=== PATIENT | female | born 1970 | race Caucasian/White ===

== ENCOUNTER 2018-11-11 19:04 | Inpatient (IN) ==
--- NOTE | 2018-11-11 19:58 | Internal Med History&Physical ---
Medical - H&P: HPI Patient information: Note initiated : 11/11/18 at 7:56 pm Service Date, if different from initiated Date: [] Patient: Delores Jones a 48 y/o F admitted on for hypoxic respiratory failure;hypertensive emergency. Chief Complaint: [] History of present illness: Ms. Jones is a 48 year old F who presents to [facility] for hypoxia. She is found to have sats in the low 80s. She was started on oxygen about a week ago. She also has a history of CHF and diabetes with gastroparesis and uncontrolled hypertension. She has been missing some of her meds because of cost. She does not have insurance at this time and has been trying to pay for her medications out of pocket. In the ED at [facility] she had a chest x-ray which showed pulmonary edema although her past x-rays that showed pulmonary edema as well. ABG showed hypoxia CO2 was 40 and pH was within normal limits. She also was hypertensive at 219/101. Case was discussed with Dr. Amaya and because [facility] currently does not have hemodialysis availability patient was requested and transferred over to [facility]. Patient states that she went into see her primary care provider on for routine visit and primary care provider noticed that she had labored breathing took her pulse and it was in the 80s. Low 80s. She sent over to the ER where she was evaluated she had a chest x-ray done which as best I can gather may be showed some edema but was not significant. She is supposed to get oxygen the but had not arrived. she presented back to the ED today because of severe labored breathing socks measured 80 per . In the ED she had chest x-ray which showed increased pulmonary edema. Patient denies recent illnesses and does not have a cough. Denies headache. Patient has had a hard time with medication because of cost and lack of insurance and has not been taking some and is been taking extra clonidine. Patient reports gives her 0.6 mg grams of clonidine almost every 2 hours. states her blood pressure runs about 190 at home occasionally will get down to 175. She did have renal artery angiogram in 2016 which was unremarkable by Dr. Gorman. She also reports some swelling in her legs this week as well. She is to have swelling in her legs prior to hemodialysis but the swelling had improved once hemodialysis started. However she has noticed it this week. Review of Systems: Pertinent positives as above. Denies headache/fever/chills/nausea/vomiting/c hest or abdominal pain/cough/diarrhea. Remaining 10 point review of system reviewed negative Medical - H&P: PMH Medical history: Medical History Diabetes with gastroparesis and retinopathy Hypertension uncontrolled Diastolic heart failure End-stage renal disease with dialysis Monday follows with Dr. Amaya Anemia of chronic disease Did have angiography of the renal arteries Dr. Gorman 2005 which was unremarkable GERD Past Surgical History History of surgery (Chronic 07/27/16) History of tubal ligation (Chronic 06/26/99) Cholecystectomy Appendectomy Left upper extremity AV fistula Family History Sister Diabetes mellitus She was adopted and does not know her parents history Social History Quit smoking in 2018 Denies alcohol use Is marijuana Medical - H&P: Meds Home Medications Medication Instructions Recorded Confirmed Type amlodipine 10 mg tablet 10 mg PO QDAY 10/18/16 10/18/16 History atorvastatin 10 mg tablet 10 mg PO QDAY 10/18/16 10/18/16 History blood sugar diagnostic strips See Dose Instructions .ROUTE 10/18/16 10/18/16 History .MEDSUPPLY carvedilol 12.5 mg tablet 12.5 mg PO QDAY tab 10/18/16 10/18/16 History insulin U- 100 regular human 100 See Rx Instructions SUB-Q .COMPLEX 10/18/16 10/18/16 History unit/mL injection solution insulin glargine (U- 100) 100 50 unit SUB-Q .COMPLEX ml 10/18/16 10/18/16 History unit/mL subcutaneous solution metoclopramide 5 mg tablet 10 mg PO QID tab 10/18/16 10/18/16 History sertraline 25 mg tablet 25 mg PO QDAY 10/18/16 10/18/16 History torsemide 20 mg tablet 20 mg PO QDAY 10/18/16 10/18/16 History vitamin B complex PO QDAY 10/18/16 10/18/16 History Allergies Allergy/AdvReac Type Severity Reaction Status Date / Time aspirin Allergy Unknown Swelling Verified 11/11/18 20:27 wild game AdvReac Uncoded 11/11/18 20:28 Medical - H&P: Exam - Constitutional Exam: General: Alert, Awake, No acute Distress Eyes/N/T: EOMI, PEERL, DMM Head/Neck: neck supple, normocephalic atraumatic, JVD CV: RRR, 3/6 SM Pulm: Bilateral rales, no wheezing Abd: soft, nontender, +BS x4 Ext: no clubbing/cyanosis, 1+ b/l LE edema Neuro: Alert, no focal deficits, moves all extremities, CN 2-12 grossly intact, symmetrical strength b/l upper/lower, sensations intact b/l upper/lower Skin: warm/dry Medical - H&P: Reslt - Impressions Chest x-ray was reported to be as showing pulmonary edema, I do not have the images or the actual report Medical - H&P: A/P - Narrative A/P Narrative: A: *Acute on chronic hypoxic respiratory failure: *Pulmonary edema: *acute on chronic diastolic CHF: *Hypertensive urgency (h/o uncontrolled HTN 2/2 medication noncompliance from lack of insurance and cost of coverage): -Had renal artery angiography in [address] Gorman which showed no YASMIN *ESRD: Follows with Dr. Amaya *Diabetes with gastroparesis: *Anemia of CD: *GERD * P: -HD per Jose Luis -restart home BP meds; prn clonidine and hydralazine -echo -cont home diuretics -clarify home meds -insulin and SSI - -ppx: heparin/home h2
[2018-11-11] MEDS ORDERED: IPRATROPIUM/ALBUTEROL 3 ML AMPUL.NEB NEB PRN (20:06)
[2018-11-11] MEDS ORDERED: NITROGLYCERIN 1 GM OINT.TOP TD ONE (20:06)
[2018-11-11] MEDS ORDERED: ACETAMINOPHEN 325 MG TABLET PO PRN (20:06)
[2018-11-11] MEDS ORDERED: PROMETHAZINE 25 MG TABLET PO PRN (20:06)
[2018-11-11] MEDS ORDERED: LACTULOSE 20 GM/30 ML ORAL.SOL PO PRN (20:06)
[2018-11-11] MEDS ORDERED: POLYETHYLENE GLYCOL 3350 17 GM PACKET PO PRN (20:06)
[2018-11-11] MEDS ORDERED: DEXTROSE 50% 50 ML VIAL IV PRN (20:06)
[2018-11-11] MEDS ORDERED: DEXTROSE 31 GM ORAL.SUSP PO PRN (20:06)
[2018-11-11] MEDS: hydrALAZINE 20 MG/ML VIAL IV PRN (20:46)
[2018-11-11] MEDS ORDERED: SENNOSIDES 1 TABLET PO PRN (21:00)
[2018-11-11] MEDS: INSULIN LISPRO 1 UNIT/0.01 ML UNIT SQ SCH (21:41)
[2018-11-11] MEDS: 0.9 % SODIUM CHLORIDE 10 ML SYRINGE IV SCH (21:42)
[2018-11-11] MEDS: HEPARIN 5,000 UNIT/ML VIAL SQ SCH (22:00)
[2018-11-11] MEDS: DOCUSATE SODIUM 100 MG CAPSULE PO SCH (22:00)
[2018-11-11] MEDS: cloNIDine HCL 0.1 MG TABLET PO PRN (22:00)
[2018-11-11] MEDS: FAMOTIDINE 20 MG TABLET PO SCH (22:00)
[2018-11-11] MEDS ORDERED: LORazepam 2 MG/ML VIAL IV PRN (22:19)
[2018-11-11] MEDS ORDERED: LORazepam 2 MG/ML VIAL ONE (22:37)
[2018-11-12] MEDS: cloNIDine HCL 0.1 MG TABLET PO PRN ×2 (00:45→19:43)
[2018-11-12] MEDS: hydrALAZINE 20 MG/ML VIAL IV PRN ×6 (01:20→23:56)
[2018-11-12] MEDS ORDERED: MAGNESIUM SULFATE 8.12 MEQ in DEXTROSE 5% IN WATER 50 ML IV ONE (01:55)
[2018-11-12 02:43] LABS: Basophils # (Auto) 0 K/mcL (0.0-0.3); Basophils % (Auto) 0.1 % (0.0-2.0); Eosinophils # (Auto) 1.1 K/mcL (0.0-0.7); Granulocytes % (Auto) 68.8 % (38.0-78.0); Lymphocytes # (Auto) 1.3 K/mcL (1.5-4.8); Lymphocytes % (Auto) 13.3 % (15.5-49.0); Mean Cell Volume 80.4 fL (80.0-100.0); Mean Corpuscular HGB Conc 32.7 g/dL (31.0-36.0); Monocytes # (Auto) 0.7 K/mcL (0.1-0.9); Monocytes % (Auto) 6.8 % (1.0-12.0); Platelet Count 313 K/mcL (140-440); RBC 3.51 M/mcL (4.00-5.20); Red Cell Distribution Width 16.4 % (11.5-14.5)
[2018-11-12 03:10] LABS: ALT/SGPT 8 U/l (0-40); Albumin 3.5 gm/dL (3.2-5.2); Alkaline Phosphatase 126 U/L (39-117); Bilirubin,Direct < 0.2 mg/dL (0.0-0.3); Blood Urea Nitrogen 45 mg/dl (6-20); Gamma Glutamyl Transpeptidase 40 U/L (5-36); Uric Acid 4.6 mg/dL (2.5-8.0)
[2018-11-12] MEDS: 0.9 % SODIUM CHLORIDE 10 ML SYRINGE IV SCH ×3 (05:45→21:18)
[2018-11-12 06:46] LABS: Hemoglobin A1C 7.2 % HGB (4.0-6.0)
[2018-11-12] MEDS: METOCLOPRAMIDE 10 MG TABLET PO SCH ×4 (06:55→21:12)
--- NOTE | 2018-11-12 07:27 | Internal Med Progress Note ---
Medical - PN: Subj Patient information: Note initiated : 11/12/18 at 7:21 am Service Date, if different from initiated Date: [] Patient: Delores Jones 48 y/o F admitted on 11/11/18 for hypoxic respiratory failure;hypertensive emergency. Chief Complaint: [] Interval history: Ms. Jones is a 48 year old F who presents to [facility] for hypoxia. She is found to have sats in the low 80s. She was started on oxygen about a week ago. She also has a history of CHF and diabetes with gastroparesis and uncontrolled hypertension. She has been missing some of her meds because of cost. She does not have insurance at this time and has been trying to pay for her medications out of pocket. In the ED at [facility] she had a chest x-ray which showed pulmonary edema although her past x-rays that showed pulmonary edema as well. ABG showed hypoxia CO2 was 40 and pH was within normal limits. She also was hypertensive at 219/101. Case was discussed with Dr. Amaya and because [facility] currently does not have hemodialysis availability patient was requested and transferred over to [facility]. Patient states that she went into see her primary care provider on for routine visit and primary care provider noticed that she had labored breathing took her pulse and it was in the 80s. Low 80s. She sent over to the ER where she was evaluated she had a chest x-ray done which as best I can gather may be showed some edema but was not significant. She is supposed to get oxygen the next day but had not arrived. she presented back to the ED today because of severe labored breathing socks measured 80 per . In the ED she had chest x-ray which showed increased pulmonary edema. Patient denies recent illnesses and does not have a cough. Denies headache. Patient has had a hard time with medication because of cost and lack of insurance and has not been taking some and is been taking extra clonidine. Patient reports gives her 0.6 mg grams of clonidine almost every 2 hours. states her blood pressure runs about 190 at home occasionally will get down to 175. She did have renal artery angiogram in 2016 which was unremarkable by Dr. Gorman. She also reports some swelling in her legs this week as well. She is to have swelling in her legs prior to hemodialysis but the swelling had improved once hemodialysis started. However she has noticed it this week. 11/12 Although tired, feeling much better. Denies any shortness of breath at rest. No new complaints overnight events. She was hemodialyzed last night with -3 L. Will receive dialysis today. Review of Systems: denies headache/fever/chills/nausea/vomiting/chest or abdominal pain/cough/diarrhea. Otherwise see above. - Constitutional Vitals: Vital Signs Temp Pulse Resp BP Pulse Ox 99.2 F H 61 19 189/77 90 11/12/18 04:01 11/12/18 07:01 11/12/18 07:01 11/12/18 07:01 11/12/18 07:03 Period Temp Pulse Resp BP Sys/Infante Pulse Ox Last 24 Hr 97.8 F-99.2 F 54-71 14-30 159-201/70-94 80-100 Intake and Output 11/11/18 11/12/18 11/12/18 21:59 05:59 13:59 Output Total 3025 Balance -3025 Weight 62.006 kg Intake & Output: Intake & Output 11/11/18 11/12/18 11/12/18 21:59 05:59 13:59 Output Total 3025 Balance -3025 Weight 62.006 kg Output: Void Amount 25 Hemodialysis UF 3000 Other: Nourishment/Supplement name sandwich and cheese stick Stool Size Moderate Stool Color Brown Stool Consistency Dry and Hard # Bowel Movements 1 Exam: General: Alert, Awake, No acute Distress Eyes/N/T: EOMI, Head/Neck: neck supple, CV: RRR, 3/6 SM Pulm: No rales today, no wheezing Abd: soft, nontender, +BS x4 Ext: no clubbing/cyanosis, mild b/l LE edema Neuro: Alert, no focal deficits, moves all extremities, Skin: warm/dry Medical - PN: Obj Da - Labs CBC & Chem 7: 11/12/18 01:55 11/12/18 01:55 Labs: Abnormal Lab Results 11/12/18 11/12/18 11/12/18 02:00 01:55 01:55 RBC 3.51 L Hgb 9.2 L Hct 28.2 L RDW 16.4 H Lymph % (Auto) 13.3 L Eos % (Auto) 11.0 H Lymph # (Auto) 1.3 L Eos # (Auto) 1.1 H Chloride 92 L BUN 45 H Creatinine 5.2 H* Glucose 308 H Hemoglobin A1c 7.2 H Calcium 8.2 L Phosphorus 6.0 H* GGT 40 H Alkaline Phosphatase 126 H Triglycerides 160 H Meds: Medications Acetaminophen (Tylenol) 650 mg PO Q6HP PRN PRN Reason: PAIN/FEVER > 101 Albuterol/Ipratropium (Duoneb) 3 ml NEB Q4HP PRN PRN Reason: Shortness Of Breath Amlodipine Besylate (Norvasc) 10 mg PO QDAY [facility] Atorvastatin Calcium (Lipitor) 10 mg PO QDAY [facility] Carvedilol (Coreg) 12.5 mg [facility] Last Admin: 11/12/18 06:55 Dose: 12.5 mg Documented by: Clonidine HCl (Catapres) 0.1 mg PO Q8HP PRN PRN Reason: Hypertension SBP>170 Last Admin: 11/12/18 00:45 Dose: 0.1 mg Documented by: Dextrose (Dextrose 50%) 0 ml IV UD PRN PRN Reason: Hypoglycemia Diagnostic Test (Pha) (Accu-Chek) 1 each FS [facility] Last Admin: 11/12/18 06:55 Dose: 1 each Documented by: Docusate Sodium (Colace) 100 mg PO BID [facility] Last Admin: 11/11/18 22:00 Dose: 100 mg Documented by: Famotidine (Pepcid) 20 mg PO HS [facility] Last Admin: 11/11/18 22:00 Dose: 20 mg Documented by: Glucose (Insta-Glucose) 15 gm PO PRN PRN PRN Reason: Hypoglycemia Heparin Sodium (Porcine) (Heparin) 5,000 unit SQ Q12 [facility] Last Admin: 11/11/18 22:00 Dose: 5,000 unit Documented by: Hydralazine HCl (Apresoline) 10 mg IV Q4-6HP PRN PRN Reason: Hypertension spb>170 Last Admin: 11/12/18 01:20 Dose: 10 mg Documented by: Insulin Glargine (Lantus) 50 unit SQ .COMPLEX [facility] Insulin Human Lispro (Humalog) 0 unit SQ [facility]; Protocol Last Admin: 11/11/18 21:41 Dose: 12 unit Documented by: Lactulose (Cephulac) 10 gm PO DAILYP PRN PRN Reason: Constipation Lorazepam (Ativan) 0.5 mg IV Q8HP PRN PRN Reason: ANXIETY/SEDATION Metoclopramide HCl (Reglan) 10 mg IV Q6HP PRN PRN Reason: Nausea And Vomiting Metoclopramide HCl (Reglan) 10 mg PO ACHS [facility] Last Admin: 11/12/18 06:55 Dose: 10 mg Documented by: Ondansetron HCl (Zofran) 4 mg IV Q4HP PRN PRN Reason: Nausea And Vomiting Polyethylene Glycol (Miralax) 17 gm PO DAILYP PRN PRN Reason: Constipation Promethazine HCl (Phenergan) 0 mg PO Q6HP PRN PRN Reason: Nausea And Vomiting Senna (Senokot) 2 tab PO HSP PRN PRN Reason: Constipation Sodium Chloride (Saline Flush) 10 ml IV Q8 [facility] Last Admin: 11/12/18 05:45 Dose: 10 ml Documented by: Medical - PN: A/P - Time Spent With Patient Total time spent is greater than 50% in coordination of care (as documented) at patient's floor/unit and/or counseling patient: - Narrative A/P Narrative: A: *Acute on chronic hypoxic respiratory failure: -was supposed to start on oxygen at home, but device did not arrive -on 4L NC when arrived, now down to 1L (had HD last night) -Improved overnight after dialysis with net negative balance of 3 L *Pulmonary edema: improved *acute on chronic diastolic CHF: -updated echo showing *Hypertensive urgency (h/o uncontrolled HTN 2/2 medication noncompliance from lack of insurance and cost of coverage): -Had renal artery angiography in [address] Gorman which showed no YASMIN -pt states SBP at home ~190 *ESRD: Follows with Dr. Amaya *Diabetes with gastroparesis: A1c 7.2 *Anemia of CD: *GERD * P: -HD per Jose Luis -restart home BP meds; prn clonidine and hydralazine, increase coreg -echo -cont home diuretics -clarify home meds -insulin and SSI - -ppx: SCD (refusing heparin)/home h2 Medical - PN: Qual - Stroke Symptom Onset Unknown: No - VTE Deep Vein Thrombosis/Pulmonary Embolism Present on Admission: No
[2018-11-12] MEDS: INSULIN LISPRO 1 UNIT/0.01 ML UNIT SQ SCH ×4 (07:46→21:09)
[2018-11-12] MEDS ORDERED: CARVEDILOL 12.5 MG TABLET PO SCH (08:00)
[2018-11-12] MEDS: DOCUSATE SODIUM 100 MG CAPSULE PO SCH ×2 (08:15→21:12)
[2018-11-12] MEDS: amLODIPine 10 MG TABLET PO SCH (08:15)
[2018-11-12] MEDS: HEPARIN 5,000 UNIT/ML VIAL SQ SCH ×2 (08:18→21:09)
[2018-11-12] MEDS: ATORVASTATIN 20 MG TABLET PO SCH (08:28)
--- NOTE | 2018-11-12 08:46 | XRay Report ---
CLINICAL INFORMATION: f/u edema COMPARISON: None. FINDINGS: The heart is moderately enlarged. Mediastinum is unremarkable. Pulmonary vessels are moderately distended and there is minimal interstitial edema throughout both lungs. Minimal patchy airspace disease noted in the left mid and right lower lung is more likely atelectasis than infiltrate or edema. Small bilateral pleural effusions noted. IMPRESSION: Mild/moderate CHF. Moderate disease in the left mid and right lung base - most likely atelectasis Interpreted and Authenticated by: Ovidio Gimenez 11/12/18
[2018-11-12] MEDS ORDERED: INSULIN GLARGINE, HUMAN 1 UNIT/0.01 ML SQ SCH (09:00)
[2018-11-12] MEDS ORDERED: CARVEDILOL 12.5 MG TABLET PO ONE (09:45)
--- NOTE | 2018-11-12 11:54 | Discharge Summary ---
Medical - DS: Prov Patient information: Note initiated : 11/12/18 at 11:51 am Service Date, if different from initiated Date: [] Patient: Delores Jones 48 y/o F admitted on 11/11/18 for hypoxic respiratory failure;hypertensive emergency. Chief Complaint: [] Date of admission: 11/11/18 19:58 Discharge date: 11/13/18 Primary care physician: Pauline Espana Consults: 11/11/18 20:06 Consult to Physician [CONS] Routine Comment: Consulting Provider: Teddy Amaya Reason For Exam: Physician to Consult Medical - DS: Meds - Discharge Medications Active and Home Medications: Home Medications amlodipine 10 mg tablet 10 mg PO QDAY 10/18/16 [History Confirmed 11/11/18 Last Taken 11/11/18 06:00] atorvastatin 10 mg tablet 10 mg PO QDAY 10/18/16 [History Confirmed 11/11/18 Last Taken Unknown] blood sugar diagnostic strips See Dose Instructions .ROUTE .MEDSUPPLY 10/18/16 [History Confirmed 11/11/18 Last Taken Unknown] carvedilol 12.5 mg tablet 25 mg PO BID tab 10/18/16 [History Confirmed 11/12/18 Last Taken 11/11/18 06:00] metoclopramide 5 mg tablet 10 mg PO QID tab 10/18/16 [History Confirmed 11/11/18 Last Taken 11/11/18 06:00] Basaglar Kwikpen U-100 25 unit SQ QAM 11/11/18 [History Confirmed 11/11/18 Last Taken 11/10/18 06:00] Lisinopril [Zestril] 40 mg PO DAILY 11/11/18 [History Confirmed 11/11/18 Last Taken 11/10/18 21:00] Minoxidil 5 mg PO BID 11/11/18 [History Confirmed 11/12/18 Last Taken Unknown] Novolog Flexpen See Protocol SQ ACHS 11/11/18 [History Confirmed 11/12/18 Last Taken 11/10/18 13:00] cloNIDine [Catapres-Tts 1] 0.3 mg TD WEEKLY 11/11/18 [History Confirmed 11/11/18 Last Taken 11/07/18 06:00] Medical - DS: Hosp Hospital course: Ms. Jones is a 48 year old F who presents to [facility] for hypoxia. She is found to have sats in the low 80s. She was started on oxygen about a week ago. She also has a history of CHF and diabetes with gastroparesis and uncontrolled hypertension. She has been missing some of her meds because of cost. She does not have insurance at this time and has been trying to pay for her medications out of pocket. In the ED at [facility] she had a chest x-ray which showed pulmonary edema although her past x-rays that showed pulmonary edema as well. ABG showed hypoxia CO2 was 40 and pH was within normal limits. She also was hypertensive at 219/101. Case was discussed with Dr. Amaya and because [facility] currently does not have hemodialysis availability patient was requested and transferred over to [facility]. Patient states that she went into see her primary care provider on for routine visit and primary care provider noticed that she had labored breathing took her pulse and it was in the 80s. Low 80s. She sent over to the ER where she was evaluated she had a chest x-ray done which as best I can gather may be showed some edema but was not significant. She is supposed to get oxygen the next day but had not arrived. she presented back to the ED today because of severe labored breathing socks measured 80 per . In the ED she had chest x-ray which showed increased pulmonary edema. Patient denies recent illnesses and does not have a cough. Denies headache. Patient has had a hard time with medication because of cost and lack of insurance and has not been taking some and is been taking extra clonidine. Patient reports gives her 0.6 mg grams of clonidine almost every 2 hours. states her blood pressure runs about 190 at home occasionally will get down to 175. She did have renal artery angiogram in 2016 which was unremarkable by Dr. Gorman. She also reports some swelling in her legs this week as well. She is to have swelling in her legs prior to hemodialysis but the swelling had improved once hemodialysis started. However she has noticed it this week. 11/12 Although tired, feeling much better. Denies any shortness of breath at rest. No new complaints overnight events. She was hemodialyzed last night with -3 L. Will receive dialysis today. Discharge diagnosis: Hypoxic respiratory failure pulmonary edema heart failure renal failure Secondary discharge diagnosis: Hypertensive urgency anemia chronic disease - Time Spent with Patient Total time spent providing and/or coordinating discharge services: Greater than 30 minutes Medical - DS: Exam - Constitutional Vitals: Vital Signs Temp Pulse Pulse Resp BP BP Pulse Ox 11/12/18 11:45 61 179/76 11/12/18 11:30 99.5 F H 62 179/70 11/12/18 11:15 62 184/75 11/12/18 11:00 63 174/74 11/12/18 10:45 63 178/79 11/12/18 10:30 61 183/74 11/12/18 10:15 61 179/75 11/12/18 10:00 99.3 F H 62 178/75 11/12/18 09:01 61 16 155/62 95 11/12/18 09:00 62 17 94 11/12/18 08:50 62 16 149/58 95 11/12/18 08:02 62 15 97 11/12/18 08:01 63 20 202/80 97 11/12/18 08:00 63 20 98 11/12/18 07:03 90 11/12/18 07:02 62 19 95 11/12/18 07:01 61 19 189/77 94 11/12/18 07:00 60 15 94 11/12/18 06:02 71 17 92 11/12/18 06:01 64 15 192/88 93 11/12/18 06:00 65 15 93 11/12/18 05:02 66 15 97 11/12/18 05:01 66 15 183/70 96 11/12/18 05:00 65 16 95 11/12/18 04:01 99.2 F H 61 20 178/76 93 11/12/18 04:00 61 17 87 L 11/12/18 03:31 62 16 174/81 95 11/12/18 03:01 61 16 170/80 95 11/12/18 03:00 59 L 96 11/12/18 02:31 59 L 16 172/73 97 11/12/18 02:01 60 18 159/94 96 11/12/18 02:00 95 11/12/18 01:46 60 16 164/70 96 11/12/18 01:31 59 L 17 179/75 95 11/12/18 01:16 60 19 193/78 94 11/12/18 01:01 98.4 F 60 19 186/86 95 11/12/18 01:00 60 14 94 11/12/18 00:46 57 L 14 194/85 96 11/12/18 00:40 98.3 F 54 L 171/82 11/12/18 00:31 55 L 15 172/81 99 11/12/18 00:29 54 L 15 171/82 98 11/12/18 00:16 54 L 17 169/78 100 11/12/18 00:02 98.5 F 55 L 163/82 11/12/18 00:01 55 L 15 163/82 98 11/12/18 00:00 55 L 15 99 11/11/18 23:46 56 L 16 177/79 99 11/11/18 23:43 98.5 F 56 L 177/79 11/11/18 23:31 58 L 14 167/78 97 11/11/18 23:30 58 L 16 177/79 97 11/11/18 23:27 98.4 F 58 L 177/79 11/11/18 23:16 59 L 17 188/78 95 11/11/18 23:13 59 L 18 178/77 96 11/11/18 23:11 97.8 F 60 178/77 11/11/18 23:05 99.2 F H 61 191/79 11/11/18 23:00 60 20 191/79 95 11/11/18 22:46 68 30 H 198/92 90 11/11/18 22:31 65 25 H 188/80 98 11/11/18 22:27 99.2 F H 65 196/84 11/11/18 22:16 66 25 H 196/84 94 11/11/18 22:01 64 27 H 187/76 97 11/11/18 22:00 65 25 H 93 11/11/18 21:46 64 20 191/76 93 11/11/18 21:31 64 18 186/84 92 11/11/18 21:16 64 24 H 194/80 94 11/11/18 21:01 64 22 186/80 94 11/11/18 21:00 64 25 H 94 11/11/18 20:46 64 20 201/81 94 11/11/18 20:31 64 20 194/85 95 11/11/18 20:16 63 18 197/81 92 11/11/18 20:14 99.1 F H 64 15 80 L 11/11/18 20:10 192/86 11/11/18 19:58 99.1 F H 64 18 197/81 81 L Intake and Output 11/11/18 11/12/18 11/12/18 21:59 05:59 13:59 Intake Total 120 Output Total 3025 Balance -3025 120 Intake: Oral 120 Output: Void Amount 25 Hemodialysis UF 3000 Other: Meal Breakfast Percent of Meal Consumed 100% Feeding Ability Assist with Tray Set Up Nourishment/Supplement name sandwich and cheese stick Stool Size Moderate Stool Color Brown Stool Consistency Dry and Hard # Bowel Movements 1 Weight 62.006 kg Medical - DS: Data Labs on day of discharge: Labs from last 24 hours 11/12/18 11/12/18 11/12/18 02:00 01:55 01:55 WBC 10.1 RBC 3.51 L Hgb 9.2 L Hct 28.2 L MCV 80.4 MCH 26.3 MCHC 32.7 RDW 16.4 H Plt Count 313 MPV 7.5 Gran % 68.8 Lymph % (Auto) 13.3 L [place] % (Auto) 6.8 Eos % (Auto) 11.0 H Baso % (Auto) 0.1 Gran # 6.9 Lymph # (Auto) 1.3 L [place] # (Auto) 0.7 Eos # (Auto) 1.1 H Baso # (Auto) 0 Sodium 133 Potassium 4.7 Chloride 92 L Carbon Dioxide 25 Anion Gap 16.0 BUN 45 H Creatinine 5.2 H* GFR Calculation 9 Glucose 308 H Hemoglobin A1c 7.2 H Estim Average Glucose 160 Uric Acid 4.6 Calcium 8.2 L Phosphorus 6.0 H* Magnesium 2.0 Total Bilirubin 0.5 Direct Bilirubin < 0.2 GGT 40 H AST 9 ALT 8 Alkaline Phosphatase 126 H Lactate Dehydrogenase 179 Total Protein 7.1 Albumin 3.5 Globulin 3.6 Albumin/Globulin Ratio 1.0 Triglycerides 160 H Medical - DS: A/P - Patient/Caregiver Discharge Instructions Activity: increase activity as tolerated Diet: Renal/Consistent Carbs - Follow up Plan Follow up with: Teddy Amaya MD [Physician] - Disposition: Home, Self-Care Prognosis: Fair Rehab Potential: Fair Overall status at discharge: patient is progressing back to baseline Medical - DS: Qual - VTE Deep Vein Thrombosis/Pulmonary Embolism Present on Admission: No
[2018-11-12] MEDS: ONDANSETRON 4 MG/2 ML VIAL IV PRN ×3 (14:23→19:31)
[2018-11-12] MEDS: METOCLOPRAMIDE 10 MG/2 ML VIAL IV PRN (16:41)
[2018-11-12] MEDS: CARVEDILOL 12.5 MG TABLET PO SCH (17:28)
[2018-11-12] MEDS ORDERED: LORazepam 2 MG/ML VIAL IV PRN ×2 (20:30→20:34)
[2018-11-12] MEDS ORDERED: diphenhydrAMINE 25 MG CAPSULE PO PRN (20:37)
[2018-11-12] MEDS ORDERED: diphenhydrAMINE 50 MG/ML VIAL IV ONE (20:37)
[2018-11-12] MEDS ORDERED: cloNIDine HCL 0.1 MG TABLET PO PRN (20:37)
[2018-11-12] MEDS ORDERED: MINOXIDIL 10 MG TABLET PO SCH (21:00)
--- NOTE | 2018-11-12 21:04 | Nephrology Progress Note ---
Subjective Patient information: Note initiated : 11/12/18 at 9:02 pm Service Date, if different from initiated Date: [] Patient: Delores Jones 48 y/o F admitted on 11/11/18 for hypoxic respiratory failure;hypertensive emergency. Chief Complaint: Breathing is better. BP is higher. Objective - Vital Signs Vital signs: Vital Signs Temp Pulse Resp BP Pulse Ox 11/12/18 18:31 75 19 187/84 96 11/12/18 18:01 77 16 191/88 98 11/12/18 17:16 70 18 184/92 98 11/12/18 17:01 73 21 200/92 98 11/12/18 16:42 70 19 199/89 91 11/12/18 15:01 67 14 161/91 95 11/12/18 14:04 67 17 87 L 11/12/18 14:01 66 17 184/76 88 L 11/12/18 14:00 65 17 90 11/12/18 13:54 64 15 199/82 98 11/12/18 13:50 64 199/82 11/12/18 13:46 67 18 211/84 96 11/12/18 13:45 98.7 F 66 211/84 11/12/18 13:43 72 16 217/88 96 11/12/18 13:31 63 20 132/121 98 11/12/18 13:30 75 217/88 11/12/18 13:16 64 15 183/97 98 11/12/18 13:15 64 183/97 11/12/18 13:01 62 15 182/79 97 11/12/18 13:00 64 182/79 96 11/12/18 12:46 60 18 179/75 96 11/12/18 12:45 62 179/75 11/12/18 12:31 60 17 166/74 97 11/12/18 12:30 61 166/74 11/12/18 12:16 61 17 167/76 95 11/12/18 12:15 62 167/76 11/12/18 12:01 67 17 189/96 96 11/12/18 12:00 66 189/96 11/12/18 11:46 60 16 179/76 100 11/12/18 11:45 61 179/76 11/12/18 11:31 60 19 179/70 97 11/12/18 11:30 99.5 F H 62 179/70 05/20/19 11:16 63 19 184/75 98 05/20/19 11:15 62 184/75 05/20/19 11:01 63 17 174/74 97 05/20/19 11:00 63 174/74 05/20/19 10:46 60 16 178/79 97 05/20/19 10:45 63 178/79 05/20/19 10:31 61 15 183/74 97 05/20/19 10:30 61 183/74 05/20/19 10:22 61 15 179/75 96 05/20/19 10:16 61 16 179/75 96 05/20/19 10:15 61 179/75 05/20/19 10:04 62 17 178/75 95 05/20/19 10:01 61 16 186/79 95 05/20/19 10:00 99.3 F H 62 178/75 05/20/ 09:01 61 16 155/62 95 05/20/19 09:00 62 17 94 0520/ 08:50 62 16 149/58 95 0520/19 08:02 62 15 97 0520/19 08:01 63 20 202/80 97 05/20/19 08:00 63 20 98 05/20/ 07:03 90 0520/ 07:02 62 19 95 05/20/19 07:01 61 19 189/77 94 05/20/19 07:00 60 15 94 05/20/19 06:02 71 17 92 05/20/19 06:01 64 15 192/88 93 05/20/19 06:00 65 15 93 05/20/ 05:02 66 15 97 05/20/19 05:01 66 15 183/70 96 05/20/19 05:00 65 16 95 05/20/19 04:01 99.2 F H 61 20 178/76 93 05/20/19 04:00 61 17 87 L 0520/ 03:31 62 16 174/81 95 05/20/19 03:01 61 16 170/80 95 05/20/19 03:00 59 L 96 0520/19 02:31 59 L 16 172/73 97 05/20/19 02:01 60 18 159/94 96 0520/ 02:00 95 05/20/19 01:46 60 16 164/70 96 11/12/18 01:31 59 L 17 179/75 95 11/12/18 01:16 60 19 193/78 94 11/12/18 01:01 98.4 F 60 19 186/86 95 11/12/18 01:00 60 14 94 11/12/18 00:46 57 L 14 194/85 96 11/12/18 00:40 98.3 F 54 L 171/82 11/12/18 00:31 55 L 15 172/81 99 11/12/18 00:29 54 L 15 171/82 98 11/12/18 00:16 54 L 17 169/78 100 11/12/18 00:02 98.5 F 55 L 163/82 11/12/18 00:01 55 L 15 163/82 98 11/12/18 00:00 55 L 15 99 11/11/18 23:46 56 L 16 177/79 99 11/11/18 23:43 98.5 F 56 L 177/79 11/11/18 23:31 58 L 14 167/78 97 11/11/18 23:30 58 L 16 177/79 97 11/11/18 23:27 98.4 F 58 L 177/79 11/11/18 23:16 59 L 17 188/78 95 11/11/18 23:13 59 L 18 178/77 96 11/11/18 23:11 97.8 F 60 178/77 11/11/18 23:05 99.2 F H 61 191/79 11/11/18 23:00 60 20 191/79 95 11/11/18 22:46 68 30 H 198/92 90 11/11/18 22:31 65 25 H 188/80 98 11/11/18 22:27 99.2 F H 65 196/84 11/11/18 22:16 66 25 H 196/84 94 11/11/18 22:01 64 27 H 187/76 97 11/11/18 22:00 65 25 H 93 11/11/18 21:46 64 20 191/76 93 11/11/18 21:31 64 18 186/84 92 11/11/18 21:16 64 24 H 194/80 94 Intake and Output 11/12/18 11/12/18 11/12/18 05:59 13:59 21:59 Intake Total 120 Output Total 3025 3000 Balance -2052 -7343 Intake: Oral 120 Output: Void Amount 25 Hemodialysis UF 3000 3000 Other: Meal Breakfast Percent of Meal Consumed 100% Feeding Ability Assist with Tray Set Up Nourishment/Supplement name sandwich and cheese stick Stool Size Moderate Stool Color Brown Stool Consistency Dry and Hard # Unmeasured Emesis 3 # Bowel Movements 1 Intake & Output: Intake & Output 11/12/18 11/12/18 11/12/18 05:59 13:59 21:59 Intake Total 120 Output Total 3025 3000 Balance -6835 -3746 Intake: Oral 120 Output: Void Amount 25 Hemodialysis UF 3000 3000 Other: Meal Breakfast Percent of Meal Consumed 100% Feeding Ability Assist with Tray Set Up Nourishment/Supplement name sandwich and cheese stick Stool Size Moderate Stool Color Brown Stool Consistency Dry and Hard # Unmeasured Emesis 3 # Bowel Movements 1 - General Appearance General appearance: cachectic EENT: ATNC Neck: JVD Respiratory: clear Cardiology: no murmurs Gastrointestinal: normoactive bowel sounds Neurologic: no focal deficit Musculoskeletal: no deformities - Lab 11/12/18 01:55 11/12/18 01:55 Most recent lab results Calcium 8.2 mg/dl (8.6-10.4) L 11/12/18 01:55 Phosphorus 6.0 mg/dL (2.7-4.5) H* 11/12/18 01:55 Magnesium 2.0 mg/dL (1.6-2.5) 11/12/18 01:55 Assessment and Plan (1) End stage chronic kidney disease Status: Acute Comment: She had fluid removal yesterday and today. BP is better and she feels better. Will try for some more fluid removal tomorrow.
[2018-11-12] MEDS: LISINOPRIL 20 MG TABLET PO SCH (21:11)
[2018-11-12] MEDS: FAMOTIDINE 20 MG TABLET PO SCH (21:12)
[2018-11-12] MEDS: LABETALOL 5 MG/ML ML IV PRN (22:43)
[2018-11-13] MEDS: cloNIDine HCL 0.1 MG TABLET PO PRN ×2 (00:45→06:05)
[2018-11-13] MEDS: LABETALOL 5 MG/ML ML IV PRN ×5 (00:45→23:02)
[2018-11-13] MEDS: ONDANSETRON 4 MG/2 ML VIAL IV PRN ×3 (00:52→17:54)
[2018-11-13] MEDS: hydrALAZINE 20 MG/ML VIAL IV PRN (03:38)
[2018-11-13] MEDS: 0.9 % SODIUM CHLORIDE 10 ML SYRINGE IV SCH ×3 (05:56→22:56)
[2018-11-13 06:15] LABS: Blood Urea Nitrogen 22 mg/dl (6-20)
[2018-11-13] MEDS: CARVEDILOL 12.5 MG TABLET PO SCH ×2 (07:34→16:55)
[2018-11-13] MEDS: METOCLOPRAMIDE 10 MG TABLET PO SCH ×4 (07:34→20:34)
--- NOTE | 2018-11-13 07:37 | Internal Med Progress Note ---
Medical - PN: Subj Patient information: Note initiated : 11/13/18 at 7:30 am Service Date, if different from initiated Date: [] Patient: Delores Jones 48 y/o F admitted on 11/11/18 for hypoxic respiratory failure;hypertensive emergency. Chief Complaint: [] Interval history: Ms. Jones is a 48 year old F who presents to [facility] for hypoxia. She is found to have sats in the low 80s. She was started on oxygen about a week ago. She also has a history of CHF and diabetes with gastroparesis and uncontrolled hypertension. She has been missing some of her meds because of cost. She does not have insurance at this time and has been trying to pay for her medications out of pocket. In the ED at [facility] she had a chest x-ray which showed pulmonary edema although her past x-rays that showed pulmonary edema as well. ABG showed hypoxia CO2 was 40 and pH was within normal limits. She also was hypertensive at 219/101. Case was discussed with Dr. Amaya and because [facility] currently does not have hemodialysis availability patient was requested and transferred over to [facility]. Patient states that she went into see her primary care provider on for routine visit and primary care provider noticed that she had labored breathing took her pulse and it was in the 80s. Low 80s. She sent over to the ER where she was evaluated she had a chest x-ray done which as best I can gather may be showed some edema but was not significant. She is supposed to get oxygen the next day but had not arrived. she presented back to the ED today because of severe labored breathing socks measured 80 per . In the ED she had chest x-ray which showed increased pulmonary edema. Patient denies recent illnesses and does not have a cough. Denies headache. Patient has had a hard time with medication because of cost and lack of insurance and has not been taking some and is been taking extra clonidine. Patient reports gives her 0.6 mg grams of clonidine almost every 2 hours. states her blood pressure runs about 190 at home occasionally will get down to 175. She did have renal artery angiogram in 2016 which was unremark[address] by Dr. Gorman. She also reports some swelling in her legs this week as well. She is to have swelling in her legs prior to hemodialysis but the swelling had improved once hemodialysis started. However she has noticed it this week. 11/12 Although tired, feeling much better. Denies any shortness of breath at rest. No new complaints overnight events. She was hemodialyzed last night with -3 L. Will receive dialysis today. 11/13 Poor sleep, had some nausea vomiting overnight. Able to tolerate a little bit of her meal this morning. Blood pressure still labile, clarifying medications. Review of Systems: denies headache/fever/chills/chest or abdominal pain/cough/diarrhea. Otherwise see above. - Constitutional Vitals: Vital Signs Temp Pulse Resp BP Pulse Ox 99.7 F H 77 14 144/70 100 11/13/18 04:01 11/13/18 06:32 11/13/18 07:01 11/13/18 07:01 11/13/18 06:37 Period Temp Pulse Resp BP Sys/Infante Pulse Ox Last 24 Hr 98.6 F-100.9 F 60-90 14-28 132-231/58-121 87-100 Intake and Output 11/12/18 11/13/18 11/13/18 21:59 05:59 13:59 Intake Total 200 Output Total 400 100 Balance -400 100 Weight 57.289 kg Patient Weight 11/14/18 05:59 Weight 57.289 kg Intake & Output: Intake & Output 11/12/18 11/13/18 11/13/18 21:59 05:59 13:59 Intake Total 200 Output Total 400 100 Balance -400 100 Weight 57.289 kg Intake: Oral 200 Output: Emesis 400 100 Other: Stool Size Moderate Stool Color Brown Stool Consistency Dry and Hard # Unmeasured Emesis 3 # Emeses 8 4 Exam: General: Alert, Awake, No acute Distress Eyes/N/T: EOMI, Head/Neck: neck supple, CV: RRR, 3/6 SM Pulm: No rales today, no wheezing Abd: soft, nontender, +BS x4 Ext: no clubbing/cyanosis, mild b/l LE edema improved Neuro: Alert, no focal deficits, moves all extremities, Skin: warm/dry Medical - PN: Obj Da - Labs CBC & Chem 7: 11/12/18 01:55 11/13/18 03:35 Labs: Abnormal Lab Results 11/13/18 11/12/18 11/12/18 03:35 02:00 01:55 RBC 3.51 L Hgb 9.2 L Hct 28.2 L RDW 16.4 H Lymph % (Auto) 13.3 L Eos % (Auto) 11.0 H Lymph # (Auto) 1.3 L Eos # (Auto) 1.1 H Chloride 91 L Anion Gap 21.0 H BUN 22 H Creatinine 3.5 H Glucose 222 H Hemoglobin A1c 7.2 H Calcium Phosphorus GGT Alkaline Phosphatase Triglycerides 11/12/18 01:55 RBC Hgb Hct RDW Lymph % (Auto) Eos % (Auto) Lymph # (Auto) Eos # (Auto) Chloride 92 L Anion Gap BUN 45 H Creatinine 5.2 H* Glucose 308 H Hemoglobin A1c Calcium 8.2 L Phosphorus 6.0 H* GGT 40 H Alkaline Phosphatase 126 H Triglycerides 160 H Meds: Medications Acetaminophen (Tylenol) 650 mg PO Q6HP PRN PRN Reason: PAIN/FEVER > 101 Last Admin: 11/12/18 14:28 Dose: 650 mg Documented by: Albuterol/Ipratropium (Duoneb) 3 ml NEB Q4HP PRN PRN Reason: Shortness Of Breath Amlodipine Besylate (Norvasc) 10 mg PO QDAY [facility] Last Admin: 11/12/18 08:15 Dose: 10 mg Documented by: Atorvastatin Calcium (Lipitor) 10 mg PO QDAY [facility] Last Admin: 11/12/18 08:28 Dose: 10 mg Documented by: [facility] ([facility]g) [facility] Last Admin: 11/12/18 17:28 Dose: 25 mg Documented by: Clonidine HCl (Catapres Tts 3) 1 patch TD We@1000 [facility] Clonidine HCl (Catapres) 0.2 mg PO Q4HP PRN PRN Reason: Hypertension SBP>170 Last Admin: 11/13/18 06:05 Dose: 0.2 mg Documented by: Dextrose (Dextrose 50%) 0 ml IV UD PRN PRN Reason: Hypoglycemia Diagnostic Test (Pha) (Accu-Chek) 1 each FS ACHS [facility] Last Admin: 11/12/18 21:08 Dose: 1 each Documented by: Diphenhydramine HCl (Benadryl) 25 mg PO Q4-6HP PRN PRN Reason: Itching Docusate Sodium (Colace) 100 mg PO BID [facility] Last Admin: 11/12/18 21:12 Dose: 100 mg Documented by: Famotidine (Pepcid) 20 mg PO [facility] Last Admin: 11/12/18 21:12 Dose: 20 mg Documented by: Glucose (Insta-Glucose) 15 gm PO PRN PRN PRN Reason: Hypoglycemia Heparin Sodium (Porcine) (Heparin) 5,000 unit SQ Q12 [facility] Last Admin: 11/12/18 21:09 Dose: Not Given Documented by: Hydralazine HCl (Apresoline) 0 mg IV Q2HP PRN PRN Reason: Hypertension spb>170 Last Admin: 11/13/18 03:38 Dose: 10 mg Documented by: Insulin Glargine (Lantus) 25 unit SQ DAILY [facility] Last Admin: 11/12/18 09:06 Dose: 25 units Documented by: Insulin Human Lispro (Humalog) 0 unit SQ [facility]; Protocol Last Admin: 11/12/18 21:09 Dose: 6 unit Documented by: Labetalol HCl (Trandate) 0 mg IV Q2HP PRN PRN Reason: htn Last Admin: 11/13/18 05:55 Dose: 20 mg Documented by: Lactulose (Cephulac) 10 gm PO DAILYP PRN PRN Reason: Constipation Lisinopril (Zestril) 40 mg PO DAILY [facility] Last Admin: 11/12/18 21:11 Dose: 40 mg Documented by: Lorazepam (Ativan) 0.5 - 1 mg IV Q8HP PRN PRN Reason: ANXIETY/SEDATION Last Admin: 11/13/18 00:48 Dose: 0.5 mg Documented by: Metoclopramide HCl (Reglan) 10 mg IV Q6HP PRN PRN Reason: Nausea And Vomiting Last Admin: 11/12/18 16:41 Dose: 10 mg Documented by: Metoclopramide HCl (Reglan) 10 mg PO [facility] Last Admin: 11/12/18 21:12 Dose: 10 mg Documented by: Minoxidil (Minoxidil) 5 mg PO BID [facility] Ondansetron HCl (Zofran) 4 mg IV Q4HP PRN PRN Reason: Nausea And Vomiting Last Admin: 11/13/18 05:55 Dose: 4 mg Documented by: Polyethylene Glycol (Miralax) 17 gm PO DAILYP PRN PRN Reason: Constipation Promethazine HCl (Phenergan) 0 mg PO Q6HP PRN PRN Reason: Nausea And Vomiting Last Admin: 11/12/18 21:50 Dose: 25 mg Documented by: Senna (Senokot) 2 tab PO HSP PRN PRN Reason: Constipation Sodium Chloride (Saline Flush) 10 ml IV Q8 [facility] Last Admin: 11/13/18 05:56 Dose: 10 ml Documented by: Medical - PN: A/P - Time Spent With Patient Total time spent is greater than 50% in coordination of care (as documented) at patient's floor/unit and/or counseling patient: - Narrative A/P Narrative: A: *Acute on chronic hypoxic respiratory failure: -was supposed to start on oxygen at home, but device did not arrive -on 4L NC when arrived, now down to 1L (had HD last night) -Improved overnight after dialysis with net negative balance of 3 L *Pulmonary edema: improved *acute on chronic diastolic CHF: -updated echo showing *Hypertensive urgency (h/o uncontrolled HTN 2/2 medication noncompliance from lack of insurance and cost of coverage): -Had renal artery angiography in [address] Gorman which showed no YASMIN -pt states SBP at home ~190 -difficult to control *ESRD: Follows with Dr. Amaya *Diabetes with gastroparesis: A1c 7.2 *Anemia of CD: *GERD * P: -Nephro following, Dr. Amaya -restarted home BP meds (Clonidine patch, minoxidil, norvasc, lisinopril, coreg); prn clonidine and hydralazine, -d/w nephro regarding BP, who may change minoxidil dose post HD depending on BP -echo -?clarify meds, updated last night, -insulin(increase)and SSI - -ppx: SCD (refusing heparin)/home h2 Medical - PN: Qual - Stroke Symptom Onset Unknown: No - VTE Deep Vein Thrombosis/Pulmonary Embolism Present on Admission: No
[2018-11-13] MEDS: INSULIN LISPRO 1 UNIT/0.01 ML UNIT SQ SCH ×5 (07:55→22:55)
--- NOTE | 2018-11-13 08:55 | Nephrology Progress Note ---
Subjective Patient information: Note initiated : 11/13/18 at 8:52 am Service Date, if different from initiated Date: [] Patient: Delores Jones 48 y/o F admitted on 11/11/18 for hypoxic respiratory failure;hypertensive emergency. Chief Complaint: Breathing is better. BP is still high. Objective - Vital Signs Vital signs: Vital Signs Temp Pulse Resp BP Pulse Ox 11/13/18 08:01 13 171/117 11/13/18 08:00 15 11/13/18 07:02 15 11/13/18 07:01 14 144/70 11/13/18 07:00 14 11/13/18 06:37 100 11/13/18 06:32 77 18 95 11/13/18 06:31 74 28 H 173/80 96 11/13/18 06:02 87 27 H 93 11/13/18 06:01 86 24 H 207/92 92 11/13/18 06:00 88 18 93 11/13/18 05:31 17 188/86 11/13/18 05:01 80 15 173/79 99 11/13/18 04:31 81 17 171/78 99 11/13/18 04:01 99.7 F H 80 19 165/74 92 11/13/18 03:31 15 173/85 11/13/18 03:01 18 172/82 11/13/18 02:31 21 185/84 11/13/18 02:01 15 177/80 11/13/18 01:31 80 18 177/81 95 11/13/18 01:01 90 18 202/95 99 11/13/18 00:31 88 24 H 201/88 94 11/13/18 00:01 100.9 F H 80 19 194/88 96 11/13/18 00:00 81 19 95 11/12/18 23:31 78 18 191/100 97 11/12/18 23:02 77 18 95 11/12/18 23:01 77 17 182/84 95 11/12/18 22:31 87 20 195/96 95 11/12/18 22:01 86 18 198/92 94 11/12/18 22:00 87 17 93 11/12/18 21:31 83 18 185/83 94 11/12/18 21:01 86 16 211/89 96 11/12/18 21:00 87 16 96 05/20/19 20:31 80 17 199/87 95 05/20/19 20:01 78 15 204/84 97 05/20/19 20:00 80 16 95 05/20/19 19:40 84 18 208/90 97 05/20/19 19:31 98.6 F 88 15 231/106 97 0520/19 19:01 73 19 164/66 98 05/20/19 18:32 75 23 H 98 05/19 18:31 75 19 187/84 96 0520/19 18:01 77 16 191/88 98 0520/19 17:16 70 18 184/92 98 0520/19 17:01 73 21 200/92 98 0520/ 16:42 70 19 199/89 91 05/ 15:01 67 14 161/91 95 05/ 14:04 67 17 87 L 11/12/18 14:01 66 17 184/76 88 L 11/12/18 14:00 65 17 90 05 13:54 64 15 199/82 98 05 13:50 64 199/82 05/ 13:46 67 18 211/84 96 05/ 13:45 98.7 F 66 211/84 05 13:43 72 16 217/88 96 05 13:31 63 20 132/121 98 05/ 13:30 75 217/88 05/ 13:16 64 15 183/97 98 05/20/19 13:15 64 183/97 0520/ 13:01 62 15 182/79 97 05/ 13:00 64 182/79 96 0520/19 12:46 60 18 179/75 96 05/20/19 12:45 62 179/75 05/20/19 12:31 60 17 166/74 97 05/20/19 12:30 61 166/74 05/20/ 12:16 61 17 167/76 95 05/20/19 12:15 62 167/76 05/20/19 12:01 67 17 189/96 96 05/20/19 12:00 66 189/96 05/20/19 11:46 60 16 179/76 100 05/20/19 11:45 61 179/76 05/20/19 11:31 60 19 179/70 97 11/12/18 11:30 99.5 F H 62 179/70 11/12/18 11:16 63 19 184/75 98 11/12/18 11:15 62 184/75 11/12/18 11:01 63 17 174/74 97 11/12/18 11:00 63 174/74 11/12/18 10:46 60 16 178/79 97 11/12/18 10:45 63 178/79 11/12/18 10:31 61 15 183/74 97 11/12/18 10:30 61 183/74 11/12/18 10:22 61 15 179/75 96 11/12/18 10:16 61 16 179/75 96 11/12/18 10:15 61 179/75 11/12/18 10:04 62 17 178/75 95 11/12/18 10:01 61 16 186/79 95 11/12/18 10:00 99.3 F H 62 178/75 11/12/18 09:01 61 16 155/62 95 11/12/18 09:00 62 17 94 Intake and Output 11/12/18 11/13/18 11/13/18 21:59 05:59 13:59 Intake Total 200 120 Output Total 400 100 Balance -400 100 120 Intake: Oral 200 120 Output: Emesis 400 100 Other: Meal Breakfast Percent of Meal Consumed 100% Feeding Ability Assist with Tray Set Up Stool Size Moderate Stool Color Brown Stool Consistency Dry and Hard # Unmeasured Emesis 3 # Emeses 8 4 Weight 126 lb 4.8 oz Patient Weight 11/14/18 05:59 Weight 126 lb 4.8 oz Intake & Output: Intake & Output 11/12/18 11/13/18 11/13/18 21:59 05:59 13:59 Intake Total 200 120 Output Total 400 100 Balance -400 100 120 Weight 126 lb 4.8 oz Intake: Oral 200 120 Output: Emesis 400 100 Other: Meal Breakfast Percent of Meal Consumed 100% Feeding Ability Assist with Tray Set Up Stool Size Moderate Stool Color Brown Stool Consistency Dry and Hard # Unmeasured Emesis 3 # Emeses 8 4 - General Appearance General appearance: cachectic EENT: ATNC Neck: JVD Respiratory: no kyphosis Cardiology: holosystolic murmur Gastrointestinal: no tenderness - Lab 11/12/18 01:55 11/13/18 03:35 Most recent lab results Calcium 9.1 mg/dl (8.6-10.4) 11/13/18 03:35 Phosphorus 6.0 mg/dL (2.7-4.5) H* 11/12/18 01:55 Magnesium 2.0 mg/dL (1.6-2.5) 11/12/18 01:55 Assessment and Plan (1) End stage chronic kidney disease Status: Acute Comment: She had fluid removal yesterday and today. BP is better but still high. Will try for some more fluid removal today. If bp is still high post dialysis will give additional minoxidil.
[2018-11-13] MEDS ORDERED: INSULIN GLARGINE, HUMAN 1 UNIT/0.01 ML SQ SCH (09:00)
[2018-11-13] MEDS: amLODIPine 10 MG TABLET PO SCH (09:27)
[2018-11-13] MEDS: MINOXIDIL 2.5 MG TABLET PO SCH ×2 (09:27→21:00)
[2018-11-13] MEDS: LISINOPRIL 20 MG TABLET PO SCH (09:27)
[2018-11-13] MEDS: DOCUSATE SODIUM 100 MG CAPSULE PO SCH ×2 (09:27→20:34)
[2018-11-13] MEDS: HEPARIN 5,000 UNIT/ML VIAL SQ SCH ×2 (09:32→20:58)
[2018-11-13] MEDS: ATORVASTATIN 20 MG TABLET PO SCH (09:39)
[2018-11-13] MEDS: METOCLOPRAMIDE 10 MG/2 ML VIAL IV PRN ×2 (11:14→11:22)
[2018-11-13] MEDS: FAMOTIDINE 20 MG TABLET PO SCH (20:35)
[2018-11-13] MEDS ORDERED: INSULIN REGULAR, HUMAN 1 UNIT/0.01 ML UNIT IV ONE (23:30)
[2018-11-13] MEDS ORDERED: INSULIN REGULAR, HUMAN 1 UNIT/0.01 ML UNIT ONE (23:42)
[2018-11-14] MEDS ORDERED: POLYETHYLENE GLYCOL 3350 17 GM PACKET PO PRN (00:24)
[2018-11-14] MEDS ORDERED: DEXTROSE 31 GM ORAL.SUSP PO PRN (00:24)
[2018-11-14] MEDS ORDERED: diphenhydrAMINE 25 MG CAPSULE PO PRN (00:24)
[2018-11-14] MEDS ORDERED: ONDANSETRON 4 MG/2 ML VIAL IV PRN (00:24)
[2018-11-14] MEDS ORDERED: LACTULOSE 20 GM/30 ML ORAL.SOL PO PRN (00:24)
[2018-11-14] MEDS ORDERED: METOCLOPRAMIDE 10 MG/2 ML VIAL IV PRN (00:24)
[2018-11-14] MEDS ORDERED: IPRATROPIUM/ALBUTEROL 3 ML AMPUL.NEB NEB PRN (00:24)
[2018-11-14] MEDS ORDERED: DEXTROSE 50% 50 ML VIAL IV PRN (00:24)
[2018-11-14] MEDS ORDERED: hydrALAZINE 20 MG/ML VIAL IV PRN (00:24)
[2018-11-14] MEDS ORDERED: SENNOSIDES 1 TABLET PO PRN (00:24)
[2018-11-14] MEDS ORDERED: cloNIDine HCL 0.1 MG TABLET PO PRN (00:24)
[2018-11-14] MEDS ORDERED: ACETAMINOPHEN 325 MG TABLET PO PRN (00:24)
[2018-11-14] MEDS ORDERED: PROMETHAZINE 25 MG TABLET PO PRN (00:24)
[2018-11-14] MEDS: LABETALOL 5 MG/ML ML IV PRN ×3 (02:37→16:02)
[2018-11-14] MEDS ORDERED: LABETALOL 5 MG/ML ML IV ONE (02:38)
[2018-11-14] MEDS: 0.9 % SODIUM CHLORIDE 10 ML SYRINGE IV SCH ×3 (04:45→22:11)
[2018-11-14 06:21] LABS: Basophils # (Auto) 0 K/mcL (0.0-0.3); Basophils % (Auto) 0.4 % (0.0-2.0); Eosinophils # (Auto) 0.2 K/mcL (0.0-0.7); Eosinophils % (Auto) 2.3 % (0.0-7.0); Granulocytes % (Auto) 67.1 % (38.0-78.0); Lymphocytes # (Auto) 1.4 K/mcL (1.5-4.8); Lymphocytes % (Auto) 16.8 % (15.5-49.0); Mean Cell Volume 81.4 fL (80.0-100.0); Mean Corpuscular HGB Conc 31.7 g/dL (31.0-36.0); Monocytes # (Auto) 1.1 K/mcL (0.1-0.9); Monocytes % (Auto) 13.4 % (1.0-12.0); Platelet Count 406 K/mcL (140-440); RBC 4.29 M/mcL (4.00-5.20); Red Cell Distribution Width 16.2 % (11.5-14.5)
[2018-11-14 06:30] LABS: ALT/SGPT 7 U/l (0-40); Albumin 3.9 gm/dL (3.2-5.2); Albumin/Globulin Ratio 0.9 (1.0-2.3); Alkaline Phosphatase 109 U/L (39-117); Bilirubin,Direct < 0.2 mg/dL (0.0-0.3); Blood Urea Nitrogen 26 mg/dl (6-20); Gamma Glutamyl Transpeptidase 46 U/L (5-36); Uric Acid 3.7 mg/dL (2.5-8.0)
[2018-11-14] MEDS: METOCLOPRAMIDE 10 MG TABLET PO SCH ×4 (07:34→22:11)
[2018-11-14] MEDS: CARVEDILOL 12.5 MG TABLET PO SCH ×2 (07:34→17:00)
[2018-11-14] MEDS: INSULIN LISPRO 1 UNIT/0.01 ML UNIT SQ SCH ×4 (07:46→22:04)
[2018-11-14] MEDS: DOCUSATE SODIUM 100 MG CAPSULE PO SCH ×2 (08:55→22:04)
[2018-11-14] MEDS: amLODIPine 10 MG TABLET PO SCH (08:55)
[2018-11-14] MEDS: MINOXIDIL 2.5 MG TABLET PO SCH ×2 (08:55→22:24)
[2018-11-14] MEDS: LISINOPRIL 20 MG TABLET PO SCH (08:56)
[2018-11-14] MEDS: HEPARIN 5,000 UNIT/ML VIAL SQ SCH ×2 (08:56→22:04)
[2018-11-14] MEDS: ATORVASTATIN 20 MG TABLET PO SCH (08:56)
[2018-11-14] MEDS: INSULIN GLARGINE, HUMAN 1 UNIT/0.01 ML SQ SCH (08:57)
[2018-11-14] MEDS ORDERED: hydrALAZINE 25 MG TABLET PO SCH (09:00)
--- NOTE | 2018-11-14 09:37 | Nephrology Progress Note ---
Subjective Patient information: Note initiated : 11/14/18 at 9:35 am Service Date, if different from initiated Date: [] Patient: Delores Jones 48 y/o F admitted on 11/11/18 for hypoxic respiratory failure;hypertensive emergency. Chief Complaint: Breathing is better. Wants to go home. Objective - Vital Signs Vital signs: Vital Signs Temp Pulse Resp BP Pulse Ox 11/14/18 07:00 97.4 F 65 16 188/88 97 11/14/18 06:01 66 162/86 96 11/14/18 05:01 65 134/79 94 11/14/18 04:32 62 145/71 96 11/14/18 04:01 97.7 F 62 114/69 98 11/14/18 03:31 64 147/78 97 11/14/18 03:01 61 145/73 97 11/14/18 02:01 173/97 11/14/18 01:20 63 165/74 98 11/14/18 01:01 60 115/70 99 11/14/18 00:01 98.1 F 64 163/72 98 11/13/18 23:50 58 L 150/69 96 11/13/18 23:35 168/72 11/13/18 23:28 62 162/75 97 11/13/18 23:01 66 13 202/96 98 11/13/18 23:00 67 14 99 11/13/18 22:01 66 11 L 155/61 93 11/13/18 22:00 66 11 L 95 11/13/18 21:02 68 18 94 11/13/18 21:01 69 28 H 168/61 94 11/13/18 21:00 67 22 93 11/13/18 20:01 14 127/58 11/13/18 20:00 67 16 92 11/13/18 19:02 49 L 18 89 L 11/13/18 19:01 79 24 H 141/67 86 L 11/13/18 19:00 64 16 96 11/13/18 18:16 66 16 137/59 96 11/13/18 18:01 74 13 182/65 84 L 11/13/18 17:46 66 18 179/66 100 11/13/18 17:31 79 28 H 182/94 93 11/13/18 17:16 77 16 129/64 89 L 11/13/18 17:01 80 13 165/85 97 11/13/18 16:46 17 170/76 11/13/18 16:31 72 14 182/71 93 11/13/18 16:16 73 14 164/68 98 11/13/18 16:02 68 17 87 L 11/13/18 16:01 14 152/71 11/13/18 15:46 96.8 F L 73 16 175/79 96 11/13/18 15:33 17 157/77 11/13/18 14:47 73 16 99 11/13/18 14:46 72 14 197/95 100 11/13/18 14:32 73 17 99 11/13/18 14:31 18 162/85 11/13/18 14:16 20 169/78 11/13/18 14:01 98 F 72 16 132/86 11/13/18 14:00 68 16 100 11/13/18 13:46 13 146/75 11/13/18 13:35 71 153/74 11/13/18 13:32 16 11/13/18 13:31 14 153/74 11/13/18 13:16 13 143/75 11/13/18 13:07 66 126/66 11/13/18 13:01 10 L 126/66 11/13/18 13:00 17 11/13/18 12:55 15 170/75 11/13/18 12:46 12 170/75 11/13/18 12:36 68 170/79 11/13/18 12:31 12 170/79 11/13/18 12:20 69 182/80 11/13/18 12:16 14 182/80 11/13/18 12:05 97 F 69 162/77 11/13/18 12:02 15 11/13/18 12:01 15 162/77 11/13/18 11:46 98.8 F 13 191/83 11/13/18 11:31 16 166/68 11/13/18 11:24 17 180/84 11/13/18 11:05 75 15 97 11/13/18 11:04 17 185/84 11/13/18 11:01 18 204/85 11/13/18 11:00 17 11/13/18 10:01 69 19 170/70 96 11/13/18 10:00 70 21 98 Intake and Output 11/13/18 11/14/18 11/14/18 21:59 05:59 13:59 Intake Total 240 240 360 Output Total 3000 Balance -2760 240 360 Intake: Oral 240 240 360 Output: Hemodialysis UF 3000 Other: Meal Dinner Breakfast Percent of Meal Consumed 25% 75% Feeding Ability Independent Independent Weight 117 lb 8 oz Intake & Output: Intake & Output 11/13/18 11/14/18 11/14/18 21:59 05:59 13:59 Intake Total 240 240 360 Output Total 3000 Balance -2760 240 360 Weight 117 lb 8 oz Intake: Oral 240 240 360 Output: Hemodialysis UF 3000 Other: Meal Dinner Breakfast Percent of Meal Consumed 25% 75% Feeding Ability Independent Independent - General Appearance General appearance: cachectic EENT: ATNC Neck: no JVD Cardiology: no murmurs Gastrointestinal: hypoactive bowel sounds Neurologic: no focal deficit - Lab 11/14/18 04:10 11/14/18 04:10 Most recent lab results Calcium 9.6 mg/dl (8.6-10.4) 11/14/18 04:10 Phosphorus 6.2 mg/dL (2.7-4.5) H* 11/14/18 04:10 Magnesium 2.3 mg/dL (1.6-2.5) 11/14/18 04:10 Assessment and Plan (1) End stage chronic kidney disease Status: Acute Comment: She had fluid removal yesterday and today. BP is better but still high slighly high. Will try for some more fluid removal today. If bp is still high post dialysis will increase minoxidil to 10mg po bid.
[2018-11-14] MEDS ORDERED: cloNIDine TTS 3 1 PATCH PATCH TD SCH ×2 (10:00)
[2018-11-14] MEDS: LORazepam 2 MG/ML VIAL IV PRN ×2 (11:41→18:21)
--- NOTE | 2018-11-14 12:16 | Internal Med Progress Note ---
Medical - PN: Subj Patient information: Note initiated : 11/14/18 at 12:14 pm Service Date, if different from initiated Date: [] Patient: Delores Jones 48 y/o F admitted on 11/11/18 for hypoxic respiratory failure;hypertensive emergency. Chief Complaint: [] Interval history: Ms. Jones is a 48 year old F who presents to [facility] for hypoxia. She is found to have sats in the low 80s. She was started on oxygen about a week ago. She also has a history of CHF and diabetes with gastroparesis and uncontrolled hypertension. She has been missing some of her meds because of cost. She does not have insurance at this time and has been trying to pay for her medications out of pocket. In the ED at [facility] she had a chest x-ray which showed pulmonary edema although her past x-rays that showed pulmonary edema as well. ABG showed hypoxia CO2 was 40 and pH was within normal limits. She also was hypertensive at 219/101. Case was discussed with Dr. Amaya and because [facility] currently does not have hemodialysis availability patient was requested and transferred over to [facility]. Patient states that she went into see her primary care provider on for routine visit and primary care provider noticed that she had labored breathing took her pulse and it was in the 80s. Low 80s. She sent over to the ER where she was evaluated she had a chest x-ray done which as best I can gather may be showed some edema but was not significant. She is supposed to get oxygen the next day but had not arrived. she presented back to the ED today because of severe labored breathing socks measured 80 per . In the ED she had chest x-ray which showed increased pulmonary edema. Patient denies recent illnesses and does not have a cough. Denies headache. Patient has had a hard time with medication because of cost and lack of insurance and has not been taking some and is been taking extra clonidine. Patient reports gives her 0.6 mg grams of clonidine almost every 2 hours. states her blood pressure runs about 190 at home occasionally will get down to 175. She did have renal artery angiogram in 2016 which was unremarkable by Dr. Gorman. She also reports some swelling in her legs this week as well. She is to have swelling in her legs prior to hemodialysis but the swelling had improved once hemodialysis started. However she has noticed it this week. 11/12 Although tired, feeling much better. Denies any shortness of breath at rest. No new complaints overnight events. She was hemodialyzed last night with -3 L. Will receive dialysis today. 11/13 Poor sleep, had some nausea vomiting overnight. Able to tolerate a little bit of her meal this morning. Blood pressure still labile, clarifying medications. 11/14 Patient seen and examined, no acute overnight events, her glucose level was high needed IV insulin, blood pressure still elevated but better than before. Reviewed plan with nephrology plan for hemodialysis today increase the dose of minoxidil to 10 twice a day blood pressure still high Pertinent ROS: Denies headache, dizziness Denies chest pain, palpitations Denies cough or shortness of breath Denies abdominal pain, nausea or vomiting. - Constitutional Vitals: Vital Signs Temp Pulse Resp BP Pulse Ox 97.3 F 67 18 188/93 94 11/14/18 11:35 11/14/18 11:35 11/14/18 11:35 11/14/18 11:35 11/14/18 11:35 Period Temp Pulse Resp BP Sys/Ifnante Pulse Ox Last 24 Hr 96.8 F-98.1 F 49-80 10-28 114-202/58-97 84-100 Intake and Output 11/13/18 11/14/18 11/14/18 21:59 05:59 13:59 Intake Total 240 240 360 Output Total 3000 Balance -2760 240 360 Weight 117 lb 8 oz Intake & Output: Intake & Output 11/13/18 11/14/18 11/14/18 21:59 05:59 13:59 Intake Total 240 240 360 Output Total 3000 Balance -2760 240 360 Weight 117 lb 8 oz Intake: Oral 240 240 360 Output: Hemodialysis UF 3000 Other: Meal Dinner Breakfast Percent of Meal Consumed 25% 75% Feeding Ability Independent Independent Exam: .Constitutional; Afebrile, cooperative, awake but drowsy (had just got ativan) Respiratory system: Air Entry equal on both sides, No crackles or wheezing, no rhonchi. CVS- Rate rhythm regular, S1,S2 heard, no gallop, no rub. hi systolic murmur present Abdomen- Soft nontender abdomen, no organomegaly, no tenderness, no guarding or rigidity, [employer]- AOOx3, moving all extremities, no gross focal deficit noted. Medical - PN: Obj Da - Labs CBC & Chem 7: 11/14/18 04:10 11/14/18 04:10 Labs: Abnormal Lab Results 11/14/18 11/14/18 11/13/18 04:10 04:10 03:35 RBC Hgb 11.1 L Hct 34.9 L MCH 25.8 L RDW 16.2 H MPV 7.3 L Lymph % (Auto) [place] % (Auto) 13.4 H Eos % (Auto) Lymph # (Auto) 1.4 L [place] # (Auto) 1.1 H Eos # (Auto) Chloride 94 L Anion Gap 18.0 H BUN 26 H Creatinine 3.8 H Glucose 144 H Hemoglobin A1c Calcium Phosphorus 6.2 H* 4.7 H GGT 46 H Alkaline Phosphatase Globulin 4.5 H Albumin/Globulin Ratio 0.9 L Triglycerides 164 H 11/13/18 11/12/18 11/12/18 03:35 02:00 01:55 RBC 3.51 L Hgb 9.2 L Hct 28.2 L MCH RDW 16.4 H MPV Lymph % (Auto) 13.3 L [place] % (Auto) Eos % (Auto) 11.0 H Lymph # (Auto) 1.3 L [place] # (Auto) Eos # (Auto) 1.1 H Chloride 91 L Anion Gap 21.0 H BUN 22 H Creatinine 3.5 H Glucose 222 H Hemoglobin A1c 7.2 H Calcium Phosphorus GGT Alkaline Phosphatase Globulin Albumin/Globulin Ratio Triglycerides 11/12/18 01:55 RBC Hgb Hct MCH RDW MPV Lymph % (Auto) [place] % (Auto) Eos % (Auto) Lymph # (Auto) [place] # (Auto) Eos # (Auto) Chloride 92 L Anion Gap BUN 45 H Creatinine 5.2 H* Glucose 308 H Hemoglobin A1c Calcium 8.2 L Phosphorus 6.0 H* GGT 40 H Alkaline Phosphatase 126 H Globulin Albumin/Globulin Ratio Triglycerides 160 H Meds: Medications Acetaminophen (Tylenol) 650 mg PO Q6HP PRN PRN Reason: PAIN/FEVER > 101 Albuterol/Ipratropium (Duoneb) 3 ml NEB Q4HP PRN PRN Reason: Shortness Of Breath Amlodipine Besylate (Norvasc) 10 mg PO QDAY [facility] Last Admin: 11/14/18 08:55 Dose: 10 mg Documented by: Atorvastatin Calcium (Lipitor) 10 mg PO QDAY [facility] Last Admin: 11/14/18 08:56 Dose: 10 mg Documented by: [facility] Last Admin: 11/14/18 07:34 Dose: 25 mg Documented by: Clonidine HCl (Catapres) 0.2 mg PO Q4HP PRN PRN Reason: Hypertension SBP>170 Clonidine HCl (Catapres Tts 3) 1 patch TD We@1000 [facility] Last Admin: 11/14/18 10:17 Dose: 1 patch Documented by: Dextrose (Dextrose 50%) 0 ml IV UD PRN PRN Reason: Hypoglycemia Diagnostic Test (Pha) (Accu-Chek) 1 each FS [facility] Last Admin: 11/14/18 11:47 Dose: 1 each Documented by: Diphenhydramine HCl (Benadryl) 25 mg PO Q4-6HP PRN PRN Reason: Itching Docusate Sodium (Colace) 100 mg PO BID [facility] Last Admin: 11/14/18 08:55 Dose: 100 mg Documented by: Famotidine (Pepcid) 20 mg PO HS [facility] Glucose (Insta-Glucose) 15 gm PO PRN PRN PRN Reason: Hypoglycemia Heparin Sodium (Porcine) (Heparin) 5,000 unit SQ Q12 [facility] Last Admin: 11/14/18 08:56 Dose: Not Given Documented by: Hydralazine HCl (Apresoline) 0 mg IV Q2HP PRN PRN Reason: Hypertension spb>170 Insulin Glargine (Lantus) 35 unit SQ DAILY [facility] Last Admin: 11/14/18 08:57 Dose: 35 units Documented by: Insulin Glargine (Lantus) 10 unit SQ [facility] Insulin Human Lispro (Humalog) 0 unit SQ [facility]; Protocol Labetalol HCl (Trandate) 0 mg IV Q2HP PRN PRN Reason: htn Last Admin: 11/14/18 07:46 Dose: 20 mg Documented by: Lactulose (Cephulac) 10 gm PO DAILYP PRN PRN Reason: Constipation Lisinopril (Zestril) 40 mg PO DAILY [facility] Last Admin: 11/14/18 08:56 Dose: 40 mg Documented by: Lorazepam (Ativan) 0.5 - 1 mg IV Q8HP PRN PRN Reason: ANXIETY/SEDATION Last Admin: 11/14/18 11:41 Dose: 1 mg Documented by: Metoclopramide HCl (Reglan) 10 mg IV Q6HP PRN PRN Reason: Nausea And Vomiting Metoclopramide HCl (Reglan) 10 mg PO ACHS [facility] Last Admin: 11/14/18 11:42 Dose: 10 mg Documented by: Minoxidil (Minoxidil) 5 mg PO BID [facility] Last Admin: 11/14/18 08:55 Dose: 5 mg Documented by: Ondansetron HCl (Zofran) 4 mg IV Q4HP PRN PRN Reason: Nausea And Vomiting Last Admin: 11/14/18 08:23 Dose: 4 mg Documented by: Polyethylene Glycol (Miralax) 17 gm PO DAILYP PRN PRN Reason: Constipation Promethazine HCl (Phenergan) 0 mg PO Q6HP PRN PRN Reason: Nausea And Vomiting Last Admin: 11/14/18 11:42 Dose: 12.5 mg Documented by: Senna (Senokot) 2 tab PO HSP PRN PRN Reason: Constipation Sodium Chloride (Saline Flush) 10 ml IV Q8 [facility] Last Admin: 11/14/18 04:45 Dose: 10 ml Documented by: Medical - PN: A/P - Time Spent With Patient Total time spent is greater than 50% in coordination of care (as documented) at patient's floor/unit and/or counseling patient: - Narrative A/P Narrative: A: *Acute on chronic hypoxic respiratory failure: -was supposed to start on oxygen at home, but device did not arrive -on 4L NC when arrived, now down to 1L (had HD last night) -Improved overnight after dialysis with net negative balance of 8L -recheck for home oxygen needs. *Pulmonary edema -improving. *acute on chronic diastolic CHF: -updated echo showing normal lvef *Hypertensive urgency (h/o uncontrolled HTN 2/2 medication noncompliance from lack of insurance and cost of coverage): -Had renal artery angiography in [address] Gorman which showed no YASMIN -pt states SBP at home ~190 -difficult to control BP -Management per Dr Amaya *ESRD: Follows with Dr. Amaya *Diabetes with gastroparesis: A1c 7.2 *Uncontrolled DM with Hyperglycemia -lantus and ssi insulin, increase dose of both *Anemia of CD: *GERD P: -Nephro following, Dr. Amaya -restarted home BP meds (Clonidine patch, minoxidil, norvasc, lisinopril, coreg); prn clonidine and hydralazine, -d/w nephro regarding BP, who may change minoxidil dose post HD depending on BP -echo reviewed -ppx: SCD (refusing heparin)/home h2 Medical - PN: Qual - Stroke Symptom Onset Unknown: No - VTE Deep Vein Thrombosis/Pulmonary Embolism Present on Admission: No
[2018-11-14] MEDS ORDERED: FAMOTIDINE 20 MG TABLET PO SCH (21:00)
[2018-11-14] MEDS ORDERED: INSULIN GLARGINE, HUMAN 1 UNIT/0.01 ML SQ SCH ×2 (21:00)
[2018-11-15] MEDS: MINOXIDIL 2.5 MG TABLET PO SCH ×2 (05:06→08:17)
[2018-11-15] MEDS: 0.9 % SODIUM CHLORIDE 10 ML SYRINGE IV SCH (05:07)
[2018-11-15 05:31] LABS: Basophils # (Auto) 0 K/mcL (0.0-0.3); Basophils % (Auto) 0.3 % (0.0-2.0); Eosinophils # (Auto) 0.2 K/mcL (0.0-0.7); Eosinophils % (Auto) 2.4 % (0.0-7.0); Granulocytes % (Auto) 69.5 % (38.0-78.0); Lymphocytes # (Auto) 1.6 K/mcL (1.5-4.8); Lymphocytes % (Auto) 16.7 % (15.5-49.0); Mean Cell Volume 81.8 fL (80.0-100.0); Mean Corpuscular HGB Conc 32.4 g/dL (31.0-36.0); Monocytes # (Auto) 1.1 K/mcL (0.1-0.9); Monocytes % (Auto) 11.1 % (1.0-12.0); Platelet Count 408 K/mcL (140-440); RBC 4.31 M/mcL (4.00-5.20); Red Cell Distribution Width 16.5 % (11.5-14.5)
[2018-11-15 05:45] LABS: ALT/SGPT 6 U/l (0-40); Albumin 3.9 gm/dL (3.2-5.2); Alkaline Phosphatase 96 U/L (39-117); Bilirubin,Direct < 0.2 mg/dL (0.0-0.3); Blood Urea Nitrogen 16 mg/dl (6-20); Gamma Glutamyl Transpeptidase 47 U/L (5-36); Uric Acid 2.2 mg/dL (2.5-8.0)
[2018-11-15] MEDS: INSULIN LISPRO 1 UNIT/0.01 ML UNIT SQ SCH (07:26)
[2018-11-15] MEDS: METOCLOPRAMIDE 10 MG TABLET PO SCH (07:26)
[2018-11-15] MEDS: amLODIPine 10 MG TABLET PO SCH (08:15)
[2018-11-15] MEDS: CARVEDILOL 12.5 MG TABLET PO SCH (08:15)
[2018-11-15] MEDS: DOCUSATE SODIUM 100 MG CAPSULE PO SCH (08:15)
[2018-11-15] MEDS: LISINOPRIL 20 MG TABLET PO SCH (08:15)
[2018-11-15] MEDS: ATORVASTATIN 20 MG TABLET PO SCH (08:16)
[2018-11-15] MEDS: INSULIN GLARGINE, HUMAN 1 UNIT/0.01 ML SQ SCH (08:16)
[2018-11-15] MEDS: HEPARIN 5,000 UNIT/ML VIAL SQ SCH (08:17)
--- NOTE | 2018-11-15 09:13 | Nephrology Progress Note ---
Subjective Patient information: Note initiated : 11/15/18 at 9:11 am Service Date, if different from initiated Date: [] Patient: Delores Jones 48 y/o F admitted on 11/11/18 for hypoxic respiratory failure;hypertensive emergency. Chief Complaint: Feels better. Had low bp at dialysis. Objective - Vital Signs Vital signs: Vital Signs Temp Pulse Pulse Resp BP BP Pulse Ox 11/15/18 07:46 98.4 F 16 172/91 94 11/15/18 07:37 93 11/15/18 04:00 97.7 F 68 14 119/70 91 11/15/18 00:00 98.3 F 73 16 144/74 94 11/14/18 21:26 98.6 F 11/14/18 20:55 62 126/60 11/14/18 20:45 66 98/50 11/14/18 20:30 67 110/59 11/14/18 20:15 68 117/65 11/14/18 20:00 97.3 F 67 68 16 99/56 125/69 97 11/14/18 19:45 67 125/69 11/14/18 19:30 67 111/64 11/14/18 19:15 67 132/69 11/14/18 19:00 97.1 F 65 104/55 11/14/18 18:45 96.1 F L 66 97/49 11/14/18 18:40 65 92/45 11/14/18 18:35 96.6 F L 66 96/47 11/14/18 18:30 66 92/47 11/14/18 18:25 68 100/46 11/14/18 18:20 74 107/59 11/14/18 18:15 74 106/61 11/14/18 18:00 80 133/71 11/14/18 17:45 68 130/74 11/14/18 17:30 69 145/88 11/14/18 17:15 67 162/95 11/14/18 17:00 71 202/105 11/14/18 16:45 98.3 F 69 198/96 11/14/18 15:00 96.8 F L 84 20 198/81 92 11/14/18 11:35 97.3 F 67 18 188/93 94 Intake and Output 11/14/18 11/15/18 11/15/18 21:59 05:59 13:59 Intake Total 340 720 Output Total 710 Balance -710 340 720 Intake: Nourishment/Supplement quantity 360 (ml) Oral 340 360 Output: Hemodialysis UF 710 Other: Meal Lunch Breakfast Percent of Meal Consumed Refused 100% Feeding Ability Assist with Tray Set Up Nourishment/Supplement name boost breeze Weight 115 lb 6.4 oz Intake & Output: Intake & Output 11/14/18 11/15/18 11/15/18 21:59 05:59 13:59 Intake Total 340 720 Output Total 710 Balance -710 340 720 Weight 115 lb 6.4 oz Intake: Nourishment/Supplement quantity 360 (ml) Oral 340 360 Output: Hemodialysis UF 710 Other: Meal Lunch Breakfast Percent of Meal Consumed Refused 100% Feeding Ability Assist with Tray Set Up Nourishment/Supplement name boost breeze - General Appearance General appearance: cachectic EENT: ATNC Neck: no JVD Cardiology: no murmurs Gastrointestinal: normoactive bowel sounds Neurologic: no focal deficit - Lab 11/15/18 04:05 11/15/18 04:05 Most recent lab results Calcium 9.2 mg/dl (8.6-10.4) 11/15/18 04:05 Phosphorus 4.3 mg/dL (2.7-4.5) 11/15/18 04:05 Magnesium 2.0 mg/dL (1.6-2.5) 11/15/18 04:05 Assessment and Plan (1) End stage chronic kidney disease Status: Acute Comment: She had fluid removed total of about 10 L. Will hold the minoxidil at home unless the bp is >160. She can go home with the rest of t he meds. Her dialysis time will be increased to 4 liters and fluid removal to 4000ml.
--- NOTE | 2018-11-15 09:59 | Internal Med Progress Note ---
Medical - PN: Subj Patient information: Note initiated : 11/15/18 at 9:56 am Service Date, if different from initiated Date: [] Patient: Delores Jones 48 y/o F admitted on 11/11/18 for hypoxic respiratory failure;hypertensive emergency. Chief Complaint: [] Interval history: Ms. Jones is a 48 year old F who presents to [facility] for hypoxia. She is found to have sats in the low 80s. She was started on oxygen about a week ago. She also has a history of CHF and diabetes with gastroparesis and uncontrolled hypertension. She has been missing some of her meds because of cost. She does not have insurance at this time and has been trying to pay for her medications out of pocket. In the ED at [facility] she had a chest x-ray which showed pulmonary edema although her past x-rays that showed pulmonary edema as well. ABG showed hypoxia CO2 was 40 and pH was within normal limits. She also was hypertensive at 219/101. Case was discussed with Dr. Amaya and because [facility] currently does not have hemodialysis availability patient was requested and transferred over to [facility]. Patient states that she went into see her primary care provider on for routine visit and primary care provider noticed that she had labored breathing took her pulse and it was in the 80s. Low 80s. She sent over to the ER where she was evaluated she had a chest x-ray done which as best I can gather may be showed some edema but was not significant. She is supposed to get oxygen the next day but had not arrived. she presented back to the ED today because of severe labored breathing socks measured 80 per . In the ED she had chest x-ray which showed increased pulmonary edema. Patient denies recent illnesses and does not have a cough. Denies headache. Patient has had a hard time with medication because of cost and lack of insurance and has not been taking some and is been taking extra clonidine. Patient reports gives her 0.6 mg grams of clonidine almost every 2 hours. states her blood pressure runs about 190 at home occasionally will get down to 175. She did have renal artery angiogram in 2016 which was unremarkable by Dr. Gorman. She also reports some swelling in her legs this week as well. She is to have swelling in her legs prior to hemodialysis but the swelling had improved once hemodialysis started. However she has noticed it this week. 11/12 Although tired, feeling much better. Denies any shortness of breath at rest. No new complaints overnight events. She was hemodialyzed last night with -3 L. Will receive dialysis today. 11/13 Poor sleep, had some nausea vomiting overnight. Able to tolerate a little bit of her meal this morning. Blood pressure still labile, clarifying medications. 11/14 Patient seen and examined, no acute overnight events, her glucose level was high needed IV insulin, blood pressure still elevated but better than before. Reviewed plan with nephrology plan for hemodialysis today increase the dose of minoxidil to 10 twice a day blood pressure still high 11/15 Patient seen examined, wants to go home, bp low yesterday during HD, minoxidil held Reviewed plan with nephrology, stable for discharge, patient will be discharged on her home medications, lisinopril, amlodipine, coreg and clonidine patch. The have minoxidil too, which is held for now, to use minoxidil if bp is > 160 as per nephrology. He will reassess pt on dialysis and titrate bp meds further. Insulin dose adjusted at discharge given very high levels during hospiotal, bid dosing advised. - Constitutional Vitals: Vital Signs Temp Pulse Resp BP Pulse Ox 98.4 F 68 16 172/91 94 11/15/18 07:46 11/15/18 04:00 11/15/18 07:46 11/15/18 07:46 11/15/18 07:46 Period Temp Pulse Resp BP Sys/Infante Pulse Ox Last 24 Hr 96.1 F-98.6 F 62-84 14-20 92-202/45-105 91-97 Intake and Output 11/14/18 11/15/18 11/15/18 21:59 05:59 13:59 Intake Total 340 720 Output Total 710 Balance -710 340 720 Weight 115 lb 6.4 oz Intake & Output: Intake & Output 11/14/18 11/15/18 11/15/18 21:59 05:59 13:59 Intake Total 340 720 Output Total 710 Balance -710 340 720 Weight 115 lb 6.4 oz Intake: Nourishment/Supplement quantity 360 (ml) Oral 340 360 Output: Hemodialysis UF 710 Other: Meal Lunch Breakfast Percent of Meal Consumed Refused 100% Feeding Ability Assist with Tray Set Up Nourishment/Supplement name angie [place] Medical - PN: Obj Da - Labs CBC & Chem 7: 11/15/18 04:05 11/15/18 04:05 Labs: Abnormal Lab Results 11/15/18 11/15/18 11/14/18 04:05 04:05 04:10 Hgb 11.4 L Hct 35.3 L MCH RDW 16.5 H MPV 7.0 L [place] % (Auto) Lymph # (Auto) [place] # (Auto) 1.1 H Chloride 94 L Anion Gap 18.0 H BUN 26 H Creatinine 2.6 H 3.8 H Glucose 121 H 144 H Uric Acid 2.2 L Phosphorus 6.2 H* GGT 47 H 46 H Globulin 4.1 H 4.5 H Albumin/Globulin Ratio 0.9 L Triglycerides 170 H 164 H 11/14/18 11/13/18 11/13/18 04:10 03:35 03:35 Hgb 11.1 L Hct 34.9 L MCH 25.8 L RDW 16.2 H MPV 7.3 L [place] % (Auto) 13.4 H Lymph # (Auto) 1.4 L [place] # (Auto) 1.1 H Chloride 91 L Anion Gap 21.0 H BUN 22 H Creatinine 3.5 H Glucose 222 H Uric Acid Phosphorus 4.7 H GGT Globulin Albumin/Globulin Ratio Triglycerides Meds: Medications Acetaminophen (Tylenol) 650 mg PO Q6HP PRN PRN Reason: PAIN/FEVER > 101 Last Admin: 11/14/18 16:10 Dose: 650 mg Documented by: Albuterol/Ipratropium (Duoneb) 3 ml NEB Q4HP PRN PRN Reason: Shortness Of Breath Amlodipine Besylate (Norvasc) 10 mg PO QDAY [facility] Last Admin: 11/15/18 08:15 Dose: 10 mg Documented by: Atorvastatin Calcium (Lipitor) 10 mg PO QDAY [facility] Last Admin: 11/15/18 08:16 Dose: 10 mg Documented by: Carvedilol (Coreg) 25 mg PO BIDCC [facility] Last Admin: 11/15/18 08:15 Dose: 25 mg Documented by: Clonidine HCl (Catapres) 0.2 mg PO Q4HP PRN PRN Reason: Hypertension SBP>170 Clonidine HCl (Catapres Tts 3) 1 patch TD We@1000 [facility] Last Admin: 11/14/18 10:17 Dose: 1 patch Documented by: Dextrose (Dextrose 50%) 0 ml IV UD PRN PRN Reason: Hypoglycemia Diagnostic Test (Pha) (Accu-Chek) 1 each FS [facility] Last Admin: 11/15/18 07:26 Dose: 1 each Documented by: Diphenhydramine HCl (Benadryl) 25 mg PO Q4-6HP PRN PRN Reason: Itching Docusate Sodium (Colace) 100 mg PO BID [facility] Last Admin: 11/15/18 08:15 Dose: 100 mg Documented by: Famotidine (Pepcid) 20 mg PO [facility] Last Admin: 11/14/18 22:06 Dose: 20 mg Documented by: Glucose (Insta-Glucose) 15 gm PO PRN PRN PRN Reason: Hypoglycemia Heparin Sodium (Porcine) (Heparin) 5,000 unit SQ Q12 [facility] Last Admin: 11/15/18 08:17 Dose: Not Given Documented by: Hydralazine HCl (Apresoline) 0 mg IV Q2HP PRN PRN Reason: Hypertension spb>170 Insulin Glargine (Lantus) 35 unit SQ DAILY [facility] Last Admin: 11/15/18 08:16 Dose: 35 units Documented by: Insulin Glargine (Lantus) 30 unit SQ [facility] Last Admin: 11/14/18 22:05 Dose: 30 units Documented by: Insulin Human Lispro (Humalog) 0 unit SQ [facility]; Protocol Last Admin: 11/15/18 07:26 Dose: Not Given Documented by: Labetalol HCl (Trandate) 0 mg IV Q2HP PRN PRN Reason: htn Last Admin: 11/14/18 16:02 Dose: 20 mg Documented by: Lactulose (Cephulac) 10 gm PO DAILYP PRN PRN Reason: Constipation Lisinopril (Zestril) 40 mg PO DAILY [facility] Last Admin: 11/15/18 08:15 Dose: 40 mg Documented by: Lorazepam (Ativan) 0.5 - 1 mg IV Q8HP PRN PRN Reason: ANXIETY/SEDATION Last Admin: 11/14/18 18:21 Dose: 1 mg Documented by: Metoclopramide HCl (Reglan) 10 mg IV Q6HP PRN PRN Reason: Nausea And Vomiting Metoclopramide HCl (Reglan) 10 mg PO ACHS [facility] Last Admin: 11/15/18 07:26 Dose: 10 mg Documented by: Minoxidil (Minoxidil) 5 mg PO BID [facility] Last Admin: 11/15/18 08:17 Dose: Not Given Documented by: Ondansetron HCl (Zofran) 4 mg IV Q4HP PRN PRN Reason: Nausea And Vomiting Last Admin: 11/14/18 08:23 Dose: 4 mg Documented by: Polyethylene Glycol (Miralax) 17 gm PO DAILYP PRN PRN Reason: Constipation Promethazine HCl (Phenergan) 0 mg PO Q6HP PRN PRN Reason: Nausea And Vomiting Last Admin: 11/14/18 11:42 Dose: 12.5 mg Documented by: Senna (Senokot) 2 tab PO HSP PRN PRN Reason: Constipation Sodium Chloride (Saline Flush) 10 ml IV Q8 [facility] Last Admin: 11/15/18 05:07 Dose: 10 ml Documented by: Medical - PN: A/P - Time Spent With Patient Total time spent is greater than 50% in coordination of care (as documented) at patient's floor/unit and/or counseling patient: Medical - PN: Qual - Stroke Symptom Onset Unknown: No - VTE Deep Vein Thrombosis/Pulmonary Embolism Present on Admission: No
--- NOTE | 2018-11-15 10:02 | Discharge Summary ---
Medical - DS: Prov Patient information: Note initiated : 11/15/18 at 10:00 am Service Date, if different from initiated Date: [] Patient: Delores Jones 48 y/o F admitted on 11/11/18 for hypoxic respiratory failure;hypertensive emergency. Chief Complaint: [] Date of admission: 11/11/18 19:58 Discharge date: 11/15/18 Primary care physician: Pauline Espana Consults: 11/11/18 20:06 Consult to Physician [CONS] Routine Comment: Consulting Provider: Teddy Amaya Reason For Exam: Physician to Consult Discharging clinician: Agustina Gonzalez Medical - DS: Meds - Discharge Medications Active and Home Medications: Home Medications atorvastatin 10 mg tablet 10 mg PO QDAY 10/18/16 [History Confirmed 11/11/18 Last Taken Unknown] blood sugar diagnostic strips See Dose Instructions .ROUTE .MEDSUPPLY 10/18/16 [History Confirmed 11/11/18 Last Taken Unknown] carvedilol 12.5 mg tablet 25 mg PO BID tab 10/18/16 [History Confirmed 11/12/18 Last Taken 11/11/18 06:00] metoclopramide 5 mg tablet 10 mg PO QID tab 10/18/16 [History Confirmed 11/11/18 Last Taken 11/11/18 06:00] Basaglar Kwikpen U-100 25 unit SQ QAM 11/11/18 [History Confirmed 11/11/18 Last Taken 11/10/18 06:00] Lisinopril [Zestril] 40 mg PO DAILY 11/11/18 [History Confirmed 11/11/18 Last Taken 11/10/18 21:00] Minoxidil 5 mg PO BID 11/11/18 [History Confirmed 11/12/18 Last Taken Unknown] Novolog Flexpen See Protocol SQ ACHS 11/11/18 [History Confirmed 11/12/18 Last Taken 11/10/18 13:00] cloNIDine [Catapres-Tts 1] 0.3 mg TD WEEKLY 11/11/18 [History Confirmed 11/11/18 Last Taken 11/07/18 06:00] Calcium Carbonate [Tums] 1,000 mg PO TID 11/13/18 [History Confirmed 11/13/18 Last Taken Unknown] Omeprazole [Prilosec] 20 mg PO DAILY 11/13/18 [History Confirmed 11/13/18 Last Taken Unknown] amLODIPine [Norvasc] 10 mg PO DAILY 11/13/18 [History Confirmed 11/13/18 Last Taken Unknown] Medical - DS: Hosp Hospital course: Ms. Jones is a 48 year old F who presents to [facility] for hypoxia. She is found to have sats in the low 80s. She was started on oxygen about a week ago. She also has a history of CHF and diabetes with gastroparesis and uncontrolled hypertension. She has been missing some of her meds because of cost. She does not have insurance at this time and has been trying to pay for her medications out of pocket. In the ED at [facility] she had a chest x-ray which showed pulmonary edema although her past x-rays that showed pulmonary edema as well. ABG showed hypoxia CO2 was 40 and pH was within normal limits. She also was hypertensive at 219/101. Case was discussed with Dr. Amaya and because [facility] currently does not have hemodialysis availability patient was requested and transferred over to [facility]. Patient states that she went into see her primary care provider on for routine visit and primary care provider noticed that she had labored breathing took her pulse and it was in the 80s. Low 80s. She sent over to the ER where she was evaluated she had a chest x-ray done which as best I can gather may be showed some edema but was not significant. She is supposed to get oxygen the next day but had not arrived. she presented back to the ED today because of severe labored breathing socks measured 80 per . In the ED she had chest x-ray which showed increased pulmonary edema. Patient denies recent illnesses and does not have a cough. Denies headache. Patient has had a hard time with medication because of cost and lack of insurance and has not been taking some and is been taking extra clonidine. Patient reports gives her 0.6 mg grams of clonidine almost every 2 hours. states her blood pressure runs about 190 at home occasionally will get down to 175. She did have renal artery angiogram in 2015 which was unremark[address] by Dr. Gorman. She also reports some swelling in her legs this week as well. She is to have swelling in her legs prior to hemodialysis but the swelling had improved once hemodialysis started. However she has noticed it this week. 11/12 Although tired, feeling much better. Denies any shortness of breath at rest. No new complaints overnight events. She was hemodialyzed last night with -3 L. Will receive dialysis today. 11/13 Poor sleep, had some nausea vomiting overnight. Able to tolerate a little bit of her meal this morning. Blood pressure still labile, clarifying medications. 11/14 Patient seen and examined, no acute overnight events, her glucose level was high needed IV insulin, blood pressure still elevated but better than before. Reviewed plan with nephrology plan for hemodialysis today increase the dose of minoxidil to 10 twice a day blood pressure still high 11/15 Patient seen examined, wants to go home, bp low yesterday during HD, minoxidil held Reviewed plan with nephrology, stable for discharge, patient will be discharged on her home medications, lisinopril, amlodipine, coreg and clonidine patch. The have minoxidil too, which is held for now, to use minoxidil if bp is > 160 as per nephrology. He will reassess pt on dialysis and titrate bp meds further. Insulin dose adjusted at discharge given very high levels during hospiotal, bid dosing advised. she was on 25 units in AM of [facility], I will increase the dose to 25 units twice daily at discharge. Discharge diagnosis: Hypetension, esrd fluid overload. - Time Spent with Patient Total time spent providing and/or coordinating discharge services: Greater than 30 minutes Medical - DS: Exam - Constitutional Vitals: Vital Signs Temp Pulse Pulse Resp BP BP Pulse Ox 11/15/18 07:46 98.4 F 16 172/91 94 11/15/18 07:37 93 11/15/18 04:00 97.7 F 68 14 119/70 91 11/15/18 00:00 98.3 F 73 16 144/74 94 11/14/18 21:26 98.6 F 11/14/18 20:55 62 126/60 11/14/18 20:45 66 98/50 11/14/18 20:30 67 110/59 11/14/18 20:15 68 117/65 11/14/18 20:00 97.3 F 67 68 16 99/56 125/69 97 11/14/18 19:45 67 125/69 11/14/18 19:30 67 111/64 11/14/18 19:15 67 132/69 11/14/18 19:00 97.1 F 65 104/55 11/14/18 18:45 96.1 F L 66 97/49 11/14/18 18:40 65 92/45 11/14/18 18:35 96.6 F L 66 96/47 11/14/18 18:30 66 92/47 11/14/18 18:25 68 100/46 11/14/18 18:20 74 107/59 11/14/18 18:15 74 106/61 11/14/18 18:00 80 133/71 11/14/18 17:45 68 130/74 11/14/18 17:30 69 145/88 11/14/18 17:15 67 162/95 11/14/18 17:00 71 202/105 11/14/18 16:45 98.3 F 69 198/96 11/14/18 15:00 96.8 F L 84 20 198/81 92 11/14/18 11:35 97.3 F 67 18 188/93 94 Intake and Output 11/14/18 11/15/18 11/15/18 21:59 05:59 13:59 Intake Total 340 720 Output Total 710 Balance -710 340 720 Intake: Nourishment/Supplement quantity 360 (ml) Oral 340 360 Output: Hemodialysis UF 710 Other: Meal Lunch Breakfast Percent of Meal Consumed Refused 100% Feeding Ability Assist with Tray Set Up Nourishment/Supplement name angie upton Weight 115 lb 6.4 oz Additional comments: Constitutional; Afebrile, cooperative, alert, not in distress. Respiratory system: Air Entry equal on both sides, No crackles or wheezing, no rhonchi. CVS- Rate rhythm regular, S1,S2 heard, no gallop, no rub. Abdomen- Soft nontender abdomen, no organomegaly, no tenderness, no guarding or rigidity, HEALTH EDUCATION AIDE- AOOx3, moving all extremities, no gross focal deficit noted. Medical - DS: Data Labs on day of discharge: Labs from last 24 hours 11/15/18 11/15/18 04:05 04:05 WBC 9.6 RBC 4.31 Hgb 11.4 L Hct 35.3 L MCV 81.8 MCH 26.5 MCHC 32.4 RDW 16.5 H Plt Count 408 MPV 7.0 L Gran % 69.5 Lymph % (Auto) 16.7 Kenton % (Auto) 11.1 Eos % (Auto) 2.4 Baso % (Auto) 0.3 Gran # 6.7 Lymph # (Auto) 1.6 Kenton # (Auto) 1.1 H Eos # (Auto) 0.2 Baso # (Auto) 0 Sodium 138 Potassium 4.1 Chloride 96 Carbon Dioxide 28 Anion Gap 14.0 BUN 16 Creatinine 2.6 H GFR Calculation 21 Glucose 121 H Uric Acid 2.2 L Calcium 9.2 Phosphorus 4.3 Magnesium 2.0 Total Bilirubin 0.4 Direct Bilirubin < 0.2 GGT 47 H AST 10 ALT 6 Alkaline Phosphatase 96 Lactate Dehydrogenase 174 Total Protein 8.0 Albumin 3.9 Globulin 4.1 H Albumin/Globulin Ratio 1.0 Triglycerides 170 H Medical - DS: A/P - Patient/Caregiver Discharge Instructions Activity: increase activity as tolerated Diet: Renal/Consistent Carbs Additional Instructions: Please take your home blood pressure medications as advised by Dr Amaya You will hold minoxidil for now, take minoxidil if your blood pressure is > 160, after taking the other 4 medications Take amlodipine in morning, and lisnopril at night time. Make sure you change your clonidine patch every monday. You have elevated glucose level while in the hospital. Our records show you were on 25units of basalgar once daily, you have needed a much higher dose in the hospital to control your blood glucose level. Please take long acting insulin basalgar 25 units twice daily. Use your short acting insulin as advised by your regular doctor Follow up with PCP in 1 week, for further titration of your insulin Follow up with your Np for routine dialysis and bp management. Go to the ER if worsening condition, chest pain, shortness of breath or any other acute concern. Besides changes noted above, no other changes have been made in your [facility] home medication list. - Follow up Plan Follow up with: Teddy Amaya MD [Physician] - (Follow up your regular dialysis schedule) Pauline Espana ARNP [Primary Care Provider] - 11/20/18 3:00 pm (Please take your medication list/scripts to the [facility] prior to Monday, November 19 before your appointment. ) Disposition: Home, Self-Care Prognosis: Fair Rehab Potential: Fair I certify that the patient requires SNF services: No Overall status at discharge: patient is progressing back to baseline Medical - DS: Qual - VTE Deep Vein Thrombosis/Pulmonary Embolism Present on Admission: No
== END 2018-11-15 10:36 | disposition home or self-care (01) | DRG 189 ==
LOC: ICU 19:58
PROVIDERS: ADMIT Internal Medicine; ATTEND Internal Medicine

== ENCOUNTER 2018-11-15 19:58 | Inpatient (IN) ==
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
[2018-11-15] MEDS ORDERED: 0.9 % SODIUM CHLORIDE 1,000 ML IV ONE (21:03)
[2018-11-15] MEDS ORDERED: PIPERACILLIN SODIUM/TAZOBACTAM 2.25 GM in DEXTROSE 5% IN WATER 50 ML IV ONE (21:42)
[2018-11-15 21:50] LABS: Basophils # (Auto) 0 K/mcL (0.0-0.3); Basophils % (Auto) 0.5 % (0.0-2.0); Eosinophils # (Auto) 0.2 K/mcL (0.0-0.7); Eosinophils % (Auto) 1.9 % (0.0-7.0); Granulocytes % (Auto) 68.9 % (38.0-78.0); Hematocrit 36.6 % (36.0-48.0); Hemoglobin 11.7 g/dL (12.0-15.0); Lymphocytes # (Auto) 1.9 K/mcL (1.5-4.8); Lymphocytes % (Auto) 20.1 % (15.5-49.0); Mean Corpuscular HGB Conc 32.1 g/dL (31.0-36.0); Mean Platelet Volume 7.3 fL (7.4-10.4); Monocytes # (Auto) 0.8 K/mcL (0.1-0.9); Monocytes % (Auto) 8.6 % (1.0-12.0); Platelet Count 453 K/mcL (140-440); RBC 4.52 M/mcL (4.00-5.20); Red Cell Distribution Width 16.4 % (11.5-14.5); WBC 9.3 K/mcL (4.5-11.0)
[2018-11-15 22:04] LABS: ALT/SGPT 6 U/l (0-40); AST/SGOT 11 U/l (0-37); Albumin 4.2 gm/dL (3.2-5.2); Alkaline Phosphatase 93 U/L (39-117); Bilirubin,Total 0.3 mg/dL (0.0-1.0); Blood Urea Nitrogen 31 mg/dl (6-20); Calcium 9.5 mg/dl (8.6-10.4); Carbon Dioxide 28 mmol/L (22-30); Chloride 92 mmol/L (96-108); Globulin 4.1 gm/dL (2.2-3.7); Glomerular Filtration Rate 13; Glucose 144 mg/dL (70-105); Potassium 4.2 mmol/L (3.3-5.1); Sodium 136 mmol/L (133-145)
[2018-11-16] MEDS ORDERED: 0.9 % SODIUM CHLORIDE 1,000 ML IV ONE (00:07)
[2018-11-16] MEDS ORDERED: NALOXONE HCL 0.4 MG/ML VIAL IV PRN ×3 (01:02→14:11)
[2018-11-16] MEDS ORDERED: HYDROcodone/APAP 5/325MG TABLET PO PRN ×3 (01:02→14:11)
[2018-11-16] MEDS ORDERED: ACETAMINOPHEN 325 MG TABLET PO PRN ×3 (01:02→14:11)
[2018-11-16] MEDS ORDERED: ONDANSETRON 4 MG/2 ML VIAL IV PRN ×3 (01:02→14:11)
[2018-11-16] MEDS ORDERED: hydrALAZINE 20 MG/ML VIAL IV ONE (01:30)
[2018-11-16] MEDS ORDERED: OMEPRAZOLE 20 MG CAPSULE PO SCH (07:30)
[2018-11-16] MEDS ORDERED: CARVEDILOL 12.5 MG TABLET PO SCH ×2 (08:00→17:30)
--- NOTE | 2018-11-16 08:08 | Internal Med History&Physical ---
Medical - H&P: HPI Patient information: Note initiated : 11/16/18 at 8:01 am Service Date, if different from initiated Date: [] Patient: Delores Jones a 48 y/o F admitted on 11/16/18 for sob, dizziness, hypoxia. Chief Complaint: [] Chief complaint: weakness, AMS, hypotension History of present illness: H&P 11/16 Gracie is a 48-year-old with history of uncontrollable hypertension was recently admitted for continued hemodialysis for ESRD/uncontrolled hypertension. She was discharged on the morning of 11/15 after medication changes as per nephrology recommendation ( Coreg/lisinopril/minoxidil/clonidine/amlodipine) but hasn't picked up minoxidil. However after her took her home and after she took her medications in the evening she has had a rapid decline in overall status unable to think straight or function. She felt like a brain fog. She wasn't ea ting and was unable to get out of bed. She was subsequently brought into the ER for evaluation. Initial workup was consistent with hypotension in 70s. Nephrology was consulted and recommended overnight admission for management of blood pressure. Clonidine patch was discontinued. Patient was barely verbal. Most of the history is obtained from ER physician/review of medical records and At the time of evaluation patient is now more lucid. The patient improved after removal of clonidine patch. She is admitted to the telemetry unit. Await further recommendations from nephrology. All medications at this time had been held. She denies chest pain, palpitation, lightheadedness but endorses to symptoms as above. Review of systems 10 point review system was performed and is negative except as discussed above Previous admit/ DISCHARGE SUMMARY 11/15/2018 Ms. Jones is a 48 year old F who presented to [facility] for hypoxia. She is found to have sats in the low 80s. She was started on oxygen about a week ago. She also has a history of CHF and diabetes with gastroparesis and uncontrolled hypertension. She has been missing some of her meds because of cost. She does not have insurance at this time and has been trying to pay for her medications out of pocket. In the ED at [facility] she had a chest x-ray which showed pulmonary edema although her past x-rays that showed pulmonary edema as well. ABG showed hypoxia CO2 was 40 and pH was within normal limits. She also was hypertensive at 219/101. Case was discussed with Dr. Amaya and because [facility] currently does not have hemodialysis availability patient was requested and transferred over to [facility]. Patient states that she went into see her primary care provider on for routine visit and primary care provider noticed that she had labored breathing took her pulse and it was in the 80s. Low 80s. She sent over to the ER where she was evaluated she had a chest x-ray done which as best I can gather may be showed some edema but was not significant. She is supposed to get oxygen the next day but had not arrived. she presented back to the ED today because of severe labored breathing socks measured 80 per . In the ED she had chest x-ray which showed increased pulmonary edema. Patient denies recent illnesses and does not have a cough. Denies headache. Patient has had a hard time with medication because of cost and lack of ins urance and has not been taking some and is been taking extra clonidine. Patient reports gives her 0.6 mg grams of clonidine almost every 2 hours. states her blood pressure runs about 190 at home occasionally will get down to 175. She did have renal artery angiogram in 2016 which was unremarkable by Dr. Gorman. She also reports some swelling in her legs this week as well. She is to have swelling in her legs prior to hemodialysis but the swelling had improved once hemodialysis started. However she has noticed it this week. 11/12 Although tired, feeling much better. Denies any shortness of breath at rest. No new complaints overnight events. She was hemodialyzed last night with -3 L. Will receive dialysis today. 11/13 Poor sleep, had some nausea vomiting overnight. Able to tolerate a little bit of her meal this morning. Blood pressure still labile, clarifying medications. 11/14 Patient seen and examined, no acute overnight events, her glucose level was high needed IV insulin, blood pressure still elevated but better than before. Reviewed plan with nephrology plan for hemodialysis today increase the dose of minoxidil to 10 twice a day blood pressure still high 11/15 Patient seen examined, wants to go home, bp low yesterday during HD, minoxidil held Reviewed plan with nephrology, stable for discharge, patient will be discharged on her home medications, lisinopril, amlodipine, coreg and clonidine patch. The have minoxidil too, which is held for now, to use minoxidil if bp is > 160 as per nephrology. He will reassess pt on dialysis and titrate bp meds further. Insulin dose adjusted at discharge given very high levels during hospital, bid dosing advised. she was on 25 units in AM of [facility], I will increase the dose to 25 units twice daily at discharge. Medical - H&P: PMH Medical history: Diabetes with gastroparesis and retinopathy Hypertension uncontrolled Diastolic heart failure End-stage renal disease with dialysis Monday follows with Dr. Amaya Anemia of chronic disease Did have angiography of the renal arteries Dr. Gorman 2005 which was unremarkable GERD Past Surgical History History of surgery (Chronic 07/27/16) History of tubal ligation (Chronic 06/26/99) Cholecystectomy Appendectomy Left upper extremity AV fistula Family History Sister Diabetes mellitus She was adopted and does not know her parents history Social History Lives with her Quit smoking in 2017 Denies alcohol use Medical - H&P: Meds Home Medications Medication Instructions Recorded Confirmed Type atorvastatin 10 mg tablet 10 mg PO QDAY 10/18/16 11/16/18 History blood sugar diagnostic strips See Dose Instructions .ROUTE 10/18/16 11/16/18 His tory .MEDSUPPLY carvedilol 12.5 mg tablet 25 mg PO BID tab 10/18/16 11/16/18 History metoclopramide 5 mg tablet 10 mg PO QID tab 10/18/16 11/16/18 History Basaglar Kwikpen U-100 25 unit SQ QAM 11/11/18 11/11/18 History Lisinopril [Zestril] 40 mg PO DAILY 11/11/18 11/16/18 History Novolog Flexpen See Protocol SQ ACHS 11/11/18 11/12/18 History cloNIDine [Catapres-Tts 1] 0.3 mg TD WEEKLY 11/11/18 11/16/18 History Calcium Carbonate [Tums] 1,000 mg PO TID 11/13/18 11/16/18 History Omeprazole [Prilosec] 20 mg PO DAILY 11/13/18 11/16/18 History amLODIPine [Norvasc] 10 mg PO DAILY 11/13/18 11/16/18 History Allergies Allergy/AdvReac Type Severity Reaction Status Date / Time aspirin Allergy Intermediate Hives Verified 11/12/18 06:04 heparin AdvReac Intermediate Other Verified 11/16/18 08:26 Medical - H&P: Exam - Constitutional Vitals: Temp Pulse Resp BP Pulse Ox 98.5 F 68 13 168/81 99 11/16/18 07:01 11/16/18 07:32 11/16/18 07:32 11/16/18 07:01 11/16/18 07:32 General appearance: no acute distress Exam: Lethargic and fatigued Head normocephalic No ear discharge No scleral icterus or pallor Oral cavity dry S1 and S2 regular rhythm, grade 2 systolic murmur Abdomen is breath sounds bases Abdomen soft nontender Minimal edema lower extremity Neuro nonfocal No joint swelling or erythema Psych lethargic but cooperative Medical - H&P: Reslt - Labs CBC & Chem 7: 11/15/18 21:00 11/15/18 21:00 Labs: Short CBC 11/15/18 Range/Units 21:00 WBC 9.3 (4.5-11.0) K/mcL Hgb 11.7 L (12.0-15.0) g/dL Hct 36.6 (36.0-48.0) % Plt Count 453 H (140-440) K/mcL BMP 11/15/18 21:00 Sodium 136 Potassium 4.2 Chloride 92 L Carbon Dioxide 28 BUN 31 H Creatinine 4.0 H Glucose 144 H Calcium 9.5 Liver Function 11/15/18 Range/Units 21:00 Total Bilirubin 0.3 (0.0-1.0) mg/dL AST 11 (0-37) U/l ALT 6 (0-40) U/l Alkaline Phosphatase 93 (39-117) U/L Albumin 4.2 (3.2-5.2) gm/dL Medical - H&P: A/P (1) Hypotension Current visit: Yes Status: Acute * Hypotension secondary to antihypertensives. He'll home meds until further recommendations from nephrology. Admit for close hemodynamic monitoring/optimization of hypertension medications. Consulted nephrology. * ESRD. Managed per nephrology and hemodialysis, (patient was discharged on Coreg/lisinopril/minoxidil/clonidine/amlodipine) * Mental status change secondary to hypotension. Continue monitoring * DM type II Lantus/SSRI * Anemia of chronic disease * History of GERD * Recent flash pulmonary edema/diastolic dysfunction secondary to hypertensive urgency. Patient on multiple medications currently being managed by nephrology * Full code * Prophylaxis heparin Plan * Observation telemetry admitted * Nephrology consult * Hold antihypertensives until adjusted by nephrology * Prior medical condition management as above Medical - H&P: Qual - VTE Deep Vein Thrombosis/Pulmonary Embolism Present on Admission: No
[2018-11-16] MEDS ORDERED: LISINOPRIL 20 MG TABLET PO SCH ×2 (09:00)
[2018-11-16] MEDS ORDERED: amLODIPine 10 MG TABLET PO SCH (09:00)
[2018-11-16] MEDS ORDERED: CALCIUM CARBONATE 500 MG TAB.CHEW PO SCH ×2 (09:00→15:00)
--- NOTE | 2018-11-16 09:20 | Nephrology Progress Note ---
Subjective Patient information: Note initiated : 11/16/18 at 9:18 am Service Date, if different from initiated Date: [] Patient: Delores Jones 48 y/o F admitted on 11/16/18 for sob, dizziness, hypoxia. Chief Complaint: Mentally getting better. Objective - Vital Signs Vital signs: Vital Signs Temp Pulse Pulse Resp BP BP Pulse Ox 11/16/18 09:00 75 11 L 95 11/16/18 08:17 73 14 95 11/16/18 08:01 97.6 F 72 18 204/85 97 11/16/18 07:32 68 13 99 11/16/18 07:01 98.5 F 67 14 168/81 97 11/16/18 06:50 73 10 L 99 11/16/18 06:40 71 17 172/85 97 11/16/18 06:01 66 16 162/77 98 11/16/18 05:46 67 20 96 11/16/18 05:01 62 11 L 141/64 96 11/16/18 04:11 63 6 L 132/64 93 11/16/18 04:08 97.2 F 60 11 L 132/64 95 11/16/18 03:00 62 14 96 11/16/18 02:00 65 12 97 11/16/18 01:16 67 13 100 11/16/18 01:15 66 11 L 100 11/16/18 01:02 97.4 F 66 12 166/73 94 11/16/18 01:01 66 15 174/85 100 11/16/18 00:46 66 11 L 153/96 98 11/16/18 00:33 58 L 12 133/62 96 11/16/18 00:16 58 L 14 99/50 97 11/16/18 00:01 57 L 12 89/47 96 11/15/18 23:46 57 L 11 L 97/49 98 11/15/18 23:31 56 L 15 97/51 97 11/15/18 23:16 55 L 12 87/47 95 11/15/18 23:01 56 L 12 91/44 96 11/15/18 22:46 56 L 12 90/44 96 11/15/18 22:31 56 L 10 L 98/53 94 11/15/18 22:16 57 L 11 L 99/54 96 11/15/18 22:01 58 L 18 100/47 94 05/23/19 21:50 58 L 9 L 93 11/15/18 21:46 58 L 12 109/60 93 11/15/18 21:31 59 L 15 101/63 95 11/15/18 21:18 57 L 13 90/45 92 11/15/18 21:01 58 L 13 75/48 94 11/15/18 20:46 58 L 10 L 77/45 97 11/15/18 20:30 58 L 12 76/40 98 11/15/18 19:58 97.6 F 65 17 85/55 96 Intake and Output 11/15/18 11/16/18 11/16/18 21:59 05:59 13:59 Intake Total 2049 180 Balance 2049 180 Intake: IV 2049 Sodium Chloride 0.9% 1,000 ml @ 2000 Wide Open IV BOLUS ONE Rx#: [id number] Zosyn 2.25 gm In Dextrose 5% in 50 Water 50 ml @ 100 mls/hr IV ONCE ONE Rx#:[id number] Oral 180 Other: Meal Breakfast Percent of Meal Consumed 100% Feeding Ability Independent Weight 117 lb 121 lb 4.8 oz Intake & Output: Intake & Output 11/15/18 11/16/18 11/16/18 21:59 05:59 13:59 Intake Total 2049 180 Balance 2049 180 Weight 117 lb 121 lb 4.8 oz Intake: IV 0 Sodium Chloride 0.9% 1,000 ml @ 2000 Wide Open IV BOLUS ONE Rx#: [id number] Zosyn 2.25 gm In Dextrose 5% in 50 Water 50 ml @ 100 mls/hr IV ONCE ONE Rx#:[id number] Oral 180 Other: Meal Breakfast Percent of Meal Consumed 100% Feeding Ability Independent - General Appearance General appearance: cachectic EENT: ATNC Neck: no JVD Cardiology: diastolic murmur Gastrointestinal: normoactive bowel sounds - Lab 11/15/18 21:00 11/15/18 21:00 Most recent lab results Calcium 9.5 mg/dl (8.6-10.4) 11/15/18 21:00 Assessment and Plan (1) End stage chronic kidney disease Status: Acute Comment: She had hypotension last night. Will cut the bp meds. Will have hd today.
[2018-11-16] MEDS: METOCLOPRAMIDE 10 MG TABLET PO SCH ×4 (09:23→21:56)
[2018-11-16] MEDS ORDERED: cloNIDine TTS 1 1 PATCH PATCH TD SCH (10:00)
[2018-11-16] MEDS ORDERED: LORazepam 0.5 MG TABLET PO PRN ×2 (13:08→14:11)
[2018-11-16] MEDS: CALCIUM CARBONATE 500 MG TAB.CHEW PO SCH ×2 (16:30→21:55)
[2018-11-16] MEDS: CARVEDILOL 12.5 MG TABLET PO SCH (16:56)
[2018-11-16] MEDS ORDERED: METOCLOPRAMIDE 10 MG TABLET PO SCH (17:00)
[2018-11-16] MEDS ORDERED: ATORVASTATIN 20 MG TABLET PO SCH ×2 (21:00)
[2018-11-16] MEDS: ATORVASTATIN 20 MG TABLET PO SCH (21:55)
[2018-11-16] MEDS: INSULIN LISPRO 1 UNIT/0.01 ML UNIT SQ SCH (21:56)
[2018-11-16] MEDS ORDERED: hydrALAZINE 20 MG/ML VIAL ONE (22:05)
[2018-11-16] MEDS: hydrALAZINE 20 MG/ML VIAL IV PRN (22:13)
[2018-11-17] MEDS ORDERED: hydrALAZINE 20 MG/ML VIAL ONE (00:08)
[2018-11-17] MEDS: hydrALAZINE 20 MG/ML VIAL IV PRN (02:00)
[2018-11-17] MEDS ORDERED: OMEPRAZOLE 20 MG CAPSULE PO SCH (07:30)
[2018-11-17] MEDS: CARVEDILOL 12.5 MG TABLET PO SCH ×2 (07:36→17:09)
[2018-11-17] MEDS: OMEPRAZOLE 20 MG CAPSULE PO SCH (07:37)
[2018-11-17] MEDS: METOCLOPRAMIDE 10 MG TABLET PO SCH ×4 (07:37→21:44)
[2018-11-17] MEDS: INSULIN LISPRO 1 UNIT/0.01 ML UNIT SQ SCH ×4 (07:58→21:44)
[2018-11-17] MEDS: LISINOPRIL 20 MG TABLET PO SCH (07:59)
[2018-11-17] MEDS: CALCIUM CARBONATE 500 MG TAB.CHEW PO SCH ×3 (08:00→21:43)
[2018-11-17] MEDS ORDERED: LISINOPRIL 20 MG TABLET PO SCH (09:00)
--- NOTE | 2018-11-17 10:23 | Internal Med Progress Note ---
Medical - PN: Subj Patient information: Note initiated : 11/17/18 at 10:19 am Service Date, if different from initiated Date: [] Patient: Delores Jones 48 y/o F admitted on 11/16/18 for sob, dizziness, hypoxia. Chief Complaint: [] Interval history: Gracie is a 48-year-old with history of uncontrollable hypertension was recently admitted for continued hemodialysis for ESRD/uncontrolled hypertension. She was discharged on the morning of 11/15 after medication changes as per nephrology recommendation ( Coreg/lisinopril/minoxidil/clonidine/amlodipine) but hasn't picked up minoxidil. However after her took her home and after she took her medications in the evening she has had a rapid decline in overall status unable to think straight or function. She felt like a brain fog. She wasn't eating and was unable to get out of bed. She was subsequently brought into the ER for evaluation. Initial workup was consistent with hypotension in 70s. Nephrology was consulted and recommended overnight admission for management of blood pressure. Clonidine patch was discontinued. Patient was barely verbal. Most of the history is obtained from ER physician/review of medical records and At the time of evaluation patient is now more lucid. The patient improved after removal of clonidine patch. She is admitted to the telemetry unit. Await further recommendations from nephrology. All medications at this time had been held. She denies chest pain, palpitation, lightheadedness but endorses to symptoms as above. 11/17-after continued medication changes patient's blood pressure remains erratic. Nephrology on board. Overnight blood pressure fluctuating from 200 systolics to 120. On antihypertensives as per nephrology. Continue dose titration. Ongoing hemodialysis per nephrology. Mental status changes resolved now back at baseline. On prior home medications for pre-existing medical co ndition. No overnight fever chills or concerns per staff. - Constitutional Vitals: Vital Signs Temp Pulse Resp BP Pulse Ox 98.7 F 74 19 178/70 95 11/17/18 08:00 11/17/18 08:00 11/17/18 08:00 11/17/18 09:37 11/17/18 08:00 Period Temp Pulse Resp BP Sys/[place] Pulse Ox Last 24 Hr 96.2 F-99.3 F 65-80 13-26 118-239/60-129 95-100 Intake and Output 11/16/18 11/17/18 11/17/18 21:59 05:59 13:59 Intake Total 440 120 Output Total 2250 Balance -1810 120 Weight 120 lb 12.8 oz Intake & Output: Intake & Output 11/16/18 11/17/18 11/17/18 21:59 05:59 13:59 Intake Total 440 120 Output Total 2250 Balance -1810 120 Weight 120 lb 12.8 oz Intake: Oral 440 120 Output: Hemodialysis UF 2250 Other: Meal Dinner Breakfast Percent of Meal Consumed 100% 25% Feeding Ability Independent Independent General appearance: cooperative, no acute distress Exam: Alert and oriented Nonlabored breathing no anxiety Nondistended abdomen No telemetry events Medical - PN: Obj Da - Labs CBC & Chem 7: 11/15/18 21:00 11/15/18 21:00 Labs: Abnormal Lab Results 11/15/18 11/15/18 21:00 21:00 Hgb 11.7 L RDW 16.4 H Plt Count 453 H MPV 7.3 L Chloride 92 L BUN 31 H Creatinine 4.0 H Glucose 144 H Globulin 4.1 H Meds: Medications Acetaminophen (Tylenol) 650 mg PO Q6HP PRN PRN Reason: PAIN/FEVER > 101 Hydrocodone Bitart/Acetaminophen ([place] 5/325mg) 1 tab PO Q4HP PRN PRN Reason: PAIN LEVEL 3-6 Last Admin: 11/16/18 23:48 Dose: 1 tab Documented by: Atorvastatin Calcium (Lipitor) 10 mg PO HS [facility] Last Admin: 11/16/18 21:55 Dose: 10 mg Documented by: Calcium Carbonate/Glycine (Tums) 1,000 mg PO TID [facility] Last Admin: 11/17/18 08:00 Dose: 1,000 mg Documented by: Carvedilol (Coreg) 25 mg PO BIDCC [facility] Last Admin: 11/17/18 07:36 Dose: 25 mg Documented by: Clonidine HCl (Catapres Tts 1) 1 patch TD Q7D [facility] Diagnostic Test (Pha) (Accu-Chek) 1 each FS ACHS [facility] Last Admin: 11/17/18 08:00 Dose: 1 each Documented by: Hydralazine HCl (Apresoline) 20 mg IV Q4-6HP PRN PRN Reason: Hypertension Last Admin: 11/17/18 02:00 Dose: 20 mg Documented by: Insulin Human Lispro (Humalog) [address] [facility]; Protocol Last Admin: 11/17/18 07:58 Dose: 4 unit Documented by: Lisinopril (Zestril) 40 mg PO DAILY [facility] Last Admin: 11/17/18 07:59 Dose: 40 mg Documented by: Lorazepam (Ativan) 0.25 mg PO BIDP PRN PRN Reason: ANXIETY/SEDATION Last Admin: 11/16/18 21:56 Dose: 0.25 mg Documented by: Metoclopramide HCl (Reglan) 10 mg PO ACHS [facility] Last Admin: 11/17/18 07:37 Dose: 10 mg Documented by: Naloxone HCl (Narcan) 0.1 mg IV Q2MIN PRN PRN Reason: Opiate Reversal Omeprazole (Prilosec) 20 mg PO QAMAC [facility] Last Admin: 11/17/18 07:37 Dose: 20 mg Documented by: Ondansetron HCl (Zofran) 4 mg IV Q4HP PRN PRN Reason: Nausea And Vomiting Last Admin: 11/16/18 23:50 Dose: 4 mg Documented by: Medical - PN: A/P - Time Spent With Patient Total time spent is greater than 50% in coordination of care (as documented) at patient's floor/unit and/or counseling patient: 25 - 35 minutes (1) Hypotension Status: Acute Assessment and plan: * Labile hypertension -managed per nephrology. Blood pressure variable from systolics 200-90 * ESRD. Managed per nephrology and hemodialysis * Mental status change secondary to hypotension. Clinically resolved now at baseline * DM type II -continue Lantus/SSRI * Anemia of chronic disease-stable * History of GERD * Recent flash pulmonary edema/diastolic dysfunction secondary to hypertensive urgency. Patient on multiple medications currently being managed by nephrology * Full code * Prophylaxis heparin Plan * Continue inpatient telemetry * Renal issues/hypertension management per nephrology * Prior medical condition management as above Current Visit: Yes Medical - PN: Qual - VTE Deep Vein Thrombosis/Pulmonary Embolism Present on Admission: No
[2018-11-17] MEDS: SEVELAMER 800 MG TABLET PO SCH (17:09)
[2018-11-17] MEDS: ATORVASTATIN 20 MG TABLET PO SCH (21:44)
[2018-11-17] MEDS: amLODIPine 5 MG TABLET PO SCH (21:44)
[2018-11-18] MEDS: hydrALAZINE 20 MG/ML VIAL IV PRN ×2 (03:49→16:24)
[2018-11-18 05:33] LABS: Basophils # (Auto) 0.1 K/mcL (0.0-0.3); Basophils % (Auto) 0.6 % (0.0-2.0); Eosinophils # (Auto) 1.4 K/mcL (0.0-0.7); Eosinophils % (Auto) 13.8 % (0.0-7.0); Granulocytes % (Auto) 53.1 % (38.0-78.0); Hematocrit 34.9 % (36.0-48.0); Hemoglobin 11.1 g/dL (12.0-15.0); Lymphocytes # (Auto) 2.1 K/mcL (1.5-4.8); Lymphocytes % (Auto) 21.3 % (15.5-49.0); Mean Cell Volume 82.3 fL (80.0-100.0); Mean Corpuscular HGB Conc 31.7 g/dL (31.0-36.0); Mean Platelet Volume 7.3 fL (7.4-10.4); Monocytes # (Auto) 1.1 K/mcL (0.1-0.9); Monocytes % (Auto) 11.2 % (1.0-12.0); Platelet Count 414 K/mcL (140-440); RBC 4.24 M/mcL (4.00-5.20); Red Cell Distribution Width 16.1 % (11.5-14.5); WBC 10.1 K/mcL (4.5-11.0)
[2018-11-18 05:53] LABS: ALT/SGPT 6 U/l (0-40); AST/SGOT 10 U/l (0-37); Albumin 3.7 gm/dL (3.2-5.2); Albumin/Globulin Ratio 1.1 (1.0-2.3); Alkaline Phosphatase 82 U/L (39-117); Bilirubin,Direct < 0.2 mg/dL (0.0-0.3); Bilirubin,Total 0.2 mg/dL (0.0-1.0); Blood Urea Nitrogen 31 mg/dl (6-20); Calcium 9.4 mg/dl (8.6-10.4); Carbon Dioxide 27 mmol/L (22-30); Chloride 93 mmol/L (96-108); Gamma Glutamyl Transpeptidase 44 U/L (5-36); Globulin 3.5 gm/dL (2.2-3.7); Glomerular Filtration Rate 11; Glucose 192 mg/dL (70-105); Lactate Dehydrogenase 147 U/L (94-250); Phosphorous 4.8 mg/dL (2.7-4.5); Potassium 4.5 mmol/L (3.3-5.1); Sodium 135 mmol/L (133-145); Triglycerides 195 mg/dl (<150); Uric Acid 3.8 mg/dL (2.5-8.0)
[2018-11-18] MEDS: INSULIN LISPRO 1 UNIT/0.01 ML UNIT SQ SCH ×4 (08:04→21:09)
[2018-11-18] MEDS: CARVEDILOL 12.5 MG TABLET PO SCH ×2 (08:05→17:17)
[2018-11-18] MEDS: SEVELAMER 800 MG TABLET PO SCH ×3 (08:05→17:17)
[2018-11-18] MEDS: OMEPRAZOLE 20 MG CAPSULE PO SCH (08:05)
[2018-11-18] MEDS: METOCLOPRAMIDE 10 MG TABLET PO SCH ×4 (08:06→21:12)
[2018-11-18] MEDS: LISINOPRIL 20 MG TABLET PO SCH ×2 (08:23→21:09)
[2018-11-18] MEDS: amLODIPine 5 MG TABLET PO SCH ×2 (08:23→21:10)
[2018-11-18] MEDS: CALCIUM CARBONATE 500 MG TAB.CHEW PO SCH ×3 (08:24→21:09)
[2018-11-18] MEDS: INSULIN GLARGINE, HUMAN 1 UNIT/0.01 ML SQ SCH (13:03)
[2018-11-18] MEDS: ATORVASTATIN 20 MG TABLET PO SCH (21:09)
--- NOTE | 2018-11-18 22:36 | Internal Med Progress Note ---
Medical - PN: Subj Patient information: Note initiated : 11/18/18 at 10:34 pm Service Date, if different from initiated Date: [] Patient: Delores Jones 48 y/o F admitted on 11/16/18 for sob, dizziness, hypoxia. Chief Complaint: [] Interval history: Gracie is a 48-year-old with history of uncontrollable hypertension was recently admitted for continued hemodialysis for ESRD/uncontrolled hypertension. She was discharged on the morning of 11/15 after medication changes as per nephrology recommendation ( Coreg/lisinopril/minoxidil/clonidine/amlodipine) but hasn't picked up minoxidil. However after her took her home and after she took her medications in the evening she has had a rapid decline in overall status unable to think straight or function. She felt like a brain fog. She wasn't eating and was unable to get out of bed. She was subsequently brought into the ER for evaluation. Initial workup was consistent with hypotension in 70s. Nephrology was consulted and recommended overnight admission for management of blood pressure. Clonidine patch was discontinued. Patient was barely verbal. Most of the history is obtained from ER physician/review of medical records and At the time of evaluation patient is now more lucid. The patient improved after removal of clonidine patch. She is admitted to the telemetry unit. Await further recommendations from nephrology. All medications at this time had been held. She denies chest pain, palpitation, lightheadedness but endorses to symptoms as above. 11/17-after continued medication changes patient's blood pressure remains erratic. Nephrology on board. Overnight blood pressure fluctuating from 200 systolics to 120. On antihypertensives as per nephrology. Continue dose titration. Ongoing hemodialysis per nephrology. Mental status changes resolved now back at baseline. On prior home medications for pre-existing medical co ndition. No overnight fever chills or concerns per staff. 11/18- uptitrating antihypertensives as per nephrology. Currently on twice daily dosing for amlodipine/QUIN inhibitor/beta bernie. If persistent elevation will attempt minoxidil as per nephrology. at bedside. No overnight events . Denies chest pain shortness of breath and lightheadedness or dizziness. No overnight telemetry events - Constitutional Vitals: Vital Signs Temp Pulse Resp BP Pulse Ox 96.7 F L 66 16 188/86 93 11/18/18 20:51 11/18/18 17:14 11/18/18 20:51 11/18/18 20:51 11/18/18 20:51 Period Temp Pulse Resp BP Sys/Infante Pulse Ox Last 24 Hr 96.7 F-98.4 F 66-71 16-20 138-208/71-88 93-98 Intake and Output 11/18/18 11/18/18 11/19/18 13:59 21:59 05:59 Intake Total 330 480 Balance 330 480 Weight 122 lb Patient Weight 11/19/18 05:59 Weight 122 lb Intake & Output: Intake & Output 11/18/18 11/18/18 11/19/18 13:59 21:59 05:59 Intake Total 330 480 Balance 330 480 Weight 122 lb Intake: Oral 330 480 Other: Meal Lunch Dinner Percent of Meal Consumed 50% 100% Feeding Ability Independent General appearance: no acute distress Exam: Alert and responsive Nonlabored breathing No anxiety Negative Lymphedema Medical - PN: Obj Da - Labs CBC & Chem 7: 11/18/18 03:34 11/18/18 03:34 Labs: Abnormal Lab Results 11/18/18 11/18/18 03:34 03:34 Hgb 11.1 L Hct 34.9 L RDW 16.1 H MPV 7.3 L Eos % (Auto) 13.8 H [place] # (Auto) 1.1 H Eos # (Auto) 1.4 H Chloride 93 L BUN 31 H Creatinine 4.4 H Glucose 192 H Phosphorus 4.8 H GGT 44 H Triglycerides 195 H Meds: Medications Acetaminophen (Tylenol) 650 mg PO Q6HP PRN PRN Reason: PAIN/FEVER > 101 Hydrocodone Bitart/Acetaminophen ([place] 5/325mg) 1 tab PO Q4HP PRN PRN Reason: PAIN LEVEL 3-6 Last Admin: 11/16/18 23:48 Dose: 1 tab Documented by: Amlodipine Besylate (Norvasc) 5 mg PO BID [facility] Last Admin: 11/18/18 21:10 Dose: 5 mg Documented by: Atorvastatin Calcium (Lipitor) 10 mg PO HS [facility] Last Admin: 11/18/18 21:09 Dose: 10 mg Documented by: Calcium Carbonate/Glycine (Tums) 1,000 mg PO TID [facility] Last Admin: 05/26/19 21:09 Dose: 1,000 mg Documented by: Carvedilol (Coreg) 25 mg PO BIDCC [facility] Last Admin: 11/18/18 17:17 Dose: 25 mg Documented by: Clonidine HCl (Catapres Tts 1) 1 patch TD Q7D [facility] Diagnostic Test (Pha) (Accu-Chek) 1 each FS [facility] Last Admin: 11/18/18 21:09 Dose: 1 each Documented by: Hydralazine HCl (Apresoline) 20 mg IV Q4-6HP PRN PRN Reason: Hypertension Last Admin: 11/18/18 16:24 Dose: 20 mg Documented by: Insulin Glargine (Lantus) 25 unit SQ DAILY [facility] Last Admin: 11/18/18 13:03 Dose: 25 unit Documented by: Insulin Human Lispro (Humalog) 0 unit SQ [facility]; Protocol Last Admin: 11/18/18 21:09 Dose: 2 unit Documented by: Lisinopril (Zestril) 20 mg PO BID [facility] Last Admin: 11/18/18 21:09 Dose: 20 mg Documented by: Lorazepam (Ativan) 0.25 mg PO BIDP PRN PRN Reason: ANXIETY/SEDATION Last Admin: 11/16/18 21:56 Dose: 0.25 mg Documented by: Metoclopramide HCl (Reglan) 10 mg PO [facility] Last Admin: 11/18/18 21:12 Dose: 10 mg Documented by: Naloxone HCl (Narcan) 0.1 mg IV Q2MIN PRN PRN Reason: Opiate Reversal [facility] Last Admin: 11/18/18 08:05 Dose: 20 mg Documented by: Ondansetron HCl (Zofran) 4 mg IV Q4HP PRN PRN Reason: Nausea And Vomiting Last Admin: 11/16/18 23:50 Dose: 4 mg Documented by: Sevelamer Carbonate (Renvela) 1,600 mg PO TIDCC [facility] Last Admin: 11/18/18 17:17 Dose: 1,600 mg Documented by: Medical - PN: A/P - Time Spent With Patient Total time spent is greater than 50% in coordination of care (as documented) at patient's floor/unit and/or counseling patient: 25 - 35 minutes (1) Hypotension Status: Acute Assessment and plan: * Accelerated hypertension -managed per nephrology. Currently on beta bernie/QUIN inhibitor/calcium channel bernie. Continue up titration based on nephrology recommendations * ESRD. Managed per nephrology on hemodialysis * Mental status change secondary to hypotension. Resolved * DM type II -continue Lantus/SSRI * Anemia of chronic disease-stable * History of GERD * Recent flash pulmonary edema/diastolic dysfunction secondary to hypertensive urgency. Clinically resolved. * Full code * Prophylaxis heparin Plan * Continue up titration of antihypertensives * Renal issues/hypertension management per nephrology * Prior medical condition management as above Current Visit: Yes Medical - PN: Qual - VTE Deep Vein Thrombosis/Pulmonary Embolism Present on Admission: No
[2018-11-19] MEDS: hydrALAZINE 20 MG/ML VIAL IV PRN ×2 (00:24→04:17)
[2018-11-19] MEDS ORDERED: POLYETHYLENE GLYCOL 3350 17 GM PACKET PO PRN (03:12)
[2018-11-19] MEDS ORDERED: BISACODYL 10 MG SUPP.RECT PR PRN (03:14)
[2018-11-19] MEDS: SEVELAMER 800 MG TABLET PO SCH ×3 (07:30→16:55)
[2018-11-19] MEDS: METOCLOPRAMIDE 10 MG TABLET PO SCH ×4 (07:31→21:42)
[2018-11-19] MEDS: OMEPRAZOLE 20 MG CAPSULE PO SCH (07:31)
[2018-11-19] MEDS: CARVEDILOL 12.5 MG TABLET PO SCH ×2 (07:31→16:55)
[2018-11-19] MEDS: INSULIN LISPRO 1 UNIT/0.01 ML UNIT SQ SCH ×4 (07:58→21:41)
[2018-11-19] MEDS: INSULIN GLARGINE, HUMAN 1 UNIT/0.01 ML SQ SCH (07:59)
[2018-11-19] MEDS: MINOXIDIL 2.5 MG TABLET PO SCH ×2 (08:01→21:41)
[2018-11-19] MEDS: amLODIPine 5 MG TABLET PO SCH ×2 (09:15→21:42)
[2018-11-19] MEDS: CALCIUM CARBONATE 500 MG TAB.CHEW PO SCH ×3 (09:16→21:41)
[2018-11-19] MEDS: LISINOPRIL 20 MG TABLET PO SCH ×2 (09:16→21:42)
--- NOTE | 2018-11-19 13:42 | Internal Med Progress Note ---
Medical - PN: Subj Patient information: Note initiated : 11/19/18 at 1:40 pm Service Date, if different from initiated Date: [] Patient: Delores Jones 48 y/o F admitted on 11/16/18 for sob, dizziness, hypoxia. Chief Complaint: [] Interval history: Gracie is a 48-year-old with history of uncontrollable hypertension was recently admitted for continued hemodialysis for ESRD/uncontrolled hypertension. She was discharged on the morning of 11/15 after medication changes as per nephrology recommendation ( Coreg/lisinopril/minoxidil/clonidine/amlodipine) but hasn't picked up minoxidil. However after her took her home and after she took her medications in the evening she has had a rapid decline in overall status unable to think straight or function. She felt like a brain fog. She wasn't eating and was unable to get out of bed. She was subsequently brought into the ER for evaluation. Initial workup was consistent with hypotension in 70s. Nephrology was consulted and recommended overnight admission for management of blood pressure. Clonidine patch was discontinued. Patient was barely verbal. Most of the history is obtained from ER physician/review of medical records and At the time of evaluation patient is now more lucid. The patient improved after removal of clonidine patch. She is admitted to the telemetry unit. Await further recommendations from nephrology. All medications at this time had been held. She denies chest pain, palpitation, lightheadedness but endorses to symptoms as above. 11/17-after continued medication changes patient's blood pressure remains erratic. Nephrology on board. Overnight blood pressure fluctuating from 200 systolics to 120. On antihypertensives as per nephrology. Continue dose titration. Ongoing hemodialysis per nephrology. Mental status changes resolved now back at baseline. On prior home medications for pre-existing medical con dition. No overnight fever chills or concerns per staff. 11/18- uptitrating antihypertensives as per nephrology. Currently on twice daily dosing for amlodipine/QUIN inhibitor/beta bernie. If persistent elevation will attempt minoxidil as per nephrology. at bedside. No overnight events. Denies chest pain shortness of breath and lightheadedness or dizziness. No overnight telemetry events 11/19-patient doing well. Systolics around 180s. Added 5 mg twice a day minoxidil per nephrology recommendation. Possible discharge in 24 hours if systolics around 150-160. Hemodialysis today. No overnight events, at bedside, denies anxiety headache, chest pain. - Constitutional Vitals: Vital Signs Temp Pulse Resp BP Pulse Ox 97.5 F 63 16 169/75 95 11/19/18 11:26 11/19/18 11:26 11/19/18 11:26 11/19/18 11:26 11/19/18 11:26 Period Temp Pulse Resp BP Sys/Infante Pulse Ox Last 24 Hr 96.7 F-97.8 F 63-66 12-20 142-213/62-98 93-98 Intake and Output 11/18/18 11/19/18 11/19/18 21:59 05:59 13:59 Intake Total 480 1140 Balance 480 1140 Weight 121 lb 8 oz Intake & Output: Intake & Output 11/18/18 11/19/18 11/19/18 21:59 05:59 13:59 Intake Total 480 1140 Balance 480 1140 Weight 121 lb 8 oz Intake: Oral 480 1140 Other: Meal Dinner Lunch Percent of Meal Consumed 100% 70 Feeding Ability Independent General appearance: no acute distress Exam: Alert oriented No anxiety Nonlabored breathing No lymphedema Medical - PN: Obj Da - Labs CBC & Chem 7: 11/18/18 03:34 11/18/18 03:34 Labs: Abnormal Lab Results 11/18/18 11/18/18 03:34 03:34 Hgb 11.1 L Hct 34.9 L RDW 16.1 H MPV 7.3 L Eos % (Auto) 13.8 H [place] # (Auto) 1.1 H Eos # (Auto) 1.4 H Chloride 93 L BUN 31 H Creatinine 4.4 H Glucose 192 H Phosphorus 4.8 H GGT 44 H Triglycerides 195 H Meds: Medications Acetaminophen (Tylenol) 650 mg PO Q6HP PRN PRN Reason: PAIN/FEVER > 101 Hydrocodone Bitart/Acetaminophen ([place] 5/325mg) 1 tab PO Q4HP PRN PRN Reason: PAIN LEVEL 3-6 Last Admin: 11/16/18 23:48 Dose: 1 tab Documented by: Amlodipine Besylate (Norvasc) 5 mg PO BID [facility] Last Admin: 11/19/18 09:15 Dose: 5 mg Documented by: Atorvastatin Calcium (Lipitor) 10 mg PO HS [facility] Last Admin: 11/18/18 21:09 Dose: 10 mg Documented by: Bisacodyl (Dulcolax) 10 mg MA DAILYP PRN PRN Reason: Constipation Calcium Carbonate/Glycine (Tums) 1,000 mg PO TID [facility] Last Admin: 11/19/18 09:16 Dose: 1,000 mg Documented by: Carvedilol (Coreg) 25 mg PO BIDCC [facility] Last Admin: 11/19/18 07:31 Dose: 25 mg Documented by: Clonidine HCl (Catapres Tts 1) 1 patch TD Q7D [facility] Diagnostic Test (Pha) (Accu-Chek) 1 each FS [facility] Last Admin: 11/19/18 11:55 Dose: 1 each Documented by: Hydralazine HCl (Apresoline) 20 mg IV Q4-6HP PRN PRN Reason: Hypertension Last Admin: 11/19/18 04:17 Dose: 20 mg Documented by: Insulin Glargine (Lantus) 25 unit SQ DAILY [facility] Last Admin: 11/19/18 07:59 Dose: 25 unit Documented by: Insulin Human Lispro (Humalog) 0 unit SQ [facility]; Protocol Last Admin: 11/19/18 11:55 Dose: 6 unit Documented by: Lisinopril (Zestril) 20 mg PO BID [facility] Last Admin: 11/19/18 09:16 Dose: 20 mg Documented by: Lorazepam (Ativan) 0.25 mg PO BIDP PRN PRN Reason: ANXIETY/SEDATION Last Admin: 11/16/18 21:56 Dose: 0.25 mg Documented by: Metoclopramide HCl (Reglan) 10 mg PO [facility] Last Admin: 11/19/18 11:55 Dose: 10 mg Documented by: Minoxidil (Minoxidil) 5 mg PO BID [facility] Last Admin: 11/19/18 08:01 Dose: 5 mg Documented by: Naloxone HCl (Narcan) 0.1 mg IV Q2MIN PRN PRN Reason: Opiate Reversal [facility] Admin: 11/19/18 07:31 Dose: 20 mg Documented by: Ondansetron HCl (Zofran) 4 mg IV Q4HP PRN PRN Reason: Nausea And Vomiting Last Admin: 11/16/18 23:50 Dose: 4 mg Documented by: Polyethylene Glycol (Miralax) 17 gm PO DAILYP PRN PRN Reason: Constipation Sevelamer Carbonate (Renvela) 1,600 mg PO TIDCC [facility] Last Admin: 11/19/18 11:54 Dose: 1,600 mg Documented by: Medical - PN: A/P - Time Spent With Patient Total time spent is greater than 50% in coordination of care (as documented) at patient's floor/unit and/or counseling patient: 15 - 24 minutes (1) Hypotension Status: Acute Assessment and plan: * Accelerated hypertension -start minoxidil in addition to beta bernie/QUIN inhibitor/calcium channel bernie as per nephrology recommendations * ESRD. On HD per nephrology * Mental status change secondary to hypotension. Resolved * DM type II -continue Lantus/SSRI * Anemia of chronic disease-stable * History of GERD * Recent flash pulmonary edema/diastolic dysfunction secondary to hypertensive urgency. Clinically resolved. * Full code * Prophylaxis heparin Plan * Target blood pressure 150-160 * HD per nephrology * Prior medical condition management as above * Possible discharge in 24 hours Current Visit: Yes Medical - PN: Qual - VTE Deep Vein Thrombosis/Pulmonary Embolism Present on Admission: No
[2018-11-19] MEDS: ATORVASTATIN 20 MG TABLET PO SCH (21:42)
[2018-11-20] MEDS: OMEPRAZOLE 20 MG CAPSULE PO SCH (07:09)
[2018-11-20] MEDS: METOCLOPRAMIDE 10 MG TABLET PO SCH (07:09)
[2018-11-20] MEDS: CARVEDILOL 12.5 MG TABLET PO SCH (08:42)
[2018-11-20] MEDS: SEVELAMER 800 MG TABLET PO SCH (08:42)
[2018-11-20] MEDS: LISINOPRIL 20 MG TABLET PO SCH (08:42)
[2018-11-20] MEDS: amLODIPine 5 MG TABLET PO SCH (08:42)
[2018-11-20] MEDS: INSULIN GLARGINE, HUMAN 1 UNIT/0.01 ML SQ SCH (08:43)
[2018-11-20] MEDS: INSULIN LISPRO 1 UNIT/0.01 ML UNIT SQ SCH (08:43)
[2018-11-20] MEDS: CALCIUM CARBONATE 500 MG TAB.CHEW PO SCH (08:43)
[2018-11-20] MEDS ORDERED: MINOXIDIL 2.5 MG TABLET PO SCH (09:00)
--- NOTE | 2018-11-20 09:51 | Nephrology Progress Note ---
Subjective Patient information: Note initiated : 11/20/18 at 9:50 am Service Date, if different from initiated Date: [] Patient: Delores Jones 48 y/o F admitted on 11/16/18 for sob, dizziness, hypoxia. Chief Complaint: Feeling a lot better. BP have been better. Objective - Vital Signs Vital signs: Vital Signs Temp Pulse Pulse Resp BP BP Pulse Ox 11/20/18 08:00 97.7 F 71 16 145/66 95 11/20/18 04:50 62 150/67 11/20/18 04:45 61 112/53 11/20/18 04:30 62 96/58 11/20/18 04:15 63 108/61 11/20/18 04:00 62 117/67 11/20/18 03:45 61 121/70 11/20/18 03:30 62 109/57 11/20/18 03:15 62 118/63 11/20/18 03:00 62 123/66 11/20/18 02:45 62 109/52 11/20/18 02:30 62 114/56 11/20/18 02:15 60 120/60 11/20/18 02:00 59 L 104/62 11/20/18 01:45 59 L 126/70 11/20/18 01:30 63 140/67 11/20/18 01:15 63 129/61 11/20/18 01:00 61 155/74 11/20/18 00:55 97.3 F 66 189/81 11/19/18 20:00 97.8 F 64 18 181/79 95 11/19/18 16:00 97.6 F 62 16 201/76 95 11/19/18 11:26 97.5 F 63 16 169/75 95 Intake and Output 11/19/18 11/20/18 11/20/18 21:59 05:59 13:59 Intake Total 240 240 Output Total 2635 Balance 240 -2635 240 Intake: Oral 240 240 Output: Hemodialysis UF 2635 Other: Meal Dinner Breakfast Percent of Meal Consumed 100% 100% Feeding Ability Independent Assist with Tray Set Up Weight 121 lb 8 oz Intake & Output: Intake & Output 11/19/18 11/20/18 11/20/18 21:59 05:59 13:59 Intake Total 240 240 Output Total 2635 Balance 240 -2635 240 Weight 121 lb 8 oz Intake: Oral 240 240 Output: Hemodialysis UF 2635 Other: Meal Dinner Breakfast Percent of Meal Consumed 100% 100% Feeding Ability Independent Assist with Tray Set Up - General Appearance General appearance: cachectic EENT: ATNC Neck: no JVD Respiratory: no kyphosis Cardiology: diastolic murmur Gastrointestinal: hypoactive bowel sounds - Lab 11/18/18 03:34 11/18/18 03:34 Most recent lab results Calcium 9.4 mg/dl (8.6-10.4) 11/18/18 03:34 Phosphorus 4.8 mg/dL (2.7-4.5) H 11/18/18 03:34 Magnesium 2.0 mg/dL (1.6-2.5) 11/18/18 03:34 Assessment and Plan (1) End stage chronic kidney disease Status: Acute Comment: She is still hypertensive, but better. Will continue minoxidil 2.5mg po bid.
--- NOTE | 2018-11-20 10:21 | Discharge Summary ---
Medical - DS: Prov Patient information: Note initiated : 11/20/18 at 10:19 am Service Date, if different from initiated Date: [] Patient: Delores Jones 48 y/o F admitted on 11/16/18 for sob, dizziness, hypoxia. Chief Complaint: [] Date of admission: 11/16/18 01:30 Discharge date: 11/20/18 Primary care physician: Pauline Espana Consults: 11/16/18 Consult to Physician [CONS] Stat Comment: Consulting Provider: Billy Alves Reason For Exam: Physician to Consult Medical - DS: Meds - Discharge Medications Prescriptions: amLODIPine [Norvasc] 5 mg PO BID #30 tab Lisinopril [Zestril] 20 mg PO BID #30 tab Minoxidil 2.5 mg PO BID #30 tab Active and Home Medications: Home Medications atorvastatin 10 mg tablet 10 mg PO QDAY 10/18/16 [History Confirmed 11/11/18 Last Taken Unknown] blood sugar diagnostic strips See Dose Instructions .ROUTE .MEDSUPPLY 10/18/16 [History Confirmed 11/16/18 Last Taken Unknown] carvedilol 12.5 mg tablet 25 mg PO BID tab 10/18/16 [History Confirmed 11/12/18 Last Taken 11/11/18 06:00] metoclopramide 5 mg tablet 10 mg PO ACHS tab 10/18/16 [History Confirmed 11/16/18 Last Taken 11/11/18 06:00] Basaglar Kwikpen U-100 25 unit SQ QAM 11/11/18 [History Confirmed 11/11/18 Last Taken 11/10/18 06:00] Novolog Flexpen See Protocol SQ ACHS 11/11/18 [History Confirmed 11/12/18 Last Taken 11/10/18 13:00] cloNIDine [Catapres-Tts 1] 0.3 mg TD WEEKLY 11/11/18 [History Confirmed 11/16/18 Last Taken 11/07/18 06:00] Calcium Carbonate [Tums] 1,000 mg PO TID 11/13/18 [History Confirmed 11/16/18 Last Taken Unknown] Omeprazole [Prilosec] 20 mg PO DAILY 11/13/18 [History Confirmed 11/16/18 Last Taken Unknown] Sevelamer [Renvela] 1,600 mg PO TIDCC 11/16/18 [History Confirmed 11/16/18 Last Taken Unknown] Sevelamer [Renvela] 800 mg PO PRN PRN 11/16/18 [History Confirmed 11/16/18 Last Taken Unknown] Lisinopril [Zestril] 20 mg PO BID #30 tab 11/20/18 [Rx Last Taken Unknown] Minoxidil 2.5 mg PO BID #30 tab 11/20/18 [Rx Last Taken Unknown] amLODIPine [Norvasc] 5 mg PO BID #30 tab 11/20/18 [Rx Last Taken Unknown] Medical - DS: Hosp Hospital course: Discharge diagnoses * Accelerated hypertension -clinically improved on 2.5 mg twice a day minoxidil in addition to beta bernie/QUIN inhibitor/calcium channel bernie as per nephrology recommendations. Patient discharging stable state. Systolics around 1:30. * ESRD. Will continue outpatient HD per nephrology * Mental status change secondary to hypotension. Resolved * DM type II -continue Lantus/SSRI * Anemia of chronic disease-stable * History of GERD * Recent flash pulmonary edema/diastolic dysfunction secondary to hypertensive urgency. Clinically resolved. Brief hospital course Gracie is a 48-year-old with history of uncontrollable hypertension was recently admitted for continued hemodialysis for ESRD/uncontrolled hypertension. She was discharged on the morning of 11/15 after medication changes as per nephrology recommendation ( Coreg/lisinopril/minoxidil/clonidine/amlodipine) but hasn't picked up minoxidil. However after her took her home and after she took her medications in the evening she has had a rapid decline in overall status unable to think straight or function. She felt like a brain fog. She wasn't eating and was unable to get out of bed. She was subsequently brought into the ER for evaluation. Initial workup was consistent with hypotension in 70s. Nephrology was consulted and recommended overnight admission for management of blood pressure. Clonidine patch was discontinued. Patient was barely verbal. Most of the history is obtained from ER physician/review of medical records and At the time of evaluation patient is now more lucid. The patient improved after removal of clonidine patch. She is admitted to the telemetry unit. Await further recommendations from nephrology. All medications at this time had been held. She denies chest pain, palpitation, lightheadedness but endorses to symptoms as above. 11/17-after continued medication changes patient's blood pressure remains erratic. Nephrology on board. Overnight blood pressure fluctuating from 200 systolics to 120. On antihypertensives as per nephrology. Continue dose titration. Ongoing hemodialysis per nephrology. Mental status changes resolved now back at baseline. On prior home medications for pre-existing medical condition. No overnight fever chills or concerns per staff. 11/18- uptitrating antihypertensives as per nephrology. Currently on twice daily dosing for amlodipine/QUIN inhibitor/beta bernie. If persistent elevation will attempt minoxidil as per nephrology. at bedside. No overnight events. Denies chest pain shortness of breath and lightheadedness or dizziness. No overnight telemetry events 11/19-patient doing well. Systolics around 180s. Added 5 mg twice a day minoxidil per nephrology recommendation. Possible discharge in 24 hours if systolics around 150-160. Hemodialysis today. No overnight events, at bedside, denies anxiety headache, chest pain. 11/20-patient doing markedly better with blood pressures around 130s. Minoxidil dose 2.5 twice a day as per nephrology. Patient discharging the detailed medications/instructions as below along with follow-up recommendations with nephrology as outpatient. No overnight fever chills or concerns or dizziness lightheadedness or symptoms. at bedside. Patient requesting discharge Discharge diagnosis: . - Time Spent with Patient Total time spent providing and/or coordinating discharge services: Greater than 30 minutes Medical - DS: Exam - Constitutional Vitals: Vital Signs Temp Pulse Pulse Resp BP BP Pulse Ox 11/20/18 08:00 97.7 F 71 16 145/66 95 11/20/18 04:50 62 150/67 11/20/18 04:45 61 112/53 11/20/18 04:30 62 96/58 11/20/18 04:15 63 108/61 11/20/18 04:00 62 117/67 11/20/18 03:45 61 121/70 11/20/18 03:30 62 109/57 11/20/18 03:15 62 118/63 11/20/18 03:00 62 123/66 11/20/18 02:45 62 109/52 11/20/18 02:30 62 114/56 11/20/18 02:15 60 120/60 11/20/18 02:00 59 L 104/62 11/20/18 01:45 59 L 126/70 11/20/18 01:30 63 140/67 11/20/18 01:15 63 129/61 11/20/18 01:00 61 155/74 11/20/18 00:55 97.3 F 66 189/81 11/19/18 20:00 97.8 F 64 18 181/79 95 11/19/18 16:00 97.6 F 62 16 201/76 95 11/19/18 11:26 97.5 F 63 16 169/75 95 Intake and Output 11/19/18 11/20/18 11/20/18 21:59 05:59 13:59 Intake Total 240 240 Output Total 2635 Balance 240 -2635 240 Intake: Oral 240 240 Output: Hemodialysis UF 2635 Other: Meal Dinner Breakfast Percent of Meal Consumed 100% 100% Feeding Ability Independent Assist with Tray Set Up Weight 121 lb 8 oz Medical - DS: Data Labs on day of discharge: Preliminary micro results at discharge 11/15/18 21:24 Blood Culture - Preliminary Blood 11/15/18 21:33 Blood Culture - Preliminary Blood Medical - DS: A/P - Patient/Caregiver Discharge Instructions Activity: increase activity as tolerated Diet: Renal/Consistent Carbs Additional Instructions: Follow-up nephrology as outpatient for HD Follow-up PCP next available appointment Continue medication as advised by nephrology Return to ER if worsening headache lightheadedness dizziness noted Prescriptions: amLODIPine [Norvasc] 5 mg PO BID #30 tab Lisinopril [Zestril] 20 mg PO BID #30 tab Minoxidil 2.5 mg PO BID #30 tab - Follow up Plan Follow up with: Pauline Espana ARNP [Primary Care Provider] - 11/20/18 3:00 pm (Please take your medication list to the pharmacy at [facility] prior to your appointment.) Disposition: Home, Self-Care Prognosis: Fair Rehab Potential: Fair I certify that the patient requires SNF services: No Overall status at discharge: patient is progressing back to baseline Medical - DS: Qual - VTE Deep Vein Thrombosis/Pulmonary Embolism Present on Admission: No
[2018-11-23] MEDS ORDERED: cloNIDine TTS 1 1 PATCH PATCH TD SCH ×2 (10:00)
== END 2018-11-20 11:36 | disposition home or self-care (01) | DRG 699 ==
LOC: ED 19:58 → ICU 11-16 01:30
PROVIDERS: ADMIT Internal Medicine; ATTEND Internal Medicine

== ENCOUNTER 2019-01-21 10:36 | Inpatient (IN) ==
[2019-01-21] MEDS ORDERED: IOPAMIDOL 100 ML BOTTLE IV ONE (10:37)
[2019-01-21] MEDS ORDERED: LABETALOL 5 MG/ML ML IV ONE ×2 (11:17→12:33)
[2019-01-21] MEDS ORDERED: ONDANSETRON 4 MG/2 ML VIAL IV ONE (11:17)
[2019-01-21] MEDS ORDERED: 0.9 % SODIUM CHLORIDE 250 ML IV SCH (12:45)
[2019-01-21] MEDS ORDERED: LABETALOL 500 MG in DEXTROSE 5% IN WATER 150 ML IV SCH (12:45)
[2019-01-21 13:02] LABS: Basophils # (Auto) 0 K/mcL (0.0-0.3); Basophils % (Auto) 0.2 % (0.0-2.0); Eosinophils # (Auto) 0 K/mcL (0.0-0.7); Eosinophils % (Auto) 0.1 % (0.0-7.0); Granulocytes % (Auto) 89.7 % (38.0-78.0); Hematocrit 48.1 % (36.0-48.0); Hemoglobin 15.3 g/dL (12.0-15.0); Lymphocytes # (Auto) 0.7 K/mcL (1.5-4.8); Lymphocytes % (Auto) 6.5 % (15.5-49.0); Mean Cell Volume 82.2 fL (80.0-100.0); Mean Corpuscular HGB Conc 31.7 g/dL (31.0-36.0); Mean Platelet Volume 7.6 fL (7.4-10.4); Monocytes # (Auto) 0.4 K/mcL (0.1-0.9); Monocytes % (Auto) 3.5 % (1.0-12.0); Platelet Count 297 K/mcL (140-440); RBC 5.85 M/mcL (4.00-5.20); Red Cell Distribution Width 18.3 % (11.5-14.5); WBC 10.1 K/mcL (4.5-11.0)
[2019-01-21] MEDS ORDERED: DEXTROSE 5% IN WATER 250 ML IV ONE (13:07)
[2019-01-21 13:17] LABS: POC Blood Urea Nitrogen 26 mg/dl (6-20); POC CO2 30 mmol/L (22-30); POC Calcium, Ionized 1.04 mmol/L (1.16-1.32); POC Chloride 98 mmol/L (96-108); POC Creatinine 3.5 mg/dl (0.6-1.1); POC Glucose, Random 209 mg/dL (70-105); POC Potassium 4.9 mmol/L (3.3-5.1); POC Sodium 138 mmol/L (133-145)
[2019-01-21 13:45] LABS: ALT/SGPT 48 U/l (0-40); AST/SGOT 51 U/l (0-37); Albumin/Globulin Ratio 0.9 (1.0-2.3); Alkaline Phosphatase 147 U/L (39-117); Bilirubin,Total 0.4 mg/dL (0.0-1.0); Blood Urea Nitrogen 21 mg/dl (6-20); Calcium 10.3 mg/dl (8.6-10.4); Carbon Dioxide 28 mmol/L (22-30); Chloride 92 mmol/L (96-108); Globulin 5.4 gm/dL (2.2-3.7); Glomerular Filtration Rate 18; Glucose 168 mg/dL (70-105)
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
[2019-01-21] MEDS ORDERED: PROMETHAZINE 25 MG/ML VIAL IV ONE (14:14)
[2019-01-21] MEDS ORDERED: HYDROmorphone 2 MG/ML VIAL IV PRN (14:14)
--- NOTE | 2019-01-21 14:32 | Cat Scan Report ---
CLINICAL INFORMATION: Abdominal pain.. On dialysis. History of hypertension COMPARISON: None. TECHNIQUE: 120 cc of Isovue-300 were injected intravenously and using SmartPrep to maximize lower extremity arterial opacification, 0.625 helical slices were obtained throughout the entire abdominal aorta and iliac arteries. Following reconstruction, 2.5-mm axial, sagittal, and coronal images were processed and reviewed. 3D volume rendered and CPR images were constructed on a independent workstation.The exam was performed using radiation dose optimization techniques including, but not limited to, automated exposure control, adjustment of the mA and/or kV according to patient size and use of iterative reconstruction technique. FINDINGS: The abdominal aorta is normal in diameter is 17 mm with scattered fibrofatty and calcific atherosclerotic plaque. The celiac, SMA, DAVID and renal arteries contain atherosclerotic soft plaque and calcification, but no evidence of stenosis or occlusion. Lung bases show scattered scarring particularly in the left lower lobe. Small left pleural effusion is noted. The visualized heart is mildly enlarged. There is marked concentric wall thickening of the visualized distal thoracic esophagus suggesting peptic disease or, less likely, Hernandez's esophagus. Abdominal images show the gallbladder is surgically absent. Common bile duct is slightly dilated 8 mm compatible with postcholecystectomy state. The liver, both adrenal glands, spleen, and pancreas are normal. Both kidneys are normal in size and configuration: the left is 10.6 x 4.4 cm and the right is 10 x 4 cm. No focal renal lesions. Pelvic images show uterine, uterus ovaries and urinary bladder all unremarkable. The stomach, small and large bowel are unremarkable. There is no free air, free fluid or adenopathy. Bone windows show no abnormality IMPRESSION: 1. No evidence of renal artery stenosis to suggest renovascular hypertension. Both kidneys are unremarkable. 2. Moderate concentric wall thickening of the distal thoracic esophagus. This is typically due to peptic disease or Hernandez's esophagus. Consider upper endoscopy Interpreted and Authenticated by: Ovidio Gimenez 01/21/19
[2019-01-21] MEDS ORDERED: niCARdipine 25 MG in 0.9 % SODIUM CHLORIDE 240 ML IV SCH ×2 (16:15→18:00)
--- NOTE | 2019-01-21 16:31 | Internal Med History&Physical ---
Medical - H&P: HPI Patient information: Note initiated : 01/21/19 at 4:28 pm Service Date, if different from initiated Date: [] Patient: Delores Jones a 48 y/o F admitted on for high blood pressure. Chief Complaint: [] History of present illness: Ms. Jones is a 48 year old F Who has had multiple hospitalizations for hypertensive urgency usually secondary to medication noncompliance from lack of funds due to insurance issues. She was last admitted in October. Apparently this issue has been resolved she has been on all her medications and taking them regularly. Weeks ago her blood pressures were doing well between 120s-170s. The past week they have been elevated in dialysis. Last night she had elevated blood pressure and had nausea vomiting and has been having nausea vomiting since. When dialysis today still had significantly elevated blood pressures even after dialysis. Initial blood pressure was 218/110. Denies any chest pain or shortness of breath. No fevers or chills. She does have achy abdominal pain that she does not recall if it started after the nausea vomiting or not. She also underwent a CT angios of the abdomen which is unremarkable and showed no renal artery stenosis. Case is also discussed with Dr. Amaya who will be following closely. She is started on a labetalol drip in the ER which finally her blood pressures down to 160s but then started creeping up again started having titrated up. I asked ED to switch to nicardipine. She does not urinate but very little once a day. It does not sound like she is been following any gastroparesis diet. Speak with Dr. Amaya her dry weight is 56 kg but as of late she has been 58 kg after dialysis. She typically does not take her blood pressure medications the morning of dialysis and thus has not had this morning. Although she did have a clonidine in the middle the night because of elevated blood pressure Review of Systems: Pertinent positives as above. Denies headache/fever/chills/chest pain/cough/dyspnea. Remaining 10 point review of system reviewed negative Medical - H&P: PMH Medical history: Medical History Diabetes with gastroparesis and retinopathy Hypertension uncontrolled Diastolic heart failure End-stage renal disease with dialysis Monday follows with Dr. Amaya Anemia of chronic disease Has had renal artery studies which have been unremarkable for stenosis GERD Past Surgical History History of surgery (Chronic 07/27/16) History of tubal ligation (Chronic 06/26/99) Cholecystectomy Appendectomy Left upper extremity AV fistula Family History Sister Diabetes mellitus She was adopted and does not know her parents history Social History Quit smoking in 2018 Denies alcohol use Is marijuana Medical - H&P: Meds Home Medications Medication Instructions Recorded Confirmed Type atorvastatin 10 mg tablet 10 mg PO QDAY 10/18/16 11/20/18 History blood sugar diagnostic strips See Dose Instructions .ROUTE 10/18/16 11/16/18 History .MEDSUPPLY carvedilol 12.5 mg tablet 25 mg PO BID tab 10/18/16 11/20/18 History metoclopramide 5 mg tablet 10 mg PO ACHS tab 10/18/16 11/16/18 History Basaglar Kwikpen U-100 25 unit SQ QAM 11/11/18 11/20/18 History Novolog Flexpen See Protocol SQ ACHS 11/11/18 11/20/18 History cloNIDine [Catapres-Tts 1] 0.3 mg TD WEEKLY 11/11/18 11/16/18 History Calcium Carbonate [Tums] 1,000 mg PO TID 11/13/18 11/16/18 History Omeprazole [Prilosec] 20 mg PO DAILY 11/13/18 11/16/18 History Sevelamer [Renvela] 1,600 mg PO TIDCC 11/16/18 11/16/18 History Sevelamer [Renvela] 800 mg PO PRN PRN 11/16/18 11/16/18 History Lisinopril [Zestril] 20 mg PO BID #30 tab 11/20/18 Rx Minoxidil 2.5 mg PO BID #30 tab 11/20/18 Rx amLODIPine [Norvasc] 5 mg PO BID #30 tab 11/20/18 Rx Na Phos,M-B/Na Phos,Di-Ba [Fleets 1 dose [place] ONCE #3 enema 11/29/18 Rx Adult] Cefuroxime [Ceftin] 250 mg PO Q48H #4 tab 12/02/18 Rx Metoclopramide [Reglan] 10 mg PO Q6HP PRN #10 tab 12/02/18 Rx Pantoprazole [Protonix] 40 mg PO QAMAC #30 tab 12/02/18 Rx Minoxidil 5 mg PO BID #30 tab 12/06/18 Rx Allergies Allergy/AdvReac Type Severity Reaction Status Date / Time aspirin Allergy Intermediate Hives Verified 12/06/18 08:25 heparin AdvReac Intermediate Other Verified 12/06/18 08:25 Medical - H&P: Exam - Constitutional Vitals: Temp Pulse Resp BP Pulse Ox 96.8 F L 75 15 216/92 95 01/21/19 10:37 01/21/19 16:06 01/21/19 16:06 01/21/19 16:06 01/21/19 16:06 Exam: General: Alert, Awake, mild distress from nausea vomiting Eyes/N/T: EOMI, PEERL, MMM Head/Neck: neck supple, normocephalic atraumatic CV: RRR, No murmurs, normal s1/s2 Pulm: Clear b/l, no wheezing/rhonchi/rales Abd: soft, nontender, +BS x4 Ext: no clubbing/cyanosis/edema Neuro: Alert, no focal deficits, moves all extremities, CN 2-12 grossly intact, symmetrical strength b/l upper/lower, sensations intact b/l upper/lower Skin: warm/dry Medical - H&P: Reslt - Labs CBC & Chem 7: 01/21/19 11:55 01/21/19 11:55 Labs: Short CBC 01/21/19 Range/Units 11:55 WBC 10.1 (4.5-11.0) K/mcL Hgb 15.3 H (12.0-15.0) g/dL Hct 48.1 H (36.0-48.0) % Plt Count 297 (140-440) K/mcL BMP 01/21/19 11:55 Sodium 140 Potassium 5.0 Chloride 92 L Carbon Dioxide 28 BUN 21 H Creatinine 3.0 H Glucose 168 H Calcium 10.3 Liver Function 01/21/19 Range/Units 11:55 Total Bilirubin 0.4 (0.0-1.0) mg/dL AST 51 H (0-37) U/l ALT 48 H (0-40) U/l Alkaline Phosphatase 147 H (39-117) U/L Albumin 5.0 (3.2-5.2) gm/dL - Impressions CT and pelvis showed no evidence of renal artery stenosis she had some thickening of the esophagus and is which was likely due to peptic disease or Hernandez's -this could be from inflammation from all the vomiting she is been having. Medical - H&P: A/P - Narrative A/P Narrative: A: *Hypertensive urgency (h/o uncontrolled HTN usually 2/2 medication noncompliance from lack of insurance and cost of coverage; however, she states she has been taking her medications as prescribed): -Had renal artery angiography in [address] Gorman which showed no YASMIN -CTA abd here shows no renal aa stenosis -pt states SBP at home ~190 - *ESRD: Follows with Dr. Amaya *h/o diastolic CHF: *Diabetes w/gastroparesis: A1c 7.2 *Anemia of CD: *GERD *N/V: 2/2 above with likely esophagitis/gastritis P: -Dr. Amaya following, HD -Nicardipine drip, wean as able to home medications -restart home BP meds (Clonidine patch, minoxidil, norvasc, lisinopril, coreg); prn clonidine/hydralazine/labetalol, -Blood pressure medications per nephrology -Carafate x1 -clarify meds -insulin and SSI -Gastroparesis diet when able to take orally -ppx: heparin start in AM if no bleeding/SCD, home h2 Full code
[2019-01-21] MEDS ORDERED: ACETAMINOPHEN 650 MG SUPP.RECT PR PRN (17:09)
[2019-01-21] MEDS ORDERED: LABETALOL 5 MG/ML ML IV PRN (17:09)
[2019-01-21] MEDS ORDERED: DEXTROSE 50% 50 ML VIAL IV PRN (17:09)
[2019-01-21] MEDS ORDERED: PROMETHAZINE 25 MG/ML VIAL IV PRN (17:09)
[2019-01-21] MEDS ORDERED: ACETAMINOPHEN 325 MG TABLET PO PRN (17:09)
[2019-01-21] MEDS ORDERED: IPRATROPIUM/ALBUTEROL 3 ML AMPUL.NEB NEB PRN (17:09)
[2019-01-21] MEDS ORDERED: DEXTROSE 31 GM ORAL.SUSP PO PRN (17:09)
[2019-01-21] MEDS ORDERED: SUCRALFATE 1 GM/10 ML ORAL.SUSP PO ONE (17:09)
[2019-01-21] MEDS ORDERED: NITROGLYCERIN 0.4 MG TAB.SUBL SL PRN (17:09)
[2019-01-21] MEDS ORDERED: LORazepam 2 MG/ML VIAL IV PRN (17:09)
[2019-01-21] MEDS ORDERED: cloNIDine HCL 0.1 MG TABLET PO PRN (17:09)
[2019-01-21] MEDS: INSULIN LISPRO 1 UNIT/0.01 ML UNIT SQ SCH ×2 (17:33→20:49)
[2019-01-21] MEDS: METOCLOPRAMIDE 10 MG TABLET PO SCH ×2 (17:34→23:50)
[2019-01-21] MEDS: cloNIDine TTS 1 1 PATCH PATCH TD SCH ×2 (17:47→17:53)
[2019-01-21] MEDS: ONDANSETRON 4 MG/2 ML VIAL IV PRN ×2 (17:47→22:30)
[2019-01-21] MEDS ORDERED: METOCLOPRAMIDE 10 MG/2 ML VIAL IV SCH (18:00)
[2019-01-21] MEDS: CALCIUM CARBONATE 500 MG TAB.CHEW PO SCH (20:51)
[2019-01-21] MEDS ORDERED: CARVEDILOL 12.5 MG TABLET PO SCH (21:00)
[2019-01-21] MEDS ORDERED: BISMUTH SUBSALICYLATE 15 ML ORAL.SUSP PO PRN (21:30)
[2019-01-21] MEDS ORDERED: HYDROcodone/APAP 5/325MG TABLET PO PRN (21:32)
[2019-01-21] MEDS: 0.9 % SODIUM CHLORIDE 10 ML SYRINGE IV SCH (22:22)
[2019-01-21] MEDS: amLODIPine 10 MG TABLET PO SCH (23:34)
[2019-01-22] MEDS: LISINOPRIL 20 MG TABLET PO SCH ×2 (01:15→09:27)
[2019-01-22] MEDS: niCARdipine 25 MG in 0.9 % SODIUM CHLORIDE 240 ML IV SCH ×3 (01:39→15:26)
[2019-01-22] MEDS: hydrALAZINE 20 MG/ML VIAL IV PRN ×2 (04:02→04:29)
[2019-01-22] MEDS: ONDANSETRON 4 MG/2 ML VIAL IV PRN ×2 (04:19→09:26)
[2019-01-22] MEDS: 0.9 % SODIUM CHLORIDE 10 ML SYRINGE IV SCH ×5 (05:54→21:10)
[2019-01-22 05:55] LABS: Basophils # (Auto) 0 K/mcL (0.0-0.3); Basophils % (Auto) 0.1 % (0.0-2.0); Eosinophils # (Auto) 0 K/mcL (0.0-0.7); Eosinophils % (Auto) 0 % (0.0-7.0); Granulocytes % (Auto) 85.9 % (38.0-78.0); Hemoglobin 13.2 g/dL (12.0-15.0); Lymphocytes # (Auto) 0.9 K/mcL (1.5-4.8); Lymphocytes % (Auto) 7.4 % (15.5-49.0); Mean Cell Volume 82.3 fL (80.0-100.0); Mean Corpuscular HGB Conc 31.4 g/dL (31.0-36.0); Mean Platelet Volume 7.3 fL (7.4-10.4); Monocytes # (Auto) 0.8 K/mcL (0.1-0.9); Monocytes % (Auto) 6.6 % (1.0-12.0); Platelet Count 328 K/mcL (140-440); Red Cell Distribution Width 18.6 % (11.5-14.5); WBC 11.7 K/mcL (4.5-11.0)
[2019-01-22 06:52] LABS: ALT/SGPT 32 U/l (0-40); AST/SGOT 20 U/l (0-37); Albumin 4.2 gm/dL (3.2-5.2); Albumin/Globulin Ratio 0.9 (1.0-2.3); Alkaline Phosphatase 114 U/L (39-117); Bilirubin,Direct < 0.2 mg/dL (0.0-0.3); Bilirubin,Total 0.4 mg/dL (0.0-1.0); Blood Urea Nitrogen 45 mg/dl (6-20); Calcium 9.6 mg/dl (8.6-10.4); Carbon Dioxide 26 mmol/L (22-30); Chloride 85 mmol/L (96-108); Globulin 4.6 gm/dL (2.2-3.7); Glomerular Filtration Rate 10; Glucose 407 mg/dL (70-105); Lactate Dehydrogenase 199 U/L (94-250); Phosphorous 7.9 mg/dL (2.7-4.5); Triglycerides 217 mg/dl (<150); Uric Acid 6.1 mg/dL (2.5-8.0)
--- NOTE | 2019-01-22 07:17 | Internal Med Progress Note ---
Medical - PN: Subj Patient information: Note initiated : 01/22/19 at 7:12 am Service Date, if different from initiated Date: [] Patient: Delores Jones a 48 y/o F admitted on 01/21/19 for high blood pressure. Chief Complaint: [] Interval history: Ms. Jones is a 48 year old F Who has had multiple hospitalizations for hypertensive urgency usually secondary to medication noncompliance from lack of funds due to insurance issues. She was last admitted in October. Apparently this issue has been resolved she has been on all her medications and taking them regularly. Weeks ago her blood pressures were doing well between 120s-170s. The past week they have been elevated in dialysis. Last night she had elevated blood pressure and had nausea vomiting and has been having nausea vomiting since. When dialysis today still had significantly elevated blood pressures even after dialysis. Initial blood pressure was 218/110. Denies any chest pain or shortness of breath. No fevers or chills. She does have achy abdominal pain that she does not recall if it started after the nausea vomiting or not. She also underwent a CT angios of the abdomen which is unremarkable and showed no renal artery stenosis. Case is also discussed with Dr. Amaya who will be following closely. She is started on a labetalol drip in the ER which finally her blood pressures down to 160s but then started creeping up again started having titrated up. I asked ED to switch to nicardipine. She does not urinate but very little once a day. It does not sound like she is been following any gastroparesis diet. Speak with Dr. Amaya her dry weight is 56 kg but as of late she has been 58 kg after dialysis. She typically does not take her blood pressure medications the morning of dialysis and thus has not had this morning. Although she did have a clonidine in the middle the night because of elevated blood pressure 01/22 Appears comfortable at bed right now was having some nausea vomiting earlier. Blood pressure better controlled with systolics 140s 150s. Clonidine patch change last night. After talking with concerned that maybe there is a patch issue as he mentioned he is seen differences in her blood pressure depending on where it was placed. Your stomach from vomiting Review of Systems: denies headache/fever/chills/chest pain/cough/dyspnea/diarrhea. Otherwise see above. - Constitutional Vitals: Vital Signs Temp Pulse Resp BP Pulse Ox 99.6 F H 78 15 153/47 93 01/22/19 06:50 01/22/19 07:01 01/22/19 07:01 01/22/19 07:01 01/22/19 07:01 Period Temp Pulse Resp BP Sys/Infante Pulse Ox Last 24 Hr 96.8 F-99.6 F 69-89 9-28 65-262/33-120 89-98 Intake and Output 01/21/19 01/22/19 01/22/19 21:59 05:59 13:59 Intake Total 328 340 0 Output Total 50 400 Balance 278 -60 0 Weight 61.235 kg Intake & Output: Intake & Output 01/21/19 01/22/19 01/22/19 21:59 05:59 13:59 Intake Total 328 340 0 Output Total 50 400 Balance 278 -60 0 Weight 61.235 kg Intake: IV 328 0 Sodium Chloride 0.9% 250 ml @ 60 20 mls/hr IV .[id number] [facility]OG[facility] Rx#: [id number] Trandate 500 mg In Dextrose 5% 250 in Water 150 ml @ 2 MG/MIN 60 mls/hr IV DUR EULOGIO Rx#:[id number] Cardene 25 MG In Sodium 10 Chloride 0.9% 240 ml @ 5 MG/HR 50 mls/hr IV ONCE E[facility]OGIO Rx#: [id number] Oral 340 Output: Emesis 50 400 Other: # Emeses 2 4 Exam: General: Alert, Awake, NAD Eyes/N/T: EOMI, Head/Neck: neck supple, CV: RRR, No murmurs, Pulm: Clear b/l, no wheezing/rhonchi/rales Abd: soft, nontender, +BS x4 Ext: no clubbing/cyanosis/edema Neuro: Alert, no focal deficits, moves all extremities, Skin: warm/dry Medical - PN: Obj Da - Labs CBC & Chem 7: 01/22/19 03:29 01/22/19 03:29 Labs: Abnormal Lab Results 01/22/19 01/22/19 01/21/19 03:29 03:29 11:55 WBC 11.7 H RBC Hgb Hct POC Hct 50.0 H MCH 25.9 L RDW 18.6 H MPV 7.3 L Gran % 85.9 H Lymph % (Auto) 7.4 L Gran # 10.1 H Lymph # (Auto) 0.9 L Potassium 5.8 H Chloride 85 L 92 L Anion Gap 24.0 H 20.0 H POC BUN 26 H BUN 45 H 21 H Creatinine 4.7 H 3.0 H POC Creatinine 3.5 H Glucose 407 H 168 H POC Glucose 209 H POC WB Ioniz Calcium 1.04 L Phosphorus 7.9 H* GGT 48 H AST 51 H ALT 48 H Alkaline Phosphatase 147 H Total Protein 8.8 H 10.4 H Globulin 4.6 H 5.4 H Albumin/Globulin Ratio 0.9 L 0.9 L Triglycerides 217 H 01/21/19 11:55 WBC RBC 5.85 H Hgb 15.3 H Hct 48.1 H POC Hct MCH RDW 18.3 H MPV Gran % 89.7 H Lymph % (Auto) 6.5 L Gran # 9.1 H Lymph # (Auto) 0.7 L Potassium Chloride Anion Gap POC BUN BUN Creatinine POC Creatinine Glucose POC Glucose POC WB Ioniz Calcium Phosphorus GGT AST ALT Alkaline Phosphatase Total Protein Globulin Albumin/Globulin Ratio Triglycerides Meds: Medications Acetaminophen (Tylenol) 650 mg SC Q4-6HP PRN PRN Reason: PAIN/FEVER > 101 Acetaminophen (Tylenol) 650 mg PO Q4-6HP PRN PRN Reason: PAIN/FEVER > 101 Hydrocodone Bitart/Acetaminophen (Nazareth 5/325mg) 1 tab PO Q6HP PRN PRN Reason: PAIN LEVEL 3-6 Albuterol/Ipratropium (Duoneb) 3 ml NEB Q4HRT PRN PRN Reason: Bronchospasm Amlodipine Besylate (Norvasc) 5 mg PO BID [facility] Last Admin: 01/21/19 23:34 Dose: 5 mg Documented by: Calcium Carbonate/Glycine (Tums) 1,000 mg PO TID [facility] Last Admin: 01/21/19 20:51 Dose: 1,000 mg Documented by: [facility] Clonidine HCl (Catapres) 0.2 mg PO TIDP PRN PRN Reason: sbp >170 Clonidine HCl (Catapres Tts 1) 1 patch TD Mo@1000 [facility] Last Admin: 01/21/19 17:53 Dose: 1 patch Documented by: Dextrose (Dextrose 50%) 0 ml IV UD PRN PRN Reason: Hypoglycemia Diagnostic Test (Pha) (Accu-Chek) 1 each FS [facility] Last Admin: 01/21/19 20:39 Dose: 1 each Documented by: Glucose (Insta-Glucose) 15 gm PO PRN PRN PRN Reason: Hypoglycemia Heparin Sodium (Porcine) (Heparin) 5,000 unit SQ Q12 [facility] Hydralazine HCl (Apresoline) 0 mg IV Q2HP PRN PRN Reason: Hypertension Last Admin: 01/22/19 04:29 Dose: 10 mg Documented by: Nicardipine HCl 25 mg/ Sodium (Chloride) 250 mls @ 50 mls/hr IV Q5H [facility]; Protocol Last Admin: 01/22/19 05:55 Dose: Not Given Documented by: Insulin Glargine (Lantus) 25 unit SQ DAILY [facility] Insulin Human Lispro (Humalog) 0 unit SQ [facility]; Protocol Last Admin: 01/21/19 20:49 Dose: 10 units Documented by: Labetalol HCl (Trandate) 0 mg IV Q2HP PRN PRN Reason: Hypertension Lisinopril (Zestril) 20 mg PO BID [facility] Last Admin: 01/22/19 01:15 Dose: 20 mg Documented by: Lorazepam (Ativan) 0.5 mg IV Q8HP PRN PRN Reason: ANXIETY/SEDATION Last Admin: 01/22/19 06:36 Dose: 0.5 mg Documented by: Metoclopramide HCl (Reglan) 5 mg PO [facility] Minoxidil (Minoxidil) 2.5 mg PO BID [facility] Morphine Sulfate (Morphine) 1 - 3 mg IV Q3HP PRN PRN Reason: PAIN LEVEL > 6 Last Admin: 01/22/19 06:35 Dose: 2 mg Documented by: Nitroglycerin (Nitrostat) 0.4 mg SL Q5M PRN PRN Reason: Chest Pain Omeprazole (Prilosec) 20 mg PO ACB [facility] Ondansetron HCl (Zofran) 4 mg IV Q4-6HP PRN PRN Reason: Nausea And Vomiting Last Admin: 01/22/19 04:19 Dose: 4 mg Documented by: Promethazine HCl (Phenergan) 12.5 mg IV Q4-6HP PRN PRN Reason: Nausea And Vomiting Last Admin: 01/21/19 19:51 Dose: 12.5 mg Documented by: Sevelamer Carbonate (Renvela) 800 mg PO PRN PRN PRN Reason: SNACKS Sodium Chloride (Saline Flush) 10 ml IV Q8 [facility] Last Admin: 01/22/19 06:36 Dose: 10 ml Documented by: Medical - PN: A/P - Time Spent With Patient Total time spent is greater than 50% in coordination of care (as documented) at patient's floor/unit and/or counseling patient: - Narrative A/P Narrative: A: *Hypertensive urgency (h/o uncontrolled HTN usually 2/2 medication noncompliance from lack of insurance and cost of coverage; however, she states she has been taking her medications as prescribed): -Had renal artery angiography in [address] Gorman which showed no YASMIN -CTA abd here shows no renal aa stenosis, showed distal esophageal thickening seen (peptic dz/Hernandez's?) as seen on earlier study -pt states SBP at home ~190 -off Cardene gtt last night -Could be a clonidine patch issue. but also may potentially be endocrine related as she has impressively high cortisol levels *N/V: 2/2 gastroparesis *Likey esophagitis/gastritis from above: *ESRD: Follows with Dr. Amaya *h/o diastolic CHF: *Diabetes w/gastroparesis: A1c 7.2 *Anemia of CD: *GERD: *N/V: 2/2 above with likely esophagitis/gastritis P: -Dr. Amaya following, HD -Nicardipine drip prn, off currently -restart home BP meds (Clonidine patch, minoxidil, norvasc, lisinopril, coreg); prn clonidine/hydralazine/labetalol, -Blood pressure medications per nephrology -Endocrine w/u pending; dexa suppression test -insulin and SSI -Gastroparesis diet when able to take orally -f/u with GI outpt -ppx: heparin/SCD, IV PPI Full code Medical - PN: Qual - VTE Deep Vein Thrombosis/Pulmonary Embolism Present on Admission: No
[2019-01-22] MEDS ORDERED: OMEPRAZOLE 20 MG CAPSULE PO SCH (07:30)
[2019-01-22] MEDS: METOCLOPRAMIDE 10 MG TABLET PO SCH ×4 (08:12→20:51)
[2019-01-22] MEDS: INSULIN LISPRO 1 UNIT/0.01 ML UNIT SQ SCH ×5 (08:13→20:48)
[2019-01-22] MEDS ORDERED: INSULIN GLARGINE, HUMAN 1 UNIT/0.01 ML SQ SCH (09:00)
[2019-01-22] MEDS ORDERED: MINOXIDIL 2.5 MG TABLET PO SCH (09:00)
[2019-01-22] MEDS ORDERED: diphenhydrAMINE 25 MG CAPSULE PO ONE (09:11)
[2019-01-22] MEDS ORDERED: niCARdipine 25 MG in 0.9 % SODIUM CHLORIDE 240 ML IV PRN (09:15)
[2019-01-22] MEDS: CARVEDILOL 12.5 MG TABLET PO SCH ×2 (09:27→17:49)
[2019-01-22] MEDS: CALCIUM CARBONATE 500 MG TAB.CHEW PO SCH ×3 (09:27→20:52)
[2019-01-22] MEDS: amLODIPine 10 MG TABLET PO SCH (09:27)
--- NOTE | 2019-01-22 09:54 | Nephrology Progress Note ---
Subjective Patient information: Note initiated : 01/22/19 at 9:51 am Service Date, if different from initiated Date: [] Patient: Delores Jones 48 y/o F admitted on 01/21/19 for high blood pressure. Chief Complaint: []Admitted with high bp and nausea and vomiting. Objective - Vital Signs Vital signs: Vital Signs Temp Pulse Resp BP BP Pulse Ox 01/22/19 08:01 98.2 F 78 20 147/55 92 01/22/19 07:31 77 17 134/58 92 01/22/19 07:01 78 15 153/47 93 01/22/19 06:50 99.6 F H 79 14 156/56 93 01/22/19 06:45 93 01/22/19 06:31 18 174/76 01/22/19 06:01 21 173/74 01/22/19 05:31 82 17 160/53 92 01/22/19 05:01 81 18 162/61 95 01/22/19 04:37 80 17 95 01/22/19 04:31 98.0 F 80 13 178/77 96 01/22/19 04:01 17 168/101 01/22/19 03:32 80 18 170/79 94 01/22/19 03:01 78 14 139/120 96 01/22/19 02:31 80 18 163/97 95 01/22/19 02:01 25 H 170/77 01/22/19 01:31 79 16 170/63 90 01/22/19 01:01 82 16 166/81 93 01/22/19 00:46 80 9 L 148/81 93 01/22/19 00:31 74 14 127/49 90 01/22/19 00:16 76 14 146/61 93 01/22/19 00:01 97.6 F 87 12 172/75 93 01/21/19 23:46 79 20 161/65 93 01/21/19 23:36 18 01/21/19 23:31 17 187/86 01/21/19 23:16 15 179/75 01/21/19 23:01 15 168/67 01/21/19 22:46 14 188/81 01/21/19 22:31 84 26 H 183/78 94 01/21/19 22:16 76 15 181/75 95 01/21/19 22:01 78 15 169/93 95 01/21/19 21:46 72 17 142/58 94 01/21/19 21:31 75 18 109/38 91 01/21/19 21:16 75 17 171/62 94 01/21/19 21:01 73 15 183/66 95 01/21/19 20:51 78 15 112/74 95 01/21/19 20:48 73 22 65/33 95 01/21/19 20:31 72 17 155/63 95 01/21/19 20:16 74 14 157/58 95 01/21/19 20:01 98.6 F 73 14 169/64 94 01/21/19 19:46 76 17 179/87 95 01/21/19 19:37 74 21 107/81 96 01/21/19 19:31 72 16 91/56 94 01/21/19 19:16 76 12 148/72 91 01/21/19 19:01 72 14 157/54 93 01/21/19 18:46 71 16 140/69 93 01/21/19 18:31 70 17 116/99 93 01/21/19 18:13 97.7 F 71 17 138/63 93 01/21/19 17:46 69 17 143/49 93 01/21/19 17:41 71 17 141/49 93 01/21/19 17:31 71 17 160/66 94 01/21/19 17:19 19 160/77 01/21/19 17:01 19 184/82 01/21/19 16:56 96.8 F L 74 18 189/87 95 01/21/19 16:41 18 189/87 01/21/19 16:36 74 16 203/85 95 01/21/19 16:31 75 17 202/90 95 01/21/19 16:26 73 18 197/89 95 01/21/19 16:21 75 17 204/95 95 01/21/19 16:16 74 17 205/92 95 01/21/19 16:11 73 16 216/94 98 01/21/19 16:06 75 15 216/92 95 01/21/19 16:05 69 23 H 94 01/21/19 16:01 71 19 192/100 95 01/21/19 15:56 76 18 206/91 93 01/21/19 15:52 75 17 93 01/21/19 15:51 76 18 212/92 93 01/21/19 15:46 77 17 208/94 91 01/21/19 15:41 74 18 208/92 92 01/21/19 15:36 78 16 218/96 92 01/21/19 15:31 78 17 207/100 92 01/21/19 15:28 79 17 92 01/21/19 15:26 76 15 212/97 92 01/21/19 15:21 80 17 213/96 93 01/21/19 15:16 81 17 201/94 92 01/21/19 15:11 80 17 215/95 92 01/21/19 15:06 80 211/95 92 01/21/19 15:03 81 92 01/21/19 15:01 82 16 210/99 92 01/21/19 14:56 81 22 211/96 92 01/21/19 14:51 81 19 220/109 91 01/21/19 14:46 82 20 214/100 92 01/21/19 14:41 84 17 206/97 92 01/21/19 14:36 85 19 206/98 91 01/21/19 14:31 86 17 208/99 91 01/21/19 14:26 82 229/98 97 01/21/19 14:21 82 234/109 95 01/21/19 14:16 84 215/109 95 01/21/19 14:11 82 21 219/103 95 01/21/19 14:06 88 28 H 240/112 96 01/21/19 14:01 84 21 235/98 94 01/21/19 13:56 87 247/101 97 01/21/19 13:51 87 13 256/112 98 01/21/19 13:49 89 21 262/116 95 01/21/19 13:28 82 22 98 01/21/19 13:26 78 18 238/107 97 01/21/19 13:21 88 16 237/90 97 01/21/19 13:16 80 13 233/91 97 01/21/19 13:11 73 17 223/86 97 01/21/19 13:06 75 16 219/92 98 01/21/19 13:01 75 19 219/85 97 01/21/19 12:56 79 18 229/91 96 01/21/19 12:51 78 17 232/84 94 01/21/19 12:46 72 18 229/87 89 L 01/21/19 12:41 74 24 H 236/94 94 01/21/19 12:36 82 21 226/86 95 01/21/19 12:32 80 20 95 01/21/19 12:31 75 20 232/87 96 01/21/19 12:26 73 21 219/88 93 01/21/19 12:21 80 21 217/94 92 01/21/19 12:16 84 21 218/90 91 01/21/19 12:11 22 220/97 01/21/19 12:09 21 211/93 01/21/19 12:01 19 242/100 01/21/19 11:41 83 22 247/102 93 01/21/19 11:34 83 22 250/101 92 01/21/19 10:45 230/101 01/21/19 10:37 96.8 F L 88 20 218/110 95 Intake and Output 01/21/19 01/22/19 01/22/19 21:59 05:59 13:59 Intake Total 328 340 0 Output Total 50 400 55 Balance 278 -60 -55 Intake: IV 328 0 Sodium Chloride 0.9% 250 ml @ 60 20 mls/hr IV .[id number] [facility]OG[facility] Rx#: [id number] Trandate 500 mg In Dextrose 5% 250 in Water 150 ml @ 2 MG/MIN 60 mls/hr IV DUR EULOGIO Rx#:[id number] Cardene 25 MG In Sodium 10 Chloride 0.9% 240 ml @ 5 MG/HR 50 mls/hr IV ONCE [facility]OG[facility] Rx#: [id number] Oral 340 Output: Void Amount 50 Emesis 50 400 5 Other: Urine Appearance Clear Cloudy Urine Color Bright Yellow Urine Odor Normal # Emeses 2 4 Weight 135 lb Intake & Output: Intake & Output 01/21/19 01/22/19 01/22/19 21:59 05:59 13:59 Intake Total 328 340 0 Output Total 50 400 55 Balance 278 -60 -55 Weight 135 lb Intake: IV 328 0 Sodium Chloride 0.9% 250 ml @ 60 20 mls/hr IV .[id number] [facility]OG[facility] Rx#: [id number] Trandate 500 mg In Dextrose 5% 250 in Water 150 ml @ 2 MG/MIN 60 mls/hr IV DUR EULOGIO Rx#:[id number] Cardene 25 MG In Sodium 10 Chloride 0.9% 240 ml @ 5 MG/HR 50 mls/hr IV ONCE EULOGIO Rx#: [id number] Oral 340 Output: Void Amount 50 Emesis 50 400 5 Other: Urine Appearance Clear Cloudy Urine Color Bright Yellow Urine Odor Normal # Emeses 2 4 - General Appearance General appearance: fatigue EENT: ATNC Neck: no JVD Respiratory: no kyphosis Cardiology: no murmurs Gastrointestinal: normoactive bowel sounds Integumentary: no rash Neurologic: no focal deficit - Lab 01/22/19 03:29 01/22/19 03:29 Most recent lab results Calcium 9.6 mg/dl (8.6-10.4) 01/22/19 03:29 Phosphorus 7.9 mg/dL (2.7-4.5) H* 01/22/19 03:29 Magnesium 2.3 mg/dL (1.6-2.5) 01/22/19 03:29 Assessment and Plan (1) End stage chronic kidney disease Status: Acute Comment: She had nausea and vomiting and had significant sweating. I think she is mildly volume overloaded as well. Will dialyse and remove additional fluid today. Clonidine patch has been changed. BP is better. Phos is high, will likely get better with dialysis and binders.
[2019-01-22] MEDS: MINOXIDIL 10 MG TABLET PO SCH (10:26)
[2019-01-22] MEDS ORDERED: BISMUTH SUBSALICYLATE 15 ML ORAL.SUSP PO PRN (10:42)
[2019-01-22] MEDS ORDERED: LORazepam 2 MG/ML VIAL IV PRN (10:53)
[2019-01-22] MEDS ORDERED: diphenhydrAMINE 50 MG/ML VIAL IV PRN (10:54)
[2019-01-22] MEDS: ESOMEPRAZOLE 40 MG VIAL IV SCH (12:00)
[2019-01-22] MEDS: HEPARIN 5,000 UNIT/ML VIAL SQ SCH ×2 (14:52→20:45)
[2019-01-22] MEDS ORDERED: FAMOTIDINE/PF 20 MG/2 ML VIAL IV SCH (21:00)
[2019-01-22] MEDS ORDERED: 0.9 % SODIUM CHLORIDE 500 ML IV ONE (21:31)
[2019-01-22] MEDS ORDERED: DEXAMETHASONE 0.5 MG/5 ML ORAL.SOL PO ONE (23:30)
[2019-01-23] MEDS: amLODIPine 10 MG TABLET PO SCH ×3 (00:42→21:15)
[2019-01-23] MEDS: MINOXIDIL 10 MG TABLET PO SCH ×3 (00:42→21:15)
[2019-01-23] MEDS: LISINOPRIL 20 MG TABLET PO SCH ×3 (02:56→21:16)
[2019-01-23] MEDS: hydrALAZINE 20 MG/ML VIAL IV PRN (05:10)
[2019-01-23] MEDS: 0.9 % SODIUM CHLORIDE 10 ML SYRINGE IV SCH ×7 (05:10→21:16)
[2019-01-23 06:01] LABS: Basophils # (Auto) 0 K/mcL (0.0-0.3); Basophils % (Auto) 0 % (0.0-2.0); Eosinophils # (Auto) 0 K/mcL (0.0-0.7); Eosinophils % (Auto) 0 % (0.0-7.0); Granulocytes % (Auto) 84.2 % (38.0-78.0); Hematocrit 46.1 % (36.0-48.0); Hemoglobin 14.5 g/dL (12.0-15.0); Lymphocytes # (Auto) 1.5 K/mcL (1.5-4.8); Lymphocytes % (Auto) 10.3 % (15.5-49.0); Mean Corpuscular HGB Conc 31.5 g/dL (31.0-36.0); Mean Platelet Volume 7.4 fL (7.4-10.4); Monocytes # (Auto) 0.8 K/mcL (0.1-0.9); Monocytes % (Auto) 5.5 % (1.0-12.0); Platelet Count 343 K/mcL (140-440); RBC 5.56 M/mcL (4.00-5.20); Red Cell Distribution Width 19.1 % (11.5-14.5); WBC 14.3 K/mcL (4.5-11.0)
[2019-01-23 06:27] LABS: ALT/SGPT 21 U/l (0-40); AST/SGOT 19 U/l (0-37); Albumin 4.3 gm/dL (3.2-5.2); Albumin/Globulin Ratio 0.9 (1.0-2.3); Alkaline Phosphatase 116 U/L (39-117); Bilirubin,Direct < 0.2 mg/dL (0.0-0.3); Bilirubin,Total 0.4 mg/dL (0.0-1.0); Blood Urea Nitrogen 29 mg/dl (6-20); Calcium 9.9 mg/dl (8.6-10.4); Carbon Dioxide 23 mmol/L (22-30); Chloride 87 mmol/L (96-108); Globulin 4.9 gm/dL (2.2-3.7); Glomerular Filtration Rate 15; Glucose 298 mg/dL (70-105); Lactate Dehydrogenase 260 U/L (94-250); Phosphorous 7.5 mg/dL (2.7-4.5); Triglycerides 274 mg/dl (<150); Uric Acid 3.5 mg/dL (2.5-8.0)
[2019-01-23] MEDS: INSULIN LISPRO 1 UNIT/0.01 ML UNIT SQ SCH ×4 (07:28→21:15)
[2019-01-23] MEDS: ESOMEPRAZOLE 40 MG VIAL IV SCH (07:29)
[2019-01-23] MEDS: METOCLOPRAMIDE 10 MG TABLET PO SCH ×4 (07:29→21:16)
[2019-01-23] MEDS: CARVEDILOL 12.5 MG TABLET PO SCH ×2 (07:29→17:54)
--- NOTE | 2019-01-23 07:48 | Internal Med Progress Note ---
Medical - PN: Subj Patient information: Note initiated : 01/23/19 at 7:42 am Service Date, if different from initiated Date: [] Patient: Delores Jones a 48 y/o F admitted on 01/21/19 for high blood pressure. Chief Complaint: [] Interval history: Ms. Jones is a 48 year old F Who has had multiple hospitalizations for hypertensive urgency usually secondary to medication noncompliance from lack of funds due to insurance issues. She was last admitted in October. Apparently this issue has been resolved she has been on all her medications and taking them regularly. Weeks ago her blood pressures were doing well between 120s-170s. The past week they have been elevated in dialysis. Last night she had elevated blood pressure and had nausea vomiting and has been having nausea vomiting since. When dialysis today still had significantly elevated blood pressures even after dialysis. Initial blood pressure was 218/110. Denies any chest pain or shortness of breath. No fevers or chills. She does have achy abdominal pain that she does not recall if it started after the nausea vomiting or not. She also underwent a CT angios of the abdomen which is unremarkable and showed no renal artery stenosis. Case is also discussed with Dr. Amaya who will be following closely. She is started on a labetalol drip in the ER which finally her blood pressures down to 160s but then started creeping up again started having titrated up. I asked ED to switch to nicardipine. She does not urinate but very little once a day. It does not sound like she is been following any gastroparesis diet. Speak with Dr. Amaya her dry weight is 56 kg but as of late she has been 58 kg after dialysis. She typically does not take her blood pressure medications the morning of dialysis and thus has not had this morning. Although she did have a clonidine in the middle the night because of elevated blood pressure 01/22 Appears comfortable at bed right now was having some nausea vomiting earlier. Blood pressure better controlled with systolics 140s 150s. Clonidine patch change last night. After talking with concerned that maybe there is a patch issue as he mentioned he is seen differences in her blood pressure depending on where it was placed. Your stomach from vomiting Review of Systems: denies headache/fever/chills/chest pain/cough/dyspnea/diarrhea. Otherwise see above. - Constitutional Vitals: Vital Signs Temp Pulse Resp BP Pulse Ox 99.4 F H 81 16 150/67 96 01/23/19 04:01 01/23/19 07:01 01/23/19 07:01 01/23/19 07:01 01/23/19 07:01 Period Temp Pulse Resp BP Sys/[place]ante Pulse Ox Last 24 Hr 97.1 F-99.6 F 64-92 11-27 63-184/26-85 89-99 Intake and Output 01/22/19 01/23/19 01/23/19 21:59 05:59 13:59 Intake Total 120 860 Output Total 3946 Balance -3826 860 Weight 56.109 kg Intake & Output: Intake & Output 01/22/19 01/23/19 01/23/19 21:59 05:59 13:59 Intake Total 120 860 Output Total 3946 Balance -3826 860 Weight 56.109 kg Intake: IV 500 Sodium Chloride 0.9% 500 ml @ 500 Wide Open IV BOLUS ONE Rx#: [id number] Oral 120 360 Output: Hemodialysis UF [id number] Exam: General: Alert, Awake, NAD Eyes/N/T: EOMI, Head/Neck: neck supple, CV: RRR, No murmurs, Pulm: Clear b/l, no wheezing/rhonchi/rales Abd: soft, nontender, +BS x4 Ext: no clubbing/cyanosis/edema Neuro: Alert, no focal deficits, moves all extremities, Skin: warm/dry Medical - PN: Obj Da - Labs CBC & Chem 7: 01/23/19 03:27 01/23/19 03:27 Labs: Abnormal Lab Results 01/23/19 01/23/19 01/22/19 03:27 03:27 03:29 WBC 14.3 H 11.7 H RBC 5.56 H Hgb Hct POC Hct MCH 25.9 L RDW 19.1 H 18.6 H MPV 7.3 L Gran % 84.2 H 85.9 H Lymph % (Auto) 10.3 L 7.4 L Gran # 12.0 H 10.1 H Lymph # (Auto) 0.9 L Sodium 131 L Potassium Chloride 87 L Anion Gap 21.0 H POC BUN BUN 29 H Creatinine 3.4 H POC Creatinine Glucose 298 H POC Glucose POC WB Ioniz Calcium Phosphorus 7.5 H* GGT 52 H AST ALT Alkaline Phosphatase Lactate Dehydrogenase 260 H Total Protein 9.2 H Globulin 4.9 H Albumin/Globulin Ratio 0.9 L Triglycerides 274 H Cortisol AM Sample 01/22/19 01/21/19 01/21/19 03:29 11:55 11:55 WBC RBC 5.85 H Hgb 15.3 H Hct 48.1 H POC Hct 50.0 H MCH RDW 18.3 H MPV Gran % 89.7 H Lymph % (Auto) 6.5 L Gran # 9.1 H Lymph # (Auto) 0.7 L Sodium Potassium 5.8 H Chloride 85 L 92 L Anion Gap 24.0 H 20.0 H POC BUN 26 H BUN 45 H 21 H Creatinine 4.7 H 3.0 H POC Creatinine 3.5 H Glucose 407 H 168 H POC Glucose 209 H POC WB Ioniz Calcium 1.04 L Phosphorus 7.9 H* GGT 48 H AST 51 H ALT 48 H Alkaline Phosphatase 147 H Lactate Dehydrogenase Total Protein 8.8 H 10.4 H Globulin 4.6 H 5.4 H Albumin/Globulin Ratio 0.9 L 0.9 L Triglycerides 217 H Cortisol AM Sample 41.3 H Meds: Medications Acetaminophen (Tylenol) 650 mg UT Q4-6HP PRN PRN Reason: PAIN/FEVER > 101 Acetaminophen (Tylenol) 650 mg PO Q4-6HP PRN PRN Reason: PAIN/FEVER > 101 Hydrocodone Bitart/Acetaminophen ([place] 5/325mg) 1 tab PO Q6HP PRN PRN Reason: PAIN LEVEL 3-6 Last Admin: 01/22/19 19:13 Dose: 1 tab Documented by: Albuterol/Ipratropium (Duoneb) 3 ml NEB Q4HRT PRN PRN Reason: Bronchospasm Amlodipine Besylate (Norvasc) 5 mg PO BID [facility] Last Admin: 01/23/19 00:42 Dose: 5 mg Documented by: Bismuth Subsalicylate (Pepto Bismol) 15 ml PO Q4HP PRN PRN Reason: Dyspepsia Calcium Carbonate/Glycine (Tums) 1,000 mg PO TID [facility] Last Admin: 01/22/19 20:52 Dose: 1,000 mg Documented by: [facility] Last Admin: 01/23/19 07:29 Dose: 25 mg Documented by: Clonidine HCl (Catapres) 0.2 mg PO TIDP PRN PRN Reason: sbp >170 Clonidine HCl (Catapres Tts 1) 1 patch TD Mo@1000 [facility] Last Admin: 01/21/19 17:53 Dose: 1 patch Documented by: Dextrose (Dextrose 50%) 0 ml IV UD PRN PRN Reason: Hypoglycemia Diagnostic Test (Pha) (Accu-Chek) 1 each FS [facility] Last Admin: 01/23/19 07:28 Dose: 1 each Documented by: Diphenhydramine HCl (Benadryl) 25 mg IV Q4-6HP PRN PRN Reason: Allergic Symptoms nausea vomit Last Admin: 01/23/19 07:37 Dose: 25 mg Documented by: Esomeprazole Magnesium (Nexium) 40 mg IV [facility] Last Admin: 01/23/19 07:29 Dose: 40 mg Documented by: Glucose (Insta-Glucose) 15 gm PO PRN PRN PRN Reason: Hypoglycemia Heparin Sodium (Porcine) (Heparin) 5,000 unit SQ Q12 [facility] Last Admin: 01/22/19 20:45 Dose: Not Given Documented by: Hydralazine HCl (Apresoline) 0 mg IV Q2HP PRN PRN Reason: Hypertension Last Admin: 01/23/19 05:10 Dose: 20 mg Documented by: Nicardipine HCl 25 mg/ Sodium (Chloride) 250 mls @ 50 mls/hr IV Q5HP PRN; Protocol PRN Reason: Hypertension Insulin Glargine (Lantus) 25 unit SQ DAILY [facility] Last Admin: 01/22/19 09:27 Dose: 25 units Documented by: Insulin Human Lispro (Humalog) 0 unit SQ [facility]; Protocol Last Admin: 01/23/19 07:28 Dose: 10 units Documented by: Labetalol HCl (Trandate) 0 mg IV Q2HP PRN PRN Reason: Hypertension Lisinopril (Zestril) 20 mg PO BID [facility] Last Admin: 01/23/19 02:56 Dose: Not Given Documented by: Lorazepam (Ativan) 0.5 mg IV Q6HP PRN PRN Reason: ANXIETY/SEDATION Metoclopramide HCl (Reglan) 5 mg PO [facility] Last Admin: 01/23/19 07:29 Dose: 5 mg Documented by: Minoxidil (Minoxidil) 5 mg PO BID [facility] Last Admin: 01/23/19 00:42 Dose: 5 mg Documented by: Morphine Sulfate (Morphine) 1 - 3 mg IV Q3HP PRN PRN Reason: PAIN LEVEL > 6 Last Admin: 01/22/19 06:35 Dose: 2 mg Documented by: Nitroglycerin (Nitrostat) 0.4 mg SL Q5M PRN PRN Reason: Chest Pain Ondansetron HCl (Zofran) 4 mg IV Q4-6HP PRN PRN Reason: Nausea And Vomiting Last Admin: 01/22/19 09:26 Dose: 4 mg Documented by: Promethazine HCl (Phenergan) 12.5 mg IV Q4-6HP PRN PRN Reason: Nausea And Vomiting Last Admin: 01/21/19 19:51 Dose: 12.5 mg Documented by: Sevelamer Carbonate (Renvela) 800 mg PO PRN PRN PRN Reason: SNACKS Sodium Chloride (Saline Flush) 10 ml IV Q8 [facility] Last Admin: 01/23/19 07:37 Dose: 10 ml Documented by: Medical - PN: A/P - Time Spent With Patient Total time spent is greater than 50% in coordination of care (as documented) at patient's floor/unit and/or counseling patient: - Narrative A/P Narrative: A: *Hypertensive urgency (h/o uncontrolled HTN usually 2/2 medication noncompliance from lack of insurance and cost of coverage; however, she states she has been taking her medications as prescribed): BP LABILE at this point, seems to be low in evenings. -Had renal artery angiography in [address] Gorman which showed no YASMIN -CTA abd here shows no renal aa stenosis, showed distal esophageal t hickening seen (peptic dz/Hernandez's?) as seen on earlier study -pt states SBP at home ~190 -Could be a clonidine patch issue (replaced). but also may potentially be endocrine related as she has impressively high cortisol levels -good control now, strangely the evening BP's are low *N/V: 2/2 gastroparesis with likely esophagitis/gastritis *Likey esophagitis/gastritis from above: *ESRD: Follows with Dr. Amaya *h/o diastolic CHF: *Diabetes w/gastroparesis: A1c 7.2 *Anemia of CD: *GERD: *leukocytosis: did get dexamethasone last night for test P: -Dr. Amaya following, HD -restarted home BP meds (Clonidine patch replaced, minoxidil, norvasc, lisinopril, coreg); prn clonidine/hydralazine/labetalol, -Blood pressure medications per nephrology -Endocrine w/u pending; dexa suppression test -home basal insulin (increase) and SSI -Gastroparesis diet when able to take orally -f/u with GI outpt -Simethicone -ppx: heparin/SCD, IV PPI Full code Medical - PN: Qual - VTE Deep Vein Thrombosis/Pulmonary Embolism Present on Admission: No
[2019-01-23] MEDS: SEVELAMER 800 MG TABLET PO PRN (08:50)
[2019-01-23] MEDS ORDERED: SIMETHICONE 80 MG TAB.CHEW CHEWED ONE (10:00)
[2019-01-23] MEDS: HEPARIN 5,000 UNIT/ML VIAL SQ SCH ×2 (10:14→20:36)
[2019-01-23] MEDS: CALCIUM CARBONATE 500 MG TAB.CHEW PO SCH ×3 (10:18→21:16)
[2019-01-23] MEDS: ONDANSETRON 4 MG/2 ML VIAL IV PRN ×2 (10:24→15:59)
[2019-01-23] MEDS: INSULIN GLARGINE, HUMAN 1 UNIT/0.01 ML SQ SCH (10:34)
[2019-01-23] MEDS: SIMETHICONE 80 MG TAB.CHEW CHEWED SCH ×3 (13:20→21:15)
--- NOTE | 2019-01-23 17:52 | Nephrology Progress Note ---
Subjective Patient information: Note initiated : 01/23/19 at 5:49 pm Service Date, if different from initiated Date: [] Patient: Delores Jones 48 y/o F admitted on 01/21/19 for high blood pressure. Chief Complaint: [] still nauseated and have difficulty swallowing Objective - Vital Signs Vital signs: Vital Signs Temp Pulse Resp BP Pulse Ox 01/23/19 17:01 73 19 152/58 97 01/23/19 16:01 97.8 F 78 16 133/54 96 01/23/19 15:23 75 18 139/65 94 01/23/19 15:01 77 20 148/49 92 01/23/19 14:01 16 121/48 01/23/19 13:01 88 18 163/60 96 01/23/19 13:00 94 01/23/19 12:01 73 15 126/78 97 01/23/19 11:59 97.7 F 76 15 126/78 96 01/23/19 11:02 74 19 104/46 90 01/23/19 10:32 18 105/50 94 01/23/19 10:01 18 107/47 01/23/19 09:46 72 15 125/46 96 01/23/19 09:34 71 18 95/54 94 01/23/19 09:31 68 16 78/35 94 01/23/19 09:01 72 14 111/50 94 01/23/19 08:16 98.9 F 77 21 140/60 96 01/23/19 07:31 93 H 15 141/67 98 01/23/19 07:16 77 18 153/60 97 01/23/19 07:01 81 16 150/67 96 01/23/19 06:47 80 17 145/60 97 01/23/19 06:30 96 01/23/19 06:01 88 17 134/55 96 01/23/19 05:47 89 19 120/56 97 01/23/19 05:46 77 14 88/79 98 01/23/19 05:37 157/45 01/23/19 05:22 73 27 H 177/75 98 01/23/19 05:01 76 20 178/60 93 01/23/19 04:31 82 11 L 180/59 95 01/23/19 04:01 99.4 F H 73 12 184/62 97 01/23/19 03:01 14 158/55 01/23/19 02:31 75 18 182/76 92 01/23/19 02:16 74 14 133/76 96 01/23/19 02:01 66 13 109/51 90 01/23/19 01:53 65 13 96/50 90 01/23/19 01:49 64 14 82/39 90 01/23/19 01:22 69 17 139/70 92 01/23/19 01:01 72 13 144/48 95 01/23/19 00:30 15 173/77 01/23/19 00:01 98.5 F 82 17 156/73 96 01/22/19 23:08 71 13 97 01/22/19 23:01 72 13 140/49 97 01/22/19 22:01 97.4 F 67 15 98/42 89 L 01/22/19 21:07 70 13 94/37 92 01/22/19 21:02 69 16 80/34 94 01/22/19 21:01 70 14 63/26 92 01/22/19 20:01 70 22 99/48 93 01/22/19 19:01 99.6 F H 72 16 93/48 94 01/22/19 18:46 71 20 124/65 97 01/22/19 18:15 97.8 F 72 108/44 01/22/19 18:02 77 12 100/55 98 01/22/19 17:56 97.1 F 76 100/55 Intake and Output 01/23/19 01/23/19 01/23/19 05:59 13:59 21:59 Intake Total 860 600 120 Output Total 25 Balance 860 600 95 Intake: IV 500 Sodium Chloride 0.9% 500 ml @ 500 Wide Open IV BOLUS ONE Rx#: [id number] Oral 360 600 120 Output: Void Amount 25 Other: Meal Lunch Percent of Meal Consumed Bites Feeding Ability Independent Urine Appearance Cloudy Urine Color Bright Yellow Intake & Output: Intake & Output 01/23/19 01/23/19 01/23/19 05:59 13:59 21:59 Intake Total 860 600 120 Output Total 25 Balance 860 600 95 Intake: IV 500 Sodium Chloride 0.9% 500 ml @ 500 Wide Open IV BOLUS ONE Rx#: [id number] Oral 360 600 120 Output: Void Amount 25 Other: Meal Lunch Percent of Meal Consumed Bites Feeding Ability Independent Urine Appearance Cloudy Urine Color Bright Yellow - General Appearance General appearance: cachectic EENT: ATNC Neck: no JVD Respiratory: no kyphosis Cardiology: no murmurs Gastrointestinal: normoactive bowel sounds Integumentary: no rash Neurologic: no focal deficit Musculoskeletal: no deformities - Lab 01/23/19 03:27 01/23/19 03:27 Most recent lab results Calcium 9.9 mg/dl (8.6-10.4) 01/23/19 03:27 Phosphorus 7.5 mg/dL (2.7-4.5) H* 01/23/19 03:27 Magnesium 2.3 mg/dL (1.6-2.5) 01/23/19 03:27 Assessment and Plan (1) End stage chronic kidney disease Status: Acute Comment: She had nausea and vomiting. BP low post dialysis yesterday. Will dialyse tomorrow. Clonidine patch has been changed. BP is better. Phos is high, will likely get better with dialysis and binders. Difficulty swallowing and CT showing esophageal problems. Check upper GI.
[2019-01-24 05:08] LABS: Basophils # (Auto) 0 K/mcL (0.0-0.3); Basophils % (Auto) 0.3 % (0.0-2.0); Eosinophils # (Auto) 0 K/mcL (0.0-0.7); Eosinophils % (Auto) 0.4 % (0.0-7.0); Granulocytes % (Auto) 66.9 % (38.0-78.0); Hematocrit 45.8 % (36.0-48.0); Hemoglobin 14.6 g/dL (12.0-15.0); Lymphocytes # (Auto) 2.2 K/mcL (1.5-4.8); Lymphocytes % (Auto) 21.6 % (15.5-49.0); Mean Cell Volume 82.5 fL (80.0-100.0); Mean Corpuscular HGB Conc 31.8 g/dL (31.0-36.0); Mean Platelet Volume 7.2 fL (7.4-10.4); Monocytes # (Auto) 1.1 K/mcL (0.1-0.9); Monocytes % (Auto) 10.8 % (1.0-12.0); Platelet Count 362 K/mcL (140-440); RBC 5.55 M/mcL (4.00-5.20); Red Cell Distribution Width 18.8 % (11.5-14.5); WBC 10.2 K/mcL (4.5-11.0)
[2019-01-24] MEDS: 0.9 % SODIUM CHLORIDE 10 ML SYRINGE IV SCH ×4 (05:35→21:18)
[2019-01-24 06:22] LABS: ALT/SGPT 15 U/l (0-40); AST/SGOT 12 U/l (0-37); Albumin/Globulin Ratio 0.9 (1.0-2.3); Alkaline Phosphatase 98 U/L (39-117); Bilirubin,Direct < 0.2 mg/dL (0.0-0.3); Bilirubin,Total 0.3 mg/dL (0.0-1.0); Blood Urea Nitrogen 70 mg/dl (6-20); Calcium 9.7 mg/dl (8.6-10.4); Carbon Dioxide 19 mmol/L (22-30); Chloride 86 mmol/L (96-108); Globulin 4.6 gm/dL (2.2-3.7); Glomerular Filtration Rate 8; Glucose 205 mg/dL (70-105); Lactate Dehydrogenase 227 U/L (94-250); Phosphorous 8.2 mg/dL (2.7-4.5); Triglycerides 347 mg/dl (<150)
[2019-01-24] MEDS: INSULIN LISPRO 1 UNIT/0.01 ML UNIT SQ SCH ×4 (08:06→21:16)
[2019-01-24] MEDS: ESOMEPRAZOLE 40 MG VIAL IV SCH (08:13)
[2019-01-24] MEDS: METOCLOPRAMIDE 10 MG TABLET PO SCH ×4 (08:13→21:17)
[2019-01-24] MEDS: SIMETHICONE 80 MG TAB.CHEW CHEWED SCH (08:14)
[2019-01-24] MEDS ORDERED: amLODIPine 5 MG TABLET PO SCH (09:00)
[2019-01-24] MEDS: ONDANSETRON 4 MG/2 ML VIAL IV PRN (10:02)
[2019-01-24] MEDS: INSULIN GLARGINE, HUMAN 1 UNIT/0.01 ML SQ SCH (10:03)
[2019-01-24] MEDS: SEVELAMER 800 MG TABLET PO PRN (10:05)
--- NOTE | 2019-01-24 10:13 | XRay Report ---
CLINICAL INFORMATION: Dysphagia TECHNIQUE: Carbon dioxide crystals and 10 cc of water with simethacone drops were administered. High density/high viscosity barium was ingested under fluoroscopic observation while spot films were obtained of the esophagus during deglutition in both the upright and prone positions. FINDINGS: Tongue elevation and palate depression are normal resulting in propulsion of the barium bolus into the pharynx. The nasopharyngeus closes normally. Pharyngeal stripping and cricopharyngeal opening are normal. The epiglottis and vocal cords close normally - no evidence of descending aspiration. The primary peristaltic wave is markedly diminished and there is delayed, complete opening of the lower esophageal sphincter suggesting achalasia. The esophagus is normal in contour and caliber without evidence of esophagitis or focal lesion. No hiatal hernia or reflux could be induced. IMPRESSION: Weak primary peristaltic wave and incomplete lower esophageal sphincter opening suggesting achalasia. Consider GI referral for correlating endoscopic evaluation including manometric measurements. Interpreted and Authenticated by: Ovidio Gimenez 01/24/19
[2019-01-24] MEDS: CALCIUM CARBONATE 500 MG TAB.CHEW PO SCH ×3 (10:14→21:17)
--- NOTE | 2019-01-24 10:30 | Internal Med Progress Note ---
Medical - PN: Subj Patient information: Note initiated : 01/24/19 at 10:26 am Service Date, if different from initiated Date: [] Patient: Delores Jones a 48 y/o F admitted on 01/21/19 for high blood pressure. Chief Complaint: [] Interval history: Ms. Jones is a 48 year old F Who has had multiple hospitalizations for hypertensive urgency usually secondary to medication noncompliance from lack of funds due to insurance issues. She was last admitted in October. Apparently this issue has been resolved she has been on all her medications and taking them regularly. Weeks ago her blood pressures were doing well between 120s-170s. The past week they have been elevated in dialysis. Last night she had elevated blood pressure and had nausea vomiting and has been having nausea vomiting since. When dialysis today still had significantly elevated blood pressures even after dialysis. Initial blood pressure was 218/110. Denies any chest pain or shortness of breath. No fevers or chills. She does have achy abdominal pain that she does not recall if it started after the nausea vomiting or not. She also underwent a CT angios of the abdomen which is unremarkable and showed no renal artery stenosis. Case is also discussed with Dr. Amaya who will be following closely. She is started on a labetalol drip in the ER which finally her blood pressures down to 160s but then started creeping up again started having titrated up. I asked ED to switch to nicardipine. She does not urinate but very little once a day. It does not sound like she is been following any gastroparesis diet. Speak with Dr. Amaya her dry weight is 56 kg but as of late she has been 58 kg after dialysis. She typically does not take her blood pressure medications the morning of dialysis and thus has not had this morning. Although she did have a clonidine in the middle the night because of elevated blood pressure 01/22 Appears comfortable at bed right now was having some nausea vomiting earlier. Blood pressure better controlled with systolics 140s 150s. Clonidine patch change last night. After talking with concerned that maybe there is a patch issue as he mentioned he is seen differences in her blood pressure depending on where it was placed. Your stomach from vomiting 01/24-patient doing a lot better. Systolics much improved. Case discussed with nephrology. Likely fluctuations resulting secondary to fluid overload in between dialysis and inadequate salt restriction. Patient undergoing acute dialysis. Will likely discharge in 24 hours as per recommendations of nephrology. No overnight events including telemetry abnormalities. at bedside. Patient feels much improved and denies chest pain shortness breath of lightheadedness. - Constitutional Vitals: Vital Signs Temp Pulse Resp BP Pulse Ox 97.4 F 66 16 154/60 98 01/24/19 08:40 01/24/19 08:40 01/24/19 09:01 01/24/19 10:15 01/24/19 09:01 Period Temp Pulse Resp BP Sys/Infante Pulse Ox Last 24 Hr 97.4 F-97.8 F 64-88 14-20 97-163/41-95 90-98 Intake and Output 01/23/19 01/24/19 01/24/19 21:59 05:59 13:59 Intake Total 120 200 Output Total 25 Balance 95 200 Weight 125 lb 6.4 oz Intake & Output: Intake & Output 01/23/19 01/24/19 01/24/19 21:59 05:59 13:59 Intake Total 120 200 Output Total 25 Balance 95 200 Weight 125 lb 6.4 oz Intake: Oral 120 200 Output: Void Amount 25 Other: Urine Appearance Cloudy Urine Color Bright Yellow General appearance: no acute distress Exam: Nonlabored breathing Alert oriented no anxiety No telemetry events Medical - PN: Obj Da - Labs CBC & Chem 7: 01/24/19 03:34 01/24/19 03:34 Labs: Abnormal Lab Results 01/24/19 01/24/19 01/23/19 03:34 03:34 07:59 WBC RBC 5.55 H Hgb Hct POC Hct MCH RDW 18.8 H MPV 7.2 L Gran % Lymph % (Auto) Gran # Lymph # (Auto) Hubbard # (Auto) 1.1 H Sodium 132 L Potassium Chloride 86 L Carbon Dioxide 19 L Anion Gap 27.0 H POC BUN BUN 70 H Creatinine 5.6 H* POC Creatinine Glucose 205 H POC Glucose POC WB Ioniz Calcium Phosphorus 8.2 H* GGT 50 H AST ALT Alkaline Phosphatase Lactate Dehydrogenase Total Protein 8.6 H Globulin 4.6 H Albumin/Globulin Ratio 0.9 L Triglycerides 347 H Cortisol AM Sample 29.8 H 01/23/19 01/23/19 01/22/19 03:27 03:27 03:29 WBC 14.3 H 11.7 H RBC 5.56 H Hgb Hct POC Hct MCH 25.9 L RDW 19.1 H 18.6 H MPV 7.3 L Gran % 84.2 H 85.9 H Lymph % (Auto) 10.3 L 7.4 L Gran # 12.0 H 10.1 H Lymph # (Auto) 0.9 L Hubbard # (Auto) Sodium 131 L Potassium Chloride 87 L Carbon Dioxide Anion Gap 21.0 H POC BUN BUN 29 H Creatinine 3.4 H POC Creatinine Glucose 298 H POC Glucose POC WB Ioniz Calcium Phosphorus 7.5 H* GGT 52 H AST ALT Alkaline Phosphatase Lactate Dehydrogenase 260 H Total Protein 9.2 H Globulin 4.9 H Albumin/Globulin Ratio 0.9 L Triglycerides 274 H Cortisol AM Sample 01/22/19 01/21/19 01/21/19 03:29 11:55 11:55 WBC RBC 5.85 H Hgb 15.3 H Hct 48.1 H POC Hct 50.0 H MCH RDW 18.3 H MPV Gran % 89.7 H Lymph % (Auto) 6.5 L Gran # 9.1 H Lymph # (Auto) 0.7 L Hubbard # (Auto) Sodium Potassium 5.8 H Chloride 85 L 92 L Carbon Dioxide Anion Gap 24.0 H 20.0 H POC BUN 26 H BUN 45 H 21 H Creatinine 4.7 H 3.0 H POC Creatinine 3.5 H Glucose 407 H 168 H POC Glucose 209 H POC WB Ioniz Calcium 1.04 L Phosphorus 7.9 H* GGT 48 H AST 51 H ALT 48 H Alkaline Phosphatase 147 H Lactate Dehydrogenase Total Protein 8.8 H 10.4 H Globulin 4.6 H 5.4 H Albumin/Globulin Ratio 0.9 L 0.9 L Triglycerides 217 H Cortisol AM Sample 41.3 H Meds: Medications Acetaminophen (Tylenol) 650 mg GA Q4-6HP PRN PRN Reason: PAIN/FEVER > 101 Acetaminophen (Tylenol) 650 mg PO Q4-6HP PRN PRN Reason: PAIN/FEVER > 101 Hydrocodone Bitart/Acetaminophen (Jenks 5/325mg) 1 tab PO Q6HP PRN PRN Reason: PAIN LEVEL 3-6 Last Admin: 01/22/19 19:13 Dose: 1 tab Documented by: Albuterol/Ipratropium (Duoneb) 3 ml NEB Q4HRT PRN PRN Reason: Bronchospasm Amlodipine Besylate (Norvasc) 5 mg PO BID [facility] Bismuth Subsalicylate (Pepto Bismol) 15 ml PO Q4HP PRN PRN Reason: Dyspepsia Last Admin: 01/23/19 11:45 Dose: 15 ml Documented by: Calcium Carbonate/Glycine (Tums) 1,000 mg PO TID [facility] Last Admin: 01/24/19 10:14 Dose: 1,000 mg Documented by[facility] Last Admin: 01/23/19 17:54 Dose: 25 mg Documented by: Clonidine HCl (Catapres) 0.2 mg PO TIDP PRN PRN Reason: sbp >170 Clonidine HCl (Catapres Tts 1) 1 patch TD Mo@1000 [facility] Last Admin: 01/21/19 17:53 Dose: 1 patch Documented by: Dextrose (Dextrose 50%) 0 ml IV UD PRN PRN Reason: Hypoglycemia Diagnostic Test (Pha) (Accu-Chek) 1 each FS [facility] Last Admin: 01/24/19 07:06 Dose: 1 each Documented by: Diphenhydramine HCl (Benadryl) 25 mg IV Q4-6HP PRN PRN Reason: Allergic Symptoms nausea vomit Last Admin: 01/23/19 07:37 Dose: 25 mg Documented by: Esomeprazole [facility]) [facility] Last Admin: 01/24/19 08:13 Dose: 40 mg Documented by: Glucose (Insta-Glucose) 15 gm PO PRN PRN PRN Reason: Hypoglycemia Hydralazine HCl (Apresoline) 0 mg IV Q2HP PRN PRN Reason: Hypertension Last Admin: 01/23/19 05:10 Dose: 20 mg Documented by: Nicardipine HCl 25 mg/ Sodium (Chloride) 250 mls @ 50 mls/hr IV Q5HP PRN; Protocol PRN Reason: Hypertension Insulin Glargine (Lantus) 35 unit SQ DAILY [facility] Last Admin: 01/24/19 10:03 Dose: 35 units Documented by: Insulin Human Lispro (Humalog) 0 unit SQ [facility]; Protocol Last Admin: 01/24/19 08:06 Dose: Not Given Documented by: Labetalol HCl (Trandate) 0 mg IV Q2HP PRN PRN Reason: Hypertension Lisinopril (Zestril) 20 mg PO BID [facility] Last Admin: 01/23/19 21:16 Dose: 20 mg Documented by: Lorazepam (Ativan) 0.5 mg IV Q6HP PRN PRN Reason: ANXIETY/SEDATION Last Admin: 01/23/19 08:26 Dose: 0.5 mg Documented by: Metoclopramide HCl (Reglan) 5 mg PO ACHS [facility] Last Admin: 01/24/19 08:13 Dose: 5 mg Documented by: Minoxidil (Minoxidil) 5 mg PO BID [facility] Last Admin: 01/23/19 21:15 Dose: 5 mg Documented by: Morphine Sulfate (Morphine) 1 - 3 mg IV Q3HP PRN PRN Reason: PAIN LEVEL > 6 Last Admin: 01/23/19 20:55 Dose: 2 mg Documented by: Nitroglycerin (Nitrostat) 0.4 mg SL Q5M PRN PRN Reason: Chest Pain Ondansetron HCl (Zofran) 4 mg IV Q4-6HP PRN PRN Reason: Nausea And Vomiting Last Admin: 01/24/19 10:02 Dose: 4 mg Documented by: Promethazine HCl (Phenergan) 12.5 mg IV Q4-6HP PRN PRN Reason: Nausea And Vomiting Last Admin: 01/21/19 19:51 Dose: 12.5 mg Documented by: Sevelamer Carbonate (Renvela) 800 mg PO PRN PRN PRN Reason: SNACKS Last Admin: 01/24/19 10:05 Dose: 800 mg Documented by: Sodium Chloride (Saline Flush) 10 ml IV Q8 [facility] Last Admin: 01/24/19 08:14 Dose: 10 ml Documented by: Medical - PN: A/P - Time Spent With Patient Total time spent is greater than 50% in coordination of care (as documented) at patient's floor/unit and/or counseling patient: 25 - 35 minutes - Narrative A/P Narrative: * Hypertensive urgency-secondary to poor medication compliance. Much improved with continued dialysis and medications as per nephrology. Imaging thus far negative for YASMIN. Continue Coreg/clonidine/ amlodipine/hydralazine/lisinopril/minoxidil as per nephrology * Nausea vomiting second to gastroparesis. Barium swallow today * Esophagitis and gastritis secondary to above. Continue PPI * ESRD on HD followed by Dr. Amaya * History of diastolic CHF secondary to hypertension * DM type II A1c 7.2. Continue baseline insulin * Anemia of chronic disease * Full code * Prophylaxis heparin Plan * HD per nephrology * Hypertension management nephrology * Barium swallow today * Pre-existing well condition management home meds * Anticipate discharge in 24 hours if clinically improved Medical - PN: Qual - VTE Deep Vein Thrombosis/Pulmonary Embolism Present on Admission: No
[2019-01-24] MEDS: MINOXIDIL 10 MG TABLET PO SCH ×2 (11:34→21:17)
[2019-01-24] MEDS: CARVEDILOL 12.5 MG TABLET PO SCH ×2 (11:34→20:57)
[2019-01-24] MEDS: LISINOPRIL 20 MG TABLET PO SCH ×2 (11:35→21:17)
[2019-01-24] MEDS ORDERED: SEVELAMER 800 MG TABLET PO PRN (12:11)
[2019-01-24] MEDS ORDERED: LORazepam 2 MG/ML VIAL IV PRN (12:11)
[2019-01-24] MEDS ORDERED: ACETAMINOPHEN 650 MG SUPP.RECT PR PRN (12:11)
[2019-01-24] MEDS ORDERED: ACETAMINOPHEN 325 MG TABLET PO PRN (12:11)
[2019-01-24] MEDS ORDERED: BISMUTH SUBSALICYLATE 15 ML ORAL.SUSP PO PRN (12:11)
[2019-01-24] MEDS ORDERED: IPRATROPIUM/ALBUTEROL 3 ML AMPUL.NEB NEB PRN (12:11)
[2019-01-24] MEDS ORDERED: PROMETHAZINE 25 MG/ML VIAL IV PRN (12:11)
[2019-01-24] MEDS ORDERED: HYDROcodone/APAP 5/325MG TABLET PO PRN (12:11)
[2019-01-24] MEDS ORDERED: LABETALOL 5 MG/ML ML IV PRN (12:11)
[2019-01-24] MEDS ORDERED: diphenhydrAMINE 50 MG/ML VIAL IV PRN (12:11)
[2019-01-24] MEDS ORDERED: hydrALAZINE 20 MG/ML VIAL IV PRN (12:11)
[2019-01-24] MEDS ORDERED: ONDANSETRON 4 MG/2 ML VIAL IV PRN (12:11)
[2019-01-24] MEDS ORDERED: cloNIDine HCL 0.1 MG TABLET PO PRN (12:11)
[2019-01-24] MEDS ORDERED: DEXTROSE 31 GM ORAL.SUSP PO PRN (12:11)
[2019-01-24] MEDS ORDERED: NITROGLYCERIN 0.4 MG TAB.SUBL SL PRN (12:11)
[2019-01-24] MEDS ORDERED: DEXTROSE 50% 50 ML VIAL IV PRN (12:11)
[2019-01-24] MEDS ORDERED: niCARdipine 25 MG in 0.9 % SODIUM CHLORIDE 240 ML IV PRN (12:11)
[2019-01-24] MEDS: amLODIPine 5 MG TABLET PO SCH (21:18)
[2019-01-25] MEDS: 0.9 % SODIUM CHLORIDE 10 ML SYRINGE IV SCH (05:31)
[2019-01-25] MEDS ORDERED: ESOMEPRAZOLE 40 MG VIAL IV SCH (07:30)
[2019-01-25] MEDS: METOCLOPRAMIDE 10 MG TABLET PO SCH (07:39)
[2019-01-25] MEDS: INSULIN LISPRO 1 UNIT/0.01 ML UNIT SQ SCH (07:58)
[2019-01-25] MEDS: CALCIUM CARBONATE 500 MG TAB.CHEW PO SCH (08:06)
[2019-01-25] MEDS: CARVEDILOL 12.5 MG TABLET PO SCH (08:06)
[2019-01-25] MEDS: LISINOPRIL 20 MG TABLET PO SCH (08:06)
[2019-01-25] MEDS: amLODIPine 5 MG TABLET PO SCH (08:06)
[2019-01-25] MEDS: MINOXIDIL 10 MG TABLET PO SCH (08:14)
[2019-01-25] MEDS ORDERED: INSULIN GLARGINE, HUMAN 1 UNIT/0.01 ML SQ SCH (09:00)
--- NOTE | 2019-01-25 09:49 | Discharge Summary ---
Medical - DS: Prov Patient information: Note initiated : 01/25/19 at 9:46 am Service Date, if different from initiated Date: [] Patient: Delores Jones 48 y/o F admitted on 01/21/19 for high blood pressure. Chief Complaint: [] Date of admission: 01/21/19 17:02 Discharge date: 01/25/19 Primary care physician: Pauline Espana Consults: 01/21/19 15:47 Consult to Physician [CONS] Stat Comment: Consulting Provider: Remberto Heath Reason For Exam: Physician to Consult 01/21/19 17:09 Consult to Physician [CONS] Routine Comment: Consulting Provider: Teddy Amaya Reason For Exam: Physician to Consult Medical - DS: Meds - Discharge Medications Active and Home Medications: Home Medications blood sugar diagnostic strips See Dose Instructions .ROUTE .MEDSUPPLY 10/18/16 [History Confirmed 01/21/19 Last Taken Unknown] carvedilol 12.5 mg tablet 25 mg PO BID tab 10/18/16 [History Confirmed 01/21/19 Last Taken 11/11/18 06:00] Basaglar Kwikpen U-100 25 unit SQ QAM 11/11/18 [History Confirmed 01/21/19 Last Taken 11/10/18 06:00] Novolog Flexpen See Protocol SQ ACHS 11/11/18 [History Confirmed 01/22/19 Last Taken 11/10/18 13:00] Calcium Carbonate [Tums] 1,000 mg PO TID 11/13/18 [History Confirmed 01/21/19 Last Taken Unknown] Omeprazole [Prilosec] 20 mg PO DAILY 11/13/18 [History Confirmed 01/21/19 Last Taken Unknown] Sevelamer [Renvela] 800 mg PO PRN PRN 11/16/18 [History Confirmed 01/22/19 Last Taken Unknown] Lisinopril [Zestril] 20 mg PO BID #30 tab 11/20/18 [Rx Confirmed 01/21/19 Last Taken Unknown] amLODIPine [Norvasc] 5 mg PO BID #30 tab 11/20/18 [Rx Confirmed 01/21/19 Last Taken Unknown] Metoclopramide [Reglan] 5 mg PO ACHS 01/22/19 [History Confirmed 01/22/19 Last Taken 01/21/19 17:40] Minoxidil 5 mg PO BID tablet 01/25/19 [Rx Last Taken Unknown] cloNIDine HCL [Catapres] 0.2 mg PO TIDP PRN tablet 01/25/19 [Rx Last Taken Unknown] cloNIDine TTS 1 [Catapres Tts 1] 1 patch TD Mo@1000 patch 01/25/19 [Rx Last Taken Unknown] Medical - DS: Hosp Hospital course: Discharge diagnosis * Hypertensive urgency-secondary to poor medication compliance. Clinically improved. Discharging on hypertension medication as per nephrology. Continue Coreg/clonidine/amlodipine/hydralazine/lisinopril/minoxidil as per nephrology * Nausea vomiting second to gastroparesis. Barium swallow reveals achalasia/in complete lower esophageal sphincter opening. Will need outpatient GI follow- up * Esophagitis and gastritis secondary to above. Continue PPI. * ESRD on HD followed by Dr. Amaya * History of diastolic CHF secondary to hypertension. Well compensated * DM type II A1c 7.2. Continue home regimen * Anemia of chronic disease-managed by nephrology Brief hospital course +Ms. Jones is a 48 year old F Who has had multiple hospitalizations for hypertensive urgency usually secondary to medication noncompliance from lack of funds due to insurance issues. She was last admitted in October. Apparently this issue has been resolved she has been on all her medications and taking them regularly. Weeks ago her blood pressures were doing well between 120s-170s. The past week they have been elevated in dialysis. Last night she had elevated blood pressure and had nausea vomiting and has been having nausea vomiting since. When dialysis today still had significantly elevated blood pressures even after dialysis. Initial blood pressure was 218/110. Denies any chest pain or shortness of breath. No fevers or chills. She does have achy abdominal pain that she does not recall if it started after the nausea vomiting or not. She also underwent a CT angios of the abdomen which is unremarkable and showed no renal artery stenosis. Case is also discussed with Dr. Amaya who will be following closely. She is started on a labetalol drip in the ER which finally her blood pressures down to 160s but then started creeping up again started having titrated up. I asked ED to switch to nicardipine. She does not urinate but very little once a day. It does not sound like she is been following any gastroparesis diet. Speak with Dr. Amaya her dry weight is 56 kg but as of late she has been 58 kg after dialysis. She typically does not take her blood pressure medications the morning of dialysis and thus has not had this morning. Although she did have a clonidine in the middle the night because of elevated blood pressure 01/22 Appears comfortable at bed right now was having some nausea vomiting earlier. Blood pressure better controlled with systolics 140s 150s. Clonidine patch change last night. After talking with concerned that maybe there is a patch issue as he mentioned he is seen differences in her blood pressure depending on where it was placed. Your stomach from vomiting 01/24-patient doing a lot better. Systolics much improved. Case discussed with nephrology. Likely fluctuations resulting secondary to fluid overload in between dialysis and inadequate salt restriction. Patient undergoing acute dialysis. Will likely discharge in 24 hours as per recommendations of nephrology. No overnight events including telemetry abnormalities. at bedside. Patient feels much improved and denies chest pain shortness breath of lightheadedness. 01/25-patient significantly better. Blood pressure in good control. Discharging as per recommendation of nephrology with outpatient follow-up with nephrology and continue dialysis. Patient denies overnight events with chest pain lightheadedness dizziness or shortness of breath. at bedside. No concerns expressed by nursing staff. Detailed discharge instruction and medications as below. Barium swallow revealed achalasia and will need outpatient GI follow-up Discharge diagnosis: . - Time Spent with Patient Total time spent providing and/or coordinating discharge services: Greater than 30 minutes Medical - DS: Exam - Constitutional Vitals: Vital Signs Temp Pulse Pulse Pulse Resp BP BP 01/25/19 08:00 96.9 F L 16 01/25/19 04:00 99.1 F H 79 16 115/63 01/24/19 23:50 97.8 F 72 18 121/79 01/24/19 20:00 98.0 F 82 16 126/71 01/24/19 17:16 100/52 01/24/19 16:27 97.7 F 67 105/54 01/24/19 16:15 65 111/59 01/24/19 16:01 16 113/66 01/24/19 16:00 65 113/66 01/24/19 15:45 64 102/67 01/24/19 15:30 64 95/56 08/01/19 15:15 67 110/66 01/24/19 15:00 67 103/46 01/24/19 14:45 63 109/62 01/24/19 14:30 64 140/55 01/24/19 14:15 64 100/49 01/24/19 14:00 67 97/48 01/24/19 13:45 63 125/51 01/24/19 13:30 66 125/51 01/24/19 13:15 69 149/62 01/24/19 13:00 97.6 F 67 148/68 01/24/19 12:01 143/63 01/24/19 12:00 98.2 F 80 16 136/60 01/24/19 11:01 16 139/42 01/24/19 10:15 154/60 BP Pulse Ox 01/25/19 08:00 99/64 96 01/25/19 04:00 95 01/24/19 23:50 95 01/24/19 20:00 91 01/24/19 17:16 01/24/19 16:27 01/24/19 16:15 01/24/19 16:01 97 01/24/19 16:00 01/24/19 15:45 01/24/19 15:30 01/24/19 15:15 01/24/19 15:00 01/24/19 14:45 01/24/19 14:30 01/24/19 14:15 01/24/19 14:00 01/24/19 13:45 01/24/19 13:30 01/24/19 13:15 01/24/19 13:00 01/24/19 12:01 01/24/19 12:00 95 01/24/19 11:01 97 01/24/19 10:15 Intake and Output 01/24/19 01/25/19 01/25/19 21:59 05:59 13:59 Intake Total 460 250 Output Total 1700 Balance -1240 250 Intake: Nourishment/Supplement quantity 100 (ml) Oral 360 250 Output: Hemodialysis UF 1700 Other: Meal Nourishment/Supplement Nourishment/Supplement name boost breeze Weight 120 lb 8 oz Medical - DS: A/P - Patient/Caregiver Discharge Instructions Activity: increase activity as tolerated Diet: Renal/Consistent Carbs Additional Instructions: Outpatient GI follow-up for evaluation of achalasia in 1 to 2 weeks Nephrology follow-up for continued hemodialysis PCP follow-up in 5 to 7 days Continue antihypertensive medication as per nephrology return to ER if worsening shortness of breath fever weakness lightheadedness or dizziness - Follow up Plan Follow up with: Teddy Amaya MD [Physician] - (Follow up with Dr. Amaya in the Clinic) Pauline Espana ARNP [Primary Care Provider] - 02/05/19 2:40 pm (Please arrive 10 min. early) Disposition: Home, Self-Care Prognosis: Fair Rehab Potential: Fair I certify that the patient requires SNF services: No Overall status at discharge: patient is back to baseline Medical - DS: Qual - VTE Deep Vein Thrombosis/Pulmonary Embolism Present on Admission: No
[2019-01-27 08:35] LABS: Aldosterone/PRA Ratio 12.7 Ratio (0.9-28.9); Renin Activity, Plasma 0.79 ng/mL/h (0.25-5.82)
[2019-01-28 08:19] LABS: Total Metanephrine 261 pg/mL (< OR = 205)
[2019-01-28] MEDS ORDERED: cloNIDine TTS 1 1 PATCH PATCH TD SCH (10:00)
[2019-02-05 11:15] LABS: Free Cortisol 24 Hour,Urine 3.4 mcg/24 h (4.0-50.0)
== END 2019-01-25 10:45 | disposition home or self-care (01) | DRG 304 ==
LOC: ED 10:36 → ICU 17:02 → MEDSUR 01-24 17:40
PROVIDERS: ADMIT Internal Medicine; ATTEND Internal Medicine

== ENCOUNTER 2020-01-02 12:31 | Inpatient (IN) ==
[2020-01-02] MEDS ORDERED: 0.9 % SODIUM CHLORIDE 500 ML IV ONE (12:53)
[2020-01-02] MEDS ORDERED: ONDANSETRON 4 MG/2 ML VIAL IV ONE (12:53)
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
[2020-01-02] MEDS ORDERED: CAPSAICIN 0.025% CREAM.TOP 60GM TOPICAL ONE (12:55)
[2020-01-02] MEDS ORDERED: LABETALOL 5 MG/ML ML IV ONE ×2 (12:57→13:32)
[2020-01-02 13:48] LABS: Basophils # (Auto) 0.05 K/mcL (0.00-0.30); Basophils % (Auto) 0.3 % (0.0-2.0); Eosinophils # (Auto) 0.03 K/mcL (0.00-0.70); Eosinophils % (Auto) 0.2 % (0.0-7.0); Granulocytes % (Auto) 90.1 % (38.0-78.0); Hematocrit 37.8 % (34.1-44.9); Hemoglobin 12.3 g/dL (11.2-15.7); Lymphocytes # (Auto) 1.09 K/mcL (1.50-4.80); Lymphocytes % (Auto) 6.3 % (15.5-49.0); Mean Cell Volume 83.4 fL (80.0-100.0); Mean Corpuscular HGB Conc 32.5 g/dL (31.0-36.0); Mean Platelet Volume 9.1 fL (7.4-10.4); Monocytes # (Auto) 0.54 K/mcL (0.10-0.90); Monocytes % (Auto) 3.1 % (1.0-12.0); Platelet Count 420 K/mcL (140-440); RBC 4.53 M/mcL (3.59-5.38); Red Cell Distribution Width 15.6 % (11.5-14.5); WBC 17.4 K/mcL (4.50-11.00)
[2020-01-02] MEDS ORDERED: ENALAPRILAT 1.25 MG/ML VIAL IV ONE (13:57)
[2020-01-02 14:05] LABS: ALT/SGPT 28 U/l (0-40); AST/SGOT 28 U/l (0-37); Albumin 4.3 gm/dL (3.2-5.2); Alkaline Phosphatase 170 U/L (39-117); Bilirubin,Total 0.3 mg/dL (0.0-1.0); Blood Urea Nitrogen 43 mg/dl (6-20); Calcium 10.4 mg/dl (8.6-10.4); Carbon Dioxide 27 mmol/L (22-30); Globulin 4.5 gm/dL (2.2-3.7); Glucose 251 mg/dL (70-105)
[2020-01-02 14:11] LABS: Chloride 83 mmol/L (96-108); Glomerular Filtration Rate 8
[2020-01-02] MEDS ORDERED: PROMETHAZINE 25 MG/ML VIAL IV ONE (14:14)
--- NOTE | 2020-01-02 14:47 | XRay Report ---
INDICATION: WBC 17, N/V, ESRD. R/o pneumonia. TECHNIQUE: PA and lateral upright chest x-ray COMPARISON: Previous chest x-rays dated 07/08/2019, 12/06/2018 FINDINGS: Lungs: No pulmonary parenchymal consolidation. No pulmonary parenchymal mass. There is no evidence for acute pneumonia Heart, vascular: Moderate cardiomegaly, unchanged. Pulmonary vascularity is prominent with upper lobe redistribution. Appearance consistent with pulmonary congestion. There is mild peribronchial thickening and there are subtle septal lines consistent with interstitial edema. No alveolar edema. Appearance is slightly worse than on 07/08/2019 Mediastinum, petros: No mediastinal widening. No hilar mass Pleura:No pleural fluid. No pleural-based mass or calcification Thoracic spine, ribs: No thoracic compression fracture. Ribs are negative. No fracture. No lytic lesion IMPRESSION: 1. Cardiomegaly, unchanged 2. Pulmonary congestion and probable interstitial edema Interpreted and Authenticated by: Ovidio Jones 01/02/20
--- NOTE | 2020-01-02 14:51 | XRay Report ---
INDICATION: finger infection. WBC 17. R/o osteomylitis. TECHNIQUE: PA, oblique, lateral left hand COMPARISON: None. FINDINGS: Extensive vascular calcification consistent with diabetes and atherosclerosis. There is no fracture. No cortical destruction or periosteal new bone formation. There is no plain film evidence for osteomyelitis. No soft tissue gas or radiopaque foreign body IMPRESSION: No acute abnormality. No plain film evidence for osteomyelitis Interpreted and Authenticated by: Ovidio Jones 01/02/20
[2020-01-02] MEDS ORDERED: cloNIDine TTS 3 1 PATCH PATCH TD ONE (15:21)
[2020-01-02] MEDS ORDERED: cloNIDine HCL 0.1 MG TABLET PO SCH ×3 (15:30→17:00)
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
[2020-01-02] MEDS ORDERED: cefTRIAXone 2 GM in DEXTROSE 5% IN WATER 50 ML IV ONE (15:57)
[2020-01-02] MEDS ORDERED: VANCOMYCIN PER PHARMACY IV ONE (15:57)
[2020-01-02] MEDS ORDERED: VANCOMYCIN 750 MG in 0.9 % SODIUM CHLORIDE 250 ML IV ONE (16:30)
[2020-01-02] MEDS ORDERED: VANCOMYCIN PER PHARMACY IV SCH (16:49)
[2020-01-02] MEDS ORDERED: POLYETHYLENE GLYCOL 3350 17 GM PACKET PO PRN (16:49)
[2020-01-02] MEDS ORDERED: MELATONIN 3 MG TABLET PO PRN (16:49)
[2020-01-02] MEDS ORDERED: cefTRIAXone 2 GM in DEXTROSE 5% IN WATER 50 ML IV SCH (16:49)
[2020-01-02] MEDS ORDERED: ONDANSETRON 4 MG/2 ML VIAL IV PRN (16:49)
[2020-01-02] MEDS ORDERED: BISACODYL 10 MG SUPP.RECT PR PRN (16:49)
[2020-01-02] MEDS ORDERED: ONDANSETRON (PP) 4 MG TABLET SL PRN (16:49)
[2020-01-02] MEDS ORDERED: niCARdipine 25 MG in 0.9 % SODIUM CHLORIDE 240 ML IV SCH (16:49)
[2020-01-02] MEDS ORDERED: ONDANSETRON 4 MG ODT TABLET SL PRN (16:49)
[2020-01-02] MEDS ORDERED: ACETAMINOPHEN 325 MG TABLET PO PRN (16:49)
[2020-01-02] MEDS ORDERED: ACETAMINOPHEN 650 MG/65 ML BOTTLE IV PRN (16:49)
[2020-01-02] MEDS ORDERED: NOVOLOG SQ SCH (17:00)
[2020-01-02] MEDS ORDERED: cloNIDine HCL 0.1 MG TABLET PO PRN (17:03)
[2020-01-02 17:04] LABS: Appearance,Urine CLEAR; Bacteria,Urine FEW /hpf (0); Bilirubin,Urine NEG (NEG); Color,Urine YELLOW; Culture Indicated,Urine YES; Glucose,Urine (UA) >=500 mg/dL (NEG); Ketones,Urine NEG (NEG); Leukocyte Esterase,Urine NEG /uL (NEG); Mucus,Urine FEW /hpf (0); Nitrate,Urine NEG (NEG); Protein,Urine >=500 mg/dL (NEG); Specific Gravity,Urine 1.015 (1.000-1.035); Urine Blood NEG mg/dL (<0.03); Urine RBC 10 /hpf (0-1); Urine Squamous Epithelial Cell < 1 /hpf (0-4); Urine WBC 13 /hpf (0-4); Urobilinogen,Urine NEG (NEG)
[2020-01-02] MEDS ORDERED: DEXTROSE 50% 50 ML VIAL IV PRN (17:05)
[2020-01-02] MEDS ORDERED: PROMETHAZINE 25 MG/ML VIAL ONE (18:05)
[2020-01-02] MEDS: METOCLOPRAMIDE 10 MG TABLET PO SCH ×2 (18:06→20:28)
[2020-01-02] MEDS: niCARdipine 25 MG in 0.9 % SODIUM CHLORIDE 240 ML IV SCH ×2 (18:18→23:14)
[2020-01-02] MEDS: hydrALAZINE 20 MG/ML VIAL IV PRN (18:41)
[2020-01-02] MEDS: INSULIN LISPRO 1 UNIT/0.01 ML UNIT SQ SCH (20:27)
[2020-01-02] MEDS: cloNIDine HCL 0.1 MG TABLET PO SCH (20:28)
[2020-01-02] MEDS: 0.9 % SODIUM CHLORIDE 10 ML SYRINGE IV SCH (20:29)
[2020-01-02] MEDS: DOCUSATE SODIUM 100 MG CAPSULE PO SCH (20:29)
[2020-01-02] MEDS: SENNOSIDES/DOCUSATE SODIUM 1 TAB TABLET PO SCH (20:29)
[2020-01-02] MEDS ORDERED: CARVEDILOL 12.5 MG TABLET PO SCH (21:00)
[2020-01-02] MEDS ORDERED: HEPARIN 5,000 UNIT/ML VIAL SQ SCH (21:00)
[2020-01-02] MEDS: PROMETHAZINE 25 MG/ML VIAL IV PRN (22:24)
[2020-01-03] MEDS: PROMETHAZINE 25 MG/ML VIAL IV PRN ×3 (02:09→12:51)
[2020-01-03] MEDS: niCARdipine 25 MG in 0.9 % SODIUM CHLORIDE 240 ML IV SCH ×2 (04:36→15:53)
[2020-01-03] MEDS: hydrALAZINE 20 MG/ML VIAL IV PRN ×2 (04:43→12:50)
[2020-01-03] MEDS: 0.9 % SODIUM CHLORIDE 10 ML SYRINGE IV SCH ×3 (04:48→20:30)
[2020-01-03 05:59] LABS: Hematocrit 31.8 % (34.1-44.9); Hemoglobin 10.2 g/dL (11.2-15.7); Mean Cell Volume 84.6 fL (80.0-100.0); Mean Corpuscular HGB Conc 32.1 g/dL (31.0-36.0); Mean Platelet Volume 9.3 fL (7.4-10.4); Platelet Count 416 K/mcL (140-440); RBC 3.76 M/mcL (3.59-5.38); Red Cell Distribution Width 16.4 % (11.5-14.5); WBC 22.3 K/mcL (4.50-11.00)
[2020-01-03 06:31] LABS: ALT/SGPT 21 U/l (0-40); AST/SGOT 22 U/l (0-37); Albumin/Globulin Ratio 1.1 (1.0-2.3); Alkaline Phosphatase 137 U/L (39-117); Bilirubin,Direct < 0.2 mg/dL (0.0-0.3); Bilirubin,Total 0.2 mg/dL (0.0-1.0); Blood Urea Nitrogen 59 mg/dl (6-20); Calcium 9.4 mg/dl (8.6-10.4); Carbon Dioxide 28 mmol/L (22-30); Chloride 82 mmol/L (96-108); Globulin 3.6 gm/dL (2.2-3.7); Glomerular Filtration Rate 6; Glucose 380 mg/dL (70-105); Lactate Dehydrogenase 250 U/L (94-250); Phosphorous 7.3 mg/dL (2.7-4.5); Triglycerides 109 mg/dl (<150); Uric Acid 8.1 mg/dL (2.5-8.0)
[2020-01-03] MEDS: METOCLOPRAMIDE 10 MG TABLET PO SCH ×4 (08:00→20:30)
[2020-01-03] MEDS: INSULIN LISPRO 1 UNIT/0.01 ML UNIT SQ SCH ×4 (08:00→20:30)
[2020-01-03 08:17] LABS: Lymphocytes % 4 % (15-49); Monocytes % (Manual) 6 % (1-12); Platelet Estimate NORMAL (NORMAL); RBC Morphology NORMAL (NORMAL); Segmented Neutrophils % 90 % (38-78)
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
[2020-01-03] MEDS ORDERED: niCARdipine 25 MG in 0.9 % SODIUM CHLORIDE 240 ML IV PRN (09:15)
--- NOTE | 2020-01-03 11:25 | Internal Med Progress Note ---
SUBJECTIVE Subjective Patient information: Note initiated : 01/03/20 at 11:21 am Service Date, if different from initiated Date: [] Patient: Delores Jones a 49 y/o F admitted on 01/02/20 for High BP and Vomiting. Chief Complaint: [] Interval history: Narrative: History of present illness: Ms. Jones is a 49 year old F with history of ESRD on HD, right BKA and suboptimally controlled hypertension requiring multiple hospitalization for hypertensive urgency. Patient has been doing well since last year and has been following up with nephrology Dr. Amaya. She developed infection left middle finger at the nail bed and was started on cephalexin few days ago. Later she developed gradually progressive nausea associated with intense vomiting/retching. She also noticed blood during her last 2 emesis. She now presents to the ER with above symptoms. She has not been able to eat or drink anything over the last 24 hours. Initial work-up was consistent with hypertensive urgency with blood pressure over 250. Nephrology was consulted and patient was started on Catapres after IV pushes of enalapril/labetalol failed to improve blood pressures. Subsequently nicardipine drip was initiated Chest x-ray consistent with pulmonary congestion from diastolic heart failure, white count over 17,000 not any clear focus of infection Hospital service was consulted. At the time of evaluation patient is accompanied with her Loi. She is very drowsy and mostly history is obtained from patient's . Patient was able to provide answers to review of questions. She endorses abdominal discomfort, denies fever chills, denies diarrhea or headache. 01/02-patient doing better. Improved nausea. Able to take liquids p.o. On Phenergan IV. Hemodialysis today. White count elevated 22,000. Much improved blood pressure. Off nicardipine drip and now on home antihypertensives. Wound care ongoing. No obvious focus of infection. Likely stress response. Continue monitoring. On antibiotic coverage. Constitutional Vitals: Vital Signs Temp Pulse Resp BP Pulse Ox 98.7 F 84 28 H 148/74 98 01/03/20 03:52 01/03/20 05:36 01/03/20 03:31 01/03/20 05:36 01/03/20 05:36 Period Temp Pulse Resp BP Sys/Infante Pulse Ox Last 24 Hr 98.3 F-99.4 F 39-95 0-28 134-263/42-143 90-100 Intake and Output 01/02/20 01/03/20 01/03/20 21:59 05:59 13:59 Intake Total 732 497 Output Total 25 300 Balance 707 197 Weight 52.798 kg alert oriented Nonlabored breathing No anxiety Right BKA Intake & Output: Intake & Output 01/02/20 01/03/20 01/03/20 21:59 05:59 13:59 Intake Total 732 497 Output Total 25 300 Balance 707 197 Weight 52.798 kg Intake: IV 732 377 Sodium Chloride 0.9% 500 ml @ 500 Wide Open IV BOLUS ONE Rx#: [id number] Vancomycin 750 mg In Sodium 67 Chloride 0.9% 250 ml @ 250 mls/ hr IV ONCE ONE Rx#:[id number] Rocephin 2 gm In Dextrose 5% in 50 Water 50 ml @ 100 mls/hr IV ONCE ONE Rx#:[id number] Cardene 25 MG In Sodium 115 377 Chloride 0.9% 240 ml @ 5 MG/HR 50 mls/hr IV Q5H [facility] Rx#: [id number] Oral 120 Output: Void Amount 50 Emesis 25 250 Other: Urine Appearance Fem Cath Clear Urine Color Fem Cath Bright Yellow Stool Color Brown Brown Green Stool Consistency Liquid Liquid OBJ DATA Labs CBC & Chem 7: 01/03/20 05:10 01/03/20 05:10 Labs: Abnormal Lab Results 01/03/20 01/03/20 01/02/20 05:10 05:10 15:02 WBC 22.3 H Hgb 10.2 L Hct 31.8 L RDW 16.4 H Gran % Lymph % (Auto) Gran # Lymph # (Auto) Seg Neutrophils % 90 H Lymphocytes % 4 L Chloride 82 L Anion Gap 29.0 H BUN 59 H Creatinine 7.0 H* Glucose 380 H Uric Acid 8.1 H Phosphorus 7.3 H* Magnesium 2.6 H GGT 68 H Alkaline Phosphatase 137 H Total Protein Globulin Urine Protein >=500 A Urine Glucose (UA) >=500 A Urine RBC 10 H Urine WBC 13 H Urine Bacteria Few A 01/02/20 01/02/20 12:40 12:40 WBC 17.4 H Hgb Hct RDW 15.6 H Gran % 90.1 H Lymph % (Auto) 6.3 L Gran # 15.66 H Lymph # (Auto) 1.09 L Seg Neutrophils % Lymphocytes % Chloride 83 L Anion Gap 26.0 H BUN 43 H Creatinine 5.6 H* Glucose 251 H Uric Acid Phosphorus Magnesium GGT Alkaline Phosphatase 170 H Total Protein 8.8 H Globulin 4.5 H Urine Protein Urine Glucose (UA) Urine RBC Urine WBC Urine Bacteria Meds: Medications Acetaminophen (Tylenol) 650 mg PO Q4-6HP PRN; Protocol PRN Reason: Per Pain Protocol/Fever > 101 Atorvastatin Calcium (Lipitor) 10 mg PO DAILY [facility] Bisacodyl (Dulcolax) 10 mg [place] Q2-3DAYS PRN PRN Reason: Constipation Clonidine HCl (Catapres) 0.2 mg PO BID [facility] Last Admin: 01/02/20 20:28 Dose: 0.2 mg Documented by: Clonidine HCl (Catapres) 0.2 mg PO DAILYP PRN PRN Reason: SBP > 170 Clopidogrel Bisulfate (Plavix) 75 mg PO DAILY [facility] Dextrose (Dextrose 50%) 50 ml IV UD PRN PRN Reason: Hypoglycemia Diagnostic Test (Pha) (Accu-Chek) [address] [facility] Last Admin: 01/03/20 10:48 Dose: 1 each Documented by: Docusate Sodium (Colace) 100 mg PO BID [facility] Last Admin: 01/02/20 20:29 Dose: Not Given Documented by: Hydralazine HCl (Apresoline) 10 mg IV Q4-6HP PRN PRN Reason: Hypertension Last Admin: 01/03/20 04:43 Dose: 10 mg Documented by: Acetaminophen (Ofirmev) 650 mg in 65 mls @ 130 mls/hr IV Q6HP PRN; Protocol PRN Reason: Per Pain Protocol/Fever > 101 Ceftriaxone Sodium 2 gm/ (Dextrose) 50 mls @ 100 mls/hr IV DAILY [facility]; Protocol Nicardipine HCl 25 mg/ Sodium (Chloride) 250 mls @ 50 mls/hr IV Q5HP PRN; Protocol PRN Reason: HYPERTENSION Insulin Glargine (Lantus) 10 unit SQ BID [facility] Insulin Human Lispro (Humalog) 0 unit SQ ACHS [facility]; Protocol Last Admin: 01/03/20 10:48 Dose: 12 units Documented by: Lisinopril (Zestril) 40 mg PO DAILY [facility] Melatonin (Melatonin 3mg Tablet) 3 mg PO HSP PRN PRN Reason: Insomnia Metoclopramide HCl (Reglan) 10 mg PO ACHS [facility] Last Admin: 01/03/20 08:00 Dose: 10 mg Documented by: Minoxidil (Minoxidil) 5 mg PO DAILY [facility] Ondansetron HCl (Zofran Odt) 4 mg SL Q4-6HP PRN; Protocol PRN Reason: Nausea And Vomiting Last Admin: 01/03/20 07:10 Dose: 4 mg Documented by: Ondansetron HCl (Zofran) 4 mg IV Q4-6HP PRN; Protocol PRN Reason: Nausea And Vomiting Pantoprazole Sodium (Protonix) 40 mg IV BIDAC [facility] Polyethylene Glycol (Miralax) 17 gm PO DAILYP PRN PRN Reason: Constipation Promethazine HCl (Phenergan) 25 mg IV Q4-6HP PRN PRN Reason: Nausea And Vomiting Last Admin: 01/03/20 08:00 Dose: 25 mg Documented by: Senna/Docusate Sodium (Senna Plus Tablet) 1 tab PO HS [facility] Last Admin: 01/02/20 20:29 Dose: Not Given Documented by: Sodium Chloride (Saline Flush) 10 ml IV Q8 [facility] Last Admin: 01/03/20 04:48 Dose: 10 ml Documented by: Vancomycin HCl (Vancomycin Per Pharmacy) 1 order IV UD [facility]; Protocol A/P Narrative A/P Narrative: -Hypertensive urgency with evidence of pulmonary edema-clinical improvement noted. Off nicardipine drip this morning. Restart back on home medications. -Pulmonary edema secondary to diastolic dysfunction from hypertensive urgency. Clinically improved with aggressive blood pressure management. -Leukocytosis/cellulitis continue antibiotic coverage. White count 20,000. No obvious focus of infection -ESRD on hemodialysis managed per nephrology Dr. Amaya -Left middle finger infection-wound care consult, antibiotics -Nausea vomiting with a history of gastroparesis. Responding well to Phenergan. Previous evaluation with barium swallow revealed achalasia/incomplete lower esophageal sphincter opening. She however has not followed up with GI. Schedule outpatient GI follow-up. -Anemia of chronic disease-managed by nephrology -Full code -Prophylaxis heparin Plan HD per nephrology Restart home antihypertensives Antibiotic coverage Pre-existing medical condition management on home meds PT OT nutrition support Time Spent With Patient Time: Total time spent is greater than 50% in coordination of care (as documented) at patient's floor/unit and/or counseling patient: Total time spent with greater than 50% in coordination of care (as documented) at patient's floor/unit and/or counseling patient:: Greater than 35 minutes QUALITY Stroke Symptom Onset Unknown: No VTE Deep Vein Thrombosis/Pulmonary Embolism Present on Admission: No
[2020-01-03] MEDS ORDERED: LORazepam 2 MG/ML VIAL IV ONE (13:08)
[2020-01-03] MEDS: cefTRIAXone 2 GM in DEXTROSE 5% IN WATER 50 ML IV SCH (15:35)
[2020-01-03] MEDS: cloNIDine HCL 0.1 MG TABLET PO SCH ×2 (15:39→20:30)
[2020-01-03] MEDS: CLOPIDOGREL 75 MG TABLET PO SCH (15:39)
[2020-01-03] MEDS: MINOXIDIL 2.5 MG TABLET PO SCH (15:40)
[2020-01-03] MEDS: DOCUSATE SODIUM 100 MG CAPSULE PO SCH ×2 (15:40→20:30)
[2020-01-03] MEDS: LISINOPRIL 20 MG TABLET PO SCH (15:40)
[2020-01-03] MEDS: ATORVASTATIN 20 MG TABLET PO SCH (15:44)
[2020-01-03 16:13] LABS: Vancomycin,Random 5.9 ug/mL
[2020-01-03] MEDS ORDERED: VANCOMYCIN 750 MG in 0.9 % SODIUM CHLORIDE 250 ML IV ONE (17:00)
[2020-01-03] MEDS: PANTOPRAZOLE 40 MG VIAL IV SCH (17:12)
[2020-01-03] MEDS: INSULIN GLARGINE, HUMAN 1 UNIT/0.01 ML SQ SCH (20:30)
[2020-01-03] MEDS: SENNOSIDES/DOCUSATE SODIUM 1 TAB TABLET PO SCH (20:30)
[2020-01-04] MEDS: hydrALAZINE 20 MG/ML VIAL IV PRN (02:47)
[2020-01-04 06:48] LABS: Hematocrit 35.8 % (34.1-44.9); Hemoglobin 11.1 g/dL (11.2-15.7); Mean Cell Volume 86.9 fL (80.0-100.0); Platelet Count 480 K/mcL (140-440); RBC 4.12 M/mcL (3.59-5.38); Red Cell Distribution Width 17.1 % (11.5-14.5); WBC 26.5 K/mcL (4.50-11.00)
[2020-01-04 07:17] LABS: ALT/SGPT 19 U/l (0-40); AST/SGOT 22 U/l (0-37); Albumin 4.2 gm/dL (3.2-5.2); Albumin/Globulin Ratio 1.1 (1.0-2.3); Alkaline Phosphatase 150 U/L (39-117); Bilirubin,Direct < 0.2 mg/dL (0.0-0.3); Bilirubin,Total 0.3 mg/dL (0.0-1.0); Calcium 9.5 mg/dl (8.6-10.4); Carbon Dioxide 23 mmol/L (22-30); Globulin 3.9 gm/dL (2.2-3.7); Glucose 206 mg/dL (70-105); Lactate Dehydrogenase 297 U/L (94-250); Triglycerides 280 mg/dl (<150)
[2020-01-04 07:30] LABS: Blood Urea Nitrogen 30 mg/dl (6-20); Chloride 89 mmol/L (96-108); Glomerular Filtration Rate 15; Phosphorous 5.4 mg/dL (2.7-4.5); Uric Acid 3.7 mg/dL (2.5-8.0)
[2020-01-04] MEDS: 0.9 % SODIUM CHLORIDE 10 ML SYRINGE IV SCH ×2 (07:52→12:42)
[2020-01-04] MEDS: PANTOPRAZOLE 40 MG VIAL IV SCH ×2 (07:53→18:43)
[2020-01-04] MEDS: INSULIN LISPRO 1 UNIT/0.01 ML UNIT SQ SCH ×3 (07:53→18:43)
[2020-01-04] MEDS: METOCLOPRAMIDE 10 MG TABLET PO SCH ×3 (07:53→18:42)
[2020-01-04] MEDS: ATORVASTATIN 20 MG TABLET PO SCH (08:33)
[2020-01-04] MEDS: INSULIN GLARGINE, HUMAN 1 UNIT/0.01 ML SQ SCH (08:33)
[2020-01-04] MEDS: MINOXIDIL 2.5 MG TABLET PO SCH (08:34)
[2020-01-04] MEDS: CLOPIDOGREL 75 MG TABLET PO SCH (08:34)
[2020-01-04] MEDS: DOCUSATE SODIUM 100 MG CAPSULE PO SCH (08:34)
[2020-01-04] MEDS: cloNIDine HCL 0.1 MG TABLET PO SCH (08:34)
[2020-01-04] MEDS: LISINOPRIL 20 MG TABLET PO SCH (08:34)
[2020-01-04 08:58] LABS: Anisocytosis 1+ (NONE SEEN); Lymphocytes % 10 % (15-49); Monocytes % (Manual) 3 % (1-12); Platelet Estimate INCREASED (NORMAL); Polychromasia 3+ (NONE SEEN); RBC Morphology ABNORM (NORMAL); Segmented Neutrophils % 87 % (38-78)
[2020-01-04] MEDS: cefTRIAXone 2 GM in DEXTROSE 5% IN WATER 50 ML IV SCH (09:50)
--- NOTE | 2020-01-04 10:47 | Internal Med Progress Note ---
SUBJECTIVE Subjective Patient information: Note initiated : 01/04/20 at 10:39 am Service Date, if different from initiated Date: [] Patient: Delores Jones a 49 y/o F admitted on 01/02/20 for High BP and Vomiting. Chief Complaint: History of present illness: Ms. Jones is a 49 year old F with history of ESRD on HD, right BKA and suboptimally controlled hypertension requiring multiple hospitalization for hypertensive urgency. Patient has been doing well since last year and has been following up with nephrology Dr. Amaya. She developed infection left middle finger at the nail bed and was started on cephalexin few days ago. Later she developed gradually progressive nausea associated with intense vomiting/retching. She also noticed blood during her last 2 emesis. She now presents to the ER with above symptoms. She has not been able to eat or drink anything over the last 24 hours. Initial work-up was consistent with hypertensive urgency with blood pressure over 250. Nephrology was consulted and patient was started on Catapres after IV pushes of enalapril/labetalol failed to improve blood pressures. Subsequently nicardipine drip was initiated Chest x-ray consistent with pulmonary congestion from diastolic heart failure, white count over 17,000 not any clear focus of infection Hospital service was consulted. At the time of evaluation patient is accompanied with her Loi. She is very drowsy and mostly history is obtained from patient's . Patient was able to provide answers to review of questions. She endorses abdominal discomfort, denies fever chills, denies diarrhea or headache. 01/02-patient doing better. Improved nausea. Able to take liquids p.o. On Phenergan IV. Hemodialysis today. White count elevated 22,000. Much improved blood pressure. Off nicardipine drip and now on home antihypertensives. Wound care ongoing. No obvious focus of infection. Likely stress response. Continue monitoring. On antibiotic coverage. 01/03-systolics improved however worsening white count at 26,000. No obvious source. Wound care revealing toenail bed gangrenous change however unlikely to be source for sepsis. CT abdomen chest pelvis today. Blood cultures and repeat UA today. Continue antibiotic coverage on Rocephin/vancomycin and de-escalate if no evident source of infection. Interval history: Narrative: Constitutional Vitals: Vital Signs Temp Pulse Resp BP Pulse Ox 98.8 F 86 28 H 178/83 98 01/04/20 07:46 01/04/20 07:46 01/03/20 23:07 01/04/20 07:46 01/04/20 07:46 Period Temp Pulse Resp BP Sys/Infante Pulse Ox Last 24 Hr 96 F-98.8 F 58-87 28-28 87-209/42-155 80-100 Intake and Output 01/03/20 01/04/20 01/04/20 21:59 05:59 13:59 Intake Total 50 780 Output Total 2500 0 Balance -2450 780 Weight 50.485 kg resting comfortably Feels weak and fatigued No telemetry events Intake & Output: Intake & Output 01/03/20 01/04/20 01/04/20 21:59 05:59 13:59 Intake Total 50 780 Output Total 2500 0 Balance -2450 780 Weight 50.485 kg Intake: IV 50 Rocephin 2 gm In Dextrose 5% in 50 Water 50 ml @ 100 mls/hr IV DAILY [facility] Rx#:[id number] Oral 780 Output: Void Amount 0 Hemodialysis UF 2500 OBJ DATA Labs CBC & Chem 7: 01/04/20 05:05 01/04/20 05:05 Labs: Abnormal Lab Results 01/04/20 01/04/20 01/03/20 05:05 05:05 05:10 WBC 26.5 H Hgb 11.1 L Hct RDW 17.1 H Plt Count 480 H Gran % Lymph % (Auto) Gran # Lymph # (Auto) Seg Neutrophils % 87 H Lymphocytes % 10 L RBC Morphology Abnorm A Polychromasia 3+ A Anisocytosis 1+ A Chloride 89 L 82 L Anion Gap 21.0 H 29.0 H BUN 30 H 59 H Creatinine 3.5 H 7.0 H* Glucose 206 H 380 H Uric Acid 8.1 H Phosphorus 5.4 H 7.3 H* Magnesium 2.6 H GGT 73 H 68 H Alkaline Phosphatase 150 H 137 H Lactate Dehydrogenase 297 H Total Protein Globulin 3.9 H Triglycerides 280 H Urine Protein Urine Glucose (UA) Urine RBC Urine WBC Urine Bacteria 01/03/20 01/02/20 01/02/20 05:10 15:02 12:40 WBC 22.3 H Hgb 10.2 L Hct 31.8 L RDW 16.4 H Plt Count Gran % Lymph % (Auto) Gran # Lymph # (Auto) Seg Neutrophils % 90 H Lymphocytes % 4 L RBC Morphology Polychromasia Anisocytosis Chloride 83 L Anion Gap 26.0 H BUN 43 H Creatinine 5.6 H* Glucose 251 H Uric Acid Phosphorus Magnesium GGT Alkaline Phosphatase 170 H Lactate Dehydrogenase Total Protein 8.8 H Globulin 4.5 H Triglycerides Urine Protein >=500 A Urine Glucose (UA) >=500 A Urine RBC 10 H Urine WBC 13 H Urine Bacteria Few A 01/02/20 12:40 WBC 17.4 H Hgb Hct RDW 15.6 H Plt Count Gran % 90.1 H Lymph % (Auto) 6.3 L Gran # 15.66 H Lymph # (Auto) 1.09 L Seg Neutrophils % Lymphocytes % RBC Morphology Polychromasia Anisocytosis Chloride Anion Gap BUN Creatinine Glucose Uric Acid Phosphorus Magnesium GGT Alkaline Phosphatase Lactate Dehydrogenase Total Protein Globulin Triglycerides Urine Protein Urine Glucose (UA) Urine RBC Urine WBC Urine Bacteria Meds: Medications Acetaminophen (Tylenol) 650 mg PO Q4-6HP PRN; Protocol PRN Reason: Per Pain Protocol/Fever > 101 Last Admin: 01/03/20 21:44 Dose: 650 mg Documented by: Atorvastatin Calcium (Lipitor) 10 mg PO DAILY [facility] Last Admin: 01/04/20 08:33 Dose: 10 mg Documented by: Bisacodyl (Dulcolax) 10 mg [place] Q2-3DAYS PRN PRN Reason: Constipation Clonidine HCl (Catapres) 0.2 mg PO BID [facility] Last Admin: 01/04/20 08:34 Dose: 0.2 mg Documented by: Clonidine HCl (Catapres) 0.2 mg PO DAILYP PRN PRN Reason: SBP > 170 Clopidogrel Bisulfate (Plavix) 75 mg PO DAILY [facility] Last Admin: 01/04/20 08:34 Dose: 75 mg Documented by: Dextrose (Dextrose 50%) 50 ml IV UD PRN PRN Reason: Hypoglycemia Diagnostic Test (Pha) (Accu-Chek) 1 each FS ACHS [facility] Last Admin: 01/04/20 07:53 Dose: 1 each Documented by: Docusate Sodium (Colace) 100 mg PO BID [facility] Last Admin: 01/04/20 08:34 Dose: 100 mg Documented by: Hydralazine HCl (Apresoline) 10 mg IV Q4-6HP PRN PRN Reason: Hypertension Last Admin: 01/04/20 02:47 Dose: 10 mg Documented by: Acetaminophen (Ofirmev) 650 mg in 65 mls @ 130 mls/hr IV Q6HP PRN; Protocol PRN Reason: Per Pain Protocol/Fever > 101 Ceftriaxone Sodium 2 gm/ (Dextrose) 50 mls @ 100 mls/hr IV DAILY [facility]; Protocol Last Admin: 01/04/20 09:50 Dose: 100 mls/hr Documented by: Nicardipine HCl 25 mg/ Sodium (Chloride) 250 mls @ 50 mls/hr IV Q5HP PRN; Protocol PRN Reason: HYPERTENSION Insulin Glargine (Lantus) 10 unit SQ BID [facility] Last Admin: 01/04/20 08:33 Dose: 10 units Documented by: Insulin Human Lispro (Humalog) 0 unit SQ [facility]; Protocol Last Admin: 01/04/20 07:53 Dose: 6 units Documented by: Lisinopril (Zestril) 40 mg PO DAILY [facility] Last Admin: 01/04/20 08:34 Dose: 40 mg Documented by: Melatonin (Melatonin 3mg Tablet) 3 mg PO HSP PRN PRN Reason: Insomnia Last Admin: 01/03/20 20:30 Dose: 3 mg Documented by: Metoclopramide HCl (Reglan) [address] [facility] Last Admin: 01/04/20 07:53 Dose: 10 mg Documented by: Minoxidil (Minoxidil) 5 mg PO DAILY [facility] Last Admin: 01/04/20 08:34 Dose: 5 mg Documented by: Ondansetron HCl (Zofran Odt) 4 mg SL Q4-6HP PRN; Protocol PRN Reason: Nausea And Vomiting Last Admin: 01/03/20 07:10 Dose: 4 mg Documented by: Ondansetron HCl (Zofran) 4 mg IV Q4-6HP PRN; Protocol PRN Reason: Nausea And Vomiting Pantoprazole Sodium (Protonix) 40 mg IV BIDAC [facility] Last Admin: 01/04/20 07:53 Dose: 40 mg Documented by: Polyethylene Glycol (Miralax) 17 gm PO DAILYP PRN PRN Reason: Constipation Last Admin: 01/04/20 08:33 Dose: 17 gm Documented by: Promethazine HCl (Phenergan) 25 mg IV Q4-6HP PRN PRN Reason: Nausea And Vomiting Last Admin: 07/10/20 12:51 Dose: 25 mg Documented by: Senna/Docusate Sodium (Senna Plus Tablet) 1 tab PO HS [facility] Last Admin: 01/03/20 20:30 Dose: 1 tab Documented by: Sodium Chloride (Saline Flush) 10 ml IV Q8 [facility] Last Admin: 01/04/20 07:52 Dose: 10 ml Documented by: Vancomycin HCl (Vancomycin Per Pharmacy) 1 order IV UD [facility]; Protocol A/P Narrative A/P Narrative: -Hypertensive urgency with evidence of pulmonary edema-clinical improvement noted. Off nicardipine drip this morning. Currently stable on home medications. -Pulmonary edema secondary to diastolic dysfunction from hypertensive urgency. Clinically resolved post hemodialysis/normalization of blood pressure. -Sepsis/leukocytosis over 26,000. Source evaluation includes CT chest abdomen pelvis. Cultures negative so far. Repeat urine and blood cultures -Hematemesis secondary to recurrent nausea retching improved. Continue twice daily IV PPI. -ESRD on hemodialysis managed per nephrology Dr. Amaya -Left middle finger infection-wound care consult, antibiotics -Nausea vomiting with a history of gastroparesis. Responding well to Phenergan. Previous evaluation with barium swallow revealed achalasia/incomplete lower esophageal sphincter opening. She however has not followed up with GI. Will Schedule outpatient GI follow-up. -Anemia of chronic disease-managed by nephrology -Full code -Prophylaxis heparin Plan CT ches/Abd/pelvis HD per nephrology Antibiotic coverage to de-escalate if no evidence of infection Urine and blood cultures Twice daily IV PPI Pre-existing medical condition management on home meds PT OT nutrition support GI follow-up Time Spent With Patient Time: Total time spent is greater than 50% in coordination of care (as documented) at patient's floor/unit and/or counseling patient: QUALITY Stroke Symptom Onset Unknown: No VTE Deep Vein Thrombosis/Pulmonary Embolism Present on Admission: No
--- NOTE | 2020-01-04 12:12 | Cat Scan Report ---
INDICATION: WBC 26K, nausea,hematamesis r/o abscess, pna COMPARISON: Chest x-ray dated 01/02/2020 TECHNIQUE: Axial images were obtained through the chest,abdomen and pelvis. Sagittally and coronally reformatted images. FINDINGS: Chest CT: Lungs:2 noncalcified pulmonary parenchymal nodules: - 5 mm right lower lobe, image 52 - 5 mm left upper lobe, image 54 Fleischner Society recommendations: No routine follow-up in a low risk patient. Optional [address] follow-up in a high risk patient. No parenchymal consolidation. No evidence for pneumonia Mediastinum:Nonspecific mediastinal adenopathy. Largest node measures 13 mm. This is pretracheal in the level of the jaime Heart:There is cardiomegaly, unchanged since 01/02/2020. There is no significant pericardial effusion. There is very severe calcified coronary artery disease, markedly advanced for age Pleura:No pleural effusion. No pleural-based mass or calcification Axilla, supraclavicular regions, chest wall:No pathologic axillary or supraclavicular lymphadenopathy Musculoskeletal:No thoracic compression fracture. No lytic or sclerotic lesions. Sternum and ribs are negative Abdomen/Pelvis: Liver:Negative to the limits of noncontrast enhanced examination. No detectable mass. Liver contour is smooth Gallbladder, bilary:Negative. No calcified gallstones. No gallbladder wall thickening or pericholecystic fluid. No dilated bile ducts Spleen:No splenomegaly. Pancreas:No pancreatic mass. No pancreatic duct dilatation. No peripancreatic abnormality Adrenal glands:Negative Kidneys, ureters, bladder:No hydronephrosis. No obstructing or nonobstructing renal calculi. No detectable mass. No hydroureter or ureteral stone No bladder calculi Gastrointestinal:No detectable colonic mass. No diverticulitis.. Small bowel is negative. No mechanical small bowel obstruction Stomach and duodenum are unremarkable. Appendix: The appendix is not well visualized. No evidence for appendicitis Vascular:There is severe and extensive atherosclerotic calcification. There is no abdominal aortic aneurysm. Lymphatic:No retroperitoneal or pathologic mesenteric adenopathy Mesentery, peritoneum:No intra-peritoneal fluid. No intra-abdominal abscess. No pneumoperitoneum Reproductive:Uterus is present. No adnexal mass Musculoskeletal:No compression fractures. No lytic lesions. Sacrum, pelvis, hips are negative. No inguinal or abdominal wall hernia IMPRESSION: 1. Noncalcified pulmonary parenchymal nodules as above 2. Cardiomegaly 3. There is severe atherosclerotic calcification including coronary artery calcification. 4. No intra-abdominal abscess. The exam was performed using radiation dose optimization techniques including, but not limited to, automated exposure control, adjustment of the mA and/or kV according to patient size and use of iterative reconstruction technique. Interpreted and Authenticated by: Ovidio Jones 01/04/20
[2020-01-04] MEDS: PROMETHAZINE 25 MG/ML VIAL IV PRN (17:32)
[2020-01-04 20:52] LABS: Appearance,Urine CLOUDY; Bacteria,Urine 0 /hpf (0); Bilirubin,Urine NEG (NEG); Color,Urine YELLOW; Culture Indicated,Urine NO; Glucose,Urine (UA) >=500 mg/dL (NEG); Ketones,Urine NEG (NEG); Leukocyte Esterase,Urine 25 /uL (NEG); Mucus,Urine FEW /hpf (0); Nitrate,Urine NEG (NEG); Protein,Urine >=500 mg/dL (NEG); Specific Gravity,Urine 1.018 (1.000-1.035); Uric Acid Crystals,Urine MANY /hpf (0); Urine Blood 0.2 mg/dL (<0.03); Urine Hyaline Cast 3 /lpf (0-2); Urine RBC 61 /hpf (0-1); Urine Squamous Epithelial Cell 118 /hpf (0-4); Urine Transitional Epi Cells 5 /hpf (0-2); Urine WBC 95 /hpf (0-4); Urobilinogen,Urine NEG (NEG)
== END 2020-01-04 20:32 | disposition left against medical advice (07) | DRG 304 ==
LOC: ED 12:31 → ICU 16:50
PROVIDERS: ADMIT Internal Medicine; ATTEND Internal Medicine

== ENCOUNTER 2020-01-26 18:26 | Observation (INO) ==
[2020-01-26] MEDS ORDERED: ONDANSETRON 4 MG/2 ML VIAL IV ONE ×2 (18:50→23:16)
[2020-01-26] MEDS ORDERED: HYDROmorphone 0.5 MG/0.5 ML SYRINGE IV PRN (18:50)
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
[2020-01-26] MEDS ORDERED: 0.9 % SODIUM CHLORIDE 500 ML IV ONE (19:25)
[2020-01-26 19:41] LABS: Basophils # (Auto) 0.03 K/mcL (0.00-0.30); Basophils % (Auto) 0.3 % (0.0-2.0); Eosinophils # (Auto) 0.04 K/mcL (0.00-0.70); Eosinophils % (Auto) 0.3 % (0.0-7.0); Granulocytes % (Auto) 80.6 % (38.0-78.0); Hematocrit 32.5 % (34.1-44.9); Hemoglobin 10.4 g/dL (11.2-15.7); Lymphocytes # (Auto) 1.49 K/mcL (1.50-4.80); Lymphocytes % (Auto) 12.9 % (15.5-49.0); Mean Cell Volume 87.1 fL (80.0-100.0); Mean Platelet Volume 9.2 fL (7.4-10.4); Monocytes # (Auto) 0.68 K/mcL (0.10-0.90); Monocytes % (Auto) 5.9 % (1.0-12.0); Platelet Count 325 K/mcL (140-440); RBC 3.73 M/mcL (3.59-5.38); WBC 11.6 K/mcL (4.50-11.00)
[2020-01-26 20:01] LABS: ALT/SGPT 8 U/l (0-40); AST/SGOT 16 U/l (0-37); Albumin 3.8 gm/dL (3.2-5.2); Alkaline Phosphatase 101 U/L (39-117); Bilirubin,Total 0.3 mg/dL (0.0-1.0); Blood Urea Nitrogen 77 mg/dl (6-20); Calcium 9.1 mg/dl (8.6-10.4); Carbon Dioxide 26 mmol/L (22-30); Globulin 3.8 gm/dL (2.2-3.7); Glucose 299 mg/dL (70-105)
[2020-01-26 20:17] LABS: Chloride 78 mmol/L (96-108); Glomerular Filtration Rate 7
[2020-01-26] MEDS ORDERED: LORazepam 2 MG/ML VIAL IV ONE (23:40)
[2020-01-27 00:30] LABS: Appearance,Urine CLOUDY; Bacteria,Urine FEW /hpf (0); Bilirubin,Urine NEG (NEG); Color,Urine YELLOW; Culture Indicated,Urine NO; Glucose,Urine (UA) >=500 mg/dL (NEG); Ketones,Urine NEG (NEG); Leukocyte Esterase,Urine 75 /uL (NEG); Mucus,Urine FEW /hpf (0); Nitrate,Urine NEG (NEG); Protein,Urine >=500 mg/dL (NEG); Specific Gravity,Urine 1.016 (1.000-1.035); Urine Blood NEG mg/dL (<0.03); Urine RBC 6 /hpf (0-1); Urine Squamous Epithelial Cell 137 /hpf (0-4); Urine Transitional Epi Cells 1 /hpf (0-2); Urine WBC 82 /hpf (0-4); Urobilinogen,Urine NEG (NEG)
[2020-01-27] MEDS ORDERED: 0.9 % SODIUM CHLORIDE 500 ML IV ONE (00:37)
[2020-01-27] MEDS ORDERED: HYDROmorphone 0.5 MG/0.5 ML SYRINGE IV PRN (01:51)
[2020-01-27] MEDS: 0.9 % SODIUM CHLORIDE 1,000 ML IV SCH ×2 (02:37→11:29)
[2020-01-27] MEDS: ONDANSETRON 4 MG/2 ML VIAL IV PRN ×2 (02:37→06:17)
[2020-01-27] MEDS ORDERED: ONDANSETRON 4 MG/2 ML VIAL IV PRN (08:05)
[2020-01-27] MEDS ORDERED: DEXTROSE 31 GM ORAL.SUSP PO PRN (08:05)
[2020-01-27] MEDS ORDERED: ACETAMINOPHEN 325 MG TABLET PO PRN (08:05)
[2020-01-27] MEDS ORDERED: MELATONIN 3 MG TABLET PO PRN (08:05)
[2020-01-27] MEDS ORDERED: ONDANSETRON 4 MG ODT TABLET SL PRN (08:05)
[2020-01-27] MEDS ORDERED: METOPROLOL TARTRATE 5 MG/5 ML VIAL IV PRN (08:05)
[2020-01-27] MEDS ORDERED: hydrALAZINE 20 MG/ML VIAL IV PRN (08:05)
[2020-01-27] MEDS ORDERED: BISACODYL 10 MG SUPP.RECT PR PRN (08:05)
[2020-01-27] MEDS ORDERED: DEXTROSE 50% 50 ML VIAL IV PRN (08:05)
[2020-01-27] MEDS ORDERED: POLYETHYLENE GLYCOL 3350 17 GM PACKET PO PRN (08:05)
[2020-01-27] MEDS ORDERED: ONDANSETRON (PP) 4 MG TABLET SL PRN (08:05)
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
[2020-01-27] MEDS: CARVEDILOL 12.5 MG TABLET PO SCH ×2 (08:39→16:50)
[2020-01-27] MEDS: METOCLOPRAMIDE 10 MG TABLET PO SCH ×3 (08:44→16:51)
[2020-01-27] MEDS: INSULIN LISPRO 1 UNIT/0.01 ML UNIT SQ SCH ×3 (08:59→16:53)
[2020-01-27] MEDS ORDERED: DOCUSATE SODIUM 100 MG CAPSULE PO SCH (09:00)
[2020-01-27] MEDS ORDERED: HEPARIN 5,000 UNIT/ML VIAL SQ SCH (09:00)
[2020-01-27] MEDS ORDERED: CLOPIDOGREL 75 MG TABLET PO SCH (09:00)
[2020-01-27] MEDS: SEVELAMER 800 MG TABLET PO SCH ×3 (09:00→16:49)
[2020-01-27] MEDS ORDERED: INSULIN GLARGINE, HUMAN 1 UNIT/0.01 ML SQ SCH (09:00)
[2020-01-27] MEDS ORDERED: MULTIVIT,THER IRON,CA,FA & MIN 1 TABLET PO SCH (09:00)
[2020-01-27] MEDS ORDERED: PROMETHAZINE 25 MG/ML VIAL IV PRN (09:43)
[2020-01-27] MEDS ORDERED: LORazepam 0.5 MG TABLET PO PRN (09:48)
--- NOTE | 2020-01-27 10:04 | Cat Scan Report ---
CLINICAL INFORMATION: Fever - sepsis source COMPARISON: Abdomen and pelvic CT from 12/01/2018 and 01/04/2020 TECHNIQUE: Enteric contrast was utilized. 80 cc of [id number] were injected intravenously, and 50 seconds later 2.5 mm helical slices were obtained from the lung apices through the subtrochanteric regions of the femurs. Following reconstruction, 2.5 mm sagittal, coronal and axial reformatted images were processed and reviewed at multiple windows and levels. 7 mm MIP reconstructions were obtained through the lungs to optimize nodule detection.The exam was performed using radiation dose optimization techniques including, but not limited to, automated exposure control, adjustment of the mA and/or kV according to patient size and use of iterative reconstruction technique. FINDINGS: Pulmonary parenchymal windows show minimal scarring in the lingular region, but no infiltrates. There is a 4 mm nodule in the posterior left upper lobe adjacent to major fissure on MIP image 45 and a 3 mm pulmonary nodule right lower lobe on MIP image 45. A 4 mm pleural-based nodule seen in the posterior basilar segment right lower lobe on MIP image 49. All nodules are in the benign size range. Minimal scattered scarring seen in the left lower lobe and the lingula. There are no effusions. Mediastinal windows show the heart is moderately enlarged. Heavy calcific plaque present in the coronary arteries. Central pulmonary arteries are mildly enlarged: The main pulmonary diameter of 3.8 cm suggesting pulmonary hypertension. Thoracic aorta is normal. Mildly enlarged lymph nodes in the pericarinal region are unchanged. Moderate eccentric wall thickening the distal esophagus which is stable. Few nodules in the thyroid - 14 mm inferior left lobe and 14 mm inferior right lobe. Abdominal images show the noncontrasted liver to be normal. The gallbladder is surgically absent. Common bile duct is normal 6 mm. Both kidneys are lower limits of normal in size, but no focal renal lesions. Both adrenal glands, spleen, pancreas and aorta are normal. There is no free air, free fluid or adenopathy. Pelvic images show retroflexed bulbous uterus spanning 6.5 x 3.8 cm stable. Region of both ovaries is normal. Urinary bladder shows mild wall thickening which may be artifactual related to incomplete distention. Few sigmoid diverticuli appreciated. The remainder of the large bowel small bowel and stomach are normal. IMPRESSION: 1. Mild diffuse wall thickening of the urinary bladder which is most likely artifact related to underdistention. Infiltrative pathology pathology such as cystitis is not excluded. Please correlate with UA. No other potential septum source identified within the chest abdomen or pelvis 2. Concentric wall thickening of the distal esophagus likely peptic disease - stable. 3. Scattered small (4 mm) nodules in both lungs the benign size range. 4. Mild enlargement of the central pulmonary arteries suggesting pulmonary hypertension 2. Bilateral thyroid nodules suggest thyroid ultrasound Interpreted and Authenticated by: Ovidio Gimenez 01/27/20
[2020-01-27] MEDS: cloNIDine HCL 0.1 MG TABLET PO SCH ×2 (10:38→16:54)
[2020-01-27] MEDS ORDERED: MAGNESIUM SULFATE 2 GM/50 ML BAG IV ONE (10:59)
[2020-01-27] MEDS: PANTOPRAZOLE 40 MG TABLET PO SCH ×3 (11:29→16:51)
[2020-01-27] MEDS ORDERED: NOVOLOG SQ SCH (11:30)
[2020-01-27 11:37] LABS: POC Blood Urea Nitrogen 93 mg/dl (6-20); POC CO2 25 mmol/L (22-30); POC Calcium, Ionized 0.97 mmol/L (1.16-1.32); POC Chloride 91 mmol/L (96-108); POC Creatinine 8.1 mg/dl (0.6-1.1); POC Glucose, Random 350 mg/dL (70-105); POC Potassium 5.3 mmol/L (3.3-5.1); POC Sodium 131 mmol/L (133-145)
[2020-01-27] MEDS ORDERED: 0.9 % SODIUM CHLORIDE 10 ML SYRINGE IV SCH (14:00)
--- NOTE | 2020-01-27 15:31 | Consultation ---
DATE OF CONSULTATION: 01/27/2020 REASON FOR HOSPITALIZATION: End-stage renal disease on hemodialysis. HISTORY OF PRESENT ILLNESS: The patient is a 49-year-old female with past medical history significant for end-stage renal disease on hemodialysis. She dialyzes Mondays, Wednesdays, Fridays. She also has longstanding diabetes with all the complications of diabetes, including diabetic retinopathy, neuropathy, and gastroparesis. She has a right BKA. She has had multiple hospitalizations with diabetic gastroparesis. She was recently hospitalized on 01/02/2020 with hypertensive urgency and intractable nausea, but her white count was elevated at that time. She received antibiotics as an outpatient. On 01/26/2020, she presented to the emergency room with abdominal pain, nausea, and vomiting. She started vomiting since Monday. When she came to the emergency room she also had low blood pressure and she was hypochloremic suggesting that she had persistent vomiting. Her potassium was slightly elevated at 5.7. Her white count was also mildly elevated. For these reasons, she is hospitalized. PAST MEDICAL HISTORY: Significant for: 1. End-stage renal disease on hemodialysis. She dialyzes Mondays, Wednesdays, Fridays. 2. Diabetic gastroparesis with persistent nausea and vomiting. She is supposed to be taking Reglan. 3. Hypertension, difficult to control. Her blood pressures were low when she came into the emergency room but now already has started going up. 4. Diabetes type 2 with all the complications including diabetic retinopathy, neuropathy, and nephropathy. 5. Ischemic left middle finger for which she has been referred to Dr. Vail in [place] for possible fistula revision. PAST SURGICAL HISTORY: 1. Tubal ligation. 2. History of fistula. 2. History of BKA. FAMILY HISTORY: Sister has diabetes. SOCIAL HISTORY: She has four children. She used to smoke, does not drink. MEDICATIONS ON ADMISSION: 1. Carvedilol 25 mg p.o. b.i.d. 2. Metoclopramide 10 mg before meals and at bedtime. 3. Clopidogrel 75 mg daily. 4. Atorvastatin 10 mg daily. 5. Clonidine 0.2 mg q.8 hours. 6. Lisinopril 40 mg daily. 7. Minoxidil 10 mg daily. 8. Insulin. 9. Renvela 1600 mg p.o. three times daily. ALLERGIES: 1. ASPIRIN, says she gets hives. 2. HEPARIN has been on hold because of her retinal bleed from diabetic retinopathy. PHYSICAL EXAMINATION: GENERAL: Alert, oriented x3, no apparent distress. VITAL SIGNS: Blood pressure is 220/120 and has come down to 156/70 after hydralazine. The patient was seen on hemodialysis. Pulse rate is 83, respiratory rate of 22, pulse oximetry of 98%. HEENT: NC/AT. PEERLA. EOMI. No pallor, no cyanosis, no icterus. Fundus examination is not performed. External ear and tympanic membranes appear normal. Oral cavity appears normal with normal mucosa. NECK: Supple. No jugular venous distention. No lymphadenopathy. No thyromegaly. No carotid bruits. LUNGS: Decreased air entry bilaterally. No rales or rhonchi heard. CARDIAC: S1 and S2 heard. No S3, S4. No murmurs, no rubs. ABDOMEN: Soft, nontender. No organomegaly. Positive bowel sounds. Slightly tender abdomen. EXTREMITIES: Did not show evidence of edema. Her left middle finger does show ischemic hand. She does not have any edema. LABORATORY DATA: White count is 11.6 with a hemoglobin of 10.4 and a platelet count of 325. Sodium 131, potassium 5.1, chloride 78, CO2 of 26, BUN of 77, creatinine of 6.8, calcium 9.01. ASSESSMENT AND PLAN: 1. Nausea, vomiting, and abdominal discomfort. Probably related to diabetic gastroparesis. She apparently had a barium swallow which revealed an achalasia and a partial lower esophageal sphincter opening. She was scheduled for GI in the past before she left the hospital. This morning she feels better. 2. End-stage renal disease. The patient is currently on hemodialysis. She is being dialyzed with a potassium of 1.0 without any heparin. We will attempt to remove about 4 kilos of fluid. Her blood pressure is up and she has been getting her medications. 3. Hypertension. As above, it is very difficult to control. She is very labile, but she is now getting her medications. 4. Hyperkalemia, being treated with dialysis. BIANKA:sophia Job ID: [id number] Doc ID: [id number] Teddy Amaya MD
--- NOTE | 2020-01-27 17:42 | Discharge Summary ---
Discharge Provider Provider Patient information: Note initiated : 01/27/20 at 5:39 pm Service Date, if different from initiated Date: [] Patient: Delores Jones a 49 y/o F admitted on 01/27/20 for vomiting, hx of gastroparesis, dialysis pt. discharge diagnosis * Abdominal pain nausea vomiting-clinically resolved with supportive care. Patient has prior GI work-up including barium swallow that revealed achalasia and partial lower esophageal sphincter opening. CT during this hospitalization shows concentric wall thickening of peptic ulcer disease. Schedule outpatient follow-up with [facility]. Continue PPI * Hyperkalemia 5.7. Resolved with hemodialysis per nephrology * History of hypertension remained stable on home medications currently on minoxidil/lisinopril/clonidine/Coreg * Frequent PVCs-secondary to hyperkalemia. Improved following dialysis and resolution of hyperkalemia * DM type II continue basal panel insulin * Hyperlipidemia on statin * Anemia of chronic disease-stable * Peptic ulcer disease/esophagitis continue PPI. GI consult as outpatient. Brief hospital course megha Jones is a 49 year old F with history of ESRD on HD, right BKA and suboptimally controlled hypertension requiring multiple hospitalization for hypertensive urgency and abd pain and nausea. She has been following up with nephrology Dr. Amaya. She was recently hospitalized on January 01 with hypertensive urgency and intractable nausea however she left AMA within 48 hours of hospitalization. She now presents with similar symptoms including nausea vomiting and abdominal pain. Patient work-up in the ER with a CT abdomen was shows concentric wall thickening of distal esophagus likely peptic disease/cystitis. Nephrology was consulted. During the prior hospitalization she was advised to follow-up with GI but she has not been able to. Troponins were elevated .21 weeks downtrending 0.18 at baseline. At the time evaluation patient is tearful and nauseous. She denies headache, chest pain, palpitation, lightheadedness dizziness but continues to experience heaves. Symptoms are exacerbated by eating. Denies bloody emesis or bloody stool. Last hemodialysis Monday. Potassium 5.7. 01/26 5:40 PM-following dialysis patient feels remarkably better. Tolerating diet. Nausea resolved. Denies headache lightheadedness. Appointment being scheduled for outpatient GI follow-up. Patient requesting discharge. Advised to follow-up with nephrology as outpatient for continued hemodialysis. Continue outpatient PPI until follow-up with GI Date of admission: 01/27/20 02:11 Discharge date: 01/27/20 Primary care physician: Pauline Espana Consults: 01/27/20 02:25 Consult to Physician [CONS] Routine Comment: Consulting Provider: Billy Alves Reason For Exam: Physician to Consult Consult to Physician [CONS] Routine Comment: Consulting Provider: Teddy Amaya Reason For Exam: Physician to Consult 01/27/20 08:43 Consult to Physician [CONS] Routine Comment: left 3rd finger Consulting Provider: Ellis Damon Reason For Exam: Physician to Consult Discharge Meds Discharge Medications Home Medications carvedilol 12.5 mg tablet 25 mg PO BID tab 10/18/16 [History Confirmed 01/27/20 Last Taken 01/26/20 18:00] Novolog Flexpen 100 unit SQ ACHS 11/11/18 [History Confirmed 01/27/20 Last Taken 01/26/20 16:00] metoclopramide HCl 10 mg PO ACHS 01/22/19 [History Confirmed 01/27/20 Last Taken 01/26/20 17:00] Clopidogrel 75 mg PO DAILY 06/15/19 [History Confirmed 01/27/20 Last Taken 01/26/20 06:00] atorvastatin 10 mg PO DAILY 06/15/19 [History Confirmed 01/27/20 Last Taken 01/26/20 06:00] ondansetron 4 mg SL Q4-6HP PRN #10 tab 06/15/19 [Rx Confirmed 01/27/20 Last Taken 01/26/20] clonidine HCl 0.2 mg PO Q8H 01/02/20 [History Confirmed 01/27/20 Last Taken 01/26/20 16:00] lisinopril 40 mg PO QHS 01/02/20 [History Confirmed 01/27/20 Last Taken 01/26/20 18:00] minoxidil 10 mg PO QHS 01/02/20 [History Confirmed 01/27/20 Last Taken 01/26/20 18:00] Lantus U-100 Insulin 25 unit SUBCUT QAM 01/27/20 [History Confirmed 01/27/20 Last Taken 01/26/20 07:00] pantoprazole 40 mg PO BIDAC #60 tab 01/27/20 [Rx Last Taken Unknown] sevelamer carbonate [Renvela] 1,600 mg PO TID 01/27/20 [History Confirmed 01/27/20 Last Taken 01/24/20 17:00] COURSE Hospital Course Hospital course: . Discharge diagnosis: . Time Spent with Patient Time attestation: Total time spent providing and/or coordinating discharge services: EXAM Constitutional Vitals: Temp Pulse Resp BP Pulse Ox 96.4 F L 80 20 141/62 98 01/27/20 16:00 01/27/20 16:00 01/27/20 16:00 01/27/20 16:00 01/27/20 16:00 Discharge Data Data Completed and Pending Labs on day of discharge: Labs from last 24 hours 01/27/20 01/26/20 01/26/20 11:16 23:38 21:16 WBC RBC Hgb Hct POC Hct 34.0 L MCV MCH MCHC RDW Plt Count MPV Gran % Lymph % (Auto) Glenn % (Auto) Eos % (Auto) Baso % (Auto) Gran # Lymph # (Auto) Glenn # (Auto) Eos # (Auto) Baso # (Auto) VBG Lactic Acid POC Sodium 131 L Sodium POC Potassium 5.3 H Potassium POC Chloride 91 L Chloride Carbon Dioxide POC Total CO2 25 Anion Gap POC BUN 93 H BUN Creatinine POC Creatinine 8.1 H* GFR Calculation Glucose POC Glucose 350 H Calcium POC WB Ioniz Calcium 0.97 L Total Bilirubin AST ALT Alkaline Phosphatase Troponin T 0.18 H* Total Protein Albumin Globulin Albumin/Globulin Ratio Lipase Urine Color Yellow Urine Appearance Cloudy Urine pH 8.0 Ur Specific [place] 1.016 Urine Protein >=500 A Urine Glucose (UA) >=500 A Urine Ketones Neg Urine Occult Blood Neg Urine Nitrate Neg Urine Bilirubin Neg Urine Urobilinogen Neg Ur Leukocyte Esterase 75 A Urine RBC 6 H Urine WBC 82 H Ur Squamous Epith Cells 137 H Ur Transition Epith Cell 1 Urine Bacteria Few A Urine Mucus Few Ur Culture Indicated? No 01/26/20 01/26/20 01/26/20 19:00 19:00 19:00 WBC RBC Hgb Hct POC Hct MCV MCH MCHC RDW Plt Count MPV Gran % Lymph % (Auto) Glenn % (Auto) Eos % (Auto) Baso % (Auto) Gran # Lymph # (Auto) Glenn # (Auto) Eos # (Auto) Baso # (Auto) VBG Lactic Acid 1.5 POC Sodium Sodium 131 L POC Potassium Potassium 5.7 H POC Chloride Chloride 78 L Carbon Dioxide 26 POC Total CO2 Anion Gap 27.0 H POC BUN BUN 77 H Creatinine 6.8 H* POC Creatinine GFR Calculation 7 Glucose 299 H POC Glucose Calcium 9.1 POC WB Ioniz Calcium Total Bilirubin 0.3 AST 16 ALT 8 Alkaline Phosphatase 101 Troponin T 0.21 H* Total Protein 7.6 Albumin 3.8 Globulin 3.8 H Albumin/Globulin Ratio 1.0 Lipase 79 H Urine Color Urine Appearance Urine pH Ur Specific [place] Urine Protein Urine Glucose (UA) Urine Ketones Urine Occult Blood Urine Nitrate Urine Bilirubin Urine Urobilinogen Ur Leukocyte Esterase Urine RBC Urine WBC Ur Squamous Epith Cells Ur Transition Epith Cell Urine Bacteria Urine Mucus Ur Culture Indicated? 01/26/20 19:00 WBC 11.6 H RBC 3.73 Hgb 10.4 L Hct 32.5 L POC Hct MCV 87.1 MCH 27.9 MCHC 32.0 RDW 16.0 H Plt Count 325 MPV 9.2 Gran % 80.6 H Lymph % (Auto) 12.9 L Glenn % (Auto) 5.9 Eos % (Auto) 0.3 Baso % (Auto) 0.3 Gran # 9.33 H Lymph # (Auto) 1.49 L Glenn # (Auto) 0.68 Eos # (Auto) 0.04 Baso # (Auto) 0.03 VBG Lactic Acid POC Sodium Sodium POC Potassium Potassium POC Chloride Chloride Carbon Dioxide POC Total CO2 Anion Gap POC BUN BUN Creatinine POC Creatinine GFR Calculation Glucose POC Glucose Calcium POC WB Ioniz Calcium Total Bilirubin AST ALT Alkaline Phosphatase Troponin T Total Protein Albumin Globulin Albumin/Globulin Ratio Lipase Urine Color Urine Appearance Urine pH Ur Specific [place] Urine Protein Urine Glucose (UA) Urine Ketones Urine Occult Blood Urine Nitrate Urine Bilirubin Urine Urobilinogen Ur Leukocyte Esterase Urine RBC Urine WBC Ur Squamous Epith Cells Ur Transition Epith Cell Urine Bacteria Urine Mucus Ur Culture Indicated? Discharge Plan Patient/Caregiver Discharge Instructions Activity: increase activity as tolerated Diet: Renal Prescriptions: New pantoprazole 40 mg Tablet,Delayed Release (Dr/Ec) 40 mg PO BIDAC Qty: 60 RF: 0 Continued carvedilol 12.5 mg tablet 25 mg PO BID RF: 0 Novolog Flexpen Insuln.Pen 100 unit SQ ACHS RF: 0 metoclopramide HCl 10 MG tablet 10 mg PO ACHS RF: 0 atorvastatin 20 MG tablet 10 mg PO DAILY RF: 0 Clopidogrel 75 mg PO DAILY RF: 0 ondansetron 4 MG tablet 4 mg SL Q4-6HP PRN (Reason: Nausea) Qty: 10 RF: 0 clonidine HCl 0.1 MG tablet 0.2 mg PO Q8H RF: 0 lisinopril 20 MG tablet 40 mg PO QHS RF: 0 minoxidil 10 MG tablet 10 mg PO QHS RF: 0 Lantus U-100 Insulin 100 unit/mL Solution 25 unit SUBCUT QAM RF: 0 sevelamer carbonate [Renvela] 800 mg Tablet 1,600 mg PO TID RF: 0 Other Ambulatory Orders: Discharge Referrals (Routine) Location: None Selected Ordered By: Billy Alves Follow Up Plan Patient Disposition: Home, Self-Care Prognosis: Fair Rehab Potential: Fair I certify that the patient requires SNF services: No Overall status at discharge: patient is progressing back to baseline Discharge Orders: Discharge Order (Routine); Ordered 01/27/20 Ordered By: Billy Alves QUALITY VTE Deep Vein Thrombosis/Pulmonary Embolism Present on Admission: No
--- NOTE | 2020-01-27 18:18 | General Surgery Progress Note ---
SUBJECTIVE Subjective Patient information: Note initiated : 01/27/20 at 6:13 pm Service Date, if different from initiated Date: [] Patient: Delores Jones 49 y/o F admitted on 01/27/20 for vomiting, hx of gastroparesis, dialysis pt. Chief Complaint: [] Additional PMFSH (Level 3 Only): I know this patient from prior admission last month. I saw her this morning along with Jyoti RN In Patient wound Care nurse. Reviewed details of this admission with Dr. Alves Hospitalist Physician. Tolerated Hemodialysis uneventfully. Now back at her baseline. L/E: LEFT hand 3rd finger tips necrosis / debris under nail is unchanged. Patient tells me that she awaits evaluation by surgeon in [place] for revision of AV graft and debridement of finer tip lesion. RECOMMEND: DRY PROTECTIVE band aid dressing to tip of LEFT 3 rd finger. Constitutional Vitals: Vital Signs Temp Pulse Resp BP Pulse Ox 96.4 F L 80 20 141/62 98 01/27/20 16:00 01/27/20 16:00 01/27/20 16:00 01/27/20 16:00 01/27/20 16:00 Period Temp Pulse Resp BP Sys/Infante Pulse Ox Last 24 Hr 96.4 F-99.2 F 33-106 15-26 83-249/37-133 94-99 Intake and Output 01/27/20 01/27/20 01/27/20 05:59 13:59 21:59 Intake Total 500 1127 340 Output Total 4000 Balance 500 1127 -3660 Weight 114 lb 5 oz Intake & Output: Intake & Output 01/27/20 01/27/20 01/27/20 05:59 13:59 21:59 Intake Total 500 1127 340 Output Total 4000 Balance 500 1127 -3660 Weight 114 lb 5 oz Intake: IV 500 887 Sodium Chloride 0.9% 1,000 ml @ 887 100 mls/hr IV .Q10H EULOGIO Rx#: [id number] Sodium Chloride 0.9% 500 ml @ 500 Wide Open IV BOLUS ONE Rx#: [id number] Oral 0 240 340 Output: Hemodialysis UF 4000 A/P Time Spent With Patient Time: Total time spent is greater than 50% in coordination of care (as documented) at patient's floor/unit and/or counseling patient:
[2020-01-27] MEDS ORDERED: LISINOPRIL 20 MG TABLET PO SCH (21:00)
[2020-01-27] MEDS ORDERED: ATORVASTATIN 20 MG TABLET PO SCH (21:00)
[2020-01-27] MEDS ORDERED: MINOXIDIL 2.5 MG TABLET PO SCH (21:00)
[2020-01-27] MEDS ORDERED: SENNOSIDES/DOCUSATE SODIUM 1 TAB TABLET PO SCH (21:00)
== END 2020-01-27 19:55 | disposition home or self-care (01) ==
LOC: MEDSUR 18:26 → ED 18:26 → MEDSUR 01-27 10:50
PROVIDERS: ADMIT Internal Medicine; ATTEND Internal Medicine

== ENCOUNTER 2020-03-27 06:14 | Inpatient (IN) ==
[2020-03-27] MEDS ORDERED: ENALAPRILAT 1.25 MG/ML VIAL IV ONE (06:40)
[2020-03-27] MEDS ORDERED: ONDANSETRON 4 MG/2 ML VIAL IV ONE ×2 (06:42→09:03)
[2020-03-27] MEDS ORDERED: hydrALAZINE 20 MG/ML VIAL IV ONE ×2 (07:13→08:43)
[2020-03-27 07:27] LABS: Basophils # (Auto) 0.05 K/mcL (0.00-0.30); Basophils % (Auto) 0.4 % (0.0-2.0); Eosinophils # (Auto) 0.07 K/mcL (0.00-0.70); Eosinophils % (Auto) 0.5 % (0.0-7.0); Granulocytes % (Auto) 85.9 % (38.0-78.0); Hematocrit 40.4 % (34.1-44.9); Hemoglobin 12.6 g/dL (11.2-15.7); Lymphocytes # (Auto) 1.39 K/mcL (1.50-4.80); Lymphocytes % (Auto) 10.4 % (15.5-49.0); Mean Cell Volume 81.5 fL (80.0-100.0); Mean Corpuscular HGB Conc 31.2 g/dL (31.0-36.0); Mean Platelet Volume 9.5 fL (7.4-10.4); Monocytes # (Auto) 0.38 K/mcL (0.10-0.90); Monocytes % (Auto) 2.8 % (1.0-12.0); Platelet Count 300 K/mcL (140-440); RBC 4.96 M/mcL (3.59-5.38); Red Cell Distribution Width 15.1 % (11.5-14.5); WBC 13.4 K/mcL (4.50-11.00)
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
[2020-03-27] MEDS ORDERED: METOPROLOL TARTRATE 5 MG/5 ML VIAL IV ONE (07:46)
[2020-03-27 07:49] LABS: ALT/SGPT 21 U/l (0-40); AST/SGOT 26 U/l (0-37); Albumin 4.5 gm/dL (3.2-5.2); Alkaline Phosphatase 160 U/L (39-117); Bilirubin,Total 0.4 mg/dL (0.0-1.0); Blood Urea Nitrogen 46 mg/dl (6-20); Calcium 9.5 mg/dl (8.6-10.4); Carbon Dioxide 19 mmol/L (22-30); Globulin 4.4 gm/dL (2.2-3.7); Glucose 413 mg/dL (70-105)
[2020-03-27 07:55] LABS: Chloride 88 mmol/L (96-108); Glomerular Filtration Rate 7
[2020-03-27] MEDS ORDERED: LORazepam 2 MG/ML VIAL IV ONE (08:03)
[2020-03-27] MEDS ORDERED: cloNIDine HCL 0.1 MG TABLET PO SCH ×2 (08:15→10:45)
[2020-03-27] MEDS ORDERED: niCARdipine 25 MG in 0.9 % SODIUM CHLORIDE 240 ML IV SCH ×2 (09:15→10:45)
[2020-03-27] MEDS ORDERED: LORazepam 2 MG/ML VIAL IV PRN ×2 (10:31→18:34)
[2020-03-27] MEDS ORDERED: DEXTROSE 50% 50 ML VIAL IV PRN ×2 (10:31→11:14)
[2020-03-27] MEDS ORDERED: PROMETHAZINE 25 MG/ML VIAL IV PRN (10:31)
[2020-03-27] MEDS ORDERED: HYDROcodone/APAP 5/325MG TABLET PO PRN ×2 (10:37→11:14)
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
[2020-03-27] MEDS ORDERED: cloNIDine HCL 0.1 MG TABLET PO ONE (11:30)
[2020-03-27] MEDS ORDERED: METOCLOPRAMIDE 10 MG/2 ML VIAL IV SCH (12:00)
[2020-03-27] MEDS ORDERED: INSULIN LISPRO 1 UNIT/0.01 ML UNIT SQ SCH (12:00)
[2020-03-27 12:15] LABS: Phosphorous 5.1 mg/dL (2.7-4.5)
[2020-03-27] MEDS: INSULIN LISPRO 1 UNIT/0.01 ML UNIT SQ SCH ×2 (12:26→17:09)
[2020-03-27] MEDS: METOCLOPRAMIDE 10 MG/2 ML VIAL IV SCH ×2 (12:36→18:45)
[2020-03-27 12:45] LABS: proBNP > 70000.0 pg/ml (0-125)
[2020-03-27] MEDS ORDERED: SUCRALFATE 1 GM TABLET PO SCH (13:00)
[2020-03-27] MEDS ORDERED: ALTEPLASE 2 MG VIAL IV ONE (13:59)
[2020-03-27] MEDS ORDERED: 0.9 % SODIUM CHLORIDE 10 ML SYRINGE IV SCH (14:00)
--- NOTE | 2020-03-27 14:41 | Internal Med Progress Note ---
SUBJECTIVE Subjective Patient information: Note initiated : 03/27/20 at 2:31 pm Service Date, if different from initiated Date: [] Patient: Delores Jones a 50 y/o F admitted on 03/27/20 for N/V, High Blood Pressure. Chief Complaint: [] Interval history: History of present illness: Ms. Jones is a 50 year old F with a history of end-stage renal disease on dialysis, type 2 diabetes, diabetic gastroparesis, cannabis dependence, and chronic elevation of troponin who was sent to the ER due to nausea, vomiting, and blood pressure problem. As per patient, she has been having nausea, vomiting, and diarrhea over the past 3 days. When she was on dialysis, she had bad nausea and vomiting. Her blood pressure was found to be very high. She could not complete her dialysis for these issues. So she was sent here to the ER. In the ER, her systolic blood pressure was found to be great 260. She took her blood pressure medication last night but not this morning due to nausea vomiting. Nicardipine drip was started in the ER. When I saw this patient in the ER, other than the symptoms mentioned above, she also complained of epigastric abdominal pain x 2 days. The pain is constant, dull in nature and a 5-6 with a 10 in severity. She also has been having diarrhea for 2 days. She had bowel movements x 3 last night with a loose stool. She also reported that she had some mild headache. Otherwise she denied dizziness, chest pain, dysuria, or fever or chills. 03/28 Constitutional Vitals: Vital Signs Temp Pulse Resp BP Pulse Ox 96.5 F L 74 16 170/74 95 03/27/20 11:17 03/27/20 11:17 03/27/20 11:17 03/27/20 11:17 03/27/20 11:17 Period Temp Pulse Resp BP Sys/Infante Pulse Ox Last 24 Hr 95.7 F-96.5 F 69-87 16-25 170-280/74-158 92-99 Intake and Output 03/27/20 03/27/20 03/27/20 05:59 13:59 21:59 Intake Total 84 Balance 84 Weight 55 kg Patient Weight 03/28/20 05:59 Weight 55 kg Intake & Output: Intake & Output 03/27/20 03/27/20 03/27/20 05:59 13:59 21:59 Intake Total 84 Balance 84 Weight 55 kg Intake: IV 84 Cardene 25 MG In Sodium 84 Chloride 0.9% 240 ml @ 5 MG/HR 50 mls/hr IV ONCE [facility] Rx#: [id number] Other: # Emeses 10 Exam: General: Alert, Awake, No acute Distress Eyes/N/T: EOMI, Head/Neck: neck supple, CV: RRR, No murmurs, normal s1/s2 Pulm: Clear b/l, no wheezing/rhonchi/rales Abd: soft, , +BS x4 Ext: no clubbing/cyanosis/edema Neuro: Alert, no focal deficits, moves all extremities, Skin: warm/dry OBJ DATA Labs CBC & Chem 7: 03/27/20 06:45 03/27/20 06:45 Labs: Abnormal Lab Results 03/27/20 03/27/20 03/27/20 10:58 10:58 06:45 WBC MCH RDW Gran % Lymph % (Auto) Gran # Lymph # (Auto) Sodium Chloride Carbon Dioxide Anion Gap BUN Creatinine Glucose Phosphorus 5.1 H Alkaline Phosphatase Troponin T 0.28 H* 0.11 H* NT-Pro-B Natriuret Pep > 23426.0 H Total Protein Globulin 03/27/20 03/27/20 06:45 06:45 WBC 13.4 H MCH 25.4 L RDW 15.1 H Gran % 85.9 H Lymph % (Auto) 10.4 L Gran # 11.53 H Lymph # (Auto) 1.39 L Sodium 132 L Chloride 88 L Carbon Dioxide 19 L Anion Gap 25.0 H BUN 46 H Creatinine 6.1 H* Glucose 413 H Phosphorus Alkaline Phosphatase 160 H Troponin T NT-Pro-B Natriuret Pep Total Protein 8.9 H Globulin 4.4 H Meds: Medications Hydrocodone Bitart/Acetaminophen ([place] 5/325mg) 1 tab PO Q4H PRN; Protocol PRN Reason: pain Atorvastatin Calcium (Lipitor) 10 mg PO DAILY [facility] Carvedilol (Coreg) 25 mg PO BIDCC [facility] Clonidine HCl (Catapres) 0.2 mg PO Q8H [facility] Dextrose (Dextrose 50%) 0 ml IV UD PRN PRN Reason: Hypoglycemia Diagnostic Test (Pha) (Accu-Chek) 1 each FS Q6 [facility] Last Admin: 03/27/20 12:25 Dose: 1 each Documented by: Heparin Sodium (Porcine) (Heparin) 5,000 unit SQ Q12 [facility] Nicardipine HCl 25 mg/ Sodium (Chloride) 250 mls @ 50 mls/hr IV Q5H [facility]; Protocol Insulin Glargine (Lantus) 12 unit SQ DAILY [facility] Insulin Human Lispro (Humalog) 0 unit SQ Q6 [facility]; Protocol Last Admin: 03/27/20 12:26 Dose: 6 units Documented by: Lisinopril (Zestril) 40 mg PO QHS [facility] Lorazepam (Ativan) 0.5 mg IV Q6HP PRN PRN Reason: ANXIETY/SEDATION Metoclopramide HCl (Reglan) 5 mg IV Q6 [facility] Last Admin: 03/27/20 12:36 Dose: 5 mg Documented by: Minoxidil (Minoxidil) 10 mg PO QHS [facility] Pantoprazole Sodium (Protonix) 40 mg PO BIDAC [facility] Promethazine HCl (Phenergan) 12.5 mg IV Q4-6HP PRN; Protocol PRN Reason: Nausea And Vomiting Sertraline HCl (Zoloft) 50 mg PO DAILY [facility] Sevelamer Carbonate (Renvela) 1,600 mg PO TID [facility] Sodium Chloride (Saline Flush) 10 ml IV Q8 [facility] A/P Narrative A/P Narrative: *A: *Hypertensive emergency (h/o uncontrolled HTN usually 2/2 medication noncompliance from lack of insurance and cost): Patient did not take her blood pressure medication *Acute gastroenteritis: -C diff *ESRD on HD: follows with Dr. 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 No ST elevation -is on plavix, for ?fistula *h/o diastolic CHF *Anemia, chronic *GERD: P: -Continue home medications Carvedilol 25 bid / clonidine 0.2 daily / lisinopril 40 daily / minoxidil 10 daily -Nicardipine drip, the goal of systolic blood pressure is 190 today -Nephrology following -Patient is on 25 units insulin, I will order 12 units since she is on n.p.o, SSI- -clarify why on plavix -f/u with Dr. Hugo regarding finger; seen by Dr. 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
[2020-03-27] MEDS: PROMETHAZINE 25 MG/ML VIAL IV PRN ×2 (14:48→21:30)
[2020-03-27] MEDS ORDERED: SEVELAMER 800 MG TABLET PO SCH (15:00)
[2020-03-27] MEDS: 0.9 % SODIUM CHLORIDE 10 ML SYRINGE IV SCH ×2 (15:03→21:46)
[2020-03-27] MEDS: SEVELAMER 800 MG TABLET PO SCH ×2 (15:04→21:46)
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
[2020-03-27] MEDS: niCARdipine 25 MG in 0.9 % SODIUM CHLORIDE 240 ML IV SCH (16:53)
[2020-03-27] MEDS: 0.9 % SODIUM CHLORIDE 250 ML IV SCH (16:56)
[2020-03-27] MEDS ORDERED: PANTOPRAZOLE 40 MG TABLET PO SCH ×2 (17:00)
[2020-03-27] MEDS: PANTOPRAZOLE 40 MG TABLET PO SCH (17:11)
[2020-03-27] MEDS: CARVEDILOL 12.5 MG TABLET PO SCH (17:11)
[2020-03-27] MEDS ORDERED: diphenhydrAMINE 50 MG/ML VIAL IV ONE (18:33)
[2020-03-27] MEDS ORDERED: diphenhydrAMINE 50 MG/ML VIAL ONE (18:59)
[2020-03-27] MEDS: ONDANSETRON 4 MG/2 ML VIAL IV PRN ×2 (20:16→23:57)
[2020-03-27] MEDS: LORazepam 2 MG/ML VIAL IV PRN (20:36)
[2020-03-27] MEDS: cloNIDine HCL 0.1 MG TABLET PO SCH ×2 (20:47→21:44)
[2020-03-27] MEDS ORDERED: CARVEDILOL 12.5 MG TABLET PO SCH (21:00)
[2020-03-27] MEDS ORDERED: MINOXIDIL 2.5 MG TABLET PO SCH (21:00)
[2020-03-27] MEDS ORDERED: MINOXIDIL 10 MG TABLET PO SCH (21:00)
[2020-03-27] MEDS ORDERED: LISINOPRIL 20 MG TABLET PO SCH (21:00)
[2020-03-27] MEDS ORDERED: HEPARIN 5,000 UNIT/ML VIAL SQ SCH (21:00)
[2020-03-27] MEDS: LISINOPRIL 20 MG TABLET PO SCH (21:44)
[2020-03-27] MEDS: MUPIROCIN OINT 2% 22GM NARES SCH (21:44)
[2020-03-27] MEDS: HEPARIN 5,000 UNIT/ML VIAL SQ SCH (21:45)
[2020-03-28] MEDS: METOCLOPRAMIDE 10 MG/2 ML VIAL IV SCH ×4 (01:20→18:13)
[2020-03-28] MEDS: INSULIN LISPRO 1 UNIT/0.01 ML UNIT SQ SCH ×4 (01:35→18:19)
[2020-03-28] MEDS: PROMETHAZINE 25 MG/ML VIAL IV PRN ×2 (02:08→21:18)
[2020-03-28] MEDS: 0.9 % SODIUM CHLORIDE 250 ML IV SCH ×3 (03:08→16:33)
[2020-03-28] MEDS: LORazepam 2 MG/ML VIAL IV PRN ×2 (03:15→20:27)
[2020-03-28] MEDS: cloNIDine HCL 0.1 MG TABLET PO SCH ×3 (04:40→23:14)
[2020-03-28 06:37] LABS: Basophils # (Auto) 0.03 K/mcL (0.00-0.30); Basophils % (Auto) 0.3 % (0.0-2.0); Eosinophils # (Auto) 0.01 K/mcL (0.00-0.70); Eosinophils % (Auto) 0.1 % (0.0-7.0); Granulocytes % (Auto) 83.6 % (38.0-78.0); Hematocrit 37.4 % (34.1-44.9); Hemoglobin 11.7 g/dL (11.2-15.7); Lymphocytes # (Auto) 1.14 K/mcL (1.50-4.80); Lymphocytes % (Auto) 10.9 % (15.5-49.0); Mean Cell Volume 80.8 fL (80.0-100.0); Mean Corpuscular HGB Conc 31.3 g/dL (31.0-36.0); Mean Platelet Volume 9.4 fL (7.4-10.4); Monocytes # (Auto) 0.53 K/mcL (0.10-0.90); Monocytes % (Auto) 5.1 % (1.0-12.0); Platelet Count 323 K/mcL (140-440); RBC 4.63 M/mcL (3.59-5.38); Red Cell Distribution Width 16.3 % (11.5-14.5); WBC 10.5 K/mcL (4.50-11.00)
[2020-03-28] MEDS: 0.9 % SODIUM CHLORIDE 10 ML SYRINGE IV SCH ×3 (06:46→22:33)
[2020-03-28] MEDS: ONDANSETRON 4 MG/2 ML VIAL IV PRN ×2 (07:27→20:33)
[2020-03-28] MEDS: CARVEDILOL 12.5 MG TABLET PO SCH ×2 (07:28→16:32)
[2020-03-28] MEDS: PANTOPRAZOLE 40 MG TABLET PO SCH ×2 (07:28→16:32)
[2020-03-28 07:32] LABS: Bilirubin,Direct < 0.2 mg/dL (0.0-0.3)
[2020-03-28 07:55] LABS: ALT/SGPT 20 U/l (0-40); AST/SGOT 26 U/l (0-37); Albumin 4.3 gm/dL (3.2-5.2); Albumin/Globulin Ratio 1.1 (1.0-2.3); Alkaline Phosphatase 133 U/L (39-117); Bilirubin,Total 0.4 mg/dL (0.0-1.0); Blood Urea Nitrogen 58 mg/dl (6-20); Calcium 9.7 mg/dl (8.6-10.4); Carbon Dioxide 22 mmol/L (22-30); Chloride 93 mmol/L (96-108); Globulin 3.9 gm/dL (2.2-3.7); Glomerular Filtration Rate 5; Glucose 259 mg/dL (70-105); Lactate Dehydrogenase 360 U/L (94-250); Phosphorous 6.9 mg/dL (2.7-4.5); Triglycerides 115 mg/dl (<150); Uric Acid 9.3 mg/dL (2.5-8.0)
--- NOTE | 2020-03-28 08:05 | Internal Med Progress Note ---
SUBJECTIVE Subjective Patient information: Note initiated : 03/28/20 at 7:59 am Service Date, if different from initiated Date: [] Patient: Delores Jones a 50 y/o F admitted on 03/27/20 for N/V, High Blood Pressure. Chief Complaint: [] Interval history: History of present illness: Ms. Jones is a 50 year old F with a history of end-stage renal disease on dialysis, type 2 diabetes, diabetic gastroparesis, cannabis dependence, and chronic elevation of troponin who was sent to the ER due to nausea, vomiting, and blood pressure problem. As per patient, she has been having nausea, vomiting, and diarrhea over the past 3 days. When she was on dialysis, she had bad nausea and vomiting. Her blood pressure was found to be very high. She could not complete her dialysis for these issues. So she was sent here to the ER. In the ER, her systolic blood pressure was found to be great 260. She took her blood pressure medication last night but not this morning due to nausea vomiting. Nicardipine drip was started in the ER. When I saw this patient in the ER, other than the symptoms mentioned above, she also complained of epigastric abdominal pain x 2 days. The pain is constant, dull in nature and a 5-6 with a 10 in severity. She also has been having diarrhea for 2 days. She had bowel movements x 3 last night with a loose stool. She also reported that she had some mild headache. Otherwise she denied dizziness, chest pain, dysuria, or fever or chills. 10/3 Feeling better today. No nausea vomiting diarrhea. No new complaints. No abdominal pain. Titrating down blood pressure with nicardipine. Review of Systems: denies headache/fever/chills/nausea/vomiting/chest or abdominal pain/cough/dyspnea/diarrhea. Otherwise see above. Constitutional Vitals: Vital Signs Temp Pulse Resp BP Pulse Ox 98.3 F 67 15 201/85 100 03/28/20 04:01 03/28/20 07:46 03/28/20 07:46 03/28/20 07:46 03/28/20 07:46 Period Temp Pulse Resp BP Sys/Infante Pulse Ox Last 24 Hr 95.7 F-98.3 F 36-83 7-28 113-267/54-183 88-100 Intake and Output 03/27/20 03/28/20 03/28/20 21:59 05:59 13:59 Intake Total 116 269 2 Output Total 200 50 Balance -84 219 2 Weight 54.794 kg Intake & Output: Intake & Output 03/27/20 03/28/20 03/28/20 21:59 05:59 13:59 Intake Total 116 269 2 Output Total 200 50 Balance -84 219 2 Weight 54.794 kg Intake: IV 66 219 2 Sodium Chloride 0.9% 250 ml @ 204 20 mls/hr IV .[id number] [facility] Rx#: [id number] Cardene 25 MG In Sodium 66 15 2 Chloride 0.9% 240 ml @ 5 MG/HR 50 mls/hr IV Q5H [facility] Rx#: [id number] Oral 50 50 0 Output: Emesis 200 50 Other: # Unmeasured Emesis 1 # Emeses 1 1 Exam: General: Alert, Awake, No acute Distress Eyes/N/T: EOMI, Head/Neck: neck supple, CV: RRR, No murmurs, normal s1/s2 Pulm: Clear b/l, no wheezing/rhonchi/rales Abd: soft, nontender, +BS x4 Ext: no clubbing/cyanosis/edema, BKA Neuro: Alert, no focal deficits, moves all extremities, Skin: warm/dry OBJ DATA Labs CBC & Chem 7: 03/28/20 05:00 03/28/20 05:00 Labs: Abnormal Lab Results 03/28/20 03/28/20 03/27/20 05:00 05:00 10:58 WBC MCH 25.3 L RDW 16.3 H Gran % 83.6 H Lymph % (Auto) 10.9 L Gran # 8.77 H Lymph # (Auto) 1.14 L Sodium Chloride 93 L Carbon Dioxide Anion Gap 23.0 H BUN 58 H Creatinine 8.0 H* Glucose 259 H Uric Acid 9.3 H Phosphorus 6.9 H* GGT 53 H Alkaline Phosphatase 133 H Lactate Dehydrogenase 360 H Troponin T 0.28 H* NT-Pro-B Natriuret Pep Total Protein Globulin 3.9 H 03/27/20 03/27/20 03/27/20 10:58 06:45 06:45 WBC MCH RDW Gran % Lymph % (Auto) Gran # Lymph # (Auto) Sodium 132 L Chloride 88 L Carbon Dioxide 19 L Anion Gap 25.0 H BUN 46 H Creatinine 6.1 H* Glucose 413 H Uric Acid Phosphorus 5.1 H GGT Alkaline Phosphatase 160 H Lactate Dehydrogenase Troponin T 0.11 H* NT-Pro-B Natriuret Pep > 81228.0 H Total Protein 8.9 H Globulin 4.4 H 03/27/20 06:45 WBC 13.4 H MCH 25.4 L RDW 15.1 H Gran % 85.9 H Lymph % (Auto) 10.4 L Gran # 11.53 H Lymph # (Auto) 1.39 L Sodium Chloride Carbon Dioxide Anion Gap BUN Creatinine Glucose Uric Acid Phosphorus GGT Alkaline Phosphatase Lactate Dehydrogenase Troponin T NT-Pro-B Natriuret Pep Total Protein Globulin Meds: Medications Hydrocodone Bitart/Acetaminophen ([place] 5/325mg) 1 tab PO Q4H PRN; Protocol PRN Reason: pain Atorvastatin Calcium (Lipitor) 10 mg PO DAILY [facility] Carvedilol (Coreg) 25 mg PO BIDCC [facility] Last Admin: 03/28/20 07:28 Dose: 25 mg Documented by: Clonidine HCl (Catapres) 0.2 mg PO Q8H [facility] Last Admin: 03/28/20 04:40 Dose: 0.2 mg Documented by: Dextrose (Dextrose 50%) 0 ml IV UD PRN PRN Reason: Hypoglycemia Diagnostic Test (Pha) (Accu-Chek) 1 each FS Q6 [facility] Last Admin: 03/28/20 06:44 Dose: 1 each Documented by: Heparin Sodium (Porcine) (Heparin) 5,000 unit SQ Q12 [facility] Last Admin: 03/27/20 21:45 Dose: Not Given Documented by: Nicardipine HCl 25 mg/ Sodium (Chloride) 250 mls @ 50 mls/hr IV Q5H [facility]; Protocol Last Titration: 03/28/20 06:15 Dose: 0 mg/hr, 0 mls/hr Documented by: Sodium Chloride (Sodium Chloride 0.9%) 250 mls @ 20 mls/hr IV .[id number] [facility] Last Admin: 03/28/20 03:08 Dose: 20 mls/hr Documented by: Insulin Glargine (Lantus) 12 unit SQ DAILY [facility] Insulin Human Lispro (Humalog) 0 unit SQ Q6 [facility]; Protocol Last Admin: 03/28/20 06:45 Dose: 4 units Documented by: Lisinopril (Zestril) 40 mg PO QHS [facility] Last Admin: 03/27/20 21:44 Dose: 40 mg Documented by: Lorazepam (Ativan) 0.5 mg IV Q6HP PRN PRN Reason: ANXIETY/SEDATION Last Admin: 03/28/20 03:15 Dose: 0.5 mg Documented by: Metoclopramide HCl (Reglan) 5 mg IV Q6 [facility] Last Admin: 03/28/20 06:45 Dose: 5 mg Documented by: Minoxidil (Minoxidil) 10 mg PO QHS [facility] Last Admin: 03/27/20 21:45 Dose: 10 mg Documented by: Mupirocin (Bactroban Oint 2%) 1 dose NARES BID [facility] Last Admin: 03/27/20 21:44 Dose: 1 dose Documented by: Ondansetron HCl (Zofran) 4 mg IV Q4-6HP PRN PRN Reason: Nausea And Vomiting Last Admin: 03/28/20 07:27 Dose: 4 mg Documented by: Pantoprazole Sodium (Protonix) 40 mg PO BIDAC [facility] Last Admin: 03/28/20 07:28 Dose: 40 mg Documented by: Promethazine HCl (Phenergan) 12.5 mg IV Q4-6HP PRN; Protocol PRN Reason: Nausea And Vomiting Last Admin: 03/28/20 02:08 Dose: 12.5 mg Documented by: Sertraline HCl (Zoloft) 50 mg PO DAILY [facility] Sevelamer Carbonate (Renvela) 1,600 mg PO TID [facility] Last Admin: 03/27/20 21:46 Dose: Not Given Documented by: Sodium Chloride (Saline Flush) 10 ml IV Q8 [facility] Last Admin: 03/28/20 06:46 Dose: 10 ml Documented by: A/P Narrative A/P Narrative: A: *Hypertensive emergency (h/o uncontrolled HTN usually 2/2 medication noncompliance from lack of insurance and cost): Patient did not take her blood pressure medication *Acute gastroenteritis with n/v/d(none since admit): -improved *ESRD on HD: follows with Dr. Amaya -unable to to HD d/t clotted off catheter *Anemia, chronic: *DM 2 w/Nephropathy & Gastroparesis: *PVD w/BKA: on plavix/statin (allergic to ASA) *Cannabis dependence: Counseling *Chronic elevation of troponin: Patient troponin is chronically mildly elevated. No ST elevation -is on plavix, for ?fistula *h/o diastolic CHF: *GERD: *Depression/Anxiety: P: -Nicardipine drip, the goal of systolic blood pressure is <175 today -started home medications Carvedilol 25 bid / clonidine 0.2 daily / lisinopril 40 daily / minoxidil 10 daily -Nephrology(jose guadalupe) following, BP recs per nephro -HD & HD cath malfunction per Dr. Amaya -cont home basal insulin, SSI -cont plavix/statin -f/u with Dr. Hugo regarding Left 3rd finger; seen by Dr. 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
[2020-03-28] MEDS: HEPARIN 5,000 UNIT/ML VIAL SQ SCH (08:28)
[2020-03-28] MEDS ORDERED: SERTRALINE 50 MG TABLET PO SCH (09:00)
[2020-03-28] MEDS ORDERED: ATORVASTATIN 20 MG TABLET PO SCH (09:00)
[2020-03-28] MEDS ORDERED: INSULIN GLARGINE, HUMAN 1 UNIT/0.01 ML SQ SCH ×2 (09:00)
[2020-03-28] MEDS: MUPIROCIN OINT 2% 22GM NARES SCH ×2 (09:03→22:33)
[2020-03-28] MEDS: ATORVASTATIN 20 MG TABLET PO SCH (09:15)
[2020-03-28] MEDS: SERTRALINE 50 MG TABLET PO SCH (09:16)
[2020-03-28] MEDS: SEVELAMER 800 MG TABLET PO SCH ×3 (09:16→22:32)
[2020-03-28] MEDS: INSULIN GLARGINE, HUMAN 1 UNIT/0.01 ML SQ SCH (09:17)
[2020-03-28] MEDS: niCARdipine 25 MG in 0.9 % SODIUM CHLORIDE 240 ML IV SCH ×4 (10:41→15:12)
[2020-03-28] MEDS ORDERED: LABETALOL 5 MG/ML ML IV PRN ×2 (10:42→16:12)
[2020-03-28] MEDS ORDERED: hydrALAZINE 20 MG/ML VIAL IV PRN (10:42)
[2020-03-28] MEDS: CLOPIDOGREL 75 MG TABLET PO SCH (11:10)
[2020-03-28] MEDS ORDERED: ALTEPLASE 2 MG VIAL IV ONE (12:23)
[2020-03-28] MEDS ORDERED: cloNIDine TTS 3 1 PATCH PATCH TD ONE (12:48)
[2020-03-28] MEDS: MINOXIDIL 2.5 MG TABLET PO SCH ×2 (13:46→22:41)
[2020-03-28] MEDS: hydrALAZINE 20 MG/ML VIAL IV PRN ×2 (16:37→21:18)
[2020-03-28] MEDS ORDERED: hydrALAZINE 20 MG/ML VIAL ONE (16:41)
[2020-03-28] MEDS ORDERED: cloNIDine HCL 0.1 MG TABLET PO PRN (21:15)
[2020-03-28] MEDS: LISINOPRIL 20 MG TABLET PO SCH (22:33)
[2020-03-29] MEDS: INSULIN LISPRO 1 UNIT/0.01 ML UNIT SQ SCH ×4 (00:33→18:01)
[2020-03-29] MEDS: METOCLOPRAMIDE 10 MG/2 ML VIAL IV SCH ×4 (00:33→17:53)
[2020-03-29] MEDS: hydrALAZINE 20 MG/ML VIAL IV PRN ×3 (02:02→15:38)
[2020-03-29] MEDS: PROMETHAZINE 25 MG/ML VIAL IV PRN ×2 (02:14→15:27)
[2020-03-29] MEDS: 0.9 % SODIUM CHLORIDE 10 ML SYRINGE IV SCH ×4 (06:51→20:20)
[2020-03-29 06:53] LABS: Blood Urea Nitrogen 74 mg/dL (6-20); Calcium 9.6 mg/dL (8.6-10.4); Carbon Dioxide 16 mmol/L (22-30); Chloride 94 mmol/L (96-108); Glomerular Filtration Rate 4; Glucose 281 mg/dL (70-105)
[2020-03-29] MEDS: PANTOPRAZOLE 40 MG TABLET PO SCH ×2 (07:21→16:52)
[2020-03-29] MEDS: CARVEDILOL 12.5 MG TABLET PO SCH ×2 (07:21→16:52)
[2020-03-29] MEDS: ONDANSETRON 4 MG/2 ML VIAL IV PRN ×2 (07:24→13:53)
[2020-03-29] MEDS: 0.9 % SODIUM CHLORIDE 250 ML IV SCH ×2 (07:39→19:45)
--- NOTE | 2020-03-29 08:22 | Internal Med Progress Note ---
SUBJECTIVE Subjective Patient information: Note initiated : 03/29/20 at 8:19 am Service Date, if different from initiated Date: [] Patient: Delores Jones a 50 y/o F admitted on 03/27/20 for N/V, High Blood Pressure. Chief Complaint: [] Interval history: History of present illness: Ms. Jones is a 50 year old F with a history of end-stage renal disease on dialysis, type 2 diabetes, diabetic gastroparesis, cannabis dependence, and chronic elevation of troponin who was sent to the ER due to nausea, vomiting, and blood pressure problem. As per patient, she has been having nausea, vomiting, and diarrhea over the past 3 days. When she was on dialysis, she had bad nausea and vomiting. Her blood pressure was found to be very high. She could not complete her dialysis for these issues. So she was sent here to the ER. In the ER, her systolic blood pressure was found to be great 260. She took her blood pressure medication last night but not this morning due to nausea vomiting. Nicardipine drip was started in the ER. When I saw this patient in the ER, other than the symptoms mentioned above, she also complained of epigastric abdominal pain x 2 days. The pain is constant, dull in nature and a 5-6 with a 10 in severity. She also has been having diarrhea for 2 days. She had bowel movements x 3 last night with a loose stool. She also reported that she had some mild headache. Otherwise she denied dizziness, chest pain, dysuria, or fever or chills. 10/3 Feeling better today. No nausea vomiting diarrhea. No new complaints. No abdominal pain. Titrating down blood pressure with nicardipine. 10/4 Blood pressure trends slowly improving. Patient states her systolic blood pressure at home typically run 180s. Slept okay. Has some nausea occasionally. No vomiting. States she is tired. Review of Systems: denies headache/fever/chills/chest or abdominal pain/cough/dyspnea/diarrhea. Otherwise see above. Constitutional Vitals: Vital Signs Temp Pulse Resp BP Pulse Ox 97.0 F 89 19 143/87 98 03/29/20 07:00 03/29/20 07:00 03/29/20 07:00 03/29/20 07:00 03/29/20 07:00 Period Temp Pulse Resp BP Sys/Infante Pulse Ox Last 24 Hr 96.0 F-98.4 F 56-89 0-24 113-255/47-149 76-100 Intake and Output 03/28/20 03/29/20 03/29/20 21:59 05:59 13:59 Intake Total 170 400 0 Output Total 0 0 0 Balance 170 400 0 Weight 55.202 kg Intake & Output: Intake & Output 03/28/20 03/29/20 03/29/20 21:59 05:59 13:59 Intake Total 170 400 0 Output Total 0 0 0 Balance 170 400 0 Weight 55.202 kg Intake: Oral 170 400 0 Output: Void Amount 0 0 0 Other: Meal [place]inner Percent of Meal Consumed 75% # Bowel Movements 0 0 0 # [place] 0 Exam: General: Alert, Awake, No acute Distress Eyes/N/T: EOMI, Head/Neck: neck supple, CV: RRR, 2/6 SM, normal s1/s2 Pulm: Clear b/l, no wheezing/rhonchi/rales Abd: soft, nontender, +BS x4 Ext: no clubbing/cyanosis/edema, BKA Neuro: Alert, no focal deficits, moves all extremities, Skin: warm/dry OBJ DATA Labs CBC & Chem 7: 03/28/20 05:00 03/29/20 05:20 Labs: Abnormal Lab Results 03/29/20 03/28/20 03/28/20 05:20 05:00 05:00 WBC MCH 25.3 L RDW 16.3 H Gran % 83.6 H Lymph % (Auto) 10.9 L Gran # 8.77 H Lymph # (Auto) 1.14 L Sodium Potassium 5.5 H Chloride 94 L 93 L Carbon Dioxide 16 L Anion Gap 24.0 H 23.0 H BUN 74 H 58 H Creatinine 9.3 H* 8.0 H* Glucose 281 H 259 H Uric Acid 9.3 H Phosphorus 6.9 H* GGT 53 H Alkaline Phosphatase 133 H Lactate Dehydrogenase 360 H Troponin T NT-Pro-B Natriuret Pep Total Protein Globulin 3.9 H 03/27/20 03/27/20 03/27/20 10:58 10:58 06:45 WBC MCH RDW Gran % Lymph % (Auto) Gran # Lymph # (Auto) Sodium Potassium Chloride Carbon Dioxide Anion Gap BUN Creatinine Glucose Uric Acid Phosphorus 5.1 H GGT Alkaline Phosphatase Lactate Dehydrogenase Troponin T 0.28 H* 0.11 H* NT-Pro-B Natriuret Pep > 50783.0 H Total Protein Globulin 03/27/20 03/27/20 06:45 06:45 WBC 13.4 H MCH 25.4 L RDW 15.1 H Gran % 85.9 H Lymph % (Auto) 10.4 L Gran # 11.53 H Lymph # (Auto) 1.39 L Sodium 132 L Potassium Chloride 88 L Carbon Dioxide 19 L Anion Gap 25.0 H BUN 46 H Creatinine 6.1 H* Glucose 413 H Uric Acid Phosphorus GGT Alkaline Phosphatase 160 H Lactate Dehydrogenase Troponin T NT-Pro-B Natriuret Pep Total Protein 8.9 H Globulin 4.4 H Meds: Medications Hydrocodone Bitart/Acetaminophen ([place] 5/325mg) 1 tab PO Q4H PRN; Protocol PRN Reason: pain Last Admin: 03/28/20 22:44 Dose: 1 tab Documented by: Atorvastatin Calcium (Lipitor) 10 mg PO DAILY [facility] Last Admin: 03/28/20 09:15 Dose: 10 mg Documented by: Carvedilol (Coreg) 25 mg PO BIDCC [facility] Last Admin: 03/29/20 07:21 Dose: 25 mg Documented by: Clonidine HCl (Catapres) 0.2 mg PO Q6HP PRN PRN Reason: Hypertension Clopidogrel Bisulfate (Plavix) 75 mg PO DAILY [facility] Last Admin: 03/28/20 11:10 Dose: 75 mg Documented by: Dextrose (Dextrose 50%) 0 ml IV UD PRN PRN Reason: Hypoglycemia Diagnostic Test (Pha) (Accu-Chek) 1 each FS Q6 [facility] Last Admin: 03/29/20 06:50 Dose: 1 each Documented by: Hydralazine HCl (Apresoline) 0 mg IV Q2HP PRN PRN Reason: Hypertension Last Admin: 03/29/20 04:17 Dose: 20 mg Documented by: Sodium Chloride (Sodium Chloride 0.9%) 250 mls @ 20 mls/hr IV .[id number] [facility] Last Admin: 03/29/20 07:39 Dose: Not Given Documented by: Nicardipine HCl 25 mg/ Sodium (Chloride) 250 mls @ 50 mls/hr IV Q5H [facility]; Protocol Last Admin: 03/28/20 15:12 Dose: Not Given Documented by: Insulin Glargine (Lantus) 25 unit SQ DAILY [facility] Last Admin: 03/28/20 09:17 Dose: 25 unit Documented by: Insulin Human Lispro (Humalog) 0 unit SQ Q6 [facility]; Protocol Last Admin: 03/29/20 06:51 Dose: 4 units Documented by: Labetalol HCl (Trandate) 0 mg IV Q2HP PRN PRN Reason: Hypertension Last Admin: 03/29/20 04:40 Dose: 10 mg Documented by: Lisinopril (Zestril) 40 mg PO QHS [facility] Last Admin: 03/28/20 22:33 Dose: 40 mg Documented by: Lorazepam (Ativan) 0.5 mg IV Q6HP PRN PRN Reason: ANXIETY/SEDATION Last Admin: 03/28/20 20:27 Dose: 0.5 mg Documented by: Metoclopramide HCl (Reglan) 5 mg IV Q6 [facility] Last Admin: 03/29/20 06:51 Dose: 5 mg Documented by: Minoxidil (Minoxidil) 2.5 mg PO BID [facility] Last Admin: 03/28/20 22:41 Dose: 2.5 mg Documented by: Mupirocin (Bactroban Oint 2%) 1 dose NARES BID [facility] Last Admin: 03/28/20 22:33 Dose: 1 dose Documented by: Ondansetron HCl (Zofran) 4 mg IV Q4-6HP PRN PRN Reason: Nausea And Vomiting Last Admin: 03/29/20 07:24 Dose: 4 mg Documented by: Pantoprazole Sodium (Protonix) 40 mg PO BIDAC [facility] Last Admin: 03/29/20 07:21 Dose: 40 mg Documented by: Promethazine HCl (Phenergan) 12.5 mg IV Q4-6HP PRN; Protocol PRN Reason: Nausea And Vomiting Last Admin: 03/29/20 02:14 Dose: 12.5 mg Documented by: Sertraline HCl (Zoloft) 50 mg PO DAILY [facility] Last Admin: 03/28/20 09:16 Dose: 50 mg Documented by: Sevelamer Carbonate (Renvela) 1,600 mg PO TID [facility] Last Admin: 03/28/20 22:32 Dose: Not Given Documented by: Sodium Chloride (Saline Flush) 10 ml IV Q8 [facility] Last Admin: 03/29/20 06:51 Dose: 10 ml Documented by: A/P Narrative A/P Narrative: A: *Hypertensive emergency (h/o uncontrolled HTN usually 2/2 medication noncompliance from lack of insurance and cost): -Patient did not take her blood pressure medication -better controlled *Acute gastroenteritis with n/v/d(none since admit) vs her chronic gastroparesis: -improved *ESRD on HD: follows with Dr. Amaya -unable to to HD d/t clotted off catheter *Anemia, chronic: *DM 2 w/Nephropathy & Gastroparesis: *PVD w/BKA: on plavix/statin (allergic to ASA) *Cannabis dependence: Counseling *Chronic elevation of troponin: Patient troponin is chronically mildly elevated. No ST elevation -is on plavix, for ?fistula *h/o diastolic CHF: *GERD: *Depression/Anxiety: P: -Nicardipine drip off -started home medications Carvedilol/clonidine/lisinopril/minoxidil -Nephrology(jose guadalupe) following, further BP med changes per nephro -HD & HD cath malfunction per Dr. Amaya -gastroparesis diet -cont home basal insulin, SSI -cont plavix/statin -f/u with Dr. Hugo regarding Left 3rd finger; seen by Dr. Damon -ppx: Heparin/home ppi CODE STATUS: Paper Bag Inspector Spent With Patient Time: Total time spent is greater than 50% in coordination of care (as documented) at patient's floor/unit and/or counseling patient: QUALITY VTE Deep Vein Thrombosis/Pulmonary Embolism Present on Admission: No
[2020-03-29] MEDS ORDERED: diphenhydrAMINE 50 MG/ML VIAL IV PRN (08:24)
[2020-03-29] MEDS: MUPIROCIN OINT 2% 22GM NARES SCH ×2 (09:38→20:20)
[2020-03-29] MEDS: MINOXIDIL 2.5 MG TABLET PO SCH ×2 (09:39→20:19)
[2020-03-29] MEDS: CLOPIDOGREL 75 MG TABLET PO SCH (09:40)
[2020-03-29] MEDS: ATORVASTATIN 20 MG TABLET PO SCH (09:40)
[2020-03-29] MEDS: SEVELAMER 800 MG TABLET PO SCH ×3 (09:40→20:19)
[2020-03-29] MEDS: SERTRALINE 50 MG TABLET PO SCH (09:40)
[2020-03-29] MEDS: INSULIN GLARGINE, HUMAN 1 UNIT/0.01 ML SQ SCH (09:41)
[2020-03-29] MEDS ORDERED: SODIUM POLYSTYRENE SULFONATE 15 GM/60 ML SUSPENSION PO ONE ×2 (10:45→11:19)
[2020-03-29] MEDS ORDERED: VANCOMYCIN PER PHARMACY IV SCH (14:08)
[2020-03-29] MEDS: PIPERACILLIN SODIUM/TAZOBACTAM 2.25 GM in DEXTROSE 5% IN WATER 50 ML IV SCH ×2 (14:27→21:30)
[2020-03-29] MEDS ORDERED: GABAPENTIN 100 MG CAPSULE PO ONE ×2 (14:47→15:00)
[2020-03-29] MEDS ORDERED: VANCOMYCIN 1,000 MG in 0.9 % SODIUM CHLORIDE 250 ML IV ONE (15:00)
[2020-03-29] MEDS: LORazepam 2 MG/ML VIAL IV PRN (16:49)
[2020-03-29] MEDS: MELATONIN 3 MG TABLET PO SCH (20:19)
[2020-03-29] MEDS: LISINOPRIL 20 MG TABLET PO SCH (20:19)
[2020-03-30] MEDS: INSULIN LISPRO 1 UNIT/0.01 ML UNIT SQ SCH ×4 (00:22→17:43)
[2020-03-30] MEDS: METOCLOPRAMIDE 10 MG/2 ML VIAL IV SCH ×4 (00:23→17:48)
[2020-03-30] MEDS: PIPERACILLIN SODIUM/TAZOBACTAM 2.25 GM in DEXTROSE 5% IN WATER 50 ML IV SCH ×2 (05:41→17:49)
[2020-03-30] MEDS: hydrALAZINE 20 MG/ML VIAL IV PRN (05:56)
[2020-03-30] MEDS: 0.9 % SODIUM CHLORIDE 10 ML SYRINGE IV SCH ×2 (05:57→12:08)
[2020-03-30] MEDS: 0.9 % SODIUM CHLORIDE 250 ML IV SCH (06:29)
--- NOTE | 2020-03-30 07:34 | Internal Med Progress Note ---
SUBJECTIVE Subjective Patient information: Note initiated : 03/30/20 at 7:31 am Service Date, if different from initiated Date: [] Patient: Delores Jones a 50 y/o F admitted on 03/27/20 for N/V, High Blood Pressure. Chief Complaint: [] Interval history: History of present illness: Ms. Jones is a 50 year old F with a history of end-stage renal disease on dialysis, type 2 diabetes, diabetic gastroparesis, cannabis dependence, and chronic elevation of troponin who was sent to the ER due to nausea, vomiting, and blood pressure problem. As per patient, she has been having nausea, vomiting, and diarrhea over the past 3 days. When she was on dialysis, she had bad nausea and vomiting. Her blood pressure was found to be very high. She could not complete her dialysis for these issues. So she was sent here to the ER. In the ER, her systolic blood pressure was found to be great 260. She took her blood pressure medication last night but not this morning due to nausea vomiting. Nicardipine drip was started in the ER. When I saw this patient in the ER, other than the symptoms mentioned above, she also complained of epigastric abdominal pain x 2 days. The pain is constant, dull in nature and a 5-6 with a 10 in severity. She also has been having diarrhea for 2 days. She had bowel movements x 3 last night with a loose stool. She also reported that she had some mild headache. Otherwise she denied dizziness, chest pain, dysuria, or fever or chills. 10/3 Feeling better today. No nausea vomiting diarrhea. No new complaints. No abdominal pain. Titrating down blood pressure with nicardipine. 10/4 Blood pressure trends slowly improving. Patient states her systolic blood pressure at home typically run 180s. Slept okay. Has some nausea occasionally. No vomiting. States she is tired. 10/5 Patient thinks she slept better last night and thinks she feels better, although she seems quite drowsy/tired. Should receive hemodialysis today last catheter malfunctioning, so patient will need to be transferred less we have a surgeon here who was able to exchange out the catheter. Review of Systems: denies headache/fever/chills/chest or abdominal pain/cough/dyspnea/diarrhea. Otherwise see above. Constitutional Vitals: Vital Signs Temp Pulse Resp BP Pulse Ox 97.3 F 70 20 145/76 95 03/30/20 04:00 03/30/20 07:01 03/30/20 07:01 03/30/20 07:01 03/30/20 07:01 Period Temp Pulse Resp BP Sys/Infante Pulse Ox Last 24 Hr 96.1 F-97.5 F 60-80 13-28 86-218/39-116 87-100 Intake and Output 03/29/20 03/30/20 03/30/20 21:59 05:59 13:59 Intake Total 700 650 150 Output Total 0 Balance 700 650 150 Weight 55.293 kg Intake & Output: Intake & Output 03/29/20 03/30/20 03/30/20 21:59 05:59 13:59 Intake Total 700 650 150 Output Total 0 Balance 700 650 150 Weight 55.293 kg Intake: Nourishment/Supplement quantity 300 (ml) IV 300 50 50 Zosyn 2.25 gm In Dextrose 5% in 50 50 50 Water 50 ml @ 100 mls/hr IV Q8H [facility] Rx#:[id number] Vancomycin 1,000 mg In Sodium 250 Chloride 0.9% 250 ml @ 250 mls/ hr IV ONCE ONE Rx#:[id number] Oral 100 600 100 Output: Void Amount 0 Other: Meal [place] Percent of Meal Consumed 100% Feeding Ability Assist with Tray Set Up Stool Size Small Stool Color Brown Stool Consistency Loose # Unmeasured Emesis 1 # Bowel Movements 0 Exam: General: Alert, Awake, No acute Distress Eyes/N/T: EOMI, Head/Neck: neck supple, CV: RRR, 2/6 SM, normal s1/s2 Pulm: Clear b/l, no wheezing/rhonchi/rales Abd: soft, nontender, +BS x4 Ext: no clubbing/cyanosis/edema, BKA Neuro: Alert, no focal deficits, moves all extremities, Skin: warm/dry OBJ DATA Labs CBC & Chem 7: 03/28/20 05:00 03/30/20 05:26 Labs: Abnormal Lab Results 03/29/20 03/28/20 03/28/20 05:20 05:00 05:00 MCH 25.3 L RDW 16.3 H Gran % 83.6 H Lymph % (Auto) 10.9 L Gran # 8.77 H Lymph # (Auto) 1.14 L Sodium Potassium 5.5 H Chloride 94 L 93 L Carbon Dioxide 16 L Anion Gap 24.0 H 23.0 H BUN 74 H 58 H Creatinine 9.3 H* 8.0 H* Glucose 281 H 259 H Uric Acid 9.3 H Phosphorus 6.9 H* GGT 53 H Alkaline Phosphatase 133 H Lactate Dehydrogenase 360 H Troponin T NT-Pro-B Natriuret Pep Total Protein Globulin 3.9 H 03/27/20 03/27/20 03/27/20 10:58 10:58 06:45 MCH RDW Gran % Lymph % (Auto) Gran # Lymph # (Auto) Sodium Potassium Chloride Carbon Dioxide Anion Gap BUN Creatinine Glucose Uric Acid Phosphorus 5.1 H GGT Alkaline Phosphatase Lactate Dehydrogenase Troponin T 0.28 H* 0.11 H* NT-Pro-B Natriuret Pep > 51309.0 H Total Protein Globulin 03/27/20 06:45 MCH RDW Gran % Lymph % (Auto) Gran # Lymph # (Auto) Sodium 132 L Potassium Chloride 88 L Carbon Dioxide 19 L Anion Gap 25.0 H BUN 46 H Creatinine 6.1 H* Glucose 413 H Uric Acid Phosphorus GGT Alkaline Phosphatase 160 H Lactate Dehydrogenase Troponin T NT-Pro-B Natriuret Pep Total Protein 8.9 H Globulin 4.4 H Meds: Medications Hydrocodone Bitart/Acetaminophen ([place] 5/325mg) 1 tab PO Q4H PRN; Protocol PRN Reason: pain Last Admin: 03/28/20 22:44 Dose: 1 tab Documented by: Atorvastatin Calcium (Lipitor) 10 mg PO DAILY [facility] Last Admin: 03/29/20 09:40 Dose: 10 mg Documented by: Carvedilol (Coreg) 25 mg PO BIDCC [facility] Last Admin: 03/29/20 16:52 Dose: 25 mg Documented by: Clonidine HCl (Catapres) 0.2 mg PO Q6HP PRN PRN Reason: Hypertension Last Admin: 03/29/20 11:28 Dose: 0.2 mg Documented by: Clopidogrel Bisulfate (Plavix) 75 mg PO DAILY [facility] Last Admin: 03/29/20 09:40 Dose: 75 mg Documented by: Dextrose (Dextrose 50%) 0 ml IV UD PRN PRN Reason: Hypoglycemia Diagnostic Test (Pha) (Accu-Chek) 1 each FS Q6 [facility] Last Admin: 03/30/20 05:52 Dose: 1 each Documented by: Diphenhydramine HCl (Benadryl) 25 mg IV Q4-6HP PRN PRN Reason: Nausea/Allergic Symptoms Last Admin: 03/30/20 02:25 Dose: 25 mg Documented by: Hydralazine HCl (Apresoline) 0 mg IV Q2HP PRN PRN Reason: Hypertension Last Admin: 03/30/20 05:56 Dose: 10 mg Documented by: Sodium Chloride (Sodium Chloride 0.9%) 250 mls @ 20 mls/hr IV .[id number] [facility] Last Admin: 03/30/20 06:29 Dose: Not Given Documented by: Piperacillin Sod/Tazobactam (Sod 2.25 gm/ Dextrose) 50 mls @ 100 mls/hr IV Q8H [facility]; Protocol Last Infusion: 03/30/20 06:15 Dose: Infused Documented by: Insulin Glargine (Lantus) 25 unit SQ DAILY [facility] Last Admin: 03/29/20 09:41 Dose: 25 unit Documented by: Insulin Human Lispro (Humalog) 0 unit SQ Q6 [facility]; Protocol Last Admin: 03/30/20 05:56 Dose: 4 units Documented by: Labetalol HCl (Trandate) 0 mg IV Q2HP PRN PRN Reason: Hypertension Last Admin: 03/29/20 04:40 Dose: 10 mg Documented by: Lisinopril (Zestril) 40 mg PO QHS [facility] Last Admin: 03/29/20 20:19 Dose: 40 mg Documented by: Lorazepam (Ativan) 0.5 mg IV Q6HP PRN PRN Reason: ANXIETY/SEDATION Last Admin: 03/29/20 16:49 Dose: 0.5 mg Documented by: Melatonin (Melatonin 3mg Tablet) 3 mg PO QHS [facility] Last Admin: 03/29/20 20:19 Dose: 3 mg Documented by: Metoclopramide HCl (Reglan) 5 mg IV Q6 [facility] Last Admin: 03/30/20 05:41 Dose: 5 mg Documented by: Minoxidil (Minoxidil) 2.5 mg PO BID [facility] Last Admin: 03/29/20 20:19 Dose: 2.5 mg Documented by: Mupirocin (Bactroban Oint 2%) 1 dose NARES BID [facility] Last Admin: 03/29/20 20:20 Dose: 1 dose Documented by: Ondansetron HCl (Zofran) 4 mg IV Q4-6HP PRN PRN Reason: Nausea And Vomiting Last Admin: 03/29/20 13:53 Dose: 4 mg Documented by: Pantoprazole Sodium (Protonix) 40 mg PO BIDAC [facility] Last Admin: 03/29/20 16:52 Dose: 40 mg Documented by: Promethazine HCl (Phenergan) 12.5 mg IV Q4-6HP PRN; Protocol PRN Reason: Nausea And Vomiting Last Admin: 03/29/20 15:27 Dose: 12.5 mg Documented by: Sertraline HCl (Zoloft) 50 mg PO DAILY [facility] Last Admin: 03/29/20 09:40 Dose: 50 mg Documented by: Sevelamer Carbonate (Renvela) 1,600 mg PO TID [facility] Last Admin: 03/29/20 20:19 Dose: 1,600 mg Documented by: Sodium Chloride (Saline Flush) 10 ml IV Q8 [facility] Last Admin: 03/30/20 05:57 Dose: 10 ml Documented by: Vancomycin HCl (Vancomycin Per Pharmacy) 1 order IV UD [facility]; Protocol A/P Narrative A/P Narrative: A: *Hypertensive emergency (h/o uncontrolled HTN usually 2/2 medication noncompliance from lack of insurance and cost): -Patient did not take her blood pressure medication -better controlled but still labile *Acute gastroenteritis with n/v/d(none since admit) vs her chronic gastroparesis: - *ESRD on HD: follows with Dr. Amaya -unable to to HD d/t clotted off catheter *Anemia, chronic: *DM 2 w/Nephropathy & Gastroparesis: *PVD w/BKA: on plavix/statin (allergic to ASA) *Cannabis dependence: Counseling *Chronic elevation of troponin: Patient troponin is chronically mildly elevated. No ST elevation -is on plavix, for ?fistula *h/o diastolic CHF: *GERD: *Depression/Anxiety: P: -cont Carvedilol/clonidine/lisinopril/minoxidil per nephro -Nephrology(jose guadalupe) following, further BP med changes per nephro -if HD malfunctioning today then will need transfer for catheter replacement after d/w with our surgeon. -gastroparesis diet -cont home basal insulin, SSI -cont plavix/statin -f/u with Dr. Hugo regarding Left 3rd finger; seen by Dr. Damon -ppx: Heparin/home ppi CODE STATUS: Maintenance Painter Spent With Patient Time: Total time spent is greater than 50% in coordination of care (as documented) at patient's floor/unit and/or counseling patient: QUALITY VTE Deep Vein Thrombosis/Pulmonary Embolism Present on Admission: No
[2020-03-30] MEDS: PANTOPRAZOLE 40 MG TABLET PO SCH ×2 (08:23→17:48)
[2020-03-30] MEDS: INSULIN GLARGINE, HUMAN 1 UNIT/0.01 ML SQ SCH (08:55)
[2020-03-30] MEDS: CARVEDILOL 12.5 MG TABLET PO SCH ×2 (08:55→17:48)
[2020-03-30] MEDS: MUPIROCIN OINT 2% 22GM NARES SCH (08:55)
[2020-03-30] MEDS: CLOPIDOGREL 75 MG TABLET PO SCH (08:55)
[2020-03-30] MEDS: ATORVASTATIN 20 MG TABLET PO SCH (08:56)
[2020-03-30] MEDS: SERTRALINE 50 MG TABLET PO SCH (08:57)
[2020-03-30] MEDS: SEVELAMER 800 MG TABLET PO SCH ×2 (08:57→17:50)
[2020-03-30] MEDS: MINOXIDIL 2.5 MG TABLET PO SCH (08:57)
[2020-03-30] MEDS: ONDANSETRON 4 MG/2 ML VIAL IV PRN ×2 (09:01→13:35)
--- NOTE | 2020-03-30 09:40 | Discharge Summary ---
Discharge Provider Provider Patient information: Note initiated : 03/30/20 at 9:34 am Service Date, if different from initiated Date: [] Patient: Delores Jones 50 y/o F admitted on 03/27/20 for N/V, High Blood Pressure. Chief Complaint: [] Date of admission: 03/27/20 11:07 Discharge date: 03/31/20 Primary care physician: Pauline Espana Consults: 03/27/20 Consult to Physician [CONS] Stat Comment: Consulting Provider: Ramiro Holland Reason For Exam: Physician to Consult 03/27/20 10:36 Consult to Physician [CONS] Routine Comment: Consulting Provider: Teddy Amaya Reason For Exam: Physician to Consult 03/27/20 13:11 Consult to Physician [CONS] Routine Comment: Wound to finger Consulting Provider: Ellis Damon Reason For Exam: Physician to Consult Discharge Meds Discharge Medications Home Medications carvedilol 12.5 mg tablet 25 mg PO BID tab 10/18/16 [History Confirmed 03/27/20 Last Taken 03/26/20 17:00] Novolog Flexpen 100 unit SQ ACHS 11/11/18 [History Confirmed 03/27/20 Last Taken 03/26/20 17:00] metoclopramide HCl 10 mg PO ACHS 01/22/19 [History Confirmed 03/27/20 Last Taken 03/26/20 17:00] Clopidogrel 75 mg PO DAILY 06/15/19 [History Confirmed 03/27/20 Last Taken 03/26/20 06:00] atorvastatin 10 mg PO DAILY 06/15/19 [History Confirmed 03/27/20 Last Taken 03/26/20 06:00] ondansetron 4 mg SL Q4-6HP PRN #10 tab 06/15/19 [Rx Confirmed 03/27/20 Last Taken 03/27/20 02:00] clonidine HCl 0.2 mg PO Q8H 01/02/20 [History Confirmed 03/27/20 Last Taken 03/27/20 02:00] lisinopril 40 mg PO QHS 01/02/20 [History Confirmed 03/27/20 Last Taken 03/26/20 17:00] minoxidil 10 mg PO QHS 01/02/20 [History Confirmed 03/27/20 Last Taken 03/26/20 17:00] Lantus U-100 Insulin 25 unit SUBCUT QAM 01/27/20 [History Confirmed 03/27/20 Last Taken 03/26/20 06:00] pantoprazole 40 mg PO BIDAC #60 tab 01/27/20 [Rx Confirmed 03/27/20 Last Taken 03/26/20 17:00] promethazine 6.25 mg PO Q8HP PRN #30 tab 01/27/20 [Rx Confirmed 03/27/20 Last Taken 03/26/20 17:00] sevelamer carbonate [Renvela] 1,600 mg PO ACHS 01/27/20 [History Confirmed 03/27/20 Last Taken 03/26/20 17:00] sucralfate [Carafate] 1 g PO QID #60 tab 01/30/20 [Rx Confirmed 03/27/20 Last Taken 03/26/20 17:00] sertraline 50 mg PO DAILY 03/27/20 [History Confirmed 03/27/20 Last Taken 03/26/20 17:00] COURSE Hospital Course Hospital course: History of present illness: Ms. Jones is a 50 year old F with a history of end-stage renal disease on dialysis, type 2 diabetes, diabetic gastroparesis, cannabis dependence, and chronic elevation of troponin who was sent to the ER due to nausea, vomiting, and blood pressure problem. As per patient, she has been having nausea, vomiting, and diarrhea over the past 3 days. When she was on dialysis, she had bad nausea and vomiting. Her blood pressure was found to be very high. She could not complete her dialysis for these issues. So she was sent here to the ER. In the ER, her systolic blood pressure was found to be great 260. She took her blood pressure medication last night but not this morning due to nausea vomiting. Nicardipine drip was started in the ER. When I saw this patient in the ER, other than the symptoms mentioned above, she also complained of epigastric abdominal pain x 2 days. The pain is constant, dull in nature and a 5-6 with a 10 in severity. She also has been having diarrhea for 2 days. She had bowel movements x 3 last night with a loose stool. She also reported that she had some mild headache. Otherwise she denied dizziness, chest pain, dysuria, or fever or chills. 10/3 Feeling better today. No nausea vomiting diarrhea. No new complaints. No abdominal pain. Titrating down blood pressure with nicardipine. 03/29 Blood pressure trends slowly improving. Patient states her systolic blood pressure at home typically run 180s. Slept okay. Has some nausea occasionally. No vomiting. States she is tired. 03/30 Patient thinks she slept better last night and thinks she feels better, although she seems quite drowsy/tired. Should receive hemodialysis today unless there is catheter malfunctioning, will need to be transferred 03/31 Patient did have low blood pressure last night and the Catapres patch was removed. Patient said this in the past where she is responded really well to the Catapres patch but they cannot afford on an outpatient basis. Then she typically go back to her p.o. clonidine and long time there is an noncompliant issue with that. Pressure stable this morning. Stable for discharge. Given significant comorbidities and multiple hospitalizations patient is high risk for readmission A: *Hypertensive emergency (h/o uncontrolled HTN usually 2/2 medication noncompliance from lack of insurance and cost): -Patient did not take her blood pressure medication -chronically labile *Acute gastroenteritis with n/v/d(none since admit) vs her chronic gastroparesis: improved - *ESRD on HD: follows with Dr. Amaya -unable to to HD d/t clotted off catheter *Anemia, chronic: *DM 2 w/Nephropathy & Gastroparesis: *PVD w/BKA: on plavix/statin (allergic to ASA) *Cannabis dependence: Counseling *Chronic elevation of troponin: Patient troponin is chronically mildly elevated. No ST elevation -is on plavix, for ?fistula *h/o diastolic CHF: *GERD: *Depression/Anxiety: Discharge diagnosis: Hypertensive emergency gastroenteritis Secondary discharge diagnosis: End-stage renal disease chronic anemia diabetes peripheral vascular disease cannabis dependence history of diastolic heart failure GERD depression anxiety Time Spent with Patient Time attestation: Total time spent providing and/or coordinating discharge services: Time spent: Greater than 30 minutes EXAM Constitutional Vitals: Temp Pulse Resp BP Pulse Ox 98.4 F 75 21 135/84 96 03/30/20 08:01 03/30/20 09:01 03/30/20 09:01 03/30/20 09:01 03/30/20 09:01 Discharge Data Data Completed and Pending Labs on day of discharge: Labs from last 24 hours 03/30/20 03/30/20 08:53 05:26 Sodium Pending TNP Potassium Pending TNP Chloride Pending TNP Carbon Dioxide Pending TNP Anion Gap Pending TNP BUN Pending TNP Creatinine Pending TNP GFR Calculation Pending TNP Glucose Pending TNP Uric Acid Pending TNP Calcium Pending TNP Phosphorus Pending TNP Magnesium Pending TNP Total Bilirubin Pending TNP Direct Bilirubin Pending Pending GGT Pending TNP AST Pending TNP ALT Pending TNP Alkaline Phosphatase Pending TNP Lactate Dehydrogenase Pending TNP Total Protein Pending TNP Albumin Pending TNP Globulin Pending TNP Albumin/Globulin Ratio Pending TNP Triglycerides Pending TNP Discharge Plan Patient/Caregiver Discharge Instructions Activity: increase activity as tolerated Diet: Consistent Carbohydrate Activity Restrictions/Additional Instructions: DIET: Low fat, soluble fiber, small meals. Prescriptions: Continued carvedilol 12.5 mg tablet 25 mg PO BID RF: 0 Novolog Flexpen Insuln.Pen 100 unit SQ ACHS RF: 0 metoclopramide HCl 10 MG tablet 10 mg PO ACHS RF: 0 atorvastatin 20 MG tablet 10 mg PO DAILY RF: 0 Clopidogrel 75 mg PO DAILY RF: 0 ondansetron 4 MG tablet 4 mg SL Q4-6HP PRN (Reason: Nausea) Qty: 10 RF: 0 clonidine HCl 0.1 MG tablet 0.2 mg PO Q8H RF: 0 lisinopril 20 MG tablet 40 mg PO QHS RF: 0 minoxidil 10 MG tablet 10 mg PO QHS RF: 0 Lantus U-100 Insulin 100 unit/mL Solution 25 unit SUBCUT QAM RF: 0 sevelamer carbonate [Renvela] 800 mg Tablet 1,600 mg PO ACHS RF: 0 pantoprazole 40 mg Tablet,Delayed Release (Dr/Ec) 40 mg PO BIDAC Qty: 60 RF: 0 promethazine 12.5 mg Tablet 6.25 mg PO Q8HP PRN (Reason: Nausea And Vomiting) Qty: 30 RF: 0 sucralfate [Carafate] 1 gram tablet 1 g PO QID Qty: 60 RF: 0 sertraline 50 mg tablet 50 mg PO DAILY RF: 0 Follow Up Plan Follow up with: Pauline Espana ARNP [Primary Care Provider] - Teddy Amaya MD [Physician] - Patient Disposition: Home Health Service Prognosis: Undetermined Overall status at discharge: patient is progressing back to baseline Discharge Orders: Discharge Order (Routine); Ordered 03/31/20 [facility] Deep Vein Thrombosis/Pulmonary Embolism Present on Admission: No
[2020-03-30 13:25] LABS: ALT/SGPT 15 U/L (<40); AST/SGOT 16 U/L (<32); Albumin 4.2 gm/dL (3.2-5.2); Albumin/Globulin Ratio 1.1 (1.0-2.3); Alkaline Phosphatase 108 U/L (39-117); Bilirubin,Direct < 0.2 mg/dL (<0.3); Bilirubin,Total 0.4 mg/dL (0.1-1.0); Blood Urea Nitrogen 77 mg/dL (6-20); Calcium 8.9 mg/dL (8.6-10.4); Carbon Dioxide 19 mmol/L (22-30); Chloride 90 mmol/L (96-108); Globulin 3.8 gm/dL (2.2-3.7); Glomerular Filtration Rate 4; Glucose 206 mg/dL (70-105); Lactate Dehydrogenase 289 U/L (135-225); Triglycerides 204 mg/dL (<150); Uric Acid 12.2 mg/dL (2.5-8.0)
[2020-03-30] MEDS: LORazepam 2 MG/ML VIAL IV PRN ×2 (15:50→20:25)
[2020-03-30] MEDS ORDERED: 0.9 % SODIUM CHLORIDE 200 ML IV ONE (21:00)
[2020-03-30 23:08] LABS: Vancomycin,Random 10.2 ug/mL
[2020-03-31] MEDS: INSULIN LISPRO 1 UNIT/0.01 ML UNIT SQ SCH ×2 (00:02→07:48)
[2020-03-31] MEDS: MUPIROCIN OINT 2% 22GM NARES SCH ×2 (00:03→08:00)
[2020-03-31] MEDS: SEVELAMER 800 MG TABLET PO SCH ×2 (00:06→08:02)
[2020-03-31] MEDS: MINOXIDIL 2.5 MG TABLET PO SCH ×2 (00:06→08:02)
[2020-03-31] MEDS: MELATONIN 3 MG TABLET PO SCH (00:06)
[2020-03-31] MEDS: LISINOPRIL 20 MG TABLET PO SCH (00:07)
[2020-03-31] MEDS: 0.9 % SODIUM CHLORIDE 10 ML SYRINGE IV SCH ×2 (00:07→05:07)
[2020-03-31] MEDS: METOCLOPRAMIDE 10 MG/2 ML VIAL IV SCH ×2 (00:14→05:07)
[2020-03-31] MEDS ORDERED: 0.9 % SODIUM CHLORIDE 200 ML IV ONE (02:35)
[2020-03-31] MEDS: 0.9 % SODIUM CHLORIDE 250 ML IV SCH (07:06)
[2020-03-31] MEDS: PANTOPRAZOLE 40 MG TABLET PO SCH (07:08)
--- NOTE | 2020-03-31 07:08 | Consultation ---
DATE OF CONSULTATION: 03/30/2020 REFERRING PHYSICIAN: Dr. aRmiro Holland. REASON FOR CONSULTATION: End-stage renal disease and hypertension. HISTORY OF PRESENT ILLNESS: The patient is a 50-year-old female with past medical history significant for end-stage renal disease, on hemodialysis. She also has type 2 diabetes, gastroparesis, and chronic hypertension. She presented to the emergency room with persistent nausea, vomiting, and diarrhea over the last three days. Her blood pressure was also significantly elevated. She also had anxiety and headaches. When she came into the emergency room, she was found to have a blood pressure in the 200s with a diastolic in the 100s. She did not really respond that well to the IV medications bolus. For that reason, she is hospitalized. PAST MEDICAL HISTORY: Significant for: 1. End-stage renal disease on hemodialysis. She dialyzes Mondays, Wednesdays, and Fridays. 2. Type 2 diabetes with all the complications of diabetes including diabetic retinopathy, neuropathy and nephropathy. She also has diabetic gastroparesis. 3. Peripheral vascular disease with status post below knee amputation of the left leg. 4. Left ventricular hypertrophy. 5. Hypertension, difficult to control, partially related to noncompliance and partially related to diabetic gastroparesis. When she gets into this space, she cannot keep any medications down. PAST SURGICAL HISTORY: History of gallbladder surgery, history of fistula surgery, left below knee amputation. FAMILY HISTORY: Sister has diabetes. SOCIAL HISTORY: She has four children. Former smoker and does use marijuana occasionally. ALLERGIES: SHE IS ALLERGIC TO ASPIRIN AND HEPARIN. HOME MEDICATIONS: Currently, she is on carvedilol 25 mg p.o. b.i.d., NovoLog insulin, metoclopramide 10 mg a.c. and at bedtime, Plavix 75 mg daily, atorvastatin 10 mg daily, clonidine 0.2 mg every 8 hours, lisinopril 40 mg daily, minoxidil 10 mg daily, pantoprazole, sevelamer, and sertraline 50 mg at night. REVIEW OF SYSTEMS: Ten systems were reviewed and as indicated in history of present illness. PHYSICAL EXAMINATION: GENERAL: She is alert, oriented x3, in no apparent distress. VITAL SIGNS: Blood pressure is 160 to 170 systolic with the diastolic in the 60s. Pulse rates are in the 70s. HEENT: NC/AT. Pupils are reactive. External auditory canal appears normal. Oral cavity appears normal. Normal mucosa. NECK: Supple. No jugular venous distention. No lymphadenopathy. No thyromegaly. No carotid bruits. LUNGS: Decreased air entry bilaterally. No rales or rhonchi heard. CARDIAC: S1, S2 heard. No S3, S4. No murmurs, no rubs. ABDOMEN: Soft, nontender. No organomegaly. Positive bowel sounds. No mass, no rebound. EXTREMITIES: Did not show any evidence of edema. Difficult to palpate dorsalis pedis and posterior tibial. No skin rash or joint swellings noted. NEUROLOGIC: Grossly intact. LABORATORY DATA: White count is 10.5 with hemoglobin of 11.7 and a platelet count of 327. Sodium 134, potassium 4.1, chloride of 90, CO2 of 19, BUN of 77, creatinine of 11.2, and uric acid 12.2. ASSESSMENT AND PLAN: 1. End-stage renal disease, on hemodialysis. She had difficult to control blood pressure. She was dialyzed on Monday, but catheter did not work. She had several doses of alteplase. Today, the catheter worked fairly well. We will attempt to remove 5 kilos of fluid as tolerated. 2. Hypertension. Blood pressures are better. She has been getting adequate medications now regularly because she does not have nausea and vomiting. 3. Diabetic gastroparesis. Treated with Reglan. She has been lot better. 4. Hyperphosphatemia. Phosphorous is going up. We will continue on the binders. BIANKA:in Job ID: [id number] Doc ID: [id number] Teddy Holland
[2020-03-31] MEDS: LORazepam 2 MG/ML VIAL IV PRN (07:48)
[2020-03-31] MEDS: CARVEDILOL 12.5 MG TABLET PO SCH (07:49)
[2020-03-31] MEDS: INSULIN GLARGINE, HUMAN 1 UNIT/0.01 ML SQ SCH (08:00)
[2020-03-31] MEDS: ATORVASTATIN 20 MG TABLET PO SCH (08:01)
[2020-03-31] MEDS: CLOPIDOGREL 75 MG TABLET PO SCH (08:02)
[2020-03-31] MEDS: SERTRALINE 50 MG TABLET PO SCH (08:02)
== END 2020-03-31 11:10 | disposition home or self-care (01) | DRG 304 ==
LOC: ED 06:14 → ICU 11:07
PROVIDERS: ADMIT Internal Medicine; ATTEND Internal Medicine

== ENCOUNTER 2020-09-29 08:58 | Inpatient (IN) ==
[2020-09-29] MEDS ORDERED: IOPAMIDOL 100 ML BOTTLE IV ONE (08:59)
[2020-09-29] MEDS ORDERED: hydrALAZINE 20 MG/ML VIAL IV ONE ×2 (09:37→12:57)
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
[2020-09-29] MEDS ORDERED: ONDANSETRON 4 MG/2 ML VIAL IV ONE ×2 (09:59→10:55)
--- NOTE | 2020-09-29 10:01 | XRay Report ---
INDICATION: vomiting, htn, esrd, hx of effusion TECHNIQUE: AP portable upright chest x-ray COMPARISON: Previous chest x-rays dated 09/21/2020, 09/20/2020, 09/15/2020 FINDINGS:No change in large caliber right central venous catheter Lungs:Left lung volume loss due to large organized and septated left pleural effusion. No acute right lung infiltrate Heart, vascular:There is cardiomegaly, unchanged. Pulmonary vascularity is prominent consistent with pulmonary congestion. There is a suggestion of mild intralobular septal thickening at the right lung base as well as peribronchial thickening. Findings are consistent with mild interstitial edema. Mediastinum, petros:No mediastinal widening. No hilar mass Pleura:Large left pleural effusion. As unchanged. Ultrasound demonstrated an organized and septated pleural effusion. Previous attempted thoracentesis produced only 100 mL of fluid Skeletal:Negative. IMPRESSION: 1. Cardiomegaly. There is pulmonary congestion and probable interstitial edema 2. Large left pleural effusion, unchanged 3. Left lung volume loss. Interpreted and Authenticated by: Ovidio Jones 09/29/20
[2020-09-29] MEDS ORDERED: HYOSCYAMINE SULFATE 0.125 MG TABLET SL ONE (10:28)
[2020-09-29] MEDS ORDERED: hydrOXYzine 25 MG TABLET PO ONE (11:07)
[2020-09-29 11:10] LABS: Basophils # (Auto) 0.04 K/mcL (0.00-0.20); Basophils % (Auto) 0.4 % (0.0-2.0); Eosinophils # (Auto) 0.62 K/mcL (0.00-0.70); Eosinophils % (Auto) 6.2 % (0.0-7.0); Hematocrit 23.4 % (36.0-48.0); Hemoglobin 6.7 g/dL (12.0-15.0); Lymphocytes % (Auto) 12.1 % (15.0-49.0); Mean Cell Volume 79.6 fL (80.0-100.0); Mean Corpuscular HGB Conc 28.6 g/dL (31.0-36.0); Mean Platelet Volume 9.4 fL (7.4-10.4); Monocytes # (Auto) 0.48 K/mcL (0.10-0.90); Monocytes % (Auto) 4.8 % (1.0-12.0); Neutrophils % (Auto) 76.5 % (38.0-78.0); Platelet Count 448 K/mcL (140-440); RBC 2.94 M/mcL (4.00-5.20); WBC 9.9 K/mcL (4.5-11.0)
[2020-09-29] MEDS ORDERED: CAPSAICIN 0.025% CREAM.TOP 60GM TOPICAL ONE (11:10)
[2020-09-29 11:18] LABS: ALT/SGPT 11 U/L (<40); AST/SGOT 20 U/L (<32); Albumin 2.7 gm/dL (3.2-5.2); Albumin/Globulin Ratio 0.5 (1.0-2.3); Alkaline Phosphatase 152 U/L (39-117); Bilirubin,Total 0.2 mg/dL (0.1-1.0); Blood Urea Nitrogen 28 mg/dL (6-20); Calcium 9.1 mg/dL (8.6-10.4); Carbon Dioxide 27 mmol/L (22-30); Chloride 98 mmol/L (96-108); Glomerular Filtration Rate 14; Glucose 192 mg/dL (70-105)
--- NOTE | 2020-09-29 12:31 | Cat Scan Report ---
INDICATION: Abdominal pain, vomiting, esrd, anemia COMPARISON: Previous examination dated 08/23/2020 TECHNIQUE: Axial images were obtained through the abdomen and pelvis. Sagittally and coronally reformatted images. 70 mL Isovue 370 injected intravenously. Oral contrast material was given FINDINGS: Lung bases:There is left lower lobe and mild right middle lobe volume loss. There is mosaic perfusion at the right lung base. This is probably secondary to airway disease. There are bilateral pleural effusions. There is a small right pleural effusion. There is a large left pleural effusion. No significant pericardial effusion. There is cardiomegaly. Coronary arteries are not well evaluated. Liver:Negative. No focal intrahepatic mass. No focal abnormality. Liver contour is smooth. No evidence for cirrhosis Gallbladder, bilary:Previous cholecystectomy. No dilated bile ducts Spleen:No splenomegaly. Normal enhancement of splenic and portal veins. Pancreas:No pancreatic mass. No peripancreatic abnormality Adrenal glands:Negative Kidneys, ureters, bladder: Bilateral renal atrophy. No solid or cystic mass. No hydronephrosis There is no hydroureter. No ureteral stone Bladder is collapsed Gastrointestinal:No detectable colonic mass. There is no diverticulitis. Small bowel is negative. No mechanical small bowel obstruction. Stomach and duodenum are unremarkable Appendix: The appendix is not well visualized. No evidence for appendicitis Vascular:There is severe extensive atherosclerotic calcification. Infrarenal abdominal aorta is calcified. There is no abdominal aortic aneurysm. Origins of the celiac trunk and superior mesenteric artery are negative. Renal arteries are negative. There is calcification within the mid and distal superior mesenteric artery. Inferior mesenteric artery is calcified. There is mild calcification of the external iliac arteries. Common femoral arteries are calcified. There is soft tissue density surrounding the right common femoral artery. This may be secondary to previous catheterization. Lymphatic:No retroperitoneal or mesenteric adenopathy Mesentery, peritoneum: Small amount of free intraperitoneal fluid. This is perihepatic and pelvic. No intra-abdominal abscess. No pneumoperitoneum. There is mesenteric edema. There is subcutaneous and retroperitoneal edema. Findings may be secondary to anasarca. This appearance is unchanged Reproductive:Uterus is present. There are calcifications. No adnexal mass Musculoskeletal:No lumbar compression fractures. Sacrum and pelvis are negative. No hip fracture. No anterior abdominal wall or inguinal hernia IMPRESSION: 1. Bilateral pleural effusions left greater than right. 2. Left lower lobe and right middle lobe volume loss. There is mosaic perfusion most consistent with airways disease. 3. Cardiomegaly 4. Severe atherosclerotic disease as above 5. Mild ascites 6. No intra-abdominal abscess. 7. Bilateral renal atrophy. The exam was performed using radiation dose optimization techniques including, but not limited to, automated exposure control, adjustment of the mA and/or kV according to patient size and use of iterative reconstruction technique. Interpreted and Authenticated by: Ovidio Jones 09/29/20
[2020-09-29] MEDS ORDERED: METOCLOPRAMIDE 10 MG/2 ML VIAL IV ONE (12:57)
[2020-09-29] MEDS ORDERED: LORazepam 2 MG/ML VIAL IV ONE (13:03)
[2020-09-29] MEDS ORDERED: 0.9 % SODIUM CHLORIDE 250 ML IV SCH (13:15)
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
[2020-09-29] MEDS ORDERED: DEXTROSE 50% 50 ML VIAL IV PRN (14:59)
[2020-09-29] MEDS ORDERED: METOCLOPRAMIDE 10 MG/2 ML VIAL IV PRN (14:59)
[2020-09-29] MEDS ORDERED: DEXTROSE 31 GM ORAL.SUSP PO PRN (14:59)
[2020-09-29] MEDS ORDERED: MAGNESIUM SULFATE 2 GM/50 ML BAG IV PRN (14:59)
[2020-09-29] MEDS ORDERED: POTASSIUM CHLORIDE 20 MEQ TABLET PO PRN (14:59)
[2020-09-29] MEDS ORDERED: SENNOSIDES 1 TABLET PO PRN (14:59)
[2020-09-29] MEDS ORDERED: ACETAMINOPHEN 325 MG TABLET PO PRN (14:59)
[2020-09-29] MEDS ORDERED: POTASSIUM CHLORIDE 40 MEQ in DEXTROSE 5% IN WATER 500 ML IV PRN (14:59)
[2020-09-29] MEDS: 0.9 % SODIUM CHLORIDE 10 ML SYRINGE IV SCH ×2 (15:55→21:23)
[2020-09-29] MEDS: ONDANSETRON 4 MG/2 ML VIAL IV PRN ×2 (15:55→20:07)
[2020-09-29] MEDS: INSULIN LISPRO 1 UNIT/0.01 ML UNIT SQ SCH ×2 (16:14→21:23)
[2020-09-29] MEDS ORDERED: hydrALAZINE 20 MG/ML VIAL IV PRN (19:19)
[2020-09-29] MEDS ORDERED: hydrALAZINE 20 MG/ML VIAL ONE (19:44)
[2020-09-29] MEDS ORDERED: PROMETHAZINE 25 MG TABLET PO PRN (19:46)
[2020-09-29] MEDS: DOCUSATE SODIUM 100 MG CAPSULE PO SCH (20:04)
[2020-09-29] MEDS: METOCLOPRAMIDE 10 MG TABLET PO SCH (20:05)
[2020-09-29] MEDS: CARVEDILOL 12.5 MG TABLET PO SCH (20:22)
[2020-09-29] MEDS: LISINOPRIL 20 MG TABLET PO SCH (21:14)
[2020-09-29] MEDS: cloNIDine HCL 0.1 MG TABLET PO SCH (21:15)
[2020-09-29] MEDS: SEVELAMER 800 MG TABLET PO SCH (21:25)
[2020-09-29] MEDS: SUCRALFATE 1 GM TABLET PO SCH (22:07)
[2020-09-30] MEDS: ONDANSETRON 4 MG/2 ML VIAL IV PRN ×2 (01:54→06:30)
[2020-09-30] MEDS: cloNIDine HCL 0.1 MG TABLET PO SCH ×3 (05:06→20:08)
[2020-09-30] MEDS: 0.9 % SODIUM CHLORIDE 10 ML SYRINGE IV SCH ×3 (05:11→20:17)
[2020-09-30] MEDS: PANTOPRAZOLE 40 MG VIAL IV SCH (06:26)
[2020-09-30] MEDS: SUCRALFATE 1 GM TABLET PO SCH ×4 (06:26→20:16)
[2020-09-30] MEDS: METOCLOPRAMIDE 10 MG TABLET PO SCH ×4 (06:26→20:16)
[2020-09-30 06:38] LABS: Basophils # (Auto) 0.04 K/mcL (0.00-0.20); Basophils % (Auto) 0.4 % (0.0-2.0); Eosinophils # (Auto) 0.03 K/mcL (0.00-0.70); Eosinophils % (Auto) 0.3 % (0.0-7.0); Hematocrit 42.8 % (36.0-48.0); Hemoglobin 13.3 g/dL (12.0-15.0); Lymphocytes # (Auto) 0.89 K/mcL (1.50-4.80); Lymphocytes % (Auto) 8.9 % (15.0-49.0); Mean Cell Volume 80.6 fL (80.0-100.0); Mean Corpuscular HGB Conc 31.1 g/dL (31.0-36.0); Mean Platelet Volume 8.9 fL (7.4-10.4); Monocytes # (Auto) 0.53 K/mcL (0.10-0.90); Monocytes % (Auto) 5.3 % (1.0-12.0); Neutrophils % (Auto) 85.1 % (38.0-78.0); Platelet Count 415 K/mcL (140-440); RBC 5.31 M/mcL (4.00-5.20); Red Cell Distribution Width 19.3 % (11.5-14.5)
[2020-09-30 07:08] LABS: ALT/SGPT 11 U/L (<40); AST/SGOT 18 U/L (<32); Albumin 3.1 gm/dL (3.2-5.2); Albumin/Globulin Ratio 0.5 (1.0-2.3); Alkaline Phosphatase 183 U/L (39-117); Bilirubin,Direct < 0.2 mg/dL (0-0.3); Bilirubin,Total 0.3 mg/dL (0.1-1.0); Blood Urea Nitrogen 23 mg/dL (6-20); Calcium 9.6 mg/dL (8.6-10.4); Carbon Dioxide 26 mmol/L (22-30); Chloride 93 mmol/L (96-108); Globulin 5.8 gm/dL (2.2-3.7); Glomerular Filtration Rate 17; Glucose 197 mg/dL (70-105); Lactate Dehydrogenase 234 U/L (135-225); Phosphorous 3.6 mg/dL (2.5-4.5); Triglycerides 98 mg/dL (<150); Uric Acid 5.1 mg/dL (2.5-8.0)
[2020-09-30] MEDS: INSULIN LISPRO 1 UNIT/0.01 ML UNIT SQ SCH ×6 (07:26→23:56)
[2020-09-30] MEDS: INSULIN GLARGINE, HUMAN 1 UNIT/0.01 ML SQ SCH (07:26)
--- NOTE | 2020-09-30 08:04 | Internal Med Progress Note ---
SUBJECTIVE Subjective Patient information: Note initiated : 09/30/20 at 8:01 am Service Date, if different from initiated Date: [] Patient: Delores Jones a 50 y/o F admitted on 09/29/20 for nausea, elevated BP/N/V, Anemia, Hypertensive. Chief Complaint: [] Interval history: History of present illness: Ms. Jones is a 50 year old F Presents to the ED with nausea vomiting as well has headaches above baseline. She has been hypertensive. In the ED she was evaluated found to have a low hemoglobin. There is no active source of bleeding that was found on physical exam or imaging. Stool fecal occult blood test was negative. Denies diarrhea or abdominal pain Systolic blood pressures in 200. Her minoxidil was trialed off for a week because her blood pressure was getting low and then was to be reevaluated in a week. Her troponin was elevated as is common with her although elevated above baseline. She denies chest pain and the case was discussed with senior business development analyst who had no acute concerns from an ACS standpoint. Patient will get blood with hemodialysis today. Nausea and vomiting likely from her gastroparesis versus possibly viral gastroenteritis. Patient is also depressed because she just found out her mother unexpectedly 4/ Patient doing well and feeling better today. No nausea vomiting overnight. Patient blood pressure responded quite well to dialysis. She will get dialysis again today and then likely discharge tomorrow. Review of Systems: denies headache/fever/chills/nausea/vomiting/chest or abdominal pain/cough/dys pnea/diarrhea. Otherwise see above. Constitutional Vitals: Vital Signs Temp Pulse Resp BP Pulse Ox 98.3 F 72 13 117/57 100 09/30/20 04:00 09/30/20 02:15 09/30/20 06:00 09/30/20 06:00 09/30/20 06:00 Period Temp Pulse Resp BP Sys/Infante Pulse Ox Last 24 Hr 96 F-98.3 F 62-76 11-25 86-224/41-115 94-100 Intake and Output 09/29/20 09/30/20 09/30/20 21:59 05:59 13:59 Intake Total 753 30 Output Total 180 5130 Balance 573 -5100 Weight 48.398 kg Intake & Output: Intake & Output 09/29/20 09/30/20 09/30/20 21:59 05:59 13:59 Intake Total 753 30 Output Total 180 5130 Balance 573 -5100 Weight 48.398 kg Intake: Oral 30 Blood Product 753 Output: Emesis 180 30 Hemodialysis UF 5100 Other: Stool Size Smear Small Smear Stool Color Yellow Yellow Brown Bright Red Blood Stool Consistency Loose Loose Soft # Unmeasured Emesis 1 # of times incontinent of 1 1 Bowels # Emeses 1 Exam: General: Alert, Awake, No acute Distress Eyes/N/T: EOMI, Head/Neck: neck supple, CV: RRR, 2/6 SM, normal s1/s2 Pulm: Clear b/l, no wheezing/rhonchi/rales Abd: soft, nontender, +BS x4 Ext: no clubbing/cyanosis/edema, Right BKA Neuro: Alert, no focal deficits, moves all extremities, Skin: warm/dry OBJ DATA Labs CBC & Chem 7: 09/30/20 05:21 09/30/20 05:21 Labs: Abnormal Lab Results 09/30/20 09/30/20 09/29/20 05:21 05:21 09:31 RBC 5.31 H Hgb Hct MCV MCH 25.0 L MCHC RDW 19.3 H Plt Count Neut % (Auto) 85.1 H Lymph % (Auto) 8.9 L Lymph # (Auto) 0.89 L Absolute Neutrophils 8.53 H Chloride 93 L Anion Gap 18.0 H BUN 23 H Creatinine 3.0 H Glucose 197 H GGT 62 H Alkaline Phosphatase 183 H Lactate Dehydrogenase 234 H Troponin T 0.33 H* Total Protein 8.9 H Albumin 3.1 L Globulin 5.8 H Albumin/Globulin Ratio 0.5 L 09/29/20 09/29/20 09:31 09:31 RBC 2.94 L Hgb 6.7 L* Hct 23.4 L MCV 79.6 L MCH 22.8 L MCHC 28.6 L RDW 19.0 H Plt Count 448 H Neut % (Auto) Lymph % (Auto) 12.1 L Lymph # (Auto) 1.20 L Absolute Neutrophils Chloride Anion Gap BUN 28 H Creatinine 3.6 H Glucose 192 H GGT Alkaline Phosphatase 152 H Lactate Dehydrogenase Troponin T Total Protein Albumin 2.7 L Globulin 5.0 H Albumin/Globulin Ratio 0.5 L Meds: Medications Acetaminophen (Acetaminophen 325 Mg Tablet) 650 mg PO Q6HP PRN PRN Reason: PAIN/FEVER > 101 Atorvastatin Calcium (Atorvastatin 20 Mg Tablet) 10 mg PO DAILY [facility] Carvedilol (Carvedilol 12.5 Mg Tablet) 25 mg PO BIDCC [facility] Last Admin: 09/29/20 20:22 Dose: 25 mg Documented by: Clonidine HCl (Clonidine Hcl 0.1 Mg Tablet) 0.2 mg PO Q8 [facility] Last Admin: 09/30/20 05:06 Dose: 0.2 mg Documented by: Clopidogrel Bisulfate (Clopidogrel 75 Mg Tablet) 75 mg PO DAILY [facility] Dextrose (Dextrose 50% 50 Ml Vial) 0 ml IV UD PRN PRN Reason: Hypoglycemia Diagnostic Test (Pha) (Accu-Chek 1 Each Strip) 1 each FS [facility] Last Admin: 09/30/20 06:26 Dose: 1 each Documented by: Docusate Sodium (Docusate Sodium 100 Mg Capsule) 100 mg PO BID [facility] Last Admin: 09/29/20 20:04 Dose: Not Given Documented by: Glucose (Dextrose 31 Gm Oral.Susp) 15 gm PO PRN PRN PRN Reason: Hypoglycemia Hydralazine HCl (Hydralazine 20 Mg/Ml Vial) 0 mg IV Q2HP PRN PRN Reason: Hypertension Last Admin: 09/29/20 19:45 Dose: 20 mg Documented by: Potassium Chloride 40 meq/ (Dextrose) 520 mls @ 130 mls/hr IV UD PRN PRN Reason: Potassium < 3 Magnesium Sulfate (Magnesium Sulfate) 2 gm in 50 mls @ 50 mls/hr IV UD PRN PRN Reason: Magnesium </= 1.6 Insulin Glargine (Insulin Glargine, Human 1 Unit/0.01 Ml) 15 unit SQ [facility] Last Admin: 09/30/20 07:26 Dose: 15 unit Documented by: Insulin Human Lispro (Insulin Lispro 1 Unit/0.01 Ml Unit) 0 unit SQ [facility]; Protocol Last Admin: 09/30/20 07:26 Dose: 6 unit Documented by: Lisinopril (Lisinopril 20 Mg Tablet) 40 mg PO QHS [facility] Last Admin: 09/29/20 21:14 Dose: 40 mg Documented by: Metoclopramide HCl (Metoclopramide 10 Mg/2 Ml Vial) 10 mg IV Q6HP PRN PRN Reason: Nausea And Vomiting Last Admin: 09/29/20 19:26 Dose: 10 mg Documented by: Metoclopramide HCl (Metoclopramide 10 Mg Tablet) 10 mg PO [facility] Last Admin: 09/30/20 06:26 Dose: 10 mg Documented by: Ondansetron HCl (Ondansetron 4 Mg/2 Ml Vial) 4 mg IV Q4HP PRN PRN Reason: Nausea And Vomiting Last Admin: 09/30/20 06:30 Dose: 4 mg Documented by: Pantoprazole S[facility] ([facility] 40 Mg [facility]) [facility] Admin: 09/30/20 06:26 Dose: 40 mg Documented by: Potassium Chloride (Potassium Chloride 20 Meq Tablet) 40 meq PO UD PRN PRN Reason: Potassium < 3 Promethazine HCl (Promethazine 25 Mg Tablet) 6.25 mg PO Q8HP PRN PRN Reason: Nausea And Vomiting Senna (Sennosides 1 Tablet) 2 tab PO DAILYP PRN PRN Reason: Constipation Sertraline HCl (Sertraline 50 Mg Tablet) 50 mg PO DAILY [facility] Sevelamer Carbonate (Sevelamer 800 Mg Tablet) 800 mg PO [facility] Last Admin: 09/29/20 21:25 Dose: Not Given Documented by: Sodium Chloride (0.9 % Sodium Chloride 10 Ml Syringe) 10 ml IV Q8 [facility] Last Admin: 09/30/20 05:11 Dose: 10 ml Documented by: Sucralfate (Sucralfate 1 Gm Tablet) 1 gm PO [facility] Last Admin: 09/30/20 06:26 Dose: 1 gm Documented by: A/P Narrative A/P Narrative: A: *N/V: likely 2/2 gastrparesis vs less gastroenteritis - *Hypertensive urgency: -recently trialled off minoxidil for lower BP's & will likely stay off -low end BP after HD *Anemia, chronic with acute component: no active bleeding, likely 2/2 underlying production inability from comorbidites -6.7 on admit; no gross bleeding, FOBT neg -2prbc(09/29) responded well *ESRD on HD: follows with Dr. Amaya - *DM 2 w/Nephropathy & Gastroparesis: *PVD w/BKA: on plavix/statin (allergic to ASA) *Cannabis dependence: Counseling *Chronic elevation of troponin: Patient troponin is chronically mildly elevated. -above baseline on admit, case discussed with cardio who had no concern from ACS standpoint *h/o diastolic CHF: *GERD: *Depression/Anxiety: P: -Amaya for HD -monitor H&H -cont Carvedilol/clonidine/lisinopril, defer further mngmt Nephrology -gastroparesis diet -cont home basal insulin, SSI -cont plavix/statin - -ppx: SCD(once h&h stable and no concern for bleeding will start heparin)/home ppi Time Spent With Patient Time: Total time spent is greater than 50% in coordination of care (as documented) at patient's floor/unit and/or counseling patient: QUALITY VTE Deep Vein Thrombosis/Pulmonary Embolism Present on Admission: No
[2020-09-30] MEDS: CLOPIDOGREL 75 MG TABLET PO SCH (09:00)
[2020-09-30] MEDS: SEVELAMER 800 MG TABLET PO SCH ×4 (09:00→20:16)
[2020-09-30] MEDS: ATORVASTATIN 20 MG TABLET PO SCH (09:01)
[2020-09-30] MEDS: CARVEDILOL 12.5 MG TABLET PO SCH ×2 (09:01→16:42)
[2020-09-30] MEDS: DOCUSATE SODIUM 100 MG CAPSULE PO SCH ×2 (09:01→20:07)
[2020-09-30] MEDS: SERTRALINE 50 MG TABLET PO SCH (09:01)
--- NOTE | 2020-09-30 09:31 | Consultation ---
DATE OF CONSULTATION: 09/30/2020 REASON FOR CONSULTATION: End-stage renal disease and volume overload. HISTORY OF PRESENT ILLNESS: The patient is a 50-year-old female with history of diabetes and all the complications of diabetes including diabetic retinopathy, neuropathy and nephropathy. She has been dialysis dependent. She presented to the ED complaining of vomiting and headaches. She was found to be hypertensive and volume overloaded. She was also found to have a hemoglobin of 6.7 in the emergency room. For those reasons, she was hospitalized. She had a CT of the abdomen, which did not show any evidence of acute pathology. She had a dialysis session yesterday with removal of 5.5 liters of fluid. PAST MEDICAL HISTORY: 1. History of end-stage renal disease on hemodialysis, dialyzes Mondays, Wednesdays, and Fridays. 2. History of hypertension. 3. Diabetes. 4. Recent graft infection for which she is currently on a catheter. 5. Diabetic gastroparesis. 6. Anxiety disorder. PAST SURGICAL HISTORY: Multiple surgeries. Please see the history and physical. FAMILY HISTORY: She has a history of diabetes. SOCIAL HISTORY: She uses marijuana occasionally. Otherwise, unremarkable. MEDICATIONS ON ADMISSION: 1. Carvedilol 12.5 mg p.o. b.i.d. 2. NovoLog 100 units at night. 3. Metoclopramide 10 mg at night. 4. Clopidogrel 75 mg once daily. 5. Atorvastatin 10 mg daily. 6. Clonidine 0.2 mg q.8 hours. 7. Lisinopril 40 mg daily. 8. She was supposed to be taking the minoxidil, which I have discontinued. REVIEW OF SYSTEMS: Ten systems were reviewed and as indicated in the history of present illness. PHYSICAL EXAMINATION: GENERAL: On examination, she is alert, oriented x3, no apparent distress. VITAL SIGNS: Blood pressures are better at 90-110 systolic with a diastolic in the 60s. Pulse rates have been in the 80s. HEENT: NC/AT. LUNGS: Decreased air entry bilaterally. No rales or rhonchi heard. CARDIAC: S1, S2 heard. No S3, S4. ABDOMEN: Soft, nontender, no organomegaly. Positive bowel sounds. EXTREMITIES: Showed 1+ edema. Difficult to palpate a dorsalis pedis and posterior tibialis. No skin rash or joint swelling noted. NEUROLOGIC: Grossly intact. LABORATORY DATA: White count is 10.0 with a hemoglobin of 13.3 and a platelet count of 415. Her hemoglobin yesterday was 6.7. Sodium 137, potassium 4.0, chloride of 93, CO2 of 26, BUN 23, creatinine of 3.0. ASSESSMENT AND PLAN: End-stage renal disease, on hemodialysis. She is volume expanded. Her blood pressures are high. She had dialysis yesterday with 5.5 liters of fluid removal. With that, she has done really well. She is due for dialysis today, but she is requesting to go home as she her mom has . We will try to arrange for dialysis as an outpatient today. BIANKA:sophia Job ID: [id number] Doc ID: [id number] Teddy Amaya MD
[2020-09-30] MEDS ORDERED: ALTEPLASE 2 MG VIAL IV ONE (12:24)
--- NOTE | 2020-09-30 12:46 | Internal Med Progress Note ---
SUBJECTIVE Subjective Patient information: Note initiated : 10/01/20 at 12:43 pm Service Date, if different from initiated Date: [] Patient: Delores Jones a 50 y/o F admitted on 09/29/20 for nausea, elevated BP/N/V, Anemia, Hypertensive. Chief Complaint: [] Interval history: History of present illness: Ms. Jones is a 50 year old F Presents to the ED with nausea vomiting as well has headaches above baseline. She has been hypertensive. In the ED she was evaluated found to have a low hemoglobin. There is no active source of bleeding that was found on physical exam or imaging. Stool fecal occult blood test was negative. Denies diarrhea or abdominal pain Systolic blood pressures in 200. Her minoxidil was trialed off for a week because her blood pressure was getting low and then was to be reevaluated in a week. Her troponin was elevated as is common with her although elevated above baseline. She denies chest pain and the case was discussed with entry level receptionist who had no acute concerns from an ACS standpoint. Patient will get blood with hemodialysis today. Nausea and vomiting likely from her gastroparesis versus possibly viral gastroenteritis. Patient is also depressed because she just found out her mother unexpectedly 4/ Patient doing well and feeling better today. No nausea vomiting overnight. Patient blood pressure responded quite well to dialysis. She will get dialysis again today and then likely discharge tomorrow. Review of Systems: denies headache/fever/chills/nausea/vomiting/chest or abdominal pain/cough/dy spnea/diarrhea. Otherwise see above. Constitutional Vitals: Vital Signs Temp Pulse Resp BP Pulse Ox 97 F 72 18 114/69 100 09/30/20 08:00 09/30/20 02:15 09/30/20 12:24 09/30/20 12:16 09/30/20 12:16 Period Temp Pulse Resp BP Sys/Infante Pulse Ox Last 24 Hr 96 F-98.3 F 62-76 6-25 75-222/40-114 94-100 Intake and Output 09/29/20 09/30/20 09/30/20 21:59 05:59 13:59 Intake Total 753 30 Output Total 180 5130 Balance 573 -5100 Weight 48.398 kg Intake & Output: Intake & Output 09/29/20 09/30/20 09/30/20 21:59 05:59 13:59 Intake Total 753 30 Output Total 180 5130 Balance 573 -5100 Weight 48.398 kg Intake: Oral 30 Blood Product 753 Output: Emesis 180 30 Hemodialysis UF 5100 Other: Meal Breakfast Percent of Meal Consumed 0% Urine Appearance Clear Stool Size Smear Small Smear Stool Color Yellow Yellow Brown Bright Red Blood Stool Consistency Loose Loose Soft # Voids 1 # Unmeasured Emesis 1 # of times incontinent of 1 1 Bowels # Emeses 1 Exam: General: Alert, Awake, No acute Distress Eyes/N/T: EOMI, Head/Neck: neck supple, CV: RRR, 2/6 SM, normal s1/s2 Pulm: Clear b/l, no wheezing/rhonchi/rales Abd: soft, nontender, +BS x4 Ext: no clubbing/cyanosis/edema, Right BKA Neuro: Alert, no focal deficits, moves all extremities, Skin: warm/dry OBJ DATA Labs CBC & Chem 7: 09/30/20 05:21 09/30/20 05:21 Labs: Abnormal Lab Results 09/30/20 09/30/20 09/29/20 05:21 05:21 09:31 RBC 5.31 H Hgb Hct MCV MCH 25.0 L MCHC RDW 19.3 H Plt Count Neut % (Auto) 85.1 H Lymph % (Auto) 8.9 L Lymph # (Auto) 0.89 L Absolute Neutrophils 8.53 H Chloride 93 L Anion Gap 18.0 H BUN 23 H Creatinine 3.0 H Glucose 197 H GGT 62 H Alkaline Phosphatase 183 H Lactate Dehydrogenase 234 H Troponin T 0.33 H* Total Protein 8.9 H Albumin 3.1 L Globulin 5.8 H Albumin/Globulin Ratio 0.5 L 09/29/20 09/29/20 09:31 09:31 RBC 2.94 L Hgb 6.7 L* Hct 23.4 L MCV 79.6 L MCH 22.8 L MCHC 28.6 L RDW 19.0 H Plt Count 448 H Neut % (Auto) Lymph % (Auto) 12.1 L Lymph # (Auto) 1.20 L Absolute Neutrophils Chloride Anion Gap BUN 28 H Creatinine 3.6 H Glucose 192 H GGT Alkaline Phosphatase 152 H Lactate Dehydrogenase Troponin T Total Protein Albumin 2.7 L Globulin 5.0 H Albumin/Globulin Ratio 0.5 L Meds: Medications Acetaminophen (Acetaminophen 325 Mg Tablet) 650 mg PO Q6HP PRN PRN Reason: PAIN/FEVER > 101 Atorvastatin Calcium (Atorvastatin 20 Mg Tablet) 10 mg PO DAILY [facility] Last Admin: 09/30/20 09:01 Dose: 10 mg Documented by: Carvedilol (Carvedilol 12.5 Mg Tablet) 25 mg PO BIDCC [facility] Last Admin: 09/30/20 09:01 Dose: Not Given Documented by: Clonidine HCl (Clonidine Hcl 0.1 Mg Tablet) 0.2 mg PO Q8 [facility] Last Admin: 09/30/20 05:06 Dose: 0.2 mg Documented by: Clopidogrel Bisulfate (Clopidogrel 75 Mg Tablet) 75 mg PO DAILY [facility] Last Admin: 09/30/20 09:00 Dose: 75 mg Documented by: Dextrose (Dextrose 50% 50 Ml Vial) 0 ml IV UD PRN PRN Reason: Hypoglycemia Diagnostic Test (Pha) (Accu-Chek 1 Each Strip) 1 each FS [facility] Last Admin: 09/30/20 11:47 Dose: 1 each Documented by: Docusate Sodium (Docusate Sodium 100 Mg Capsule) 100 mg PO BID [facility] Last Admin: 09/30/20 09:01 Dose: Not Given Documented by: Glucose (Dextrose 31 Gm Oral.Susp) 15 gm PO PRN PRN PRN Reason: Hypoglycemia Hydralazine HCl (Hydralazine 20 Mg/Ml Vial) 0 mg IV Q2HP PRN PRN Reason: Hypertension Last Admin: 09/29/20 19:45 Dose: 20 mg Documented by: Potassium Chloride 40 meq/ (Dextrose) 520 mls @ 130 mls/hr IV UD PRN PRN Reason: Potassium < 3 Magnesium Sulfate (Magnesium Sulfate) 2 gm in 50 mls @ 50 mls/hr IV UD PRN PRN Reason: Magnesium </= 1.6 Insulin Glargine (Insulin Glargine, Human 1 Unit/0.01 Ml) 15 unit SQ [facility] Last Admin: 09/30/20 07:26 Dose: 15 unit Documented by: Insulin Human Lispro (Insulin Lispro 1 Unit/0.01 Ml Unit) 0 unit SQ [facility]; Protocol Last Admin: 09/30/20 07:26 Dose: 6 unit Documented by: Lisinopril (Lisinopril 20 Mg Tablet) 40 mg PO QHS [facility] Last Admin: 09/29/20 21:14 Dose: 40 mg Documented by: Metoclopramide HCl (Metoclopramide 10 Mg/2 Ml Vial) 10 mg IV Q6HP PRN PRN Reason: Nausea And Vomiting Last Admin: 09/29/20 19:26 Dose: 10 mg Documented by: Metoclopramide HCl (Metoclopramide 10 Mg Tablet) 10 mg PO [facility] Last Admin: 09/30/20 11:48 Dose: 10 mg Documented by: Ondansetron HCl (Ondansetron 4 Mg/2 Ml Vial) 4 mg IV Q4HP PRN PRN Reason: Nausea And Vomiting Last Admin: 09/30/20 06:30 Dose: 4 mg Documented by: Pantoprazole Sodium (Pantoprazole 40 Mg Vial) 40 mg IV [facility] Last Admin: 09/30/20 06:26 Dose: 40 mg Documented by: Potassium Chloride (Potassium Chloride 20 Meq Tablet) 40 meq PO UD PRN PRN Reason: Potassium < 3 Promethazine HCl (Promethazine 25 Mg Tablet) 6.25 mg PO Q8HP PRN PRN Reason: Nausea And Vomiting Senna (Sennosides 1 Tablet) 2 tab PO DAILYP PRN PRN Reason: Constipation Sertraline HCl (Sertraline 50 Mg Tablet) 50 mg PO DAILY [facility] Last Admin: 09/30/20 09:01 Dose: 50 mg Documented by: Sevelamer Carbonate (Sevelamer 800 Mg Tablet) 800 mg PO [facility] Last Admin: 09/30/20 11:48 Dose: 800 mg Documented by: Sodium Chloride (0.9 % Sodium Chloride 10 Ml Syringe) 10 ml IV Q8 [facility] Last Admin: 09/30/20 05:11 Dose: 10 ml Documented by: Sucralfate (Sucralfate 1 Gm Tablet) 1 gm PO [facility] Last Admin: 09/30/20 11:48 Dose: 1 gm Documented by: A/P Narrative A/P Narrative: A: *N/V: likely 2/2 gastrparesis vs less gastroenteritis - *Hypertensive urgency: -recently trialled off minoxidil for lower BP's & will likely stay off -low end BP after HD *Anemia, chronic with acute component: no active bleeding, likely 2/2 underlying production inability from comorbidites -6.7 on admit; no gross bleeding, FOBT neg -2prbc(4/6) responded well *ESRD on HD: follows with Dr. Amaya - *DM 2 w/Nephropathy & Gastroparesis: *PVD w/BKA: on plavix/statin (allergic to ASA) *Cannabis dependence: Counseling *Chronic elevation of troponin: Patient troponin is chronically mildly elevated. -above baseline on admit, case discussed with cardio who had no concern from ACS standpoint *h/o diastolic CHF: *GERD: *Depression/Anxiety: P: -[facility] for HD -monitor H&H -cont Carvedilol/clonidine/lisinopril, defer further mngmt Nephrology -gastroparesis diet -cont home basal insulin, SSI -cont plavix/statin - -ppx: SCD(once h&h stable and no concern for bleeding will start heparin)/home ppi Time Spent With Patient Time: Total time spent is greater than 50% in coordination of care (as documented) at patient's floor/unit and/or counseling patient: QUALITY VTE Deep Vein Thrombosis/Pulmonary Embolism Present on Admission: No
[2020-09-30] MEDS: LISINOPRIL 20 MG TABLET PO SCH (20:15)
[2020-10-01] MEDS: cloNIDine HCL 0.1 MG TABLET PO SCH (05:33)
[2020-10-01] MEDS: 0.9 % SODIUM CHLORIDE 10 ML SYRINGE IV SCH (05:34)
[2020-10-01 07:17] LABS: Hematocrit 43.5 % (36.0-48.0); Hemoglobin 13.3 g/dL (12.0-15.0)
[2020-10-01 07:41] LABS: Blood Urea Nitrogen 31 mg/dL (6-20); Calcium 9.6 mg/dL (8.6-10.4); Carbon Dioxide 25 mmol/L (22-30); Chloride 93 mmol/L (96-108); Glomerular Filtration Rate 12; Glucose 270 mg/dL (70-105)
--- NOTE | 2020-10-01 08:52 | Discharge Summary ---
Discharge Provider Provider Patient information: Note initiated : 10/01/20 at 8:44 am Service Date, if different from initiated Date: [] Patient: Delores Jones 50 y/o F admitted on 09/29/20 for nausea, elevated BP/N/V, Anemia, Hypertensive. Chief Complaint: [] Date of admission: 09/29/20 14:53 Discharge date: 10/01/20 Primary care physician: Pauline Espana Consults: 09/29/20 Consult to Physician [CONS] Stat Comment: Consulting Provider: Remberto Heath Reason For Exam: Physician to Consult 09/29/20 14:59 Consult to Physician [CONS] Routine Comment: Consulting Provider: Teddy Amaya Reason For Exam: Physician to Consult Discharge Meds Discharge Medications Home Medications carvedilol 12.5 mg tablet 25 mg PO BID tab 10/18/16 [History Confirmed 09/29/20 Last Taken 09/29/20] Novolog Flexpen 100 unit SQ [facility] 11/11/18 [History Confirmed 09/29/20 Last Taken 09/29/20] metoclopramide HCl 10 mg PO ACHS 01/22/19 [History Confirmed 09/29/20 Last Taken 09/29/20] Clopidogrel 75 mg PO DAILY 06/15/19 [History Confirmed 09/29/20 Last Taken 09/29/20] atorvastatin 10 mg PO DAILY 06/15/19 [History Confirmed 09/29/20 Last Taken 09/29/20] ondansetron 4 mg SL Q4-6HP PRN #10 tab 06/15/19 [Rx Confirmed 09/29/20 Last Taken 09/17/20] clonidine HCl 0.2 mg PO Q8H 01/02/20 [History Confirmed 09/29/20 Last Taken 09/29/20] lisinopril 40 mg PO QHS 01/02/20 [History Confirmed 09/29/20 Last Taken 09/29/20] Lantus U-100 Insulin 15 unit SUBCUT QAM 01/27/20 [History Confirmed 09/29/20 Last Taken 09/29/20] pantoprazole 40 mg PO BIDAC #60 tab 01/27/20 [Rx Confirmed 09/29/20 Last Taken 09/29/20] promethazine 6.25 mg PO Q8HP PRN #30 tab 01/27/20 [Rx Confirmed 09/29/20 Last Taken 09/26/20] sevelamer carbonate [Renvela] 800 mg PO ACHS 01/27/20 [History Confirmed 09/29/20 Last Taken 09/29/20] sucralfate [Carafate] 1 g PO QID #60 tab 01/30/20 [Rx Confirmed 09/29/20 Last Taken 09/29/20] sertraline 50 mg PO DAILY 03/27/20 [History Confirmed 09/29/20 Last Taken 09/29/20] minoxidil 10 mg PO QDAY PRN 09/29/20 [History Confirmed 09/29/20 Last Taken 09/29/20] COURSE Hospital Course Hospital course: Ms. Jones is a 50 year old F Presents to the ED with nausea vomiting as well has headaches above baseline. She was hypertensive in the ED and found to have low hemoglobin. There is no active source of bleeding that was found on physical exam or imaging. Stool fecal occult blood test was negative. Denied diarrhea or abdominal pain. Systolic blood pressures in 200. Her minoxidil was trialed off for a week because her blood pressure was getting low and then was to be reevaluated in a week. Her troponin was elevated as is common with her although elevated above baseline. She denies chest pain and the case was discussed with carding utility tender who had no acute concerns from an ACS standpoint. Patient will get blood with hemodialysis today. Nausea and vomiting likely from her gastroparesis versus possibly viral gastroenteritis. Patient is also depressed because she just found out her mother unexpectedly 09/30 Patient doing well and feeling better today. No nausea vomiting overnight. Patient blood pressure responded quite well to dialysis. She will get dialysis again today and then likely discharge tomorrow. Hemoglobin normal after prbc transfusion. 10/01 At baseline, hemoglobin stable. Discharged to home after discussing with Dr. Amaya. Hemodialysis outpatient tomorrow as planned. Discharge diagnosis: Acute on chronic anemia Secondary discharge diagnosis: Hypertensive urgency Nausea and vomiting Gastroparesis ESRD on hemodialysis Time Spent with Patient Time attestation: Total time spent providing and/or coordinating discharge services: 30 minutes EXAM Constitutional Vitals: Temp Pulse Resp BP Pulse Ox 97.6 F 61 12 169/81 99 10/01/20 04:01 09/30/20 16:00 10/01/20 04:01 10/01/20 04:01 10/01/20 04:01 Additional findings Additional findings: Head: Atraumatic, normal inspection. Eyes: normal appearance, no scleral icterus. Neck: full ROM Respiratory: no respiratory distress. Cardiovascular: normal rate and rhythm, S1, S2, left upper chest hemodialysis catheter GI/Abdominal: soft, nontender, no guarding. Extremities: right BKA, full range of motion, nontender. Neurological: CN II-XII intact, intact motor, intact sensation. Psychiatric: normal mood. Skin: warm, normal color Discharge Data Data Completed and Pending Labs on day of discharge: Labs from last 24 hours 10/01/20 10/01/20 05:05 05:05 Hgb 13.3 Hct 43.5 Sodium 129 L Potassium 3.8 Chloride 93 L Carbon Dioxide 25 Anion Gap 11.0 BUN 31 H Creatinine 4.1 H GFR Calculation 12 Glucose 270 H Calcium 9.6 Discharge Plan Patient/Caregiver Discharge Instructions Activity: increase activity as tolerated Diet: Renal/Consistent Carbs Prescriptions: Continued carvedilol 12.5 mg tablet 25 mg PO BID RF: 0 Novolog Flexpen Insuln.Pen 100 unit SQ ACHS RF: 0 metoclopramide HCl 10 MG tablet 10 mg PO ACHS RF: 0 atorvastatin 20 MG tablet 10 mg PO DAILY RF: 0 Clopidogrel 75 mg PO DAILY RF: 0 ondansetron 4 MG tablet 4 mg SL Q4-6HP PRN (Reason: Nausea) Qty: 10 RF: 0 clonidine HCl 0.1 MG tablet 0.2 mg PO Q8H RF: 0 lisinopril 20 MG tablet 40 mg PO QHS RF: 0 Lantus U-100 Insulin 100 unit/mL Solution 15 unit SUBCUT QAM RF: 0 sevelamer carbonate [Renvela] 800 mg Tablet 800 mg PO ACHS RF: 0 pantoprazole 40 mg Tablet,Delayed Release (Dr/Ec) 40 mg PO BIDAC Qty: 60 RF: 0 promethazine 12.5 mg Tablet 6.25 mg PO Q8HP PRN (Reason: Nausea And Vomiting) Qty: 30 RF: 0 sucralfate [Carafate] 1 gram tablet 1 g PO QID Qty: 60 RF: 0 sertraline 50 mg tablet 50 mg PO DAILY RF: 0 minoxidil 10 mg Tablet 10 mg PO QDAY PRN (Reason: high bp) RF: 0 Follow Up Plan Follow up with: Pauline Espana ARNP [Primary Care Provider] - Patient Disposition: Home, Self-Care Prognosis: Serious Rehab Potential: Fair Overall status at discharge: patient is progressing back to baseline Discharge Orders: Discharge Order (Routine); Ordered 10/01/20 Ordered By: Tico RODAS VTE Deep Vein Thrombosis/Pulmonary Embolism Present on Admission: No
[2020-10-01] MEDS: SUCRALFATE 1 GM TABLET PO SCH (09:06)
[2020-10-01] MEDS: SEVELAMER 800 MG TABLET PO SCH (09:06)
[2020-10-01] MEDS: PANTOPRAZOLE 40 MG VIAL IV SCH (09:06)
[2020-10-01] MEDS: METOCLOPRAMIDE 10 MG TABLET PO SCH (09:06)
[2020-10-01] MEDS: CARVEDILOL 12.5 MG TABLET PO SCH (09:14)
[2020-10-01] MEDS: DOCUSATE SODIUM 100 MG CAPSULE PO SCH (09:14)
[2020-10-01] MEDS: INSULIN LISPRO 1 UNIT/0.01 ML UNIT SQ SCH (09:37)
[2020-10-01] MEDS: INSULIN GLARGINE, HUMAN 1 UNIT/0.01 ML SQ SCH (09:38)
[2020-10-01] MEDS: ATORVASTATIN 20 MG TABLET PO SCH (09:41)
[2020-10-01] MEDS: SERTRALINE 50 MG TABLET PO SCH (09:41)
[2020-10-01] MEDS: CLOPIDOGREL 75 MG TABLET PO SCH (09:41)
== END 2020-10-01 10:20 | disposition home or self-care (01) | DRG 811 ==
LOC: ED 08:58 → ICU 14:53
PROVIDERS: ADMIT Internal Medicine; ATTEND Internal Medicine